=== PATIENT | female | born 1960 | race Caucasian/White ===

== ENCOUNTER 2016-08-26 11:48 | Inpatient (IN) | payer MEDICARE, OTHER ==
[~2016-08-26] VITALS: Ht 160 cm; Wt 68.0 kg
[2016-08-26 12:24] LABS: BASO % 1 % (0-3); EOS # 0.1 x10^3/uL (0.0-0.7); EOS % 2 % (0-3); HEMATOCRIT 40.6 % (36.0-47.0); HEMOGLOBIN 13.4 g/dL (12.0-15.5); LYMPH # 1.3 x10^3/uL (1.0-4.8); LYMPH % 26 % (24-48); MEAN CORPUSCULAR HEMOGLOBIN 28 pg (25-35); MEAN CORPUSCULAR HGB CONC 33 g/dL (31-37); MEAN CORPUSCULAR VOLUME 86 fL (79-100); MONO # 0.6 x10^3/uL (0.0-1.1); MONO % 11 % (0-9); NEUT % 60 % (31-73); PLATELET COUNT 204 x10^3/uL (140-400); RED BLOOD COUNT 4.73 x10^6/uL (3.50-5.40); RED CELL DISTRIBUTION WIDTH 13.1 % (11.5-14.5)
[2016-08-26 12:44] LABS: ALBUMIN 3.4 g/dL (3.4-5.0); ALBUMIN/GLOBULIN RATIO 0.8 (1.0-1.7); CALCIUM 8.7 mg/dL (8.5-10.1); CREATININE 0.9 mg/dL (0.6-1.0); GFR 64.5; POTASSIUM 3.8 mmol/L (3.5-5.1); TOTAL BILIRUBIN 0.4 mg/dL (0.2-1.0); TOTAL PROTEIN 7.7 g/dL (6.4-8.2)
--- NOTE | 2016-08-26 12:44 | PHYS DOC ---
Past History Past Medical History: Dementia Past Surgical History: No Surgical History, Alcohol Use: None Drug Use: None Adult General Chief Complaint Chief Complaint: PSYCH EVALUATION [facility] Patient is a 56 year old F who presents with increasing agitation with dementia. She has been taking all her medications. Her only recent medical history is that she had a tooth pulled 08/17/16. She has been rinsing her mouth but feels that she has had increasing pain where the tooth was pulled No other concerns at this time. History is limited due to cognitive function as well as difficulty with word finding. Both her mother and her daughter were present and contributed to her history Review of Systems Review of Systems Constitutional: Denies fever or chills [] Eyes: Denies change in visual acuity, redness, or eye pain [] HENT: Denies nasal congestion or sore throat [] Respiratory: Denies cough or shortness of breath [] Cardiovascular: No additional information not addressed in HPI [] GI: Denies abdominal pain, nausea, vomiting, bloody stools or diarrhea [] : Denies dysuria or hematuria [] Musculoskeletal: Denies back pain or joint pain [] Integument: Denies rash or skin lesions [] Neurologic: Denies headache, focal weakness or sensory changes [] Endocrine: Denies polyuria or polydipsia [] Family History Family History Reviewed Current Medications Current Medications reviewed Allergies Allergies Coded Allergies Type Severity Reaction Last Updated Verified No Known Drug Allergies 08/26/16 No Physical Exam Physical Exam Constitutional: Well developed, well nourished, no acute distress, non-toxic appearance. [] HENT: Normocephalic, atraumatic, oropharynx moist, no oral exudates, R lower posterior tooth socket mild erythema with TTP appearing to have mild infection Eyes: PERRLA, EOMI, conjunctiva normal, no discharge. [] Neck: Normal range of motion, no tenderness, supple, no stridor. [] Cardiovascular:Heart rate regular rhythm, no murmur [] Lungs & Thorax: Bilateral breath sounds clear to auscultation [] Abdomen: Bowel sounds normal, soft, no tenderness, no masses, no pulsatile masses. [] Skin: Warm, dry, no erythema, no rash. [] Back: No tenderness, no CVA tenderness. [] Extremities: No tenderness, no cyanosis, no clubbing, ROM intact, no edema. [] Neurologic: Alert and oriented X 3, normal motor function, normal sensory function, no focal deficits noted. However she occasionally has trouble with word finding. She seems to pronounce well but occasionally has nonsensical words Psychologic: Affect normal, judgement normal, mood normal. [] Current Patient Data Vital Signs Vital Signs Date Time Temp Pulse Resp B/P (MAP) Pulse Ox O2 Delivery O2 Flow Rate FiO2 08/26/16 11:48 98.2 76 18 98 Room Air Lab Results Laboratory Tests Test 08/26/16 12:12 White Blood Count 5.0 x10^3/uL (4.0-11.0) Red Blood Count 4.73 x10^6/uL (3.50-5.40) Hemoglobin 13.4 g/dL (12.0-15.5) Hematocrit 40.6 % (36.0-47.0) Mean Corpuscular Volume 86 fL (79-100) Mean Corpuscular Hemoglobin 28 pg (25-35) Mean Corpuscular Hemoglobin Concent 33 g/dL (31-37) Red Cell Distribution Width 13.1 % (11.5-14.5) Platelet Count 204 x10^3/uL (140-400) Neutrophils (%) (Auto) 60 % (31-73) Lymphocytes (%) (Auto) 26 % (24-48) Monocytes (%) (Auto) 11 % (0-9) H Eosinophils (%) (Auto) 2 % (0-3) Basophils (%) (Auto) 1 % (0-3) Neutrophils # (Auto) 3.0 x10^3uL (1.8-7.7) Lymphocytes # (Auto) 1.3 x10^3/uL (1.0-4.8) Monocytes # (Auto) 0.6 x10^3/uL (0.0-1.1) Eosinophils # (Auto) 0.1 x10^3/uL (0.0-0.7) Basophils # (Auto) 0.0 x10^3/uL (0.0-0.2) EKG EKG Interpreted by emergency department physician Rhythm: NSR Rate: 76 Ectopy: none Clinical Impression: NSR Course & Med Decision Making Course & Med Decision Making Pertinent Labs and Imaging studies reviewed. (See chart for details) [] Dragon Disclaimer Dragon Disclaimer This chart was dictated in whole or in part using Voice Recognition software in a busy, high-work load, and often noisy Emergency Department environment. It may contain unintended and wholly unrecognized errors or omissions. Departure Departure: Impression: Primary Impression: Medical clearance for psychiatric admission Additional Impression: Dental infection Disposition: 65 XFER TO PSYCH HOSP/UNIT Condition: STABLE Referrals: JESU CASTELLANOS MD (PCP) Additional Instructions: She was treated with augmentin in the ED for a possible oral infection after having had a tooth pulled Problem Qualifiers CARIE KENNEDY MD Aug 26, 2016 12:44
[2016-08-26 13:27] LABS: BACTERIA,URINE 0 /HPF (0-FEW); BILIRUBIN,URINE NEG (NEG); CLARITY,URINE CLOUDY; COLOR,URINE YELLOW; GLUCOSE,URINE NEG (NEG); NITRITE,URINE NEG (NEG); RBC,URINE RARE /HPF (0-2); SQUAMOUS EPITHELIAL CELL,UR OCC /LPF; UROBILINOGEN,URINE 1 mg/dL (0.2 mg/dL); WBC,URINE OCC /HPF (0-4)
[2016-08-26] MEDS ORDERED: AMOXICILLIN/K CLAV 875/125MG TABLET. PO ONE (14:10)
[2016-08-26] MEDS ORDERED: CYAN500L4 PO (14:11)
[2016-08-26] MEDS ORDERED: ESCITALOPRAM OX20 MG PO (14:11)
[2016-08-26] MEDS ORDERED: QUET50TA5 PO ×2 (14:11)
[2016-08-26] MEDS ORDERED: MAGNESIUM HYDROXIDE 2,400 MG/30 ML ORAL.SUSP. PO PRN (15:00)
[2016-08-26] MEDS ORDERED: ACETAMINOPHEN 325 MG TABLET PO PRN (15:00)
[2016-08-26] MEDS ORDERED: METHYL SALICYLATE/MENTHOL TOPICAL OINTMENT 29GM TUBE. TP PRN (15:00)
[2016-08-26] MEDS ORDERED: MAG HYDROX/AL HYDROX/SIMETH 30 ML ORAL.SUSP PO PRN (15:00)
[2016-08-26 15:13] VITALS: BP 133/71
--- NOTE | 2016-08-26 15:16 | EKG ---
[address] [address] Test Date: 2016-08-26 Test Time: 12:22:45 Pat Name: PACO DONNELLY Department: Room: Gender: F Agile Business Analyst: SARAH : 1960 Requested By: CARIE KENNEDY Order Number: [id number] Reading MD: Measurements Intervals [place] Rate: 76 P: 1 [place]: 122 QRS: 66 QRSD: 84 T: 42 QT: 364 QTc: 409 Interpretive Statements SINUS RHYTHM QRS(T) CONTOUR ABNORMALITY CANNOT RULE OUT ANTEROSEPTAL MYOCARDIAL DAMAGE CONSISTENT WITH INFERIOR INFARCT PROBABLY OLD RI6.01 Unconfirmed report No previous ECG available for comparison
--- NOTE | 2016-08-26 16:06 | PDOC2 ---
CONSULT Date of Admission DATE: 08/26/16 TIME: 15:57 Reason for Consult: hallucinating , combative crying refusing medication , anxious and agitated Referring Physician: Dr Dolan Chief Complaint hallucinatinating, combative Source: Caregiver Problem List Problems Medical Problems: (1) Dental infection Status: Acute (2) Medical clearance for psychiatric admission Status: Acute History of Present Illness The patient was diagnosed with dementia about 6 years ago , living with her mother who stated that she is hallucinating , combative crying refusing medication more anxious and agitated Cardiovascular: No pertinent hx Pulmonary: No pertinent hx GI: No pertinent hx Heme/Onc: No pertinent hx Hepatobiliary: No pertinent hx Psych: No pertinent hx Musculoskeletal: No pertinent hx Rheumatologic: No pertinent hx Infectious disease: No pertinent hx ENT: No pertinent hx Renal/: No pertinent hx Endocrine: No pertinent hx Dermatology: No pertinent hx Past Surgical History: Hysterectomy, Other (back surgery) Smoke: No ALCOHOL: none Drugs: None Lives: with Family Current Medications Current Medications Amoxicillin/ Clavulanate Potassium (Augmentin 875/ 125mg) 1 tab 1X ONCE PO Last administered on 08/26/16t 13:53; Start 08/26/16 at 14:10; Stop 08/26/16 at 14:12; Status DC Acetaminophen (Tylenol) 650 mg PRN Q6HRS PRN PO PAIN / TEMP; Start 08/26/16 at 15:00 Multi-Ingredient Ointment (Analgesic [place]) 1 damion PRN QID PRN TP MUSCLE PAIN; Start 08/26/16 at 15:00 Al Hydroxide/Mg Hydroxide (Mylanta Plus Xs) 15 ml PRN AFTMEALHC PRN PO DYSPEPSIA; Start 08/26/16 at 15:00 Magnesium Hydroxide (Milk Of Magnesia) 2,400 mg PRN QHS PRN PO CONSTIPATION; Start 08/26/16 at 15:00 Quetiapine Fumarate (SEROquel) 50 mg NOON PO ; Start 08/27/16 at 12:00 Quetiapine Fumarate (SEROquel) 75 mg HS PO ; Start 08/26/16 at 21:00 Cyanocobalamin (Vitamin B-12) 250 mcg DAILY PO ; Start 08/27/16 at 09:00 Escitalopram Oxalate (Lexapro) 20 mg DAILY PO ; Start 08/27/16 at 09:00 Active Scripts Active Reported B-12 (Cyanocobalamin (Vitamin B-12)) 500 Mcg Tab.rapdis 250 Mcg SL DAILY Escitalopram Oxalate 20 Mg Tablet 20 Mg PO DAILY Seroquel (Quetiapine Fumarate) 50 Mg Tablet 50 Mg PO NOON Seroquel (Quetiapine Fumarate) 50 Mg Tablet 75 Mg PO HS PRN Allergies: Coded Allergies: No Known Drug Allergies (Unverified , 08/26/16) General: Alert, No acute distress HEENT: Atraumatic, PERRLA, EOMI Lungs: Clear to auscultation Heart: Regular rate, Normal S1, Normal S2, No murmurs, Gallops Abdomen: Normal bowel sounds, No tenderness Extremities: No clubbing, No cyanosis, No edema Skin: No rashes Neuro: Normal gait Psych/Mental Status: Other (demented and depressed) VITALS Vital Signs Date Time Temp Pulse Resp B/P (MAP) Pulse Ox O2 Delivery O2 Flow Rate FiO2 08/26/16 15:13 98.9 84 18 133/71 (91) 98 Room Air Labs Laboratory Tests Test 08/26/16 12:12 08/26/16 13:00 White Blood Count 5.0 x10^3/uL (4.0-11.0) Red Blood Count 4.73 x10^6/uL (3.50-5.40) Hemoglobin 13.4 g/dL (12.0-15.5) Hematocrit 40.6 % (36.0-47.0) Mean Corpuscular Volume 86 fL (79-100) Mean Corpuscular Hemoglobin 28 pg (25-35) Mean Corpuscular Hemoglobin Concent 33 g/dL (31-37) Red Cell Distribution Width 13.1 % (11.5-14.5) Platelet Count 204 x10^3/uL (140-400) Neutrophils (%) (Auto) 60 % (31-73) Lymphocytes (%) (Auto) 26 % (24-48) Monocytes (%) (Auto) 11 % (0-9) Eosinophils (%) (Auto) 2 % (0-3) Basophils (%) (Auto) 1 % (0-3) Neutrophils # (Auto) 3.0 x10^3uL (1.8-7.7) Lymphocytes # (Auto) 1.3 x10^3/uL (1.0-4.8) Monocytes # (Auto) 0.6 x10^3/uL (0.0-1.1) Eosinophils # (Auto) 0.1 x10^3/uL (0.0-0.7) Basophils # (Auto) 0.0 x10^3/uL (0.0-0.2) Sodium Level 144 mmol/L (136-145) Potassium Level 3.8 mmol/L (3.5-5.1) Chloride Level 108 mmol/L (98-107) Carbon Dioxide Level 28 mmol/L (21-32) Anion Gap 8 (6-14) Blood Urea Nitrogen 13 mg/dL (7-20) Creatinine 0.9 mg/dL (0.6-1.0) Estimated GFR (Cockcroft-Gault) 64.5 BUN/Creatinine Ratio 14 (6-20) Glucose Level 77 mg/dL (70-99) Calcium Level 8.7 mg/dL (8.5-10.1) Magnesium Level 2.0 mg/dL (1.8-2.4) Total Bilirubin 0.4 mg/dL (0.2-1.0) Aspartate Amino Transf (AST/SGOT) 56 U/L (15-37) Alanine Aminotransferase (ALT/SGPT) 79 U/L (14-59) Alkaline Phosphatase 56 U/L (46-116) Total Protein 7.7 g/dL (6.4-8.2) Albumin 3.4 g/dL (3.4-5.0) Albumin/Globulin Ratio 0.8 (1.0-1.7) Urine Collection Type Unknown Urine Color Yellow Urine Clarity Cloudy Urine pH 6.0 Urine Specific [place] >=1.030 Urine Protein Neg (NEG-TRACE) Urine Glucose (UA) Neg mg/dL (NEG) Urine Ketones (Stick) Neg mg/dL (NEG) Urine Blood Neg (NEG) Urine Nitrite Neg (NEG) Urine Bilirubin Neg (NEG) Urine Urobilinogen Dipstick 1 mg/dL (0.2 mg/dL) Urine Leukocyte Esterase Neg (NEG) Urine RBC Rare /HPF (0-2) Urine WBC Occ /HPF (0-4) Urine Squamous Epithelial Cells Occ /LPF Urine Bacteria 0 /HPF (0-FEW) Urine Mucus Marked /LPF Assessment/Plan A 56 years old CF with Alzheimer disease who lives with her mother who has noted that she is hallucinating, combative crying refusing medication increasingly anxious and agitated Medically she is stable . In fact she has no medical problems . Her vitals are stable and all her lab works that I have reviewed are so far within normal range Problems: DELPHINE GRAHAM MD Aug 26, 2016 16:06
[2016-08-26] MEDS: QUEtiapine 50 MG TABLET. PO SCH (20:25)
[2016-08-27 05:41] VITALS: BP 110/76
[2016-08-27] MEDS: CYANOCOBALAMIN (VITAMIN B-12) 250 MCG TABLET PO SCH (08:02)
[2016-08-27] MEDS ORDERED: ESCITALOPRAM 20 MG TABLET. PO SCH (09:00)
[2016-08-27 09:33] LABS: BASO % 1 % (0-3); EOS # 0.1 x10^3/uL (0.0-0.7); EOS % 1 % (0-3); HEMATOCRIT 38.8 % (36.0-47.0); HEMOGLOBIN 12.8 g/dL (12.0-15.5); LYMPH # 1.5 x10^3/uL (1.0-4.8); LYMPH % 25 % (24-48); MEAN CORPUSCULAR HEMOGLOBIN 28 pg (25-35); MEAN CORPUSCULAR HGB CONC 33 g/dL (31-37); MEAN CORPUSCULAR VOLUME 86 fL (79-100); MONO # 0.7 x10^3/uL (0.0-1.1); MONO % 12 % (0-9); NEUT # 3.5 x10^3uL (1.8-7.7); NEUT % 61 % (31-73); PLATELET COUNT 196 x10^3/uL (140-400); RED BLOOD COUNT 4.55 x10^6/uL (3.50-5.40); WHITE BLOOD COUNT 5.8 x10^3/uL (4.0-11.0)
[2016-08-27 09:42] LABS: CALCIUM 8.8 mg/dL (8.5-10.1); GFR 57.1; POTASSIUM 3.7 mmol/L (3.5-5.1)
[2016-08-27] MEDS: QUEtiapine 50 MG TABLET. PO SCH ×2 (12:54→19:51)
[2016-08-27 14:30] LABS: THYROID STIM HORMONE (TSH) 0.43 uIU/mL (0.358-3.740)
[2016-08-27 16:06] VITALS: BP 105/73
[2016-08-27 18:09] LABS: T3 TOTAL 88 ng/dL (71-180); THYROXINE 6.1 ug/dL (4.5-12.0)
--- NOTE | 2016-08-27 20:11 | PDOC ---
Exam Mario Alberto Demential Exam: Mario Alberto Note: Please also refer to the separate dictated note~for this date of service dictated separately.~Patient seen individually. Discussed the patient with Nursing staff reviewed the chart.~Reviewed interim history and current functioning. Reviewed vital signs,~Labs/ Radiology~and current medications noted below. Continue current treatment with the changes noted in the dictated addendum note Assessment: Vital Signs: Vital Signs Date Time Temp Pulse Resp B/P (MAP) Pulse Ox O2 Delivery O2 Flow Rate FiO2 08/27/16 16:06 97.2 106 18 105/73 (84) 95 08/26/16 15:13 Room Air I&O Intake and Output 08/27/16 07:00 Intake Total 240 ml Balance 240 ml Intake Oral 240 ml Labs: Laboratory Tests Test 08/27/16 09:27 White Blood Count 5.8 x10^3/uL (4.0-11.0) Red Blood Count 4.55 x10^6/uL (3.50-5.40) Hemoglobin 12.8 g/dL (12.0-15.5) Hematocrit 38.8 % (36.0-47.0) Mean Corpuscular Volume 86 fL (79-100) Mean Corpuscular Hemoglobin 28 pg (25-35) Mean Corpuscular Hemoglobin Concent 33 g/dL (31-37) Red Cell Distribution Width 13.0 % (11.5-14.5) Platelet Count 196 x10^3/uL (140-400) Neutrophils (%) (Auto) 61 % (31-73) Lymphocytes (%) (Auto) 25 % (24-48) Monocytes (%) (Auto) 12 % (0-9) H Eosinophils (%) (Auto) 1 % (0-3) Basophils (%) (Auto) 1 % (0-3) Neutrophils # (Auto) 3.5 x10^3uL (1.8-7.7) Lymphocytes # (Auto) 1.5 x10^3/uL (1.0-4.8) Monocytes # (Auto) 0.7 x10^3/uL (0.0-1.1) Eosinophils # (Auto) 0.1 x10^3/uL (0.0-0.7) Basophils # (Auto) 0.0 x10^3/uL (0.0-0.2) Sodium Level 142 mmol/L (136-145) Potassium Level 3.7 mmol/L (3.5-5.1) Chloride Level 106 mmol/L (98-107) Carbon Dioxide Level 26 mmol/L (21-32) Anion Gap 10 (6-14) Blood Urea Nitrogen 13 mg/dL (7-20) Creatinine 1.0 mg/dL (0.6-1.0) Estimated GFR (Cockcroft-Gault) 57.1 Glucose Level 111 mg/dL (70-99) H Calcium Level 8.8 mg/dL (8.5-10.1) Current Medications: Meds: Current Medications Amoxicillin/ Clavulanate Potassium (Augmentin 875/ 125mg) 1 tab 1X ONCE PO Last administered on 08/26/16 13:53; Start 08/26/16 at 14:10; Stop 08/26/16 at 14:12; Status DC Acetaminophen (Tylenol) 650 mg PRN Q6HRS PRN PO PAIN / TEMP Last administered on 08/27/16 08:27; Start 08/26/16 at 15:00 Multi-Ingredient Ointment (Analgesic [place]) 1 damion PRN QID PRN TP MUSCLE PAIN; Start 08/26/16 at 15:00 Al Hydroxide/Mg Hydroxide (Mylanta Plus Xs) 15 ml PRN AFTMEALHC PRN PO DYSPEPSIA; Start 08/26/16 at 15:00 Magnesium Hydroxide (Milk Of Magnesia) 2,400 mg PRN QHS PRN PO CONSTIPATION Last administered on 08/26/16 20:32; Start 08/26/16 at 15:00 Quetiapine Fumarate (SEROquel) 50 mg NOON PO Last administered on 08/27/16 12: 54; Start 08/27/16 at 12:00 Quetiapine Fumarate (SEROquel) 75 mg HS PO Last administered on 08/27/16 19:51 ; Start 08/26/16 at 21:00 Cyanocobalamin (Vitamin B-12) 250 mcg DAILY PO Last administered on 08/27/16 08:02; Start 08/27/16 at 09:00 Escitalopram Oxalate (Lexapro) 20 mg DAILY PO Last administered on 08/27/16 08 :02; Start 7/20/17 at 09:00 Active Scripts Active Reported B-12 (Cyanocobalamin (Vitamin B-12)) 500 Mcg Tab.rapdis 250 Mcg SL DAILY Escitalopram Oxalate 20 Mg Tablet 20 Mg PO DAILY Seroquel (Quetiapine Fumarate) 50 Mg Tablet 50 Mg PO NOON Seroquel (Quetiapine Fumarate) 50 Mg Tablet 75 Mg PO HS Diagnosis: Problems: (1) Medical clearance for psychiatric admission ADELA RHODES MD Aug 27, 2016 20:11
--- NOTE | 2016-08-27 21:53 | HP ---
ADMIT DATE: 08/26/2016 This is a late entry for date of service 08/26/2016 IDENTIFYING DATA: The patient is a 56-year-old female referred to us from [facility] and admitted from her home where she lives with her mother, Ansley. The patient has been going to the [facility] for some time, but more recently has been hallucinating, combative, crying with increased aggression with cares, resistive to medications, increased anxiousness and agitation. Behaviors have failed outpatient psychiatric intervention at the [facility] and she is referred for inpatient psychiatric stabilization. CHIEF COMPLAINT: "No." The patient is not very verbal, seemed oblivious of her surroundings. HISTORY OF PRESENT ILLNESS: The patient has a history of dementia, Alzheimer's and possibly frontotemporal. There is no significant family history of Alzheimer disease, however. She has been living at home with her mother and outpatient treatment has been at the [facility] as noted above. As noted, she has had increased hallucinations, has been combative, crying, increased aggression with cares. Resistive with medications. She has had some sleep and appetite changes. No clear symptoms of bipolar disorder, suicidal or homicidal ideation. PAST PSYCHIATRIC HISTORY: As noted above. DRUG ALLERGIES: Negative CODE STATUS: Full. DIET: She is on a regular diet. CURRENT PSYCHOTROPICS: Lexapro 20 mg a day, Seroquel 75 mg at bedtime and 50 mg in the afternoon. MEDICAL HISTORY: UA has been negative. PET scan done at [facility] was reflective of the above diagnosis. SURGICAL HISTORY: Positive for back surgery. FAMILY HISTORY: Noncontributory other than her grandmother had memory problems, but not until her rather late age. History of depression in the family. SOCIAL HISTORY: The patient resides at home with her mother. No alcohol or drug abuse history is noted. REVIEW OF SYSTEMS: No CV, , eye, ENT, pulmonary, integumentary system symptoms on review. Reliability poor due to her dementia. MENTAL STATUS EXAMINATION: The patient was seen individually evening of 08/26/2016. She is oriented to herself. Insight, judgment, recent and remote memory, attention, concentration, fund of knowledge poor, consistent with her diagnosis. This note covers elements not covered in my initial note. IMPRESSION: Major neurocognitive disorder, probably Alzheimer's, frontotemporal with delusion, depression, behavioral disturbance; anxiety disorder, unspecified; impulse control disorder, unspecified. PLAN: Admit to the geropsychiatry unit at [facility]. I will see the patient daily individually from a psychiatric standpoint. Observe the patient's baseline and then adjust her psychotropics. Consideration will be given to Depakote as a mood stabilizer and perhaps changing the Lexapro to an SNRI agent, perhaps Cymbalta. Seroquel should be continued for now. We will consider BuSpar if anxiety symptoms are problematic despite the above. We will request medical followup with Dr. Jaime/Dr. Rosales. ADELA RHODES MD DR: ELIZABETH/nts JOB#: [id number] / [id number]
[2016-08-28 00:10] LABS: HEMOGLOBIN A1C 5.3 % (4.8-5.6)
--- NOTE | 2016-08-28 02:11 | ACF ---
Admit Criteria Forms Admit Criteria Forms Admit Criteria Forms PSYCHIATRIC DISORDERS Clinical Indications for Inpatient Care (Place 'X' for any and all applicable criteria): Ongoing inpatient care may be needed for 1 or more of the following(1)(2)(3)(4)( 6)(7)(8): [ ]I. Danger to self or others not manageable at lower level of care. [ ]II. Grave disability (eg, inability to perform self care necessary at lower level of care) [ ]III. Agitation or inappropriate behavior interfering with care for primary condition (eg, attempting to discontinue lines or drains prematurely, unable to cooperate with respiratory care) [X]IV. Severe disability or disorder indicated by ALL of the following: [X]a) Severe behavioral health disorder-related symptoms or condition indicated by 1 or more of the following: [X]i) Severe problem with cognition, memory, judgment, or impulse control [X]ii) Severe clinical manifestations (eg, hallucinations, delusions, other acute psychotic symptoms, ben, extreme agitation or anxiety) [X]b) Patient management at lower level of care is not feasible until acute intervention or modification is initiated. Extended stay beyond goal length of stay for the primary condition may be needed untilALLof the following are present(1)(2)(3)(4)(722)(23): [ ]a) Danger to self or others is absent or manageable at lower level of care [ ]b) Behavior crisis management, including physical or chemical restraints, is required and is not available at a lower level of care. [ ]c) Behavioral symptoms (e.g., agitation, somnolence, inappropriate behavior) are present, and are not manageable at a lower level of care. [ ]d) Patient cannot understand follow-up treatment and crisis plan. [ ]e) Provider and supports are sufficiently available at lower level of care. [ ]f) Patient can participate (e.g., verify absence of plan for harm) and is in needed of monitoring. The original [facility] [employer] content created by [employer] [facility] [employer] Fourth [employer] has been revised. The portions of the content which have been revised are identified through the use of italic text, and [facility] [employer] Fourth Act has neither reviewed nor approved the modified material. All other unmodified content is copyright [facility] [employer]. Please see references footnoted in the original [facility] edition 2014 BEL HOLLEY Aug 28, 2016 02:11
[2016-08-28 06:32] VITALS: BP 113/69
[2016-08-28] MEDS: CYANOCOBALAMIN (VITAMIN B-12) 250 MCG TABLET PO SCH (08:35)
[2016-08-28] MEDS ORDERED: ESCITALOPRAM 10 MG TABLET. PO SCH (09:00)
[2016-08-28] MEDS: QUEtiapine 50 MG TABLET. PO SCH ×2 (12:00→19:49)
[2016-08-28 15:55] VITALS: BP 110/73
--- NOTE | 2016-08-28 22:02 | PDOC ---
Exam Mario Alberto Demential Exam: Mario Alberto Note: Please also refer to the separate dictated note~for this date of service dictated separately.~Patient seen individually. Discussed the patient with Nursing staff reviewed the chart.~Reviewed interim history and current functioning. Reviewed vital signs,~Labs/ Radiology~and current medications noted below. Continue current treatment with the changes noted in the dictated addendum note Assessment: Vital Signs: Vital Signs Date Time Temp Pulse Resp B/P (MAP) Pulse Ox O2 Delivery O2 Flow Rate FiO2 08/28/16 15:55 98.6 81 19 110/73 (85) 96 08/26/16 15:13 Room Air I&O Intake and Output 08/28/16 07:00 Intake Total 960 ml Balance 960 ml Intake Oral 960 ml # Bowel Movements 1 Current Medications: Meds: Current Medications Amoxicillin/ Clavulanate Potassium (Augmentin 875/ 125mg) 1 tab 1X ONCE PO Last administered on 08/26/16 13:53; Start 08/26/16 at 14:10; Stop 08/26/16 at 14:12; Status DC Acetaminophen (Tylenol) 650 mg PRN Q6HRS PRN PO PAIN / TEMP Last administered on 08/27/16 08:27; Start 08/26/16 at 15:00 Multi-Ingredient Ointment (Analgesic [place]) 1 damion PRN QID PRN TP MUSCLE PAIN; Start 08/26/16 at 15:00 Al Hydroxide/Mg Hydroxide (Mylanta Plus Xs) 15 ml PRN AFTMEALHC PRN PO DYSPEPSIA; Start 08/26/16 at 15:00 Magnesium Hydroxide (Milk Of Magnesia) 2,400 mg PRN QHS PRN PO CONSTIPATION Last administered on 08/26/16 20:32; Start 08/26/16 at 15:00 Quetiapine Fumarate (SEROquel) 50 mg NOON PO Last administered on 08/28/16 12: 00; Start 08/27/16 at 12:00 Quetiapine Fumarate (SEROquel) 75 mg HS PO Last administered on 08/28/16 19:49 ; Start 08/26/16 at 21:00 Cyanocobalamin (Vitamin B-12) 250 mcg DAILY PO Last administered on 08/28/16 08:35; Start 08/27/16 at 09:00 Escitalopram Oxalate (Lexapro) 20 mg DAILY PO Last administered on 08/27/16 08 :02; Start 08/27/16 at 09:00; Stop 08/27/16 at 22:31; Status DC Escitalopram Oxalate (Lexapro) 30 mg DAILY PO Last administered on 08/28/16 08 :36; Start 08/28/16 at 09:00; Stop 08/28/16 at 09:18; Status DC Escitalopram Oxalate (Lexapro) 60 mg DAILY PO ; Start 09/02/16 at 09:00; Status Cancel Duloxetine HCl (Cymbalta) 30 mg DAILY PO ; Start 08/29/16 at 09:00; Stop at 09:01 Duloxetine HCl (Cymbalta) 60 mg DAILY PO ; Start 09/03/16 at 09:00 Active Scripts Active Reported B-12 (Cyanocobalamin (Vitamin B-12)) 500 Mcg Tab.rapdis 250 Mcg SL DAILY Escitalopram Oxalate 20 Mg Tablet 20 Mg PO DAILY Seroquel (Quetiapine Fumarate) 50 Mg Tablet 50 Mg PO NOON Seroquel (Quetiapine Fumarate) 50 Mg Tablet 75 Mg PO HS Diagnosis: Problems: (1) Medical clearance for psychiatric admission ADELA RHODES MD Aug 28, 2016 22:02
--- NOTE | 2016-08-28 22:36 | PN ---
DATE: 08/27/2016 PSYCHIATRIC PROGRESS NOTE SUBJECTIVE: The patient was seen on rounds at length the evening of 08/27/2016 and staffed at a treatment team meeting with the entire team the morning of 08/27/2016 and the patient's mother, Ansley attended the conference. We reviewed the patient's history, diagnosis, current medications. Sleeping about 3-1/2 to 4 hours. Appetite about 75%. Compliant with medication, running the hallways, likes to dance per activity therapy report. Reviewed records from [facility]. Reviewed the patient's history with her mother. She remains somewhat labile in her mood, but redirectable. REVIEW OF SYSTEMS: No CV, , eye, ENT or pulmonary system symptoms on review. Reliability poor. MENTAL STATUS EXAM: Oriented to herself. Insight, judgment, recent and remote memory, attention, concentration, fund of knowledge poor, consistent with her diagnosis mentioned in my initial note. PLAN: Continue Lexapro 20 mg a day, Seroquel 75 mg at bedtime and 50 mg in the afternoon. Consider Depakote as a mood stabilizer. Consider changing Lexapro to Cymbalta and in fact, we will go ahead and do this 30 mg a day for 5 days and then 60 mg a day thereafter. Again consider Depakote as a mood stabilizer. MAN Marquita RHODES MD DR: ELIZABETH/wellington JOB#: [id number] / [id number]
[2016-08-29 05:58] VITALS: BP 126/65
[2016-08-29] MEDS: CYANOCOBALAMIN (VITAMIN B-12) 250 MCG TABLET PO SCH (08:09)
[2016-08-29] MEDS: DULoxetine HCL 30 MG CAPSULE.DR PO SCH (08:10)
--- NOTE | 2016-08-29 09:54 | PN ---
DATE: 08/28/2016 PSYCHIATRIC PROGRESS NOTE This late entry of 08/28/2016 covers elements not covered in my initial note. SUBJECTIVE: The patient was seen individually by myself, evening of 08/28/2016. The patient remains confused, wandering the hallways, not running as she was the day before. Speech is word salad per nursing report. I received a call from the pharmacist to clarify her psychotropics and the change from Lexapro to Cymbalta 30 mg a day, increasing to 60 mg a day. REVIEW OF SYSTEMS: No CV, , pulmonary, eye, ENT system symptoms on review. Reliability poor. MENTAL STATUS EXAM: Oriented to herself. Insight, judgment, recent and remote memory, attention, concentration, fund of knowledge poor, consistent with her diagnosis mentioned in my initial note. IMPRESSION: Major neurocognitive disorder, Alzheimer, vascular with depression, delusion and behavioral disturbance; anxiety disorder, unspecified; impulse control disorder, unspecified. PLAN: Continue current psychotropics, Seroquel and Cymbalta. Consider Depakote as a mood stabilizer. Adjust further as clinically indicated. MAN Marquita RHODES MD DR: ELIZABETH/wellington JOB#: [id number] / [id number]
--- NOTE | 2016-08-29 11:51 | PDOC ---
Exam Mario Alberto Demential Exam: Mario Alberto Note: Please also refer to the separate dictated note~for this date of service dictated separately.~Patient seen individually. Discussed the patient with Nursing staff reviewed the chart.~Reviewed interim history and current functioning. Reviewed vital signs,~Labs/ Radiology~and current medications noted below. Continue current treatment with the changes noted in the dictated addendum note Assessment: Vital Signs: Vital Signs Date Time Temp Pulse Resp B/P (MAP) Pulse Ox O2 Delivery O2 Flow Rate FiO2 08/29/16 05:58 98.2 59 18 126/65 (85) 94 08/26/16 15:13 Room Air I&O Intake and Output 08/29/16 07:00 Intake Total 360 ml Balance 360 ml Intake Oral 360 ml Current Medications: Meds: Current Medications Amoxicillin/ Clavulanate Potassium (Augmentin 875/ 125mg) 1 tab 1X ONCE PO Last administered on 08/26/16 13:53; Start 08/26/16 at 14:10; Stop 08/26/16 at 14:12; Status DC Acetaminophen (Tylenol) 650 mg PRN Q6HRS PRN PO PAIN / TEMP Last administered on 08/27/16 08:27; Start 08/26/16 at 15:00 Multi-Ingredient Ointment (Analgesic [place]) 1 damion PRN QID PRN TP MUSCLE PAIN; Start 08/26/16 at 15:00 Al Hydroxide/Mg Hydroxide (Mylanta Plus Xs) 15 ml PRN AFTMEALHC PRN PO DYSPEPSIA; Start 08/26/16 at 15:00 Magnesium Hydroxide (Milk Of Magnesia) 2,400 mg PRN QHS PRN PO CONSTIPATION Last administered on 08/26/16 20:32; Start 08/26/16 at 15:00 Quetiapine Fumarate (SEROquel) 50 mg NOON PO Last administered on 08/28/16 12: 00; Start 08/27/16 at 12:00 Quetiapine Fumarate (SEROquel) 75 mg HS PO Last administered on 08/28/16 19:49 ; Start 08/26/16 at 21:00 Cyanocobalamin (Vitamin B-12) 250 mcg DAILY PO Last administered on 08/29/16 08:09; Start 08/27/16 at 09:00 Escitalopram Oxalate (Lexapro) 20 mg DAILY PO Last administered on 08/27/16 08 :02; Start 08/27/16 at 09:00; Stop 08/27/16 at 22:31; Status DC Escitalopram Oxalate (Lexapro) 30 mg DAILY PO Last administered on 08/28/16 08 :36; Start 08/28/16 at 09:00; Stop 08/28/16 at 09:18; Status DC Escitalopram Oxalate (Lexapro) 60 mg DAILY PO ; Start 09/02/16 at 09:00; Status Cancel Duloxetine HCl (Cymbalta) 30 mg DAILY PO Last administered on 08/29/16 08:10; Start 08/29/16 at 09:00; Stop 09/02/16 at 09:01 Duloxetine HCl (Cymbalta) 60 mg DAILY PO ; Start 09/03/16 at 09:00 Active Scripts Active Reported B-12 (Cyanocobalamin (Vitamin B-12)) 500 Mcg Tab.rapdis 250 Mcg SL DAILY Escitalopram Oxalate 20 Mg Tablet 20 Mg PO DAILY Seroquel (Quetiapine Fumarate) 50 Mg Tablet 50 Mg PO NOON Seroquel (Quetiapine Fumarate) 50 Mg Tablet 75 Mg PO HS Diagnosis: Problems: (1) Medical clearance for psychiatric admission ADELA RHODES MD Aug 29, 2016 11:51
[2016-08-29] MEDS: QUEtiapine 50 MG TABLET. PO SCH ×2 (13:42→19:59)
[2016-08-29 15:35] VITALS: BP 114/75
[2016-08-29] MEDS ORDERED: PENICILLIN V K PO SCH (18:00)
[2016-08-29] MEDS ORDERED: HYDROcodone/APAP 5/325MG 1 TAB TABLET PO PRN (18:00)
[2016-08-29] MEDS: HYDROcodone/APAP 5/325MG 1 TAB TABLET PO SCH (20:01)
[2016-08-30 06:05] VITALS: BP 108/61
[2016-08-30] MEDS: DULoxetine HCL 30 MG CAPSULE.DR PO SCH ×2 (09:00→09:48)
[2016-08-30] MEDS: PENICILLIN V K 250 MG TABLET. PO SCH ×6 (09:00→20:49)
[2016-08-30] MEDS: HYDROcodone/APAP 5/325MG 1 TAB TABLET PO SCH ×3 (09:00→20:50)
[2016-08-30] MEDS: CYANOCOBALAMIN (VITAMIN B-12) 250 MCG TABLET PO SCH ×2 (09:00→09:48)
[2016-08-30] MEDS: QUEtiapine 50 MG TABLET. PO SCH ×2 (12:17→20:50)
[2016-08-30 16:19] VITALS: BP 140/84
--- NOTE | 2016-08-30 19:59 | PDOC ---
Exam Mario Alberto Demential Exam: Mario Alberto Note: Please also refer to the separate dictated note~for this date of service dictated separately.~Patient seen individually. Discussed the patient with Nursing staff reviewed the chart.~Reviewed interim history and current functioning. Reviewed vital signs,~Labs/ Radiology~and current medications noted below. Continue current treatment with the changes noted in the dictated addendum note Assessment: Vital Signs: Vital Signs Date Time Temp Pulse Resp B/P (MAP) Pulse Ox O2 Delivery O2 Flow Rate FiO2 08/30/16 16:19 98.4 101 20 140/84 (102) 98 Room Air I&O Intake and Output 08/30/16 07:00 Intake Total 600 ml Balance 600 ml Intake Oral 600 ml Current Medications: Meds: Current Medications Amoxicillin/ Clavulanate Potassium (Augmentin 875/ 125mg) 1 tab 1X ONCE PO Last administered on 08/26/16 13:53; Start 08/26/16 at 14:10; Stop 08/26/16 at 14:12; Status DC Acetaminophen (Tylenol) 650 mg PRN Q6HRS PRN PO PAIN / TEMP Last administered on 08/27/16 08:27; Start 08/26/16 at 15:00 Multi-Ingredient Ointment (Analgesic [place]) 1 damion PRN QID PRN TP MUSCLE PAIN; Start 08/26/16 at 15:00 Al Hydroxide/Mg Hydroxide (Mylanta Plus Xs) 15 ml PRN AFTMEALHC PRN PO DYSPEPSIA; Start 08/26/16 at 15:00 Magnesium Hydroxide (Milk Of Magnesia) 2,400 mg PRN QHS PRN PO CONSTIPATION Last administered on 08/26/16 20:32; Start 08/26/16 at 15:00 Quetiapine Fumarate (SEROquel) 50 mg NOON PO Last administered on 08/30/16 12: 17; Start 08/27/16 at 12:00 Quetiapine Fumarate (SEROquel) 75 mg HS PO Last administered on 08/29/16 19:59 ; Start 08/26/16 at 21:00 Cyanocobalamin (Vitamin B-12) 250 mcg DAILY PO Last administered on 08/29/16 08:09; Start 08/27/16 at 09:00 Escitalopram Oxalate (Lexapro) 20 mg DAILY PO Last administered on 08/27/16 08 :02; Start 08/27/16 at 09:00; Stop 08/27/16 at 22:31; Status DC Escitalopram Oxalate (Lexapro) 30 mg DAILY PO Last administered on 08/28/16 08 :36; Start 08/28/16 at 09:00; Stop 08/28/16 at 09:18; Status DC Escitalopram Oxalate (Lexapro) 60 mg DAILY PO ; Start 09/02/16 at 09:00; Status Cancel Duloxetine HCl (Cymbalta) 30 mg DAILY PO Last administered on 08/29/16 08:10; Start 08/29/16 at 09:00; Stop 09/02/16 at 09:01 Duloxetine HCl (Cymbalta) 60 mg DAILY PO ; Start 09/03/16 at 09:00 Penicillin V Potassium (Veetid) 500 mg Q6HRS PO ; Start 08/29/16 at 18:00; Stop 08/29/16 at 23:16; Status DC Acetaminophen/ Hydrocodone Bitart (Lortab 5/325) 1 tab PRN Q6HRS PRN PO PAIN; Start 08/29/16 at 18:00; Stop 08/29/16 at 21:00; Status DC Acetaminophen/ Hydrocodone Bitart (Lortab 5/325) 1 tab BID PO Last administered on 08/29/16 20:01; Start 08/29/16 at 21:00 Penicillin V Potassium (Veetid) 500 mg [id number] PO Last administered on 18:04; Start 08/30/16 at 09:00 Olanzapine (ZyPREXA ZYDIS) 2.5 mg PRN Q2HR PRN PO PSYCHOSIS Last administered on 08/30/16 15:44; Start 08/30/16 at 15:45 Active Scripts Active Reported B-12 (Cyanocobalamin (Vitamin B-12)) 500 Mcg Tab.rapdis 250 Mcg SL DAILY Escitalopram Oxalate 20 Mg Tablet 20 Mg PO DAILY Seroquel (Quetiapine Fumarate) 50 Mg Tablet 50 Mg PO NOON Seroquel (Quetiapine Fumarate) 50 Mg Tablet 75 Mg PO HS Diagnosis: Problems: (1) Medical clearance for psychiatric admission ADELA RHODES MD Aug 30, 2016 19:59
--- NOTE | 2016-08-30 22:55 | PN ---
DATE: 08/29/2016 This is a late entry for 08/29/2016, covers elements not covered in my initial note. SUBJECTIVE: The patient slept 5-1/4 hours previous night. Met with her the evening of 08/29/2016. She takes her medications, tearful at times. Mother and sister visited, and when they were leaving, she was tearful. REVIEW OF SYSTEMS: Positive for tooth ache. She is on antibiotics per Dr. Rosales for this. No CV, , pulmonary, eye system symptoms on review. Reliability poor. MENTAL STATUS EXAM: Oriented to herself. Insight, judgment, recent and remote memory, attention, concentration, fund of knowledge poor, consistent with her diagnosis mentioned in my initial note. PLAN: Continue Cymbalta and increasing to 60 mg a day, Seroquel 50 mg at noon, 75 at bedtime. Adjust further as clinically indicated. MAN Marquita RHODES MD DR: ELIZABETH/wellington JOB#: [id number] / [id number]
[2016-08-31 06:36] VITALS: BP 116/74
[2016-08-31] MEDS: PENICILLIN V K 250 MG TABLET. PO SCH ×4 (08:59→20:02)
[2016-08-31] MEDS: DULoxetine HCL 30 MG CAPSULE.DR PO SCH (08:59)
[2016-08-31] MEDS: CYANOCOBALAMIN (VITAMIN B-12) 250 MCG TABLET PO SCH (08:59)
[2016-08-31] MEDS: HYDROcodone/APAP 5/325MG 1 TAB TABLET PO SCH ×2 (09:00→20:01)
[2016-08-31] MEDS: QUEtiapine 50 MG TABLET. PO SCH ×2 (12:14→20:01)
[2016-08-31 16:37] VITALS: BP 135/76
[2016-08-31] MEDS ORDERED: traZODone 50 MG TABLET. PO PRN (18:45)
--- NOTE | 2016-08-31 19:52 | PDOC ---
Exam Mario Alberto Demential Exam: Mario Alberto Note: Please also refer to the separate dictated note~for this date of service dictated separately.~Patient seen individually. Discussed the patient with Nursing staff reviewed the chart.~Reviewed interim history and current functioning. Reviewed vital signs,~Labs/ Radiology~and current medications noted below. Continue current treatment with the changes noted in the dictated addendum note Assessment: Vital Signs: Vital Signs Date Time Temp Pulse Resp B/P (MAP) Pulse Ox O2 Delivery O2 Flow Rate FiO2 08/31/16 16:37 97.7 92 20 135/76 (95) 99 Room Air I&O Intake and Output 08/31/16 07:00 Intake Total 140 ml Balance 140 ml Intake Oral 140 ml Current Medications: Meds: Current Medications Amoxicillin/ Clavulanate Potassium (Augmentin 875/ 125mg) 1 tab 1X ONCE PO Last administered on 08/26/16 13:53; Start 08/26/16 at 14:10; Stop 08/26/16 at 14:12; Status DC Acetaminophen (Tylenol) 650 mg PRN Q6HRS PRN PO PAIN / TEMP Last administered on 08/27/16 08:27; Start 08/26/16 at 15:00 Multi-Ingredient Ointment (Analgesic [place]) 1 damion PRN QID PRN TP MUSCLE PAIN; Start 08/26/16 at 15:00 Al Hydroxide/Mg Hydroxide (Mylanta Plus Xs) 15 ml PRN AFTMEALHC PRN PO DYSPEPSIA; Start 08/26/16 at 15:00 Magnesium Hydroxide (Milk Of Magnesia) 2,400 mg PRN QHS PRN PO CONSTIPATION Last administered on 08/26/16 20:32; Start 08/26/16 at 15:00 Quetiapine Fumarate (SEROquel) 50 mg NOON PO Last administered on 08/31/16 12: 14; Start 08/27/16 at 12:00 Quetiapine Fumarate (SEROquel) 75 mg HS PO Last administered on 08/30/16 20:50 ; Start 08/26/16 at 21:00 Cyanocobalamin (Vitamin B-12) 250 mcg DAILY PO Last administered on 08/31/16 08:59; Start 08/27/16 at 09:00 Escitalopram Oxalate (Lexapro) 20 mg DAILY PO Last administered on 08/27/16 08 :02; Start 08/27/16 at 09:00; Stop 08/27/16 at 22:31; Status DC Escitalopram Oxalate (Lexapro) 30 mg DAILY PO Last administered on 08/28/16 08 :36; Start 08/28/16 at 09:00; Stop 08/28/16 at 09:18; Status DC Escitalopram Oxalate (Lexapro) 60 mg DAILY PO ; Start 09/02/16 at 09:00; Status Cancel Duloxetine HCl (Cymbalta) 30 mg DAILY PO Last administered on 08/31/16 08:59; Start 08/29/16 at 09:00; Stop 09/02/16 at 09:01 Duloxetine HCl (Cymbalta) 60 mg DAILY PO ; Start 09/03/16 at 09:00 Penicillin V Potassium (Veetid) 500 mg Q6HRS PO ; Start 08/29/16 at 18:00; Stop 08/29/16 at 23:16; Status DC Acetaminophen/ Hydrocodone Bitart (Lortab 5/325) 1 tab PRN Q6HRS PRN PO PAIN; Start 08/29/16 at 18:00; Stop 08/29/16 at 21:00; Status DC Acetaminophen/ Hydrocodone Bitart (Lortab 5/325) 1 tab BID PO Last administered on 08/31/16 09:00; Start 08/29/16 at 21:00 Penicillin V Potassium (Veetid) 500 mg [id number] PO Last administered on 17:22; Start 08/30/16 at 09:00 Olanzapine (ZyPREXA ZYDIS) 2.5 mg PRN Q2HR PRN PO PSYCHOSIS Last administered on 08/30/16 15:44; Start 08/30/16 at 15:45 Trazodone HCl (Desyrel) 50 mg QHS PO ; Start 08/31/16 at 21:00 Trazodone HCl (Desyrel) 50 mg PRN QHS PRN PO INSOMNIA; Start 08/31/16 at 18:45 Active Scripts Active Reported B-12 (Cyanocobalamin (Vitamin B-12)) 500 Mcg Tab.rapdis 250 Mcg SL DAILY Escitalopram Oxalate 20 Mg Tablet 20 Mg PO DAILY Seroquel (Quetiapine Fumarate) 50 Mg Tablet 50 Mg PO NOON Seroquel (Quetiapine Fumarate) 50 Mg Tablet 75 Mg PO HS Diagnosis: Problems: (1) Medical clearance for psychiatric admission ADELA RHODES MD Aug 31, 2016 19:51
[2016-08-31] MEDS ORDERED: traZODone 50 MG TABLET. PO SCH (21:00)
--- NOTE | 2016-09-01 05:19 | PN ---
DATE: 08/30/2016 This late entry 08/30/2016 covers elements not covered in my initial note. The patient has had a difficult day. Staff had paged me as an emergency earlier in the day, the patient was agitated, wandering resistive, received Zyprexa p.r.n. I met with her in her room the evening of 08/30/2016. REVIEW OF SYSTEMS: No CV, , pulmonary, eye, ENT system symptoms on review. Reliability poor. MENTAL STATUS EXAM: Oriented to herself. Insight, judgment, recent and remote memory, attention, concentration, fund of knowledge poor, consistent with her diagnosis mentioned in my initial note. IMPRESSION: Major neurocognitive disorder, frontotemporal Alzheimer's with delusion, depression, behavioral disturbance. Rest unchanged. PLAN: Continue gradually increasing Cymbalta to 60 mg a day, Seroquel 75 mg at bedtime, 50 mg at noon, Zyprexa p.r.n. Adjust further as clinically indicated. ADELA RHODES MD DR: ELIZABETH/wellington JOB#: [id number] / [id number]
--- NOTE | 2016-09-01 05:52 | ED.ADGEN ---
Past History Past Medical History: Dementia Past Surgical History: No Surgical History, Alcohol Use: None Drug Use: None Adult General HPI HPI Patient is a [age] year old [sex] who presents with [] Current Medications Current Medications Current Medications Medications (Trade) Dose Ordered Sig/Frankie Start Time Stop Time Status Last Admin Dose Admin Amoxicillin/ Clavulanate Potassium (Augmentin 875/ 125mg) 1 tab 1X ONCE 08/26/16 14:10 08/26/16 14:12 DC 08/26/16 13:53 1 TAB Allergies Allergies Allergies Coded Allergies Type Severity Reaction Last Updated Verified No Known Drug Allergies 08/26/16 No Current Patient Data Vital Signs Vital Signs Date Time Temp Pulse Resp B/P (MAP) Pulse Ox O2 Delivery O2 Flow Rate FiO2 08/26/16 13:37 68 18 116/61 (79) 98 Room Air 08/26/16 11:48 98.2 Lab Results Laboratory Tests Test 08/26/16 12:12 08/26/16 13:00 White Blood Count 5.0 x10^3/uL (4.0-11.0) Red Blood Count 4.73 x10^6/uL (3.50-5.40) Hemoglobin 13.4 g/dL (12.0-15.5) Hematocrit 40.6 % (36.0-47.0) Mean Corpuscular Volume 86 fL (79-100) Mean Corpuscular Hemoglobin 28 pg (25-35) Mean Corpuscular Hemoglobin Concent 33 g/dL (31-37) Red Cell Distribution Width 13.1 % (11.5-14.5) Platelet Count 204 x10^3/uL (140-400) Neutrophils (%) (Auto) 60 % (31-73) Lymphocytes (%) (Auto) 26 % (24-48) Monocytes (%) (Auto) 11 % (0-9) H Eosinophils (%) (Auto) 2 % (0-3) Basophils (%) (Auto) 1 % (0-3) Neutrophils # (Auto) 3.0 x10^3uL (1.8-7.7) Lymphocytes # (Auto) 1.3 x10^3/uL (1.0-4.8) Monocytes # (Auto) 0.6 x10^3/uL (0.0-1.1) Eosinophils # (Auto) 0.1 x10^3/uL (0.0-0.7) Basophils # (Auto) 0.0 x10^3/uL (0.0-0.2) Sodium Level 144 mmol/L (136-145) Potassium Level 3.8 mmol/L (3.5-5.1) Chloride Level 108 mmol/L (98-107) H Carbon Dioxide Level 28 mmol/L (21-32) Anion Gap 8 (6-14) Blood Urea Nitrogen 13 mg/dL (7-20) Creatinine 0.9 mg/dL (0.6-1.0) Estimated GFR (Cockcroft-Gault) 64.5 BUN/Creatinine Ratio 14 (6-20) Glucose Level 77 mg/dL (70-99) Hemoglobin A1c 5.3 % (4.8-5.6) Calcium Level 8.7 mg/dL (8.5-10.1) Magnesium Level 2.0 mg/dL (1.8-2.4) Iron Level 89 ug/dL (50-170) Total Iron Binding Capacity 248 ug/dL (250-450) L Iron Saturation 36 % (15-34) H Total Bilirubin 0.4 mg/dL (0.2-1.0) Aspartate Amino Transferase (AST) 56 U/L (15-37) H Alanine Aminotransferase (ALT) 79 U/L (14-59) H Alkaline Phosphatase 56 U/L (46-116) Total Protein 7.7 g/dL (6.4-8.2) Albumin 3.4 g/dL (3.4-5.0) Albumin/Globulin Ratio 0.8 (1.0-1.7) L Triglycerides Level 93 mg/dL (0-150) Cholesterol Level 167 mg/dL (0-200) LDL Cholesterol, Calculated 91 mg/dL (0-100) VLDL Cholesterol, Calculated 18 mg/dL (0-40) Non-HDL Cholesterol Calculated 109 mg/dL (0-129) HDL Cholesterol 58 mg/dL (40-60) Cholesterol/HDL Ratio 2.0 Vitamin B12 Level 779 pg/mL (247-911) 25-Hydroxy Vitamin D Total 33.7 ng/mL (30.0-100.0) Thyroid Stimulating Hormone (TSH) 0.430 uIU/mL (0.358-3.740) Thyroxine (T4) 6.1 ug/dL (4.5-12.0) Total Triiodothyronine (TT3) 88 ng/dL (71-180) RPR Titer Additional Testing Non reactive (Non Reactive) Urine Collection Type Unknown Urine Color Yellow Urine Clarity Cloudy Urine pH 6.0 Urine Specific [place] >=1.030 Urine Protein Neg (NEG-TRACE) Urine Glucose (UA) Neg mg/dL (NEG) Urine Ketones (Stick) Neg mg/dL (NEG) Urine Blood Neg (NEG) Urine Nitrite Neg (NEG) Urine Bilirubin Neg (NEG) Urine Urobilinogen Dipstick 1 mg/dL (0.2 mg/dL) Urine Leukocyte Esterase Neg (NEG) Urine RBC Rare /HPF (0-2) Urine WBC Occ /HPF (0-4) Urine Squamous Epithelial Cells Occ /LPF Urine Bacteria 0 /HPF (0-FEW) Urine Mucus Marked /LPF EKG EKG [] Radiology/Procedures Radiology/Procedures [] Course & Med Decision Making Course & Med Decision Making Pertinent Labs and Imaging studies reviewed. (See chart for details) [] 56-year-old female with a history of early onset dementia reportedly who had a seizure activity at approximately 4:30 AM on September 01, 2016. I was called to the rapid response to provide medical care. Upon arrival, the patient's vital signs were within normal limits. She was saturating well on 2 L nasal cannula. She was mildly postictal. Nursing reports no history of seizure activity. I ordered for an IV to be established, blood work to be drawn, and CT of the head to be obtained. I also ordered 1 g of IV Keppra to be administered at this time. The patient's mental status improved to baseline. The patient appears to be in stable condition at this time and I will allow the primary physician to continue the patient's workup. CHERRIE RODRIGUEZ MD Final Impression Final Impression [] Problems: Dragon Disclaimer Dragon Disclaimer This electronic medical record was generated, in whole or in part, using a voice recognition dictation system. CHERRIE RODRIGUEZ MD Sep 01, 2016 05:52
[2016-09-01] MEDS ORDERED: OLAN5TAB5 PO (06:01)
[2016-09-01] MEDS ORDERED: DULO30CA2 PO (06:05)
[2016-09-01] MEDS ORDERED: HYDR-2758 PO (06:05)
[2016-09-01] MEDS ORDERED: PENI500T PO (06:05)
[2016-09-01] MEDS ORDERED: QUET50TA5 PO (06:05)
[2016-09-01] MEDS ORDERED: MAGN400O7 PO (06:08)
[2016-09-01] MEDS ORDERED: ACET325T9 PO (06:09)
[2016-09-01] MEDS ORDERED: TRAZ50TA15 PO ×2 (06:20)
--- NOTE | 2016-09-01 21:43 | PDOC ---
Exam Mario Alberto Demential Exam: Mario Alberto Note: Please also refer to the separate dictated note for discharge summary~for this date of service dictated separately.~Patient seen individually. Discussed the patient with Nursing staff reviewed the chart.~Reviewed interim history and current functioning. Reviewed vital signs,~Labs/ Radiology~and current medications noted below. Continue current treatment with the changes noted in the dictated addendum note Assessment: Vital Signs: Vital Signs Date Time Temp Pulse Resp B/P (MAP) Pulse Ox O2 Delivery O2 Flow Rate FiO2 08/31/16 21:05 18 99 Room Air 08/31/16 16:37 97.7 92 135/76 (95) I&O Intake and Output 09/01/16 07:00 Intake Total 800 ml Balance 800 ml Intake Oral 800 ml Current Medications: Meds: Current Medications Amoxicillin/ Clavulanate Potassium (Augmentin 875/ 125mg) 1 tab 1X ONCE PO Last administered on 08/26/16 13:53; Start 08/26/16 at 14:10; Stop 08/26/16 at 14:12; Status DC Acetaminophen (Tylenol) 650 mg PRN Q6HRS PRN PO PAIN / TEMP Last administered on 08/27/16 08:27; Start 08/26/16 at 15:00; Stop 09/01/16 at 05:21; Status DC Multi-Ingredient Ointment (Analgesic [place]) 1 damion PRN QID PRN TP MUSCLE PAIN; Start 08/26/16 at 15:00; Stop 09/01/16 at 05:21; Status DC Al Hydroxide/Mg Hydroxide (Mylanta Plus Xs) 15 ml PRN AFTMEALHC PRN PO DYSPEPSIA; Start 08/26/16 at 15:00; Stop 09/01/16 at 05:21; Status DC Magnesium Hydroxide (Milk Of Magnesia) 2,400 mg PRN QHS PRN PO CONSTIPATION Last administered on 08/26/16 20:32; Start 08/26/16 at 15:00; Stop 09/01/16 at 05:21; Status DC Quetiapine Fumarate (SEROquel) 50 mg NOON PO Last administered on 08/31/16 12: 14; Start 08/27/16 at 12:00; Stop 09/01/16 at 05:21; Status DC Quetiapine Fumarate (SEROquel) 75 mg HS PO Last administered on 08/31/16 20:01 ; Start 08/26/16 at 21:00; Stop 09/01/16 at 05:21; Status DC Cyanocobalamin (Vitamin B-12) 250 mcg DAILY PO Last administered on 08/31/16 08:59; Start 08/27/16 at 09:00; Stop 09/01/16 at 05:21; Status DC Escitalopram Oxalate (Lexapro) 20 mg DAILY PO Last administered on 08/27/16 08 :02; Start 08/27/16 at 09:00; Stop 08/27/16 at 22:31; Status DC Escitalopram Oxalate (Lexapro) 30 mg DAILY PO Last administered on 08/28/16 08 :36; Start 08/28/16 at 09:00; Stop 08/28/16 at 09:18; Status DC Escitalopram Oxalate (Lexapro) 60 mg DAILY PO ; Start 09/02/16 at 09:00; Status Cancel Duloxetine HCl (Cymbalta) 30 mg DAILY PO Last administered on 08/31/16 08:59; Start 08/29/16 at 09:00; Stop 09/01/16 at 05:21; Status DC Duloxetine HCl (Cymbalta) 60 mg DAILY PO ; Start 09/03/16 at 09:00; Stop at 09:00; Status DC Penicillin V Potassium (Veetid) 500 mg Q6HRS PO ; Start 08/29/16 at 18:00; Stop 08/29/16 at 23:16; Status DC Acetaminophen/ Hydrocodone Bitart (Lortab 5/325) 1 tab PRN Q6HRS PRN PO PAIN; Start 08/29/16 at 18:00; Stop 08/29/16 at 21:00; Status DC Acetaminophen/ Hydrocodone Bitart (Lortab 5/325) 1 tab BID PO Last administered on 08/31/16 20:01; Start 08/29/16 at 21:00; Stop 09/01/16 at 05:21 ; Status DC Penicillin V Potassium (Veetid) 500 mg [id number] PO Last administered on 20:02; Start 08/30/16 at 09:00; Stop 7/25/17 at 05:21; Status DC Olanzapine (ZyPREXA ZYDIS) 2.5 mg PRN Q2HR PRN PO PSYCHOSIS Last administered on 08/30/16 15:44; Start 08/30/16 at 15:45; Stop 09/01/16 at 05:21; Status DC Trazodone HCl (Desyrel) 50 mg QHS PO Last administered on 08/31/16 20:01; Start 08/31/16 at 21:00; Stop 09/01/16 at 05:21; Status DC Trazodone HCl (Desyrel) 50 mg PRN QHS PRN PO INSOMNIA; Start 08/31/16 at 18:45 ; Stop 09/01/16 at 05:22; Status DC Levetiracetam 1000 mg/Sodium Chloride 100 ml @ 400 mls/hr 1X ONCE IV ; Start 09/01/16 at 06:00; Stop 09/01/16 at 06:14; Status DC Active Scripts Active Reported Trazodone Hcl 50 Mg Tablet 50 Mg PO PRN QHS PRN Trazodone Hcl 50 Mg Tablet 50 Mg PO HS Tylenol (Acetaminophen) 325 Mg Tablet 650 Mg PO PRN Q6HRS PRN Milk Of Magnesia (Magnesium Hydroxide) 400 Mg/5 Ml Oral.susp 2,400 Mg PO PRN QHS PRN Cymbalta (Duloxetine Hcl) 30 Mg Capsule.dr 30 Mg PO DAILY 5 Days pt has received 3 of 5 scheduled doses Hydrocodone-Apap 5-325 (Hydrocodone Bit/Acetaminophen) 1 Each Tablet 1 Tab PO BID Penicillin V Potassium 500 Mg Tablet 500 Mg PO [id number] Zyprexa Zydis (Olanzapine) 5 Mg Tab.rapdis 2.5 Mg PO PRN Q2HR PRN B-12 (Cyanocobalamin (Vitamin B-12)) 500 Mcg Tab.rapdis 250 Mcg PO DAILY Escitalopram Oxalate 20 Mg Tablet 20 Mg PO DAILY Seroquel (Quetiapine Fumarate) 50 Mg Tablet 50 Mg PO NOON Seroquel (Quetiapine Fumarate) 50 Mg Tablet 75 Mg PO HS Diagnosis: Problems: (1) Frontotemporal dementia with behavioral disturbance (2) Anxiety disorder (3) Impulse control disorder (4) Dementia, vascular, with delusions (5) Dementia, vascular, with depression (6) Dementia in Alzheimer's disease with delusions (7) Dementia in Alzheimer's disease with depression ADELA RHODES MD Sep 01, 2016 21:43
--- NOTE | 2016-09-02 06:44 | PN ---
DATE: 08/31/2016 SUBJECTIVE: This is a late entry 08/31/2016, covers elements not covered in my initial note. I met with the patient evening of 08/31/2016. She slept just 4 hours previous night. She was up and down all night per nursing report perching herself on the bedrails at one point standing in the middle of the room in the middle of the night. Intermittently resistive with her medications, but this was better on 08/31/2016. Appetite is fair. Previous day it was poor. REVIEW OF SYSTEMS: No CV, , pulmonary, eye, or ENT system symptoms on review. Reliability poor. Meet with her in her room. MENTAL STATUS EXAM: Oriented to herself. Insight, judgment, recent and remote memory, attention, concentration, and fund of knowledge poor consistent with her diagnosis mentioned in my initial note. PLAN: Continue current psychotropics. Start trazodone 50 mg at bedtime, may repeat x 1 for insomnia. Maintain Cymbalta increasing to 60 mg a day, Seroquel 50 mg at noon and 75 at bedtime, and Zyprexa p.r.n. Adjust further as clinically indicated. ADELA RHODES MD DR: ELIZABETH/wellington JOB#: [id number] / [id number]
[2016-09-02] MEDS ORDERED: ESCITALOPRAM 20 MG TABLET. PO SCH (09:00)
[2016-09-02] MEDS ORDERED: LEVE500T56 PO (12:03)
--- NOTE | 2016-09-02 19:49 | DS ---
DATE OF DISCHARGE: 08/26/2016 DISCHARGE SUMMARY/PSYCHIATRIC PROGRESS NOTE REASON FOR ADMISSION: Please refer to the admission history for details. Briefly, the patient is a 56-year-old female referred from the [facility] by her neurologist on account of increasing hallucinations, being combative, crying spells, increased aggression with cares, resistive to medications, worsening anxiety and agitation within the context of her dementia, and Alzheimer/frontotemporal diagnosed on PET scan. The patient lives at home with her mother and has been difficult and more dangerous for the mother caring for the patient in the home due to the above behaviors. She has failed outpatient interventions. SIGNIFICANT FINDINGS AND CLINICAL COURSE: Following admission, the patient was seen daily individually from a psychiatric standpoint by myself followed medically per Dr. Jaime/Dr. Rosales. I reviewed extensive records from [facility]. Adjustments were made in her psychotropics and from a psychiatric standpoint, she seemed to be doing slightly better on a combination of trazodone 50 mg at bedtime, may repeat x 1 for insomnia, Cymbalta increasing to 60 mg a day, Seroquel 50 mg at noon and 75 bedtime, and Zyprexa p.r.n. At this stage, she had a seizure-like episode on the morning of 09/01/2016 and was transferred to the ICU per Dr. Jaime. I will see the patient in consultation in the ICU if requested and we can see how she does once she is medically stable whether she needs to be back on our unit. FINAL DIAGNOSES: Major neurocognitive disorder, multifactorial, Alzheimer's, frontotemporal with delusion, depression, behavioral disturbance; anxiety disorder, unspecified; impulse control disorder, unspecified, and seizure episode. Rest diagnosis unchanged from admission. DISCHARGE MEDICATIONS: Please refer to MRAD. DISCHARGE INSTRUCTIONS: Further followup decision will be made once she is medically stable. ADELA RHODES MD DR: ELIZABETH/wellington JOB#: [id number] / [id number]
[2016-09-03] MEDS ORDERED: DULoxetine HCL 60 MG CAPSULE.DR PO SCH (09:00)
== END 2016-09-01 05:21 | disposition short-term general hospital (02) | DRG 884 ==
LOC: ER 11:48 → GEROPSY 14:22
PROVIDERS: ADMIT Psychiatry & Neurology Psychiatry; ATTEND Psychiatry & Neurology Psychiatry
DX: F01.51 Vascular dementia, unspecified severity, with behavioral disturbance (principal); F02.81 Dementia in other diseases classified elsewhere, unspecified severity, with behavioral disturbance; G30.9 Alzheimer's disease, unspecified; F32.9 Major depressive disorder, single episode, unspecified; F63.9 Impulse disorder, unspecified; F41.9 Anxiety disorder, unspecified; F22 Delusional disorders; G31.09 Other frontotemporal neurocognitive disorder; K04.7 Periapical abscess without sinus; Z79.899 Other long term (current) drug therapy; Z81.8 Family history of other mental and behavioral disorders; Z90.710 Acquired absence of both cervix and uterus
CPT/HCPCS: 36415; 80048; 80053; 80061; 81001; 82306; 82607; 83036; 83540; 83550; 83735; 84436; 84443; 84480; 85027; 86592; 86593; 93005; 99285-25

== ENCOUNTER 2016-09-01 05:00 | Inpatient (IN) | payer MEDICARE ==
[~2016-09-01] VITALS: Ht 160 cm; Wt 72.1 kg
[2016-09-01] VITALS (14 sets, daily range): BP systolic 101–156; BP diastolic 58–86
[~2016-09-01 05:00] MED LIST: CYAN500L4 PO; ESCITALOPRAM OX20 MG PO; QUET50TA5 PO
[2016-09-01] MEDS ORDERED: OLAN5TAB5 PO (06:01)
[2016-09-01] MEDS ORDERED: QUET50TA5 PO (06:05)
[2016-09-01] MEDS ORDERED: PENI500T PO (06:05)
[2016-09-01] MEDS ORDERED: HYDR-2758 PO (06:05)
[2016-09-01] MEDS ORDERED: DULO30CA2 PO (06:05)
[2016-09-01] MEDS ORDERED: MAGN400O7 PO (06:08)
[2016-09-01] MEDS ORDERED: ACET325T9 PO (06:09)
--- NOTE | 2016-09-01 06:19 | EKG ---
[address] [address] Test Date: 2016-09-01 Test Time: 05:02:15 Pat Name: PACO DONNELLY Department: Room: [facility] 1 Gender: F [employer] Professor: RAJAN : 1960 Requested By: DARSHAN MAYNARD Order Number: [id number] Reading MD: Garry Miller Measurements Intervals [place] Rate: 80 P: 70 [place]: 134 QRS: 71 QRSD: 86 T: 56 QT: 386 QTc: 449 Interpretive Statements SINUS RHYTHM Electronically Signed On 09-03-2016 8:46:31 CDT by Garry Miller
[2016-09-01] MEDS ORDERED: TRAZ50TA15 PO ×2 (06:20)
[2016-09-01 06:28] LABS: BASO % 1 % (0-3); EOS # 0.2 x10^3/uL (0.0-0.7); EOS % 3 % (0-3); HEMATOCRIT 44.2 % (36.0-47.0); HEMOGLOBIN 14.3 g/dL (12.0-15.5); LYMPH # 3.2 x10^3/uL (1.0-4.8); LYMPH % 55 % (24-48); MEAN CORPUSCULAR HEMOGLOBIN 29 pg (25-35); MEAN CORPUSCULAR HGB CONC 32 g/dL (31-37); MEAN CORPUSCULAR VOLUME 88 fL (79-100); MONO # 0.8 x10^3/uL (0.0-1.1); MONO % 14 % (0-9); NEUT # 1.6 x10^3uL (1.8-7.7); NEUT % 27 % (31-73); PLATELET COUNT 210 x10^3/uL (140-400); RED BLOOD COUNT 5.01 x10^6/uL (3.50-5.40); RED CELL DISTRIBUTION WIDTH 13.4 % (11.5-14.5); WHITE BLOOD COUNT 5.8 x10^3/uL (4.0-11.0)
[2016-09-01] MEDS ORDERED: IV NORMAL SALINE 100ML 100 ML ONE (06:31)
[2016-09-01] MEDS ORDERED: levETIRAcetam 500 MG/5 ML VIAL IV ONE (06:31)
[2016-09-01 06:44] LABS: ALBUMIN 3.4 g/dL (3.4-5.0); CALCIUM 8.6 mg/dL (8.5-10.1); CREATININE 1.1 mg/dL (0.6-1.0); DIRECT BILIRUBIN 0.1 mg/dL (0.0-0.2); GFR 51.2; POTASSIUM 3.6 mmol/L (3.5-5.1); TOTAL BILIRUBIN 0.2 mg/dL (0.2-1.0); TOTAL PROTEIN 7.8 g/dL (6.4-8.2)
[2016-09-01 07:22] LABS: % BANDS 1 % (0-9); % BASOS 1 % (0-3); % EOS 6 % (0-5); % LYMPHS 46 % (24-48); % METAS 1 % (0-0); % MONOS 14 % (0-10); % SEGS 31 % (35-66); PLT ESTIMATE ADEQUATE (ADEQUATE)
[2016-09-01] MEDS ORDERED: LORazepam 2 MG/ML VIAL IV PRN (09:15)
[2016-09-01] MEDS ORDERED: MAGNESIUM HYDROXIDE 2,400 MG/30 ML ORAL.SUSP. PO PRN (09:30)
[2016-09-01] MEDS ORDERED: ACETAMINOPHEN 325 MG TABLET PO PRN (12:30)
[2016-09-01] MEDS: LIDOCAINE (700MG/PATCH) PATCH. TD SCH (12:44)
[2016-09-01] MEDS ORDERED: KETOROLAC 15 MG/ML VIAL. IV ONE (12:45)
[2016-09-01] MEDS: LORazepam 2 MG/ML VIAL IV PRN ×2 (14:15→21:01)
--- NOTE | 2016-09-01 16:15 | RAD ---
CT HEAD WITHOUT CONTRAST History: new onset seizure, loss of consciousness . Comparison: None. Technique: Axial images are obtained of the head from the skull base through the vertex without IV contrast. Findings: Patient motion. Arellano-white matter differentiation is preserved, although evaluation in the inferior aspects of the frontal lobes is limited due to motion. No mass-effect, midline shift, hemorrhage or obvious acute infarction is identified. Basilar cisterns are patent. The ventricles and sulci are prominent, consistent with age-related cerebral atrophy. There is mild scattered periventricular white matter hypoattenuation. This is a nonspecific finding but is commonly due to chronic small vessel ischemic disease in a patient of this age. Bone windows demonstrate no acute calvarial abnormality. The visualized paranasal sinuses appear clear. Mastoid air cells are well aerated. IMPRESSION: 1. No acute intracranial abnormality. 2. Age-related cerebral atrophy and mild periventricular white matter changes of chronic small vessel ischemic disease. PQRS Compliance Statement: One or more of the following individualized dose reduction techniques were utilized for this examination: 1. Automated exposure control 2. Adjustment of the mA and/or kV according to patient size 3. Use of iterative reconstruction technique
--- NOTE | 2016-09-01 16:55 | PDOC1 ---
HISTORY & PHYSICAL DATE OF ADMISSION: 09/01/16 HPI: HPI: 56 year old female who was [facility] early this am for apparent seizure. Below is record of what happened. 0450: Patient up with standby assist to toilet and AM vitals obtains, stable. Pt sitting on stool when she suddenly yelled out and began shaking, then went stiff. Witnessed by staff. Pt assist x2 to lay on left side on the bathroom floor. Pt non-responsive, having snoring respirations. O2 placed via NC at 2L. Pt bleeding from mouth, appears to have bitten tongue. Incontinent of urine at this time. O2 sats remain >95%. 0453: Rapid response called. Assisted x4 from floor to bed and transferred to ICU-2. See complete rapid response documentation in paper chart. Dr. Layton called and orders received. Dr. Dolan also notified of transfer. Pt. had started on Trazadone last night and had received 50 mg. She had been switched from Lexapro to Cymbalta last week and received a Zyprexa Zydis on the . Initial admit to [facility] for hallucinations, combativeness, anxiety and agitation PAST MEDICAL HISTORY: PMH: 1.Severe neurocognitive impairment-abnormal CT in 2012 pointing towards Frontotemporal Dementia #2 anxiety and agitation PSH: #1 section 2 #2 hysterectomy #3 back surgery SH: She has a Bachelor's degree. 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 She lives with her mother who is her relief pharmacist. She has 2 adult children. Her father recently no reported alcohol or tobacco use. PFMH: Visit history of dementia in her maternal grandmother and paternal great grandmother who experienced cognitive decline in their 80s. There is no reported family history of early onset dementia or psychiatric problems ALLERGIES: Allergies Coded Allergies Type Severity Reaction Last Updated Verified No Known Drug Allergies 08/26/16 No MEDS: MEDICATIONS: Current Medications Medications (Trade) Dose Ordered Sig/Frankie Start Time Stop Time Status Last Admin Dose Admin Acetaminophen (Tylenol) 650 mg PRN Q6HRS PRN 09/01/16 12:30 Ketorolac Tromethamine (Toradol) 15 mg 1X ONCE 09/01/16 12:45 09/01/16 12:46 DC 09/01/16 12:44 15 MG Levetiracetam (Keppra) 500 mg STK-MED ONCE 09/01/16 06:31 09/01/16 06:32 DC Levetiracetam 1000 mg/Sodium Chloride 100 ml @ 400 mls/hr 1X ONCE 09/01/16 06:30 09/01/16 06:44 DC 09/01/16 06:52 400 MLS/HR Levetiracetam 500 mg/Sodium Chloride 105 ml @ 400 mls/hr Q12HR 09/01/16 21:00 Lidocaine (Lidoderm) 1 patch DAILY 09/01/16 12:45 09/01/16 12:44 1 PATCH Lorazepam (Ativan) 2 mg PRN Q2HR PRN 09/01/16 09:15 Magnesium Hydroxide (Milk Of Magnesia) 2,400 mg PRN DAILY PRN 09/01/16 09:30 09/01/16 12:17 2,400 MG Sodium Chloride 100 ml @ As Directed STK-MED ONCE 09/01/16 06:31 09/01/16 06:32 DC VITALS: Vital Signs Date Time Temp Pulse Resp B/P (MAP) Pulse Ox O2 Delivery O2 Flow Rate FiO2 09/01/16 15:58 98.0 89 20 124/74 (91) 96 Room Air 09/01/16 06:35 2.0 LABS: Laboratory Tests Test 09/01/16 05:00 White Blood Count 5.8 x10^3/uL (4.0-11.0) Red Blood Count 5.01 x10^6/uL (3.50-5.40) Hemoglobin 14.3 g/dL (12.0-15.5) Hematocrit 44.2 % (36.0-47.0) Mean Corpuscular Volume 88 fL (79-100) Mean Corpuscular Hemoglobin 29 pg (25-35) Mean Corpuscular Hemoglobin Concent 32 g/dL (31-37) Red Cell Distribution Width 13.4 % (11.5-14.5) Platelet Count 210 x10^3/uL (140-400) Neutrophils (%) (Auto) 27 % (31-73) Lymphocytes (%) (Auto) 55 % (24-48) Monocytes (%) (Auto) 14 % (0-9) Eosinophils (%) (Auto) 3 % (0-3) Basophils (%) (Auto) 1 % (0-3) Neutrophils # (Auto) 1.6 x10^3uL (1.8-7.7) Lymphocytes # (Auto) 3.2 x10^3/uL (1.0-4.8) Monocytes # (Auto) 0.8 x10^3/uL (0.0-1.1) Eosinophils # (Auto) 0.2 x10^3/uL (0.0-0.7) Basophils # (Auto) 0.0 x10^3/uL (0.0-0.2) Segmented Neutrophils % 31 % (35-66) Band Neutrophils % 1 % (0-9) Lymphocytes % 46 % (24-48) Monocytes % 14 % (0-10) Eosinophils % 6 % (0-5) Basophils % 1 % (0-3) Metamyelocytes % 1 % (0-0) Platelet Estimate Adequate (ADEQUATE) Sodium Level 142 mmol/L (136-145) Potassium Level 3.6 mmol/L (3.5-5.1) Chloride Level 104 mmol/L (98-107) Carbon Dioxide Level 21 mmol/L (21-32) Anion Gap 17 (6-14) Blood Urea Nitrogen 12 mg/dL (7-20) Creatinine 1.1 mg/dL (0.6-1.0) Estimated GFR (Cockcroft-Gault) 51.2 Glucose Level 125 mg/dL (70-99) Calcium Level 8.6 mg/dL (8.5-10.1) Total Bilirubin 0.2 mg/dL (0.2-1.0) Direct Bilirubin 0.1 mg/dL (0.0-0.2) Aspartate Amino Transf (AST/SGOT) 78 U/L (15-37) Alanine Aminotransferase (ALT/SGPT) 111 U/L (14-59) Alkaline Phosphatase 61 U/L (46-116) Creatine Kinase 613 U/L (26-192) Creatine Kinase MB (Mass) 7.3 ng/mL (0.0-3.6) Creatine Kinase MB Relative Index 1.2 % (0-4) Troponin I Quantitative < 0.017 ng/mL (0-0.055) Total Protein 7.8 g/dL (6.4-8.2) Albumin 3.4 g/dL (3.4-5.0) IMAGES: IMAGES: CT of the head and EEG are pending ROS: back pain but unable to answer any other questions PHYSICAL EXAM: Due to the patient's agitation was unable to do a complete physical exam. Basically on observation she is alert, and in some distress because of her back pain. She has what appears to be a little bit of a cut on her tongue possibly from seizure activity. He is able to stand up without difficulty. Speaks in single words. Remainder of exam will be attempted again tomorrow. VTE PROPHYLAXIS: VTE Pharmacological Prophylaxi: No ASSESSMENT/PLAN ASSESSMENT: 1. Seizure activity this morning questionable etiology may be combination of SSRIs, Zyprexa, and trazodone together. Discussed this with the pharmacist. We will check a serotonin level. #2 anxiety and agitation #3 severe neurocognitive impairment may be frontal temporal dementia PLAN: Plan wait for EEG and CT of the head results. Dr. Lea, neurologist is assisting, Dr. lubinwill continue to see patient. We'll attempt to obtain a better PE tomorrow. Have ordered a lidocaine patch and a heating pad for her back and this seemed to relieve her pain along with Toradol. VÍCTOR CAMARILLO DO Sep 01, 2016 16:55
--- NOTE | 2016-09-01 18:12 | PDOC ---
Exam Mario Alberto Demential Exam: Mario Alberto Note: Please also refer to the separate dictated note~for this date of service dictated separately.~Patient seen individually. Discussed the patient with Nursing staff reviewed the chart.~Reviewed interim history and current functioning. Reviewed vital signs,~Labs/ Radiology~and current medications noted below. Continue current treatment with the changes noted in the dictated addendum note Assessment: Vital Signs: Vital Signs Date Time Temp Pulse Resp B/P (MAP) Pulse Ox O2 Delivery O2 Flow Rate FiO2 09/01/16 17:43 81 19 114/70 (85) 97 Room Air 09/01/16 15:58 98.0 09/01/16 06:35 2.0 Labs: Laboratory Tests Test 09/01/16 05:00 White Blood Count 5.8 x10^3/uL (4.0-11.0) Red Blood Count 5.01 x10^6/uL (3.50-5.40) Hemoglobin 14.3 g/dL (12.0-15.5) Hematocrit 44.2 % (36.0-47.0) Mean Corpuscular Volume 88 fL (79-100) Mean Corpuscular Hemoglobin 29 pg (25-35) Mean Corpuscular Hemoglobin Concent 32 g/dL (31-37) Red Cell Distribution Width 13.4 % (11.5-14.5) Platelet Count 210 x10^3/uL (140-400) Neutrophils (%) (Auto) 27 % (31-73) L Lymphocytes (%) (Auto) 55 % (24-48) H Monocytes (%) (Auto) 14 % (0-9) H Eosinophils (%) (Auto) 3 % (0-3) Basophils (%) (Auto) 1 % (0-3) Neutrophils # (Auto) 1.6 x10^3uL (1.8-7.7) L Lymphocytes # (Auto) 3.2 x10^3/uL (1.0-4.8) Monocytes # (Auto) 0.8 x10^3/uL (0.0-1.1) Eosinophils # (Auto) 0.2 x10^3/uL (0.0-0.7) Basophils # (Auto) 0.0 x10^3/uL (0.0-0.2) Segmented Neutrophils % 31 % (35-66) L Band Neutrophils % 1 % (0-9) Lymphocytes % 46 % (24-48) Monocytes % 14 % (0-10) H Eosinophils % 6 % (0-5) H Basophils % 1 % (0-3) Metamyelocytes % 1 % (0-0) H Platelet Estimate Adequate (ADEQUATE) Sodium Level 142 mmol/L (136-145) Potassium Level 3.6 mmol/L (3.5-5.1) Chloride Level 104 mmol/L (98-107) Carbon Dioxide Level 21 mmol/L (21-32) Anion Gap 17 (6-14) H Blood Urea Nitrogen 12 mg/dL (7-20) Creatinine 1.1 mg/dL (0.6-1.0) H Estimated GFR (Cockcroft-Gault) 51.2 Glucose Level 125 mg/dL (70-99) H Calcium Level 8.6 mg/dL (8.5-10.1) Total Bilirubin 0.2 mg/dL (0.2-1.0) Direct Bilirubin 0.1 mg/dL (0.0-0.2) Aspartate Amino Transferase (AST) 78 U/L (15-37) H Alanine Aminotransferase (ALT) 111 U/L (14-59) H Alkaline Phosphatase 61 U/L (46-116) Creatine Kinase 613 U/L (26-192) H Creatine Kinase MB (Mass) 7.3 ng/mL (0.0-3.6) H Creatine Kinase MB Relative Index 1.2 % (0-4) Troponin I Quantitative < 0.017 ng/mL (0-0.055) Total Protein 7.8 g/dL (6.4-8.2) Albumin 3.4 g/dL (3.4-5.0) Current Medications: Meds: Current Medications Levetiracetam 1000 mg/Sodium Chloride 100 ml @ 400 mls/hr 1X ONCE IV Last administered on 09/01/16t 06:52; Start 09/01/16 at 06:30; Stop 09/01/16 at 06:44 ; Status DC Levetiracetam (Keppra) 500 mg STK-MED ONCE IV ; Start 09/01/16 at 06:31; Stop at 06:32; Status DC Sodium Chloride 100 ml @ As Directed STK-MED ONCE .ROUTE ; Start 09/01/16 at 06 :31; Stop 09/01/16 at 06:32; Status DC Levetiracetam 500 mg/Sodium Chloride 100 ml @ 400 mls/hr Q12HR IV ; Start 09/01 at 21:00; Stop 09/01/16 at 21:00; Status DC Lorazepam (Ativan) 1 mg PRN Q2HR PRN IV ANXIETY / AGITATION Last administered on 09/01/16 14:15; Start 09/01/16 at 09:00 Lorazepam (Ativan) 2 mg PRN Q2HR PRN IV ANXIETY / AGITATION; Start 09/01/16 at 09:15 Magnesium Hydroxide (Milk Of Magnesia) 2,400 mg PRN DAILY PRN PO CONSTIPATION Last administered on 09/01/16 12:17; Start 09/01/16 at 09:30 Acetaminophen (Tylenol) 650 mg PRN Q6HRS PRN PO pain; Start 09/01/16 at 12:30 Lidocaine (Lidoderm) 1 patch DAILY TD Last administered on 09/01/16 12:44; Start 09/01/16 at 12:45 Ketorolac Tromethamine (Toradol) 15 mg 1X ONCE IV Last administered on 12:44; Start 09/01/16 at 12:45; Stop 09/01/16 at 12:46; Status DC Levetiracetam 500 mg/Sodium Chloride 105 ml @ 400 mls/hr Q12HR IV ; Start 09/01 at 21:00 Active Scripts Active Reported Trazodone Hcl 50 Mg Tablet 50 Mg PO PRN QHS PRN Trazodone Hcl 50 Mg Tablet 50 Mg PO HS Tylenol (Acetaminophen) 325 Mg Tablet 650 Mg PO PRN Q6HRS PRN Milk Of Magnesia (Magnesium Hydroxide) 400 Mg/5 Ml Oral.susp 2,400 Mg PO PRN QHS PRN Cymbalta (Duloxetine Hcl) 30 Mg Capsule.dr 30 Mg PO DAILY 5 Days pt has received 3 of 5 scheduled doses Hydrocodone-Apap 5-325 (Hydrocodone Bit/Acetaminophen) 1 Each Tablet 1 Tab PO BID Penicillin V Potassium 500 Mg Tablet 500 Mg PO [id number] Zyprexa Zydis (Olanzapine) 5 Mg Tab.rapdis 2.5 Mg PO PRN Q2HR PRN B-12 (Cyanocobalamin (Vitamin B-12)) 500 Mcg Tab.rapdis 250 Mcg PO DAILY Escitalopram Oxalate 20 Mg Tablet 20 Mg PO DAILY Seroquel (Quetiapine Fumarate) 50 Mg Tablet 50 Mg PO NOON Seroquel (Quetiapine Fumarate) 50 Mg Tablet 75 Mg PO HS Diagnosis: Problems: (1) Frontotemporal dementia with behavioral disturbance (2) Dementia in Alzheimer's disease with depression (3) Dementia in Alzheimer's disease with delusions (4) Dementia, vascular, with delusions (5) Dementia, vascular, with depression (6) Anxiety disorder (7) Impulse control disorder ADELA RHODES MD Sep 01, 2016 18:12
[2016-09-02 01:33] VITALS: BP 133/82
[2016-09-02 04:28] VITALS: BP 134/88
[2016-09-02 05:59] VITALS: BP 131/93
--- NOTE | 2016-09-02 06:44 | PN ---
DATE: 09/01/2016 PSYCHIATRIC PROGRESS NOTE This note covers elements not covered in my initial note of 09/01/2016. SUBJECTIVE: The patient is a 56-year-old female seen in ICU bed 2, [facility] for followup consult requested by Dr. Jaime after the patient was transferred from [facility] to the ICU after she had a seizure on our unit earlier this morning. Discussed with Dr. Jaime. I met with the patient's mother and cousin sister, who were with her in the ICU room. Dr. Jaime just held her current psychotropics and she is having a Neurology workup with Dr. Lea. EEG was completed. CT head shows no acute changes, age-related cerebral atrophy, chronic small vessel ischemic disease. Behaviorally, she is doing reasonably well and mother states she recognizes family members. MENTAL STATUS EXAM: The patient is oriented to herself, not very verbal. Insight, judgment, recent and remote memory, attention, concentration, fund of knowledge poor, consistent with her diagnosis. IMPRESSION: Major neurocognitive disorder, multifactorial, frontotemporal Alzheimer's with depression, delusions and behavioral disturbance; anxiety disorder, unspecified. Rest diagnoses unchanged including seizure episode. PLAN: I have reviewed records from Neurology including PET scan reflective of Alzheimer's versus frontotemporal dementia. We will continue to hold her psychotropics. When she is medically stable, we will have her back on the [facility]. MAN Marquita RHODES MD DR: ELIZABETH/wellington JOB#: [id number] / [id number]
--- NOTE | 2016-09-02 06:44 | CONS ---
DATE OF CONSULTATION: 09/01/2016 NEURO CONSULT REFERRING PHYSICIAN: Dr. Jaime. REASON FOR CONSULTATION: New onset of seizures. HISTORY OF PRESENT ILLNESS: This is a 56-year-old right-handed white female who was initially admitted to [facility] because of on account of increasing behavior disturbances with agitation, combativeness, and had hallucinations. The patient stated that she why was sitting on the toilet stool all of a sudden she yield out and began having seizure-like activities, described as jerking generalized jerking stiffness followed by loss of consciousness. She became unresponsive was bleeding coming off the mouth assuming that she had tongue biting and at that time, she had urinary incontinence. The patient was unresponsive and she was transferred to ICU bed #[address] Layton was called and she was given 1 gram of Keppra intravenously. Since that time, the patient has not had any recurrent seizure-like activities. Initial admission to the [facility] was behavior disturbances. She carried a diagnosis of she has had a frontotemporal dementia diagnosed in 2008 and had recent extensive workup for dementia including a PET/CAT scan which confirmed the diagnosis. The patient has not had any history of seizure, now has recent head injuries or falls. The current medication changes including trazodone was given at 50 mg last night and Lexapro was changed to Cymbalta. She has been receiving Zyprexa Zydis p.r.n. for agitation. Because of dementia, the patient is unable to provide any information. Even she is not able to complaints of any concrete symptoms. PAST MEDICAL HISTORY: Significant for frontotemporal dementia as described above. She had extensive workup in [place] and recent she has had extensive workup at [facility], history of behavior disturbances, and anxiety. PAST SURGICAL HISTORY: Positive for x 2, low back surgery, and hysterectomy. SOCIAL HISTORY: The patient is . She has 2 children. 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 Currently she lives with her mother who is the caregiver. He has no history of smoking, alcohol, or illicit drug use. REVIEW OF SYSTEMS: As mentioned above in the history of present illness. FAMILY HISTORY: Positive for dementia in maternal grandmother and paternal great grandmother. Family history of early dementia was reported as well. ALLERGIES: No known drug allergies. CURRENT MEDICATIONS: Includes Keppra 500 mg IV q.12 hours IV, Lidoderm 1 patch daily, Tylenol, magnesium, MOM, lorazepam 2 mg IV for anxiety agitation every 2 hours p.r.n. PHYSICAL EXAMINATION: GENERAL: Well-developed, well-nourished white female, not in acute distress. VITAL SIGNS: Blood pressure 135/86, respiratory rate 18, pulse is 81 and regular, temperature 97.8, oxygen saturation 100% on room air. HEENT: Normocephalic, atraumatic, otherwise unremarkable. NECK: Supple. Negative for carotid bruit, lymphadenopathy, or thyromegaly. LUNGS: Clear to A and P. CARDIOVASCULAR: Regular rate and rhythm, normal S1, S2. There is no S3, S4 or murmur. ABDOMEN: Soft. Bowel sounds positive. EXTREMITIES: Negative for cyanosis, clubbing, or pitting edema. NEUROLOGIC: 1. Mental Status: The patient is awake, but very restless. She does not follow any commands. Speech is slow and soft. Further evaluation of her mental status is very limited at this time because of the underlying advanced dementia. 2. Cranial Nerves: The pupils are reactive to light and accommodation. Extraocular movements are intact. There is no nystagmus. There is no facial motor or sensory deficit. Hearing appears to be intact. The palate is elevated symmetrically. The palate is elevated. Sternocleidomastoid muscles are powerful bilaterally. The patient shrugs. The patient does not follow any commands. 3. Motor: No focal muscle bulk was seen. The tone appeared to be normal. The patient moves upper and lower extremities equally. 4. Sensory Examination: The patient moves all her upper and lower extremities to noxious stimuli. 5. Deep tendon reflexes are symmetric and hypoactive with absent Achilles responses. 6. Gait not tested. LABORATORY DATA: CBC revealed white blood cells of 5.8 thousand, hemoglobin 14.3, hematocrit 44.2, platelet count 210,000. Chemistry revealed sodium of 142, potassium 3.6, chloride 104, CO2 21, BUN 12, creatinine 1.1, glucose 125, calcium 8.6, AST and ALT are elevated. Creatinine kinase is elevated at 613 with a CK-MB is high at 7.3. Troponin level less than 0.017. ELECTROENCEPHALOGRAM: This is an 18-channel EEG was performed using the standard international 10-20 electrode placement system. Photic stimulation was used as an activation procedure and hyperventilation was not performed because of underlying dementia. The patient was not sleep deprived and the patient was sedated. The EEG obtained with the patient in the awake state characterized by slowing of the posterior dominant rhythm at 5-6 cycles per second with amplitude of 25-35 microvolts. The background shows diffuse slowing of the background activities throughout the recording. Photic stimulation produced no driving response. Hyperventilation was not performed. The patient achieved stage 2 and an early stage 3 sleep characterized by posterior dominant rhythm and attenuation of the amplitudes vertex sharp waves, ____ frequency of 13-15 seconds the frequency also seen throughout the recording. IMPRESSION: 1. Possible new onset of generalized tonic-clonic seizure of unknown etiology with longstanding history of left frontotemporal dementia. 2. Behavior disturbances with anxiety. 3. Chronic lower back pain. 4. Depression. 5. Abnormal EEG consistent with diffuse cerebral dysfunction and consistent with dementia. No epileptiform activities were seen. The lack of epileptiform discharges does not always rule out seizure. RECOMMENDATIONS: 1. Continue with current medical and psychiatric care. 2. Continue with anticonvulsant - Keppra 500 mg twice daily and intravenously. M Dagoberto JUAREZ MD DR: CHRISTOPH/wellington JOB#: [id number] / [id number]
[2016-09-02 06:47] LABS: BASO % 1 % (0-3); EOS # 0.1 x10^3/uL (0.0-0.7); EOS % 1 % (0-3); HEMATOCRIT 41.9 % (36.0-47.0); HEMOGLOBIN 13.8 g/dL (12.0-15.5); LYMPH # 1.4 x10^3/uL (1.0-4.8); LYMPH % 24 % (24-48); MEAN CORPUSCULAR HEMOGLOBIN 28 pg (25-35); MEAN CORPUSCULAR HGB CONC 33 g/dL (31-37); MEAN CORPUSCULAR VOLUME 86 fL (79-100); MONO # 0.6 x10^3/uL (0.0-1.1); MONO % 10 % (0-9); NEUT # 3.6 x10^3uL (1.8-7.7); NEUT % 64 % (31-73); PLATELET COUNT 212 x10^3/uL (140-400); RED BLOOD COUNT 4.87 x10^6/uL (3.50-5.40); RED CELL DISTRIBUTION WIDTH 13.2 % (11.5-14.5); WHITE BLOOD COUNT 5.6 x10^3/uL (4.0-11.0)
[2016-09-02 07:19] LABS: ALBUMIN 3.3 g/dL (3.4-5.0); ALBUMIN/GLOBULIN RATIO 0.8 (1.0-1.7); CALCIUM 8.3 mg/dL (8.5-10.1); CREATININE 0.8 mg/dL (0.6-1.0); GFR 73.9; MAGNESIUM 2.5 mg/dL (1.8-2.4); TOTAL BILIRUBIN 0.4 mg/dL (0.2-1.0); TOTAL PROTEIN 7.6 g/dL (6.4-8.2)
[2016-09-02 07:25] LABS: POTASSIUM 4.5 mmol/L (3.5-5.1)
[2016-09-02] MEDS ORDERED: KETOROLAC 30 MG/ML VIAL. IV PRN (07:30)
[2016-09-02 07:36] VITALS: BP 148/84
[2016-09-02] MEDS: LIDOCAINE (700MG/PATCH) PATCH. TD SCH (08:30)
[2016-09-02] MEDS ORDERED: diphenhydrAMINE 50 MG/ML VIAL IM ONE (08:45)
[2016-09-02] MEDS ORDERED: diphenhydrAMINE 50 MG/ML VIAL IVP ONE (09:00)
--- NOTE | 2016-09-02 11:35 | PN ---
DATE: 09/01/2016 SUBJECTIVE: The patient has been restless this morning, she was given one tablet of Benadryl. She has not had any seizure activities since yesterday. No other new medical or neurological changes. OBJECTIVE: GENERAL: Well-developed, well-nourished white female, not in acute distress. VITAL SIGNS: Blood pressure 148/84, respiratory rate 24, pulse is 110, temperature 98.6. NECK: Supple, negative for carotid bruits, lymphadenopathy or thyromegaly. LUNGS: Clear to A and P. CARDIOVASCULAR: Regular rate and rhythm, normal S1, S2. ABDOMEN: Soft. Bowel sounds positive. EXTREMITIES: Negative for cyanosis, clubbing or pitting edema. NEUROLOGIC: The patient is restless and ____ commands. There is no facial motor or sensory deficit. The pupils are reactive to light and accommodation. Extraocular movements are intact. There is no nystagmus. Further evaluation is limited. MOTOR EXAMINATION: The patient moves her upper and lower extremities equally. The tone is normal. The strength is 4/5 throughout. SENSORY EXAMINATION: The patient was ____ upper and lower extremities to noxious stimuli. Deep tendon reflexes were symmetric and ____. Gait not tested. LABORATORY DATA: CBC revealed white blood cells of 5600, hemoglobin 13.8, hematocrit 41.9, platelet count 212,000. Chemistry revealed sodium of 140, potassium 4.5, chloride 105, CO2 of 30, BUN 8, creatinine 0.8, glucose is 95 and calcium 8.3. Liver enzymes are elevated. IMPRESSION: 1. Possible new onset of seizure -- stable on Keppra. 2. Multiple psychiatric problems including frontotemporal dementia, anxiety, depressions, chronic lower back pain. RECOMMENDATIONS: Continue with current medical and psychiatric care and continue with Keppra if the patient is going to be discharged back to the [facility] she should continue with Keppra 500 mg p.o. twice daily. M Dagoberto JUAREZ MD DR: CHRISTOPH/wellington JOB#: [id number] / [id number]
[2016-09-02] MEDS ORDERED: LEVE500T56 PO (12:03)
[2016-09-02 12:11] VITALS: BP 155/99
--- NOTE | 2016-09-02 19:31 | DS ---
DATE OF DISCHARGE: 09/02/2016 DISCHARGE DIAGNOSES: 1. Seizure-like activity, cannot completely rule out seizure - EEG negative for epileptiform activity. 2. Back pain. 3. Major neurocognitive disorder, consistent with Alzheimer's and frontotemporal dementia. 4. Anxiety. 5. Insomnia. 6. Diffuse cerebral dysfunction, on EEG. 7. Elevated CPK secondary to seizure-like activity and acute kidney injury. HOSPITAL COURSE: This is a 56-year-old female who was transferred down to the Intensive Care Unit on 09/01/2016, because of apparent seizure-like activity while she was on the toilet, she became stiff and lost control of her bowels and bladder. She had had some medication changes and it is possible that the combination of those could have precipitated this seizure-like activity. While in the ICU, she did have quite a bit of back pain consistent with muscle strain. She did not fall. She had a slightly elevated CPK. She was treated with a heating pad, lidocaine patch, and Tylenol. She did have some severe insomnia while in the ICU and was not treated with medication, but was attended to during her periods of insomnia. As her issues with anxiety, agitation, combativeness, crying, and hallucinations have not been addressed adequately. She will be transferred back up to the [facility]. PHYSICAL EXAMINATION: VITAL SIGNS: Discharge blood pressure was 148/84, pulse 110, respirations 24, 98% on room air. Her pulse was 81 and a couple of hours later. GENERAL: She is very tired, but calm and cooperative. HEENT: Her eyes were clear. LUNGS: Clear. CARDIOVASCULAR: Regular rhythm and rate. EXTREMITIES: Moving all extremities. NEURO: No seizure-like activity. LABORATORY WORKUP: CBC is normal today, CK is coming down from 613 to 596, it is most likely from the seizure-like activity, magnesium was 2.5, and her creatinine has come down from 1.1 to 0.8. PLAN: To transfer back up to the [facility] and for medication, see MRAD. VÍCTOR CAMARILLO DO DR: AMILCAR/wellington JOB#: [id number] / [id number]
[2016-09-02] MEDS ORDERED: levETIRAcetam 500 MG TABLET PO SCH (21:00)
--- NOTE | 2016-09-02 23:54 | ACF ---
Admission Criteria Forms SEIZURE Clinical Indications for Admission to Inpatient Care (Place 'X' for any and all applicable criteria): Admission is indicated for seizure and ANY ONE of the following(1)(2)(3)(4)(5): [X]I. Inpatient admission required rather than observation care (Also use Seizure: Observation Care Criteria as appropriate) because of ANY ONE of the following: [ ]a) Altered mental status that is severe or persistent [ ]b) New focal neurologic deficit that is severe or persistent [ ]c) Metabolic disorder (eg, hypoglycemia, hyponatremia) that is severe or persistent [ ]d) Recurrent seizure [ ]e) Outpatient antiseizure regimen cannot be established (eg , patient cannot tolerate medication, initiation requires inpatient care) [ ]f) Need for ongoing intravenous infusion of antiseizure medication [ ]g) Cardiac arrhythmias of immediate concern [ ]h) Cerebral bleeding, hydrocephalus, or vasospasm monitoring (14) [ ]i) Increased intracranial pressure or cerebral edema monitoring (15) [X]j) Other treatment or monitoring requiring inpatient admission [ ]II. Status epilepticus [A] or repetitive seizures not controlled with emergent treatment (6)(8) [ ]III. Brain disorder (eg, tumor, edema, and hydrocephalus) that requiring monitoring or intervention available only at inpatient level of care. [ ]IV. Brain insult (eg, severe trauma, stroke, drug toxicity, or withdrawal) that requires monitoring or intervention available only at inpatient level of care (10)(11) Extended stay beyond goal length of stay may be needed for (22) [ ]a) Complications of status epilepticus [ ]b) Refractory status epilepticus [ ]c) Etiology-specific therapy for conditions such as TAPEMAN infection, head injury,eclampsia, severe metabolic abnormalities, and brain tumor [ ]d) Residual neurologic damage, [ ]e) Initiation of significant change to anticonvulsant treatment [ ]f) Older patients (65 years or older) [ ]g) Patient requiring intubation (eg, to protect airway) The original [employer] content created by [employer] has been revised. The portions of the content which have been revised are identified through the use of italic text or in bold, and [facility] [employer] has neither reviewed nor approved the modified material. All other unmodified content is copyright [facility] [employer]. Please see references footnoted in the original [facility] edition 2016 Admission Criteria Met?: Yes FILI PARKER Sep 02, 2016 23:54
== END 2016-09-02 12:35 | DRG 100 ==
LOC: ICU 05:00
PROVIDERS: ADMIT Family Medicine; ATTEND Family Medicine
DX: R56.9 Unspecified convulsions (principal); N17.0 Acute kidney failure with tubular necrosis; F02.81 Dementia in other diseases classified elsewhere, unspecified severity, with behavioral disturbance; F01.51 Vascular dementia, unspecified severity, with behavioral disturbance; R32 Unspecified urinary incontinence; M54.5 Low back pain; F32.9 Major depressive disorder, single episode, unspecified; G30.9 Alzheimer's disease, unspecified; G31.09 Other frontotemporal neurocognitive disorder; G47.00 Insomnia, unspecified; F41.9 Anxiety disorder, unspecified; F63.9 Impulse disorder, unspecified; G89.29 Other chronic pain; Z79.899 Other long term (current) drug therapy; Z79.1 Long term (current) use of non-steroidal anti-inflammatories (NSAID); Z79.2 Long term (current) use of antibiotics; Z90.710 Acquired absence of both cervix and uterus
CPT/HCPCS: 36415; 70450; 80048; 80053; 80076; 82553; 83735; 84260; 84484; 85007; 85027; 87641; 93005; 95816; J1200; J1885; J1953; J2060

== ENCOUNTER 2016-09-02 12:32 | Inpatient (IN) | payer MEDICARE ==
[~2016-09-02] VITALS: Ht 167.6 cm; Wt 67.8 kg
[~2016-09-02 12:32] MED LIST changes: +ACET325T9 PO; +DULO30CA2 PO; +HYDR-2758 PO; +LEVE500T56 PO; +MAGN400O7 PO; +OLAN5TAB5 PO; +PENI500T PO; +TRAZ50TA15 PO
[2016-09-02] MEDS ORDERED: MAGNESIUM HYDROXIDE 2,400 MG/30 ML ORAL.SUSP. PO PRN ×2 (13:30→14:15)
[2016-09-02] MEDS ORDERED: ACETAMINOPHEN 325 MG TABLET PO PRN ×2 (13:30→14:15)
[2016-09-02 13:47] VITALS: BP 138/76
[2016-09-02] MEDS ORDERED: MAG HYDROX/AL HYDROX/SIMETH 30 ML ORAL.SUSP PO PRN (14:15)
[2016-09-02] MEDS ORDERED: METHYL SALICYLATE/MENTHOL TOPICAL OINTMENT 29GM TUBE. TP PRN (14:15)
[2016-09-02 16:03] VITALS: BP 145/86
[2016-09-02] MEDS: PENICILLIN V K 250 MG TABLET. PO SCH ×2 (17:04→20:59)
--- NOTE | 2016-09-02 20:00 | PDOC ---
Exam Mario Alberto Demential Exam: Mario Alberto Note: Please also refer to the separate dictated note~for this date of service dictated separately.~Patient seen individually. Discussed the patient with Nursing staff reviewed the chart.~Reviewed interim history and current functioning. Reviewed vital signs,~Labs/ Radiology~and current medications noted below. Continue current treatment with the changes noted in the dictated addendum note Assessment: Vital Signs: Vital Signs Date Time Temp Pulse Resp B/P (MAP) Pulse Ox O2 Delivery O2 Flow Rate FiO2 09/02/16 16:03 98.0 90 20 145/86 (105) 96 Room Air Current Medications: Meds: Current Medications Acetaminophen (Tylenol) 650 mg PRN Q6HRS PRN PO PAIN / TEMP; Start 09/02/16 at 13:30 Duloxetine HCl (Cymbalta) 30 mg DAILY PO ; Start 09/03/16 at 09:00 Acetaminophen/ Hydrocodone Bitart (Lortab 5/325) 1 tab BID PO ; Start 09/02/16 at 21:00 Magnesium Hydroxide (Milk Of Magnesia) 2,400 mg PRN QHS PRN PO CONSTIPATION; Start 09/02/16 at 13:30 Quetiapine Fumarate (SEROquel) 50 mg NOON PO ; Start 09/03/16 at 12:00 Quetiapine Fumarate (SEROquel) 75 mg HS PO ; Start 09/02/16 at 21:00 Cyanocobalamin (Vitamin B-12) 250 mcg DAILY PO ; Start 09/03/16 at 09:00 Penicillin V Potassium (Veetid) 500 mg [id number] PO Last administered on t 17:04; Start 09/02/16 at 17:00 Levetiracetam (Keppra) 500 mg BID PO ; Start 09/02/16 at 21:00 Acetaminophen (Tylenol) 650 mg PRN Q6HRS PRN PO PAIN / TEMP; Start 09/02/16 at 14:15; Status Cancel Multi-Ingredient Ointment (Analgesic [place]) 1 damion PRN QID PRN TP MUSCLE PAIN; Start 09/02/16 at 14:15 Al Hydroxide/Mg Hydroxide (Mylanta Plus Xs) 15 ml PRN AFTMEALHC PRN PO DYSPEPSIA; Start 09/02/16 at 14:15 Magnesium Hydroxide (Milk Of Magnesia) 2,400 mg PRN QHS PRN PO CONSTIPATION; Start 09/02/16 at 14:15; Status Cancel Melatonin 3 mg QHS PO ; Start 09/02/16 at 21:00 Active Scripts Active Reported Keppra (Levetiracetam) 500 Mg Tablet 500 Mg PO BID Tylenol (Acetaminophen) 325 Mg Tablet 650 Mg PO PRN Q6HRS PRN Milk Of Magnesia (Magnesium Hydroxide) 400 Mg/5 Ml Oral.susp 2,400 Mg PO PRN QHS PRN Cymbalta (Duloxetine Hcl) 30 Mg Capsule.dr 30 Mg PO DAILY 5 Days pt has received 3 of 5 scheduled doses Hydrocodone-Apap 5-325 (Hydrocodone Bit/Acetaminophen) 1 Each Tablet 1 Tab PO BID Penicillin V Potassium 500 Mg Tablet 500 Mg PO [id number] B-12 (Cyanocobalamin (Vitamin B-12)) 500 Mcg Tab.rapdis 250 Mcg PO DAILY Seroquel (Quetiapine Fumarate) 50 Mg Tablet 50 Mg PO NOON Seroquel (Quetiapine Fumarate) 50 Mg Tablet 75 Mg PO HS Diagnosis: Problems: (1) Anxiety disorder (2) Impulse control disorder (3) Dementia, vascular, with depression (4) Dementia, vascular, with delusions (5) Dementia in Alzheimer's disease with delusions (6) Dementia in Alzheimer's disease with depression ADELA RHODES MD Sep 02, 2016 20:00
[2016-09-02] MEDS: levETIRAcetam 500 MG TABLET PO SCH (20:58)
[2016-09-02] MEDS: HYDROcodone/APAP 5/325MG 1 TAB TABLET PO SCH (20:58)
[2016-09-02] MEDS: MELATONIN 3 MG TABLET PO SCH (20:59)
[2016-09-02] MEDS: QUEtiapine 50 MG TABLET. PO SCH (21:00)
--- NOTE | 2016-09-02 23:18 | HP ---
ADMIT DATE: 09/02/2016 IDENTIFYING DATA: The patient is a 56-year-old female who returns back to us after she was medically stabilized in the ICU for her seizure disorder for her seizures she suffered while on our unit yesterday morning, i.e., on 09/01/2016. The patient was initially admitted from her home, referred from the [facility] Neurology Department where she had been followed for her dementia, Alzheimer's, frontotemporal with delusion, depression, behavioral disturbance, unmanageable behaviors at home where she lives with her mother. She was being stabilized on our unit, developed a seizure, transferred to the ICU and now back with us because she remains agitated with mood lability, unmanageable behaviors even in the ICU. CHIEF COMPLAINT: "No." The patient is oblivious of her surroundings as on the unit, she was walking down the hallway naked above her waist, oblivious of what she was, nursing staff intervened immediately to dress her up. HISTORY OF PRESENT ILLNESS: The patient has a history of dementia, Alzheimer's vascular frontotemporal diagnosed on PET scan, at the [facility]. She had been treated outpatient there, became extremely noncompliant, agitated, aggressive, unmanageable at home with her mother, referred to us. She is having some sleep and appetite changes. No clear history of bipolar disorder, suicidal or homicidal ideation. PAST PSYCHIATRIC HISTORY: As above. MEDICAL HISTORY: History of recurrent UTIs, history of seizure episode. PAST SURGICAL HISTORY: Hysterectomy, back surgery. CODE STATUS: Full. CURRENT PSYCHOTROPICS: Cymbalta 30 mg a day, Seroquel 50 mg at noon, 75 at bedtime. FAMILY HISTORY: Noncontributory. SOCIAL HISTORY: Lives at home with her mother who cares for her. Prior to that, she was living with her family in [place], was a teacher getting progressively more confused. On one day, she was unable to recognize where she was in the school and decided to quit. Mother went down brought her back here and mother states that her family in [place] have had no contact with her since then. No alcohol or drug abuse history is noted. No physical, sexual or elder abuse history is noted. REVIEW OF SYSTEMS: The patient unable to specify history due to her dementia. MENTAL STATUS EXAMINATION: Oriented to herself. Insight, judgment, recent and remote memory, attention, concentration, fund of knowledge poor, consistent with her diagnoses. IMPRESSION: Major neurocognitive disorder, Alzheimer, possibly a frontotemporal with depression, delusion, behavioral disturbance; anxiety disorder, unspecified; impulse control disorder, unspecified. The rest of the diagnoses as above. The patient slept just half hour last night. TREATMENT PLAN: Admit to the Geropsychiatry unit at [facility]. I will see the patient daily individually. From a psychiatric standpoint follow medically per Dr. Jaime/Dr. Rosales. Neurologically with Dr. Lea and she has been started on Keppra for seizures. We will add melatonin 3 mg at bedtime, try to avoid trazodone given her seizure. Continue Cymbalta, Seroquel for now. Adjust further as clinically indicated. MAN Marquita RHODES MD DR: ELIZABETH/wellington JOB#: [id number] / [id number]
--- NOTE | 2016-09-03 00:37 | ACF ---
Admission Criteria Forms PSYCHIATRIC DISORDERS Clinical Indications for Inpatient Care (Place 'X' for any and all applicable criteria): Ongoing inpatient care may be needed for 1 or more of the following(1)(2)(3)(4)( 6)(7)(8): [ ]I. Danger to self or others not manageable at lower level of care. [ ]II. Grave disability (eg, inability to perform self care necessary at lower level of care) [ ]III. Agitation or inappropriate behavior interfering with care for primary condition (eg, attempting to discontinue lines or drains prematurely, unable to cooperate with respiratory care) [X]IV. Severe disability or disorder indicated by ALL of the following: [X]a) Severe behavioral health disorder-related symptoms or condition indicated by 1 or more of the following: [ ]i) Severe problem with cognition, memory, judgment, or impulse control [X]ii) Severe clinical manifestations (eg, hallucinations, delusions, other acute psychotic symptoms, ben, extreme agitation or anxiety) [X]b) Patient management at lower level of care is not feasible until acute intervention or modification is initiated. Extended stay beyond goal length of stay for the primary condition may be needed untilALLof the following are present(1)(2)(3)(4)(722)(23): [ ]a) Danger to self or others is absent or manageable at lower level of care [ ]b) Behavior crisis management, including physical or chemical restraints, is required and is not available at a lower level of care. [ ]c) Behavioral symptoms (e.g., agitation, somnolence, inappropriate behavior) are present, and are not manageable at a lower level of care. [ ]d) Patient cannot understand follow-up treatment and crisis plan. [ ]e) Provider and supports are sufficiently available at lower level of care. [ ]f) Patient can participate (e.g., verify absence of plan for harm) and is in needed of monitoring. The original [facility] content created by [facility] has been revised. The portions of the content which have been revised are identified through the use of italic text, and [facility] has neither reviewed nor approved the modified material. All other unmodified content is copyright [facility] [employer]. Please see references footnoted in the original [facility] edition 2015 Admission Criteria Met?: Yes FILI PARKER Sep 03, 2016 00:37
[2016-09-03 05:49] VITALS: BP 117/76
[2016-09-03] MEDS: DULoxetine HCL 30 MG CAPSULE.DR PO SCH (08:19)
[2016-09-03] MEDS: PENICILLIN V K 250 MG TABLET. PO SCH ×4 (08:19→19:46)
[2016-09-03] MEDS: HYDROcodone/APAP 5/325MG 1 TAB TABLET PO SCH ×2 (08:19→19:47)
[2016-09-03] MEDS: levETIRAcetam 500 MG TABLET PO SCH ×2 (08:19→19:45)
[2016-09-03] MEDS: CYANOCOBALAMIN (VITAMIN B-12) 250 MCG TABLET PO SCH (08:20)
[2016-09-03] MEDS: QUEtiapine 50 MG TABLET. PO SCH ×2 (12:28→19:45)
[2016-09-03 16:10] VITALS: BP 148/88
[2016-09-03] MEDS: MELATONIN 3 MG TABLET PO SCH (19:44)
--- NOTE | 2016-09-03 19:56 | PDOC ---
Exam Mario Alberto Demential Exam: Mario Alberto Note: Please also refer to the separate dictated note~for this date of service dictated separately.~Patient seen individually. Discussed the patient with Nursing staff reviewed the chart.~Reviewed interim history and current functioning. Reviewed vital signs,~Labs/ Radiology~and current medications noted below. Continue current treatment with the changes noted in the dictated addendum note Assessment: Vital Signs: Vital Signs Date Time Temp Pulse Resp B/P (MAP) Pulse Ox O2 Delivery O2 Flow Rate FiO2 09/03/16 19:47 18 93 09/03/16 16:10 97.8 75 148/88 (108) Room Air I&O Intake and Output 09/03/16 07:00 Intake Total 600 ml Balance 600 ml Intake Oral 600 ml Current Medications: Meds: Current Medications Acetaminophen (Tylenol) 650 mg PRN Q6HRS PRN PO PAIN / TEMP; Start 09/02/16 at 13:30 Duloxetine HCl (Cymbalta) 30 mg DAILY PO Last administered on 09/03/16 08:19; Start 09/03/16 at 09:00 Acetaminophen/ Hydrocodone Bitart (Lortab 5/325) 1 tab BID PO Last administered on 09/03/16 19:47; Start 09/02/16 at 21:00 Magnesium Hydroxide (Milk Of Magnesia) 2,400 mg PRN QHS PRN PO CONSTIPATION; Start 09/02/16 at 13:30 Quetiapine Fumarate (SEROquel) 50 mg NOON PO Last administered on 09/03/16 12: 28; Start 09/03/16 at 12:00 Quetiapine Fumarate (SEROquel) 75 mg HS PO Last administered on 09/03/16 19:45 ; Start 09/02/16 at 21:00 Cyanocobalamin (Vitamin B-12) 250 mcg DAILY PO Last administered on 09/03/16 08:20; Start 09/03/16 at 09:00 Penicillin V Potassium (Veetid) 500 mg [id number] PO Last administered on 19:46; Start 09/02/16 at 17:00; Stop 09/06/16 at 09:00 Levetiracetam (Keppra) 500 mg BID PO Last administered on 09/03/16 19:45; Start 09/02/16 at 21:00 Acetaminophen (Tylenol) 650 mg PRN Q6HRS PRN PO PAIN / TEMP; Start 09/02/16 at 14:15; Status Cancel Multi-Ingredient Ointment (Analgesic [place]) 1 damion PRN QID PRN TP MUSCLE PAIN; Start 09/02/16 at 14:15 Al Hydroxide/Mg Hydroxide (Mylanta Plus Xs) 15 ml PRN AFTMEALHC PRN PO DYSPEPSIA; Start 09/02/16 at 14:15 Magnesium Hydroxide (Milk Of Magnesia) 2,400 mg PRN QHS PRN PO CONSTIPATION; Start 09/02/16 at 14:15; Status Cancel Melatonin 3 mg QHS PO Last administered on 09/03/16t 19:44; Start 09/02/16 at 21:00 Active Scripts Active Reported Keppra (Levetiracetam) 500 Mg Tablet 500 Mg PO BID Tylenol (Acetaminophen) 325 Mg Tablet 650 Mg PO PRN Q6HRS PRN Milk Of Magnesia (Magnesium Hydroxide) 400 Mg/5 Ml Oral.susp 2,400 Mg PO PRN QHS PRN Cymbalta (Duloxetine Hcl) 30 Mg Capsule.dr 30 Mg PO DAILY 5 Days pt has received 3 of 5 scheduled doses Hydrocodone-Apap 5-325 (Hydrocodone Bit/Acetaminophen) 1 Each Tablet 1 Tab PO BID Penicillin V Potassium 500 Mg Tablet 500 Mg PO [id number] B-12 (Cyanocobalamin (Vitamin B-12)) 500 Mcg Tab.rapdis 250 Mcg PO DAILY Seroquel (Quetiapine Fumarate) 50 Mg Tablet 50 Mg PO NOON Seroquel (Quetiapine Fumarate) 50 Mg Tablet 75 Mg PO HS Diagnosis: Problems: (1) Anxiety disorder (2) Impulse control disorder (3) Dementia, vascular, with depression (4) Dementia, vascular, with delusions (5) Dementia in Alzheimer's disease with delusions (6) Dementia in Alzheimer's disease with depression ADELA RHODES MD Sep 03, 2016 19:56
[2016-09-04 06:16] VITALS: BP 108/71
[2016-09-04] MEDS: PENICILLIN V K 250 MG TABLET. PO SCH ×4 (08:59→20:05)
[2016-09-04] MEDS: DULoxetine HCL 30 MG CAPSULE.DR PO SCH (09:00)
[2016-09-04] MEDS: levETIRAcetam 500 MG TABLET PO SCH ×2 (09:00→20:01)
[2016-09-04] MEDS: CYANOCOBALAMIN (VITAMIN B-12) 250 MCG TABLET PO SCH (09:00)
[2016-09-04] MEDS: HYDROcodone/APAP 5/325MG 1 TAB TABLET PO SCH ×2 (09:02→20:04)
[2016-09-04] MEDS: QUEtiapine 50 MG TABLET. PO SCH ×2 (12:06→20:01)
[2016-09-04] MEDS: MELATONIN 3 MG TABLET PO SCH (20:01)
--- NOTE | 2016-09-04 21:34 | PDOC ---
Exam Mario Alberto Demential Exam: Mario Alberto Note: Please also refer to the separate dictated note~for this date of service dictated separately.~Patient seen individually. Discussed the patient with Nursing staff reviewed the chart.~Reviewed interim history and current functioning. Reviewed vital signs,~Labs/ Radiology~and current medications noted below. Continue current treatment with the changes noted in the dictated addendum note Assessment: Vital Signs: Vital Signs Date Time Temp Pulse Resp B/P (MAP) Pulse Ox O2 Delivery O2 Flow Rate FiO2 09/04/16 20:04 18 Room Air 09/04/16 10:14 96 09/04/16 06:16 97.0 69 108/71 (83) I&O Intake and Output 09/04/16 07:00 Intake Total 960 ml Balance 960 ml Intake Oral 960 ml Current Medications: Meds: Current Medications Acetaminophen (Tylenol) 650 mg PRN Q6HRS PRN PO PAIN / TEMP; Start 09/02/16 at 13:30 Duloxetine HCl (Cymbalta) 30 mg DAILY PO Last administered on 09/04/16 09:00; Start 09/03/16 at 09:00 Acetaminophen/ Hydrocodone Bitart (Lortab 5/325) 1 tab BID PO Last administered on 09/04/16 20:04; Start 09/02/16 at 21:00 Magnesium Hydroxide (Milk Of Magnesia) 2,400 mg PRN QHS PRN PO CONSTIPATION; Start 09/02/16 at 13:30 Quetiapine Fumarate (SEROquel) 50 mg NOON PO Last administered on 09/04/16 12: 06; Start 09/03/16 at 12:00 Quetiapine Fumarate (SEROquel) 75 mg HS PO Last administered on 09/04/16 20:01 ; Start 09/02/16 at 21:00 Cyanocobalamin (Vitamin B-12) 250 mcg DAILY PO Last administered on 09/04/16 09:00; Start 09/03/16 at 09:00 Penicillin V Potassium (Veetid) 500 mg [id number] PO Last administered on 20:05; Start 09/02/16 at 17:00; Stop 09/06/16 at 09:00 Levetiracetam (Keppra) 500 mg BID PO Last administered on 09/04/16 20:01; Start 09/02/16 at 21:00 Acetaminophen (Tylenol) 650 mg PRN Q6HRS PRN PO PAIN / TEMP; Start 09/02/16 at 14:15; Status Cancel Multi-Ingredient Ointment (Analgesic [place]) 1 damion PRN QID PRN TP MUSCLE PAIN; Start 09/02/16 at 14:15 Al Hydroxide/Mg Hydroxide (Mylanta Plus Xs) 15 ml PRN AFTMEALHC PRN PO DYSPEPSIA; Start 09/02/16 at 14:15 Magnesium Hydroxide (Milk Of Magnesia) 2,400 mg PRN QHS PRN PO CONSTIPATION; Start 09/02/16 at 14:15; Status Cancel Melatonin 3 mg QHS PO Last administered on 09/04/16 20:01; Start 09/02/16 at 21:00 Active Scripts Active Reported Keppra (Levetiracetam) 500 Mg Tablet 500 Mg PO BID Tylenol (Acetaminophen) 325 Mg Tablet 650 Mg PO PRN Q6HRS PRN Milk Of Magnesia (Magnesium Hydroxide) 400 Mg/5 Ml Oral.susp 2,400 Mg PO PRN QHS PRN Cymbalta (Duloxetine Hcl) 30 Mg Capsule.dr 30 Mg PO DAILY 5 Days pt has received 3 of 5 scheduled doses Hydrocodone-Apap 5-325 (Hydrocodone Bit/Acetaminophen) 1 Each Tablet 1 Tab PO BID Penicillin V Potassium 500 Mg Tablet 500 Mg PO [id number] B-12 (Cyanocobalamin (Vitamin B-12)) 500 Mcg Tab.rapdis 250 Mcg PO DAILY Seroquel (Quetiapine Fumarate) 50 Mg Tablet 50 Mg PO NOON Seroquel (Quetiapine Fumarate) 50 Mg Tablet 75 Mg PO HS Diagnosis: Problems: (1) Anxiety disorder (2) Impulse control disorder (3) Dementia, vascular, with depression (4) Dementia, vascular, with delusions (5) Dementia in Alzheimer's disease with delusions (6) Dementia in Alzheimer's disease with depression ADELA RHODES MD Sep 04, 2016 21:34
--- NOTE | 2016-09-05 00:51 | PN ---
DATE: 09/03/2016 PSYCHIATRIC PROGRESS NOTE This is a late entry of 09/03/2016 covers elements not covered in my initial note. SUBJECTIVE: The patient was staffed with treatment team meeting with the entire team morning of 09/03/2016 seen individually evening of 09/03/2016. Reviewed diagnosis history progress, discharge aftercare plans. Sleeping about 7 hours compliant with medications was undressed in the hallway previous evening. No CV, , pulmonary, eye, ENT system symptoms on review. Reliability poor. MENTAL STATUS EXAM: Oriented to herself. Insight, judgment, recent and remote memory, attention, concentration, fund of knowledge poor, consistent with her diagnosis mentioned in my initial note. PLAN: Continue Cymbalta 30 mg a day, Seroquel 50 mg noon 75 at bedtime, melatonin 3 mg at bedtime. Adjust further as clinically indicated. MAN Marquita RHODES MD DR: ELIZABETH/wellington JOB#: [id number] / [id number]
[2016-09-05 06:03] VITALS: BP 117/78
[2016-09-05] MEDS: PENICILLIN V K 250 MG TABLET. PO SCH ×4 (08:58→19:31)
[2016-09-05] MEDS: CYANOCOBALAMIN (VITAMIN B-12) 250 MCG TABLET PO SCH (08:58)
[2016-09-05] MEDS: DULoxetine HCL 30 MG CAPSULE.DR PO SCH (08:58)
[2016-09-05] MEDS: levETIRAcetam 500 MG TABLET PO SCH ×2 (08:58→19:31)
[2016-09-05] MEDS: HYDROcodone/APAP 5/325MG 1 TAB TABLET PO SCH ×2 (08:59→19:31)
[2016-09-05] MEDS: QUEtiapine 50 MG TABLET. PO SCH ×2 (12:33→19:29)
[2016-09-05 15:52] VITALS: BP 123/84
--- NOTE | 2016-09-05 18:21 | PN ---
DATE: 09/04/2016 SUBJECTIVE: This is a late entry 09/04/2016, covers elements not covered in my initial note. The patient was seen individually evening of 09/04/2016. The patient remains confused, wanders the hallways, and redirectable. REVIEW OF SYSTEMS: No CV, , pulmonary, eye, or ENT system symptoms on review. Reliability poor. MENTAL STATUS EXAM: Oriented to herself. Insight, judgment, recent and remote memory, attention, concentration, and fund of knowledge poor consistent with her diagnosis mentioned in my initial note. PLAN: Continue current psychotropics. Adjust further as clinically indicated. May need to restart Depakote with mood lability resurfaces. ADELA RHODES MD DR: ELIZABETH/wellington JOB#: [id number] / [id number]
[2016-09-05] MEDS: MELATONIN 3 MG TABLET PO SCH (19:30)
--- NOTE | 2016-09-05 21:42 | PDOC ---
Exam Mario Alberto Demential Exam: Mario Alberto Note: Please also refer to the separate dictated note~for this date of service dictated separately.~Patient seen individually. Discussed the patient with Nursing staff reviewed the chart.~Reviewed interim history and current functioning. Reviewed vital signs,~Labs/ Radiology~and current medications noted below. Continue current treatment with the changes noted in the dictated addendum note Assessment: Vital Signs: Vital Signs Date Time Temp Pulse Resp B/P (MAP) Pulse Ox O2 Delivery O2 Flow Rate FiO2 09/05/16 20:31 99 09/05/16 15:52 97.6 103 22 123/84 (97) 09/05/16 10:40 Room Air I&O Intake and Output 09/05/16 07:00 Intake Total 1500 ml Balance 1500 ml Intake Oral 1500 ml Current Medications: Meds: Current Medications Acetaminophen (Tylenol) 650 mg PRN Q6HRS PRN PO PAIN / TEMP; Start 09/02/16 at 13:30 Duloxetine HCl (Cymbalta) 30 mg DAILY PO Last administered on 09/05/16 08:58; Start 09/03/16 at 09:00 Acetaminophen/ Hydrocodone Bitart (Lortab 5/325) 1 tab BID PO Last administered on 09/05/16 19:31; Start 09/02/16 at 21:00 Magnesium Hydroxide (Milk Of Magnesia) 2,400 mg PRN QHS PRN PO CONSTIPATION; Start 09/02/16 at 13:30 Quetiapine Fumarate (SEROquel) 50 mg NOON PO Last administered on 09/05/16 12: 33; Start 09/03/16 at 12:00 Quetiapine Fumarate (SEROquel) 75 mg HS PO Last administered on 09/05/16 19:29 ; Start 09/02/16 at 21:00 Cyanocobalamin (Vitamin B-12) 250 mcg DAILY PO Last administered on 09/05/16 08:58; Start 09/03/16 at 09:00 Penicillin V Potassium (Veetid) 500 mg [id number] PO Last administered on 19:31; Start 09/02/16 at 17:00; Stop 09/06/16 at 09:00 Levetiracetam (Keppra) 500 mg BID PO Last administered on 09/05/16 19:31; Start 09/02/16 at 21:00 Acetaminophen (Tylenol) 650 mg PRN Q6HRS PRN PO PAIN / TEMP; Start 09/02/16 at 14:15; Status Cancel Multi-Ingredient Ointment (Analgesic [place]) 1 damion PRN QID PRN TP MUSCLE PAIN; Start 09/02/16 at 14:15 Al Hydroxide/Mg Hydroxide (Mylanta Plus Xs) 15 ml PRN AFTMEALHC PRN PO DYSPEPSIA; Start 09/02/16 at 14:15 Magnesium Hydroxide (Milk Of Magnesia) 2,400 mg PRN QHS PRN PO CONSTIPATION; Start 09/02/16 at 14:15; Status Cancel Melatonin 3 mg QHS PO Last administered on 09/05/16 19:30; Start 09/02/16 at 21:00 Active Scripts Active Reported Keppra (Levetiracetam) 500 Mg Tablet 500 Mg PO BID Tylenol (Acetaminophen) 325 Mg Tablet 650 Mg PO PRN Q6HRS PRN Milk Of Magnesia (Magnesium Hydroxide) 400 Mg/5 Ml Oral.susp 2,400 Mg PO PRN QHS PRN Cymbalta (Duloxetine Hcl) 30 Mg Capsule.dr 30 Mg PO DAILY 5 Days pt has received 3 of 5 scheduled doses Hydrocodone-Apap 5-325 (Hydrocodone Bit/Acetaminophen) 1 Each Tablet 1 Tab PO BID Penicillin V Potassium 500 Mg Tablet 500 Mg PO [id number] B-12 (Cyanocobalamin (Vitamin B-12)) 500 Mcg Tab.rapdis 250 Mcg PO DAILY Seroquel (Quetiapine Fumarate) 50 Mg Tablet 50 Mg PO NOON Seroquel (Quetiapine Fumarate) 50 Mg Tablet 75 Mg PO HS Diagnosis: Problems: (1) Anxiety disorder (2) Impulse control disorder (3) Dementia, vascular, with depression (4) Dementia, vascular, with delusions (5) Dementia in Alzheimer's disease with delusions (6) Dementia in Alzheimer's disease with depression ADELA RHODES MD Sep 05, 2016 21:42
[2016-09-06 05:57] VITALS: BP 103/68
[2016-09-06] MEDS: levETIRAcetam 500 MG TABLET PO SCH ×2 (09:20→20:39)
[2016-09-06] MEDS: CYANOCOBALAMIN (VITAMIN B-12) 250 MCG TABLET PO SCH (09:20)
[2016-09-06] MEDS: DULoxetine HCL 30 MG CAPSULE.DR PO SCH (09:20)
[2016-09-06] MEDS: PENICILLIN V K 250 MG TABLET. PO SCH (09:21)
[2016-09-06] MEDS: HYDROcodone/APAP 5/325MG 1 TAB TABLET PO SCH ×2 (09:22→20:42)
[2016-09-06] MEDS: QUEtiapine 50 MG TABLET. PO SCH ×2 (11:55→20:39)
--- NOTE | 2016-09-06 12:46 | PN ---
DATE: 09/05/2016 PSYCHIATRIC PROGRESS NOTE This late entry of 09/05/2016 covers elements not covered in my initial note. SUBJECTIVE: The patient slept 6 hours previous evening. I met with the patient evening of 09/05/2016. She has been social, confused, not aggressive, not stripping herself. Serotonin level is 10 unremarkable. REVIEW OF SYSTEMS: No CV, , pulmonary, eye, ENT system symptoms on review. Reliability poor. MENTAL STATUS EXAM: Oriented to herself. Insight, judgment, recent and remote memory, attention, concentration, fund of knowledge poor, consistent with her diagnosis mentioned in my initial note. PLAN: Continue current psychotropics. Adjust further as clinically indicated. MAN Marquita RHODES MD DR: ELIZABETH/wellington JOB#: [id number] / [id number]
[2016-09-06 16:27] VITALS: BP 108/74
--- NOTE | 2016-09-06 19:48 | PDOC ---
Exam Mario Alberto Demential Exam: Mari Oalberto Note: Please also refer to the separate dictated note~for this date of service dictated separately.~Patient seen individually. Discussed the patient with Nursing staff reviewed the chart.~Reviewed interim history and current functioning. Reviewed vital signs,~Labs/ Radiology~and current medications noted below. Continue current treatment with the changes noted in the dictated addendum note Assessment: Vital Signs: Vital Signs Date Time Temp Pulse Resp B/P (MAP) Pulse Ox O2 Delivery O2 Flow Rate FiO2 09/06/16 16:27 97.2 97 20 108/74 (85) 99 09/06/16 10:44 Room Air I&O Intake and Output 09/06/16 07:00 Intake Total 840 ml Balance 840 ml Intake Oral 840 ml Current Medications: Meds: Current Medications Acetaminophen (Tylenol) 650 mg PRN Q6HRS PRN PO PAIN / TEMP Last administered on 09/06/16 01:31; Start 09/02/16 at 13:30 Duloxetine HCl (Cymbalta) 30 mg DAILY PO Last administered on 09/06/16 09:20; Start 09/03/16 at 09:00 Acetaminophen/ Hydrocodone Bitart (Lortab 5/325) 1 tab BID PO Last administered on 09/06/16 09:22; Start 09/02/16 at 21:00 Magnesium Hydroxide (Milk Of Magnesia) 2,400 mg PRN QHS PRN PO CONSTIPATION; Start 09/02/16 at 13:30 Quetiapine Fumarate (SEROquel) 50 mg NOON PO Last administered on 09/06/16 11: 55; Start 09/03/16 at 12:00 Quetiapine Fumarate (SEROquel) 75 mg HS PO Last administered on 09/05/16 19:29 ; Start 09/02/16 at 21:00 Cyanocobalamin (Vitamin B-12) 250 mcg DAILY PO Last administered on 09/06/16 09:20; Start 09/03/16 at 09:00 Penicillin V Potassium (Veetid) 500 mg [id number] PO Last administered on 09:21; Start 09/02/16 at 17:00; Stop 09/06/16 at 09:00; Status DC Levetiracetam (Keppra) 500 mg BID PO Last administered on 09/06/16 09:20; Start 09/02/16 at 21:00 Acetaminophen (Tylenol) 650 mg PRN Q6HRS PRN PO PAIN / TEMP; Start 09/02/16 at 14:15; Status Cancel Multi-Ingredient Ointment (Analgesic [place]) 1 damion PRN QID PRN TP MUSCLE PAIN; Start 09/02/16 at 14:15 Al Hydroxide/Mg Hydroxide (Mylanta Plus Xs) 15 ml PRN AFTMEALHC PRN PO DYSPEPSIA; Start 09/02/16 at 14:15 Magnesium Hydroxide (Milk Of Magnesia) 2,400 mg PRN QHS PRN PO CONSTIPATION; Start 09/02/16 at 14:15; Status Cancel Melatonin 3 mg QHS PO Last administered on 09/05/16 19:30; Start 09/02/16 at 21:00 Active Scripts Active Reported Keppra (Levetiracetam) 500 Mg Tablet 500 Mg PO BID Tylenol (Acetaminophen) 325 Mg Tablet 650 Mg PO PRN Q6HRS PRN Milk Of Magnesia (Magnesium Hydroxide) 400 Mg/5 Ml Oral.susp 2,400 Mg PO PRN QHS PRN Cymbalta (Duloxetine Hcl) 30 Mg Capsule.dr 30 Mg PO DAILY 5 Days pt has received 3 of 5 scheduled doses Hydrocodone-Apap 5-325 (Hydrocodone Bit/Acetaminophen) 1 Each Tablet 1 Tab PO BID Penicillin V Potassium 500 Mg Tablet 500 Mg PO [id number] B-12 (Cyanocobalamin (Vitamin B-12)) 500 Mcg Tab.rapdis 250 Mcg PO DAILY Seroquel (Quetiapine Fumarate) 50 Mg Tablet 50 Mg PO NOON Seroquel (Quetiapine Fumarate) 50 Mg Tablet 75 Mg PO HS Diagnosis: Problems: (1) Anxiety disorder (2) Impulse control disorder (3) Dementia, vascular, with depression (4) Dementia, vascular, with delusions (5) Dementia in Alzheimer's disease with delusions (6) Dementia in Alzheimer's disease with depression ADELA RHODES MD Sep 06, 2016 19:48
[2016-09-06] MEDS: MELATONIN 3 MG TABLET PO SCH (20:39)
[2016-09-07 06:12] VITALS: BP 126/83
[2016-09-07] MEDS: levETIRAcetam 500 MG TABLET PO SCH ×2 (08:59→19:31)
[2016-09-07] MEDS: CYANOCOBALAMIN (VITAMIN B-12) 250 MCG TABLET PO SCH (08:59)
[2016-09-07] MEDS: HYDROcodone/APAP 5/325MG 1 TAB TABLET PO SCH ×2 (09:01→19:33)
[2016-09-07] MEDS: DULoxetine HCL 30 MG CAPSULE.DR PO SCH (09:01)
[2016-09-07] MEDS: QUEtiapine 50 MG TABLET. PO SCH ×2 (12:31→19:31)
[2016-09-07 16:03] VITALS: BP 117/81
[2016-09-07] MEDS: MELATONIN 3 MG TABLET PO SCH (19:31)
[2016-09-07] MEDS: MIRTAZAPINE 7.5 MG TABLET. PO SCH (19:33)
--- NOTE | 2016-09-07 19:54 | PDOC ---
Exam Mario Alberto Demential Exam: Mario Alberto Note: Please also refer to the separate dictated note~for this date of service dictated separately.~Patient seen individually. Discussed the patient with Nursing staff reviewed the chart.~Reviewed interim history and current functioning. Reviewed vital signs,~Labs/ Radiology~and current medications noted below. Continue current treatment with the changes noted in the dictated addendum note Assessment: Vital Signs: Vital Signs Date Time Temp Pulse Resp B/P (MAP) Pulse Ox O2 Delivery O2 Flow Rate FiO2 09/07/16 19:33 18 Room Air 09/07/16 16:03 98.2 89 117/81 (93) 96 I&O Intake and Output 09/07/16 07:00 Intake Total 720 ml Balance 720 ml Intake Oral 720 ml Current Medications: Meds: Current Medications Acetaminophen (Tylenol) 650 mg PRN Q6HRS PRN PO PAIN / TEMP Last administered on 09/06/16 01:31; Start 09/02/16 at 13:30 Duloxetine HCl (Cymbalta) 30 mg DAILY PO Last administered on 09/07/16 09:01; Start 09/03/16 at 09:00 Acetaminophen/ Hydrocodone Bitart (Lortab 5/325) 1 tab BID PO Last administered on 09/07/16 19:33; Start 09/02/16 at 21:00 Magnesium Hydroxide (Milk Of Magnesia) 2,400 mg PRN QHS PRN PO CONSTIPATION; Start 09/02/16 at 13:30 Quetiapine Fumarate (SEROquel) 50 mg NOON PO Last administered on 09/07/16 12: 31; Start 09/03/16 at 12:00 Quetiapine Fumarate (SEROquel) 75 mg HS PO Last administered on 09/07/16 19:31 ; Start 09/02/16 at 21:00 Cyanocobalamin (Vitamin B-12) 250 mcg DAILY PO Last administered on 09/07/16 08:59; Start 09/03/16 at 09:00 Penicillin V Potassium (Veetid) 500 mg [id number] PO Last administered on 09:21; Start 09/02/16 at 17:00; Stop 09/06/16 at 09:00; Status DC Levetiracetam (Keppra) 500 mg BID PO Last administered on 09/07/16 19:31; Start 09/02/16 at 21:00 Acetaminophen (Tylenol) 650 mg PRN Q6HRS PRN PO PAIN / TEMP; Start 09/02/16 at 14:15; Status Cancel Multi-Ingredient Ointment (Analgesic [place]) 1 damion PRN QID PRN TP MUSCLE PAIN; Start 09/02/16 at 14:15 Al Hydroxide/Mg Hydroxide (Mylanta Plus Xs) 15 ml PRN AFTMEALHC PRN PO DYSPEPSIA; Start 09/02/16 at 14:15 Magnesium Hydroxide (Milk Of Magnesia) 2,400 mg PRN QHS PRN PO CONSTIPATION; Start 09/02/16 at 14:15; Status Cancel Melatonin 3 mg QHS PO Last administered on 09/07/16 19:31; Start 09/02/16 at 21:00 Mirtazapine (Remeron) 7.5 mg QHS PO Last administered on 09/07/16 19:33; Start 09/07/16 at 21:00 Active Scripts Active Reported Keppra (Levetiracetam) 500 Mg Tablet 500 Mg PO BID Tylenol (Acetaminophen) 325 Mg Tablet 650 Mg PO PRN Q6HRS PRN Milk Of Magnesia (Magnesium Hydroxide) 400 Mg/5 Ml Oral.susp 2,400 Mg PO PRN QHS PRN Cymbalta (Duloxetine Hcl) 30 Mg Capsule.dr 30 Mg PO DAILY 5 Days pt has received 3 of 5 scheduled doses Hydrocodone-Apap 5-325 (Hydrocodone Bit/Acetaminophen) 1 Each Tablet 1 Tab PO BID Penicillin V Potassium 500 Mg Tablet 500 Mg PO [id number] B-12 (Cyanocobalamin (Vitamin B-12)) 500 Mcg Tab.rapdis 250 Mcg PO DAILY Seroquel (Quetiapine Fumarate) 50 Mg Tablet 50 Mg PO NOON Seroquel (Quetiapine Fumarate) 50 Mg Tablet 75 Mg PO HS Diagnosis: Problems: (1) Anxiety disorder (2) Impulse control disorder (3) Dementia, vascular, with depression (4) Dementia, vascular, with delusions (5) Dementia in Alzheimer's disease with delusions (6) Dementia in Alzheimer's disease with depression ADELA RHODES MD Sep 07, 2016 19:54
--- NOTE | 2016-09-08 01:01 | PN ---
DATE: 09/06/2016 This late entry 09/06/2016 covers elements not covered in my initial note. SUBJECTIVE: The patient was seen individually evening of 09/06/2016. Per nursing report, the patient is compliant with her medications, wandering, calm, cooperative with cares, which is an improvement. REVIEW OF SYSTEMS: No CV, , eye, ENT or pulmonary system symptoms on review. She slept 3-3/4 hours previous night. MENTAL STATUS EXAM: Oriented to herself. Insight, judgment, recent and remote memory, attention, concentration, fund of knowledge poor, consistent with her diagnosis mentioned in my initial note. LABORATORY DATA: Reviewed. PLAN: Continue current psychotropics. Cymbalta 30 mg a day; Seroquel 50 mg at noon, 75 mg at bedtime; melatonin 3 mg at bedtime. We may start Remeron 7.5 mg at bedtime on 09/07/2016 depending on how she sleeps the night of 09/06-09/07, adjust further as clinically indicated. MAN Marquita RHODES MD DR: ELIZABETH/wellington JOB#: [id number] / [id number]
[2016-09-08 06:40] VITALS: BP 119/81
[2016-09-08] MEDS: DULoxetine HCL 30 MG CAPSULE.DR PO SCH (08:49)
[2016-09-08] MEDS: CYANOCOBALAMIN (VITAMIN B-12) 250 MCG TABLET PO SCH (08:50)
[2016-09-08] MEDS: levETIRAcetam 500 MG TABLET PO SCH ×2 (08:50→20:03)
[2016-09-08] MEDS: HYDROcodone/APAP 5/325MG 1 TAB TABLET PO SCH ×2 (08:51→20:05)
[2016-09-08 09:56] LABS: BASO % 1 % (0-3); EOS # 0.1 x10^3/uL (0.0-0.7); EOS % 2 % (0-3); HEMATOCRIT 39.3 % (36.0-47.0); HEMOGLOBIN 12.9 g/dL (12.0-15.5); LYMPH # 1.4 x10^3/uL (1.0-4.8); LYMPH % 28 % (24-48); MEAN CORPUSCULAR HEMOGLOBIN 28 pg (25-35); MEAN CORPUSCULAR HGB CONC 33 g/dL (31-37); MEAN CORPUSCULAR VOLUME 87 fL (79-100); MONO # 0.6 x10^3/uL (0.0-1.1); MONO % 11 % (0-9); NEUT # 2.9 x10^3uL (1.8-7.7); NEUT % 59 % (31-73); PLATELET COUNT 221 x10^3/uL (140-400); RED BLOOD COUNT 4.53 x10^6/uL (3.50-5.40); RED CELL DISTRIBUTION WIDTH 13.2 % (11.5-14.5)
[2016-09-08 10:14] LABS: ALBUMIN 3.5 g/dL (3.4-5.0); ALBUMIN/GLOBULIN RATIO 0.9 (1.0-1.7); CALCIUM 8.4 mg/dL (8.5-10.1); GFR 57.1; MAGNESIUM 2.3 mg/dL (1.8-2.4); POTASSIUM 3.9 mmol/L (3.5-5.1); TOTAL BILIRUBIN 0.3 mg/dL (0.2-1.0); TOTAL PROTEIN 7.3 g/dL (6.4-8.2)
[2016-09-08] MEDS: QUEtiapine 50 MG TABLET. PO SCH ×2 (12:05→20:03)
[2016-09-08 16:25] VITALS: BP 114/76
--- NOTE | 2016-09-08 19:59 | PDOC ---
Exam Mario Alberto Demential Exam: Mario Alberto Note: Please also refer to the separate dictated note~for this date of service dictated separately.~Patient seen individually. Discussed the patient with Nursing staff reviewed the chart.~Reviewed interim history and current functioning. Reviewed vital signs,~Labs/ Radiology~and current medications noted below. Continue current treatment with the changes noted in the dictated addendum note Assessment: Vital Signs: Vital Signs Date Time Temp Pulse Resp B/P (MAP) Pulse Ox O2 Delivery O2 Flow Rate FiO2 09/08/16 16:25 97.1 97 16 114/76 (89) 98 09/07/16 20:33 Room Air I&O Intake and Output 09/08/16 07:00 Intake Total 1160 ml Balance 1160 ml Intake Oral 1160 ml Labs: Laboratory Tests Test 09/08/16 09:40 White Blood Count 5.0 x10^3/uL (4.0-11.0) Red Blood Count 4.53 x10^6/uL (3.50-5.40) Hemoglobin 12.9 g/dL (12.0-15.5) Hematocrit 39.3 % (36.0-47.0) Mean Corpuscular Volume 87 fL (79-100) Mean Corpuscular Hemoglobin 28 pg (25-35) Mean Corpuscular Hemoglobin Concent 33 g/dL (31-37) Red Cell Distribution Width 13.2 % (11.5-14.5) Platelet Count 221 x10^3/uL (140-400) Neutrophils (%) (Auto) 59 % (31-73) Lymphocytes (%) (Auto) 28 % (24-48) Monocytes (%) (Auto) 11 % (0-9) H Eosinophils (%) (Auto) 2 % (0-3) Basophils (%) (Auto) 1 % (0-3) Neutrophils # (Auto) 2.9 x10^3uL (1.8-7.7) Lymphocytes # (Auto) 1.4 x10^3/uL (1.0-4.8) Monocytes # (Auto) 0.6 x10^3/uL (0.0-1.1) Eosinophils # (Auto) 0.1 x10^3/uL (0.0-0.7) Basophils # (Auto) 0.0 x10^3/uL (0.0-0.2) Sodium Level 142 mmol/L (136-145) Potassium Level 3.9 mmol/L (3.5-5.1) Chloride Level 107 mmol/L (98-107) Carbon Dioxide Level 26 mmol/L (21-32) Anion Gap 9 (6-14) Blood Urea Nitrogen 12 mg/dL (7-20) Creatinine 1.0 mg/dL (0.6-1.0) Estimated GFR (Cockcroft-Gault) 57.1 BUN/Creatinine Ratio 12 (6-20) Glucose Level 100 mg/dL (70-99) H Calcium Level 8.4 mg/dL (8.5-10.1) L Magnesium Level 2.3 mg/dL (1.8-2.4) Total Bilirubin 0.3 mg/dL (0.2-1.0) Aspartate Amino Transferase (AST) 58 U/L (15-37) H Alanine Aminotransferase (ALT) 111 U/L (14-59) H Alkaline Phosphatase 67 U/L (46-116) Total Protein 7.3 g/dL (6.4-8.2) Albumin 3.5 g/dL (3.4-5.0) Albumin/Globulin Ratio 0.9 (1.0-1.7) L Current Medications: Meds: Current Medications Acetaminophen (Tylenol) 650 mg PRN Q6HRS PRN PO PAIN / TEMP Last administered on 09/06/16 01:31; Start 09/02/16 at 13:30 Duloxetine HCl (Cymbalta) 30 mg DAILY PO Last administered on 09/08/16 08:49; Start 09/03/16 at 09:00 Acetaminophen/ Hydrocodone Bitart (Lortab 5/325) 1 tab BID PO Last administered on 09/08/16 08:51; Start 09/02/16 at 21:00 Magnesium Hydroxide (Milk Of Magnesia) 2,400 mg PRN QHS PRN PO CONSTIPATION; Start 09/02/16 at 13:30 Quetiapine Fumarate (SEROquel) 50 mg NOON PO Last administered on 09/08/16 12: 05; Start 09/03/16 at 12:00 Quetiapine Fumarate (SEROquel) 75 mg HS PO Last administered on 09/07/16 19:31 ; Start 09/02/16 at 21:00 Cyanocobalamin (Vitamin B-12) 250 mcg DAILY PO Last administered on 09/08/16 08 :50; Start 09/03/16 at 09:00 Penicillin V Potassium (Veetid) 500 mg [id number] PO Last administered on 09:21; Start 09/02/16 at 17:00; Stop 09/06/16 at 09:00; Status DC Levetiracetam (Keppra) 500 mg BID PO Last administered on 09/08/16 08:50; Start 09/02/16 at 21:00 Acetaminophen (Tylenol) 650 mg PRN Q6HRS PRN PO PAIN / TEMP; Start 09/02/16 at 14:15; Status Cancel Multi-Ingredient Ointment (Analgesic [place]) 1 damion PRN QID PRN TP MUSCLE PAIN; Start 09/02/16 at 14:15 Al Hydroxide/Mg Hydroxide (Mylanta Plus Xs) 15 ml PRN AFTMEALHC PRN PO DYSPEPSIA; Start 09/02/16 at 14:15 Magnesium Hydroxide (Milk Of Magnesia) 2,400 mg PRN QHS PRN PO CONSTIPATION; Start 09/02/16 at 14:15; Status Cancel Melatonin 3 mg QHS PO Last administered on 09/07/16 19:31; Start 09/02/16 at 21:00 Mirtazapine (Remeron) 7.5 mg QHS PO Last administered on 09/07/16 19:33; Start 09/07/16 at 21:00 Buspirone HCl (Buspar) 5 mg [id number] PO ; Start 09/09/16 at 09:00 Active Scripts Active Reported Keppra (Levetiracetam) 500 Mg Tablet 500 Mg PO BID Tylenol (Acetaminophen) 325 Mg Tablet 650 Mg PO PRN Q6HRS PRN Milk Of Magnesia (Magnesium Hydroxide) 400 Mg/5 Ml Oral.susp 2,400 Mg PO PRN QHS PRN Cymbalta (Duloxetine Hcl) 30 Mg Capsule.dr 30 Mg PO DAILY 5 Days pt has received 3 of 5 scheduled doses Hydrocodone-Apap 5-325 (Hydrocodone Bit/Acetaminophen) 1 Each Tablet 1 Tab PO BID Penicillin V Potassium 500 Mg Tablet 500 Mg PO [id number] B-12 (Cyanocobalamin (Vitamin B-12)) 500 Mcg Tab.rapdis 250 Mcg PO DAILY Seroquel (Quetiapine Fumarate) 50 Mg Tablet 50 Mg PO NOON Seroquel (Quetiapine Fumarate) 50 Mg Tablet 75 Mg PO HS Diagnosis: Problems: (1) Anxiety disorder (2) Impulse control disorder (3) Dementia, vascular, with depression (4) Dementia, vascular, with delusions (5) Dementia in Alzheimer's disease with delusions (6) Dementia in Alzheimer's disease with depression ADELA RHODES MD Sep 08, 2016 19:59
[2016-09-08] MEDS: MELATONIN 3 MG TABLET PO SCH (20:02)
[2016-09-08] MEDS: MIRTAZAPINE 7.5 MG TABLET. PO SCH (20:03)
--- NOTE | 2016-09-08 23:42 | PN ---
DATE: 09/07/2016 PSYCHIATRIC PROGRESS NOTE This is a late entry of 09/07/2016 covers elements not covered in my initial note. SUBJECTIVE: I met with the patient in the evening of 09/07/2016. Per nursing report, the patient was singing and dancing in group earlier in the day on 09/07/2016 quite appropriate. At 3:00 p.m. in the afternoon she was pacing exit seeking, trying to take the walker of another demented patient, oblivious of what she was doing, slept 6-1/2 hours previous evening. REVIEW OF SYSTEMS: No CV, , pulmonary, eye, ENT system symptoms on review. MENTAL STATUS EXAM: Oriented to herself. Insight, judgment, recent and remote memory, attention, concentration, fund of knowledge poor, consistent with her diagnosis mentioned in my initial note. IMPRESSION: Major neurocognitive disorder probably Alzheimer's with delusion, depression, behavioral disturbance; anxiety disorder, unspecified; impulse control disorder, unspecified. PLAN: Remeron was started at 7.5 mg p.o. at bedtime. Continue Seroquel 75 mg at bedtime, melatonin 3 mg at bedtime, Cymbalta 30 mg a day, Keppra [address] Lea since she had a recent seizure. Adjust as clinically indicated. ADELA RHODES MD DR: ELIZABETH/wellington JOB#: [id number] / [id number]
[2016-09-09] MEDS ORDERED: MAG30ORA2 PO (00:06)
[2016-09-09] MEDS ORDERED: MELA3TAB2 PO (00:07)
[2016-09-09] MEDS ORDERED: METH29OI TP (00:09)
[2016-09-09] MEDS ORDERED: MIRT15TA3 PO (00:10)
[2016-09-09 05:59] VITALS: BP 119/71
[2016-09-09] MEDS: DULoxetine HCL 30 MG CAPSULE.DR PO SCH (08:20)
[2016-09-09] MEDS: CYANOCOBALAMIN (VITAMIN B-12) 250 MCG TABLET PO SCH (08:20)
[2016-09-09] MEDS: HYDROcodone/APAP 5/325MG 1 TAB TABLET PO SCH (08:21)
[2016-09-09] MEDS: levETIRAcetam 500 MG TABLET PO SCH (08:21)
[2016-09-09] MEDS ORDERED: busPIRone 5 MG TABLET. PO SCH (09:00)
[2016-09-09] MEDS ORDERED: OLAN5TAB5 PO (10:30)
[2016-09-09] MEDS ORDERED: BUSP5TAB PO (11:08)
[2016-09-09] MEDS: QUEtiapine 50 MG TABLET. PO SCH (12:00)
--- NOTE | 2016-09-09 18:03 | PDOC ---
Exam Mario Alberto Demential Exam: Mario Alberto Note: Please also refer to the separate dictated note~for this date of service dictated separately.~Patient seen individually. Discussed the patient with Nursing staff reviewed the chart.~Reviewed interim history and current functioning. Reviewed vital signs,~Labs/ Radiology~and current medications noted below. Continue current treatment with the changes noted in the dictated addendum note Assessment: Vital Signs: Vital Signs Date Time Temp Pulse Resp B/P (MAP) Pulse Ox O2 Delivery O2 Flow Rate FiO2 09/09/16 10:17 16 98 Room Air 09/09/16 05:59 97.8 57 119/71 (87) I&O Intake and Output 09/09/16 07:00 Intake Total 1190 ml Balance 1190 ml Intake Oral 1190 ml # Voids 1 Current Medications: Meds: Current Medications Acetaminophen (Tylenol) 650 mg PRN Q6HRS PRN PO PAIN / TEMP Last administered on 09/06/16 01:31; Start 09/02/16 at 13:30; Stop 09/09/16 at 13:52; Status DC Duloxetine HCl (Cymbalta) 30 mg DAILY PO Last administered on 09/09/16 08:20; Start 09/03/16 at 09:00; Stop 09/09/16 at 13:52; Status DC Acetaminophen/ Hydrocodone Bitart (Lortab 5/325) 1 tab BID PO Last administered on 09/09/16 08:21; Start 09/02/16 at 21:00; Stop 09/09/16 at 13:52; Status DC Magnesium Hydroxide (Milk Of Magnesia) 2,400 mg PRN QHS PRN PO CONSTIPATION; Start 09/02/16 at 13:30; Stop 09/09/16 at 13:52; Status DC Quetiapine Fumarate (SEROquel) 50 mg NOON PO Last administered on 09/09/16 12: 00; Start 09/03/16 at 12:00; Stop 09/09/16 at 13:52; Status DC Quetiapine Fumarate (SEROquel) 75 mg HS PO Last administered on 09/08/16 20:03 ; Start 09/02/16 at 21:00; Stop 09/09/16 at 13:52; Status DC Cyanocobalamin (Vitamin B-12) 250 mcg DAILY PO Last administered on 09/09/16 08 :20; Start 09/03/16 at 09:00; Stop 09/09/16 at 13:52; Status DC Penicillin V Potassium (Veetid) 500 mg [id number] PO Last administered on 09:21; Start 09/02/16 at 17:00; Stop 09/06/16 at 09:00; Status DC Levetiracetam (Keppra) 500 mg BID PO Last administered on 09/09/16 08:21; Start 09/02/16 at 21:00; Stop 09/09/16 at 13:52; Status DC Acetaminophen (Tylenol) 650 mg PRN Q6HRS PRN PO PAIN / TEMP; Start 09/02/16 at 14:15; Status Cancel Multi-Ingredient Ointment (Analgesic [place]) 1 randee PRN QID PRN TP MUSCLE PAIN; Start 09/02/16 at 14:15; Stop 09/09/16 at 13:52; Status DC Al Hydroxide/Mg Hydroxide (Mylanta Plus Xs) 15 ml PRN AFTMEALHC PRN PO DYSPEPSIA; Start 09/02/16 at 14:15; Stop 09/09/16 at 13:52; Status DC Magnesium Hydroxide (Milk Of Magnesia) 2,400 mg PRN QHS PRN PO CONSTIPATION; Start 09/02/16 at 14:15; Status Cancel Melatonin 3 mg QHS PO Last administered on 09/08/16 20:02; Start 09/02/16 at 21 :00; Stop 09/09/16 at 13:52; Status DC Mirtazapine (Remeron) 7.5 mg QHS PO Last administered on 09/08/16 20:03; Start 09/07/16 at 21:00; Stop 09/09/16 at 13:52; Status DC Buspirone HCl (Buspar) 5 mg BID92 PO Last administered on 09/09/16 08:20; Start 09/09/16 at 09:00; Stop 09/09/16 at 13:52; Status DC Olanzapine (ZyPREXA ZYDIS) 2.5 mg PRN Q2HR PRN PO PSYCHOSIS Last administered on 09/09/16 08:20; Start 09/09/16 at 07:45; Stop 09/09/16 at 13:52; Status DC Active Scripts Active Reported Buspirone Hcl 5 Mg Tablet 1 Tab PO BID92 Zyprexa Zydis (Olanzapine) 5 Mg Tab.rapdis 2.5 Mg PO Q2HR PRN Mirtazapine 15 Mg Tablet 7.5 Mg PO QHS Analgesic [place] (Methyl Salicylate/Menthol) 28 Gm Oint...g. 1 Randee TP PRN QID PRN Melatonin 3 Mg Tablet 3 Mg PO QHS Mag-Al Plus Xs Suspension (Mag Hydrox/Al Hydrox/Simeth) 30 Ml Oral.susp 15 Ml PO PRN AFTMEALHC PRN Keppra (Levetiracetam) 500 Mg Tablet 500 Mg PO BID Tylenol (Acetaminophen) 325 Mg Tablet 650 Mg PO PRN Q6HRS PRN Milk Of Magnesia (Magnesium Hydroxide) 400 Mg/5 Ml Oral.susp 2,400 Mg PO PRN QHS PRN Cymbalta (Duloxetine Hcl) 30 Mg Capsule.dr 30 Mg PO DAILY pt has received 3 of 5 scheduled doses Hydrocodone-Apap 5-325 (Hydrocodone Bit/Acetaminophen) 1 Each Tablet 1 Tab PO BID B-12 (Cyanocobalamin (Vitamin B-12)) 500 Mcg Tab.rapdis 250 Mcg PO DAILY Seroquel (Quetiapine Fumarate) 50 Mg Tablet 50 Mg PO NOON Seroquel (Quetiapine Fumarate) 50 Mg Tablet 75 Mg PO HS Diagnosis: Problems: (1) Dementia in Alzheimer's disease with depression (2) Dementia in Alzheimer's disease with delusions (3) Dementia, vascular, with delusions (4) Dementia, vascular, with depression (5) Impulse control disorder (6) Anxiety disorder (7) Frontotemporal dementia with behavioral disturbance ADELA RHODES MD Sep 09, 2016 18:03
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
--- NOTE | 2016-09-10 18:43 | DS ---
DATE OF DISCHARGE: 09/09/2016 DISCHARGE SUMMARY/ PSYCHIATRIC PROGRESS NOTE This is a late entry for 09/09/2016 and covers the elements not covered in my initial note of 09/09/2016. REASON FOR ADMISSION: Briefly, the patient is a 56-year-old female referred to us back from the ICU at [facility], where she was transferred due to a seizure episode while on our unit being stabilized for her major neurocognitive disorder, Alzheimer's with behavioral disturbance. The patient remained quite disruptive in the ICU, irritable, labile, anxious and was referred back to us. SIGNIFICANT FINDINGS AND CLINICAL COURSE: Following admission, the patient was seen daily individually by myself, followed medically per Dr. Jaime/Dr. Rosales. She is confused, wandering up and down the hallway, restless, anxious. Adjustments were made in her psychotropics and she seemed to respond to a combination of BuSpar 5 mg twice a day, Cymbalta 30 mg a day, Seroquel 50 mg at noon and 75 at bedtime, melatonin 3 mg at bedtime, Keppra 500 b.i.d., Remeron 7.5 at bedtime. No suicidal or homicidal ideation prior to discharge. CONDITION ON DISCHARGE: Improved. FINAL DIAGNOSES: Major neurocognitive disorder, Alzheimer's with delusion, behavioral disturbance; anxiety disorder, unspecified; impulse control disorder, unspecified. Rest diagnoses unchanged from admission. DISCHARGE MEDICATIONS: Please refer to the MRAD. DISCHARGE INSTRUCTIONS: Outpatient psychiatric and medical followup as arranged prior to discharge. ADELA RHODES MD DR: ELIZABETH/wellington JOB#: [id number] / [id number]
== END 2016-09-09 12:00 | disposition home or self-care (01) | DRG 884 ==
LOC: GEROPSY 12:40
PROVIDERS: ADMIT Psychiatry & Neurology Psychiatry; ATTEND Psychiatry & Neurology Psychiatry
DX: F01.51 Vascular dementia, unspecified severity, with behavioral disturbance (principal); F02.81 Dementia in other diseases classified elsewhere, unspecified severity, with behavioral disturbance; G30.9 Alzheimer's disease, unspecified; F22 Delusional disorders; F32.9 Major depressive disorder, single episode, unspecified; F41.9 Anxiety disorder, unspecified; F63.9 Impulse disorder, unspecified; G31.09 Other frontotemporal neurocognitive disorder; M54.9 Dorsalgia, unspecified; G47.00 Insomnia, unspecified; G40.909 Epilepsy, unspecified, not intractable, without status epilepticus; Z79.899 Other long term (current) drug therapy; Z87.440 Personal history of urinary (tract) infections; Z91.19 Patient's noncompliance with other medical treatment and regimen; Z90.710 Acquired absence of both cervix and uterus
CPT/HCPCS: 36415; 80053; 83735; 85027

== ENCOUNTER 2016-09-12 16:49 | Inpatient (IN) | payer MEDICARE ==
[~2016-09-12] VITALS: Ht 167.6 cm; Wt 68.7 kg
[~2016-09-12 16:49] MED LIST changes: +BUSP5TAB PO; +MAG30ORA2 PO; +MELA3TAB2 PO; +METH29OI TP; +MIRT15TA3 PO
[2016-09-12 18:33] VITALS: BP 125/82
[2016-09-12] MEDS ORDERED: MAG HYDROX/AL HYDROX/SIMETH 30 ML ORAL.SUSP PO PRN ×2 (20:00→20:15)
[2016-09-12] MEDS ORDERED: ACETAMINOPHEN 325 MG TABLET PO PRN ×2 (20:00→20:15)
[2016-09-12] MEDS ORDERED: METHYL SALICYLATE/MENTHOL TOPICAL OINTMENT 29GM TUBE. TP PRN ×2 (20:00→20:15)
[2016-09-12] MEDS ORDERED: MAGNESIUM HYDROXIDE 2,400 MG/30 ML ORAL.SUSP. PO PRN ×2 (20:00→20:15)
[2016-09-12] MEDS: MELATONIN 3 MG TABLET PO SCH (20:18)
[2016-09-12] MEDS: MIRTAZAPINE 7.5 MG TABLET. PO SCH (20:18)
[2016-09-12] MEDS: QUEtiapine 50 MG TABLET. PO SCH (20:18)
[2016-09-12] MEDS: HYDROcodone/APAP 5/325MG 1 TAB TABLET PO SCH (20:18)
[2016-09-12] MEDS: levETIRAcetam 500 MG TABLET PO SCH (20:19)
--- NOTE | 2016-09-12 22:24 | PDOC ---
Exam Mario Alberto Demential Exam: Mario Alberto Note: Please also refer to the separate dictated note~for this date of service dictated separately.~Patient seen individually. Discussed the patient with Nursing staff reviewed the chart.~Reviewed interim history and current functioning. Reviewed vital signs,~Labs/ Radiology~and current medications noted below. Continue current treatment with the changes noted in the dictated addendum note Assessment: Vital Signs: Vital Signs Date Time Temp Pulse Resp B/P (MAP) Pulse Ox O2 Delivery O2 Flow Rate FiO2 09/12/16 20:18 97 Room Air 09/12/16 18:33 97.8 86 18 125/82 (96) Current Medications: Meds: Current Medications Acetaminophen (Tylenol) 650 mg PRN Q6HRS PRN PO PAIN / TEMP; Start 09/12/16 at 20:00; Status UNV Multi-Ingredient Ointment (Analgesic [place]) 1 randee PRN QID PRN TP MUSCLE PAIN; Start 09/12/16 at 20:00; Status UNV Al Hydroxide/Mg Hydroxide (Mylanta Plus Xs) 15 ml PRN AFTMEALHC PRN PO DYSPEPSIA; Start 09/12/16 at 20:00; Status UNV Magnesium Hydroxide (Milk Of Magnesia) 2,400 mg PRN QHS PRN PO CONSTIPATION; Start 09/12/16 at 20:00; Status UNV Duloxetine HCl (Cymbalta) 30 mg DAILY PO ; Start 09/13/16 at 09:00 Mirtazapine (Remeron) 7.5 mg QHS PO Last administered on 09/12/16 20:18; Start 09/12/16 at 21:00 Olanzapine (ZyPREXA ZYDIS) 2.5 mg PRN Q2HR PRN PO PSYCHOSIS Last administered on 09/12/16 20:19; Start 09/12/16 at 20:15 Quetiapine Fumarate (SEROquel) 50 mg NOON PO ; Start 09/13/16 at 12:00 Quetiapine Fumarate (SEROquel) 75 mg HS PO Last administered on 09/12/16 20:18 ; Start 09/12/16 at 21:00 Melatonin 3 mg QHS PO Last administered on 09/12/16 20:18; Start 09/12/16 at 21: 00 Acetaminophen (Tylenol) 650 mg PRN Q6HRS PRN PO PAIN / TEMP; Start 09/12/16 at 20:15 Acetaminophen/ Hydrocodone Bitart (Lortab 5/325) 1 tab BID PO Last administered on 09/12/16 20:18; Start 09/12/16 at 21:00 Levetiracetam (Keppra) 500 mg BID PO Last administered on 09/12/16 20:19; Start 09/12/16 at 21:00 Al Hydroxide/Mg Hydroxide (Mylanta Plus Xs) 15 ml PRN AFTMEALHC PRN PO DYSPEPSIA; Start 09/12/16 at 20:15 Magnesium Hydroxide (Milk Of Magnesia) 2,400 mg PRN QHS PRN PO CONSTIPATION; Start 09/12/16 at 20:15 Multi-Ingredient Ointment (Analgesic [place]) 1 randee PRN QID PRN TP MUSCLE PAIN; Start 09/12/16 at 20:15 Cyanocobalamin (Vitamin B-12) 250 mcg DAILY PO ; Start 09/13/16 at 09:00 Buspirone HCl (Buspar) 5 mg BID92 PO ; Start 09/13/16 at 09:00 Active Scripts Active Reported Buspirone Hcl 5 Mg Tablet 1 Tab PO BID92 Zyprexa Zydis (Olanzapine) 5 Mg Tab.rapdis 2.5 Mg PO Q2HR PRN Mirtazapine 15 Mg Tablet 7.5 Mg PO QHS Analgesic [place] (Methyl Salicylate/Menthol) 28 Gm Oint...g. 1 Randee TP PRN QID PRN Melatonin 3 Mg Tablet 3 Mg PO QHS Mag-Al Plus Xs Suspension (Mag Hydrox/Al Hydrox/Simeth) 30 Ml Oral.susp 15 Ml PO PRN AFTMEALHC PRN Keppra (Levetiracetam) 500 Mg Tablet 500 Mg PO BID Tylenol (Acetaminophen) 325 Mg Tablet 650 Mg PO PRN Q6HRS PRN Milk Of Magnesia (Magnesium Hydroxide) 400 Mg/5 Ml Oral.susp 2,400 Mg PO PRN QHS PRN Cymbalta (Duloxetine Hcl) 30 Mg Capsule.dr 30 Mg PO DAILY pt has received 3 of 5 scheduled doses Hydrocodone-Apap 5-325 (Hydrocodone Bit/Acetaminophen) 1 Each Tablet 1 Tab PO BID B-12 (Cyanocobalamin (Vitamin B-12)) 500 Mcg Tab.rapdis 250 Mcg PO DAILY Seroquel (Quetiapine Fumarate) 50 Mg Tablet 50 Mg PO NOON Seroquel (Quetiapine Fumarate) 50 Mg Tablet 75 Mg PO HS Diagnosis: Problems: (1) Anxiety disorder (2) Impulse control disorder (3) Dementia, vascular, with depression (4) Dementia, vascular, with delusions (5) Dementia in Alzheimer's disease with delusions (6) Dementia in Alzheimer's disease with depression (7) Frontotemporal dementia with behavioral disturbance ADELA RHODES MD Sep 12, 2016 22:23
[2016-09-13 06:26] VITALS: BP 116/84
[2016-09-13 08:29] LABS: BASO % 1 % (0-3); EOS # 0.1 x10^3/uL (0.0-0.7); EOS % 2 % (0-3); HEMOGLOBIN 13.7 g/dL (12.0-15.5); LYMPH # 1.5 x10^3/uL (1.0-4.8); LYMPH % 24 % (24-48); MEAN CORPUSCULAR HEMOGLOBIN 29 pg (25-35); MEAN CORPUSCULAR HGB CONC 33 g/dL (31-37); MEAN CORPUSCULAR VOLUME 86 fL (79-100); MONO # 0.7 x10^3/uL (0.0-1.1); MONO % 12 % (0-9); NEUT # 3.8 x10^3uL (1.8-7.7); NEUT % 61 % (31-73); PLATELET COUNT 244 x10^3/uL (140-400); RED BLOOD COUNT 4.78 x10^6/uL (3.50-5.40); WHITE BLOOD COUNT 6.2 x10^3/uL (4.0-11.0)
[2016-09-13] MEDS: HYDROcodone/APAP 5/325MG 1 TAB TABLET PO SCH ×3 (09:00→19:49)
[2016-09-13] MEDS: busPIRone 5 MG TABLET. PO SCH ×3 (09:00→14:04)
[2016-09-13] MEDS: CYANOCOBALAMIN (VITAMIN B-12) 250 MCG TABLET PO SCH (09:00)
[2016-09-13 09:03] LABS: ALBUMIN 3.9 g/dL (3.4-5.0); ALBUMIN/GLOBULIN RATIO 0.8 (1.0-1.7); CALCIUM 8.9 mg/dL (8.5-10.1); CREATININE 0.9 mg/dL (0.6-1.0); GFR 64.5; MAGNESIUM 2.2 mg/dL (1.8-2.4); POTASSIUM 3.7 mmol/L (3.5-5.1); TOTAL BILIRUBIN 0.5 mg/dL (0.2-1.0); TOTAL PROTEIN 8.9 g/dL (6.4-8.2)
[2016-09-13] MEDS: levETIRAcetam 500 MG TABLET PO SCH ×2 (09:32→19:48)
[2016-09-13] MEDS: DULoxetine HCL 30 MG CAPSULE.DR PO SCH (09:33)
[2016-09-13 10:20] LABS: THYROID STIM HORMONE (TSH) 1.551 uIU/mL (0.358-3.740)
[2016-09-13 12:11] LABS: T3 TOTAL 108 ng/dL (71-180); THYROXINE 7.5 ug/dL (4.5-12.0)
[2016-09-13] MEDS: QUEtiapine 50 MG TABLET. PO SCH ×2 (14:03→19:48)
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
[2016-09-13] MEDS: MIRTAZAPINE 7.5 MG TABLET. PO SCH (19:48)
[2016-09-13] MEDS: MELATONIN 3 MG TABLET PO SCH (19:49)
--- NOTE | 2016-09-13 19:56 | PDOC ---
Exam Mario Alberto Demential Exam: Mario Alberto Note: Please also refer to the separate dictated note~for this date of service dictated separately.~Patient seen individually. Discussed the patient with Nursing staff reviewed the chart.~Reviewed interim history and current functioning. Reviewed vital signs,~Labs/ Radiology~and current medications noted below. Continue current treatment with the changes noted in the dictated addendum note Assessment: Vital Signs: Vital Signs Date Time Temp Pulse Resp B/P (MAP) Pulse Ox O2 Delivery O2 Flow Rate FiO2 09/13/16 19:49 20 09/13/16 06:26 97.6 105 116/84 (95) 97 09/12/16 21:18 Room Air I&O Intake and Output 09/13/16 07:00 Intake Total 240 ml Balance 240 ml Intake Oral 240 ml # Voids 1 Labs: Laboratory Tests Test 09/13/16 07:57 White Blood Count 6.2 x10^3/uL (4.0-11.0) Red Blood Count 4.78 x10^6/uL (3.50-5.40) Hemoglobin 13.7 g/dL (12.0-15.5) Hematocrit 41.0 % (36.0-47.0) Mean Corpuscular Volume 86 fL (79-100) Mean Corpuscular Hemoglobin 29 pg (25-35) Mean Corpuscular Hemoglobin Concent 33 g/dL (31-37) Red Cell Distribution Width 13.0 % (11.5-14.5) Platelet Count 244 x10^3/uL (140-400) Neutrophils (%) (Auto) 61 % (31-73) Lymphocytes (%) (Auto) 24 % (24-48) Monocytes (%) (Auto) 12 % (0-9) H Eosinophils (%) (Auto) 2 % (0-3) Basophils (%) (Auto) 1 % (0-3) Neutrophils # (Auto) 3.8 x10^3uL (1.8-7.7) Lymphocytes # (Auto) 1.5 x10^3/uL (1.0-4.8) Monocytes # (Auto) 0.7 x10^3/uL (0.0-1.1) Eosinophils # (Auto) 0.1 x10^3/uL (0.0-0.7) Basophils # (Auto) 0.0 x10^3/uL (0.0-0.2) Sodium Level 142 mmol/L (136-145) Potassium Level 3.7 mmol/L (3.5-5.1) Chloride Level 106 mmol/L (98-107) Carbon Dioxide Level 29 mmol/L (21-32) Anion Gap 7 (6-14) Blood Urea Nitrogen 10 mg/dL (7-20) Creatinine 0.9 mg/dL (0.6-1.0) Estimated GFR (Cockcroft-Gault) 64.5 BUN/Creatinine Ratio 11 (6-20) Glucose Level 97 mg/dL (70-99) Calcium Level 8.9 mg/dL (8.5-10.1) Magnesium Level 2.2 mg/dL (1.8-2.4) Iron Level 47 ug/dL (50-170) L Total Iron Binding Capacity 242 ug/dL (250-450) L Iron Saturation 19 % (15-34) Total Bilirubin 0.5 mg/dL (0.2-1.0) Aspartate Amino Transferase (AST) 46 U/L (15-37) H Alanine Aminotransferase (ALT) 71 U/L (14-59) H Alkaline Phosphatase 108 U/L (46-116) Total Protein 8.9 g/dL (6.4-8.2) H Albumin 3.9 g/dL (3.4-5.0) Albumin/Globulin Ratio 0.8 (1.0-1.7) L Triglycerides Level 69 mg/dL (0-150) Cholesterol Level 199 mg/dL (0-200) LDL Cholesterol, Calculated 118 mg/dL (0-100) H VLDL Cholesterol, Calculated 13 mg/dL (0-40) Non-HDL Cholesterol Calculated 131 mg/dL (0-129) H HDL Cholesterol 68 mg/dL (40-60) H Cholesterol/HDL Ratio 2.0 25-Hydroxy Vitamin D Total Pending Thyroid Stimulating Hormone (TSH) 1.551 uIU/mL (0.358-3.740) Thyroxine (T4) 7.5 ug/dL (4.5-12.0) Total Triiodothyronine (TT3) 108 ng/dL (71-180) RPR Titer Additional Testing Pending Current Medications: Meds: Current Medications Acetaminophen (Tylenol) 650 mg PRN Q6HRS PRN PO PAIN / TEMP; Start 8/5/17 at 20:00; Status UNV Multi-Ingredient Ointment (Analgesic [place]) 1 randee PRN QID PRN TP MUSCLE PAIN; Start 09/12/16 at 20:00; Status UNV Al Hydroxide/Mg Hydroxide (Mylanta Plus Xs) 15 ml PRN AFTMEALHC PRN PO DYSPEPSIA; Start 09/12/16 at 20:00; Status UNV Magnesium Hydroxide (Milk Of Magnesia) 2,400 mg PRN QHS PRN PO CONSTIPATION; Start 09/12/16 at 20:00; Status UNV Duloxetine HCl (Cymbalta) 30 mg DAILY PO Last administered on 09/13/16 09:33; Start 09/13/16 at 09:00 Mirtazapine (Remeron) 7.5 mg QHS PO Last administered on 09/13/16 19:48; Start 09/12/16 at 21:00 Olanzapine (ZyPREXA ZYDIS) 2.5 mg PRN Q2HR PRN PO PSYCHOSIS Last administered on 09/12/16 20:19; Start 09/12/16 at 20:15 Quetiapine Fumarate (SEROquel) 50 mg NOON PO Last administered on 09/13/16 14: 03; Start 09/13/16 at 12:00 Quetiapine Fumarate (SEROquel) 75 mg HS PO Last administered on 09/13/16 19:48 ; Start 09/12/16 at 21:00 Melatonin 3 mg QHS PO Last administered on 09/13/16 19:49; Start 09/12/16 at 21: 00 Acetaminophen (Tylenol) 650 mg PRN Q6HRS PRN PO PAIN / TEMP; Start 09/12/16 at 20:15 Acetaminophen/ Hydrocodone Bitart (Lortab 5/325) 1 tab BID PO Last administered on 09/13/16 19:49; Start 09/12/16 at 21:00 Levetiracetam (Keppra) 500 mg BID PO Last administered on 09/13/16 19:48; Start 09/12/16 at 21:00 Al Hydroxide/Mg Hydroxide (Mylanta Plus Xs) 15 ml PRN AFTMEALHC PRN PO DYSPEPSIA; Start 09/12/16 at 20:15 Magnesium Hydroxide (Milk Of Magnesia) 2,400 mg PRN QHS PRN PO CONSTIPATION; Start 09/12/16 at 20:15 Multi-Ingredient Ointment (Analgesic [place]) 1 randee PRN QID PRN TP MUSCLE PAIN; Start 09/12/16 at 20:15 Cyanocobalamin (Vitamin B-12) 250 mcg DAILY PO Last administered on 09/13/16 09 :00; Start 09/13/16 at 09:00 Buspirone HCl (Buspar) 5 mg BID92 PO Last administered on 09/13/16t 14:04; Start 09/13/16 at 09:00 Divalproex Sodium (Depakote Sprinkles) 250 mg DAILY PO ; Start 09/14/16 at 09:00 Lorazepam (Ativan) 0.25 mg PRN Q2HR PRN TP ANXIETY / AGITATION; Start 09/13/16 at 19:15 Active Scripts Active Reported Buspirone Hcl 5 Mg Tablet 1 Tab PO BID92 Zyprexa Zydis (Olanzapine) 5 Mg Tab.rapdis 2.5 Mg PO Q2HR PRN Mirtazapine 15 Mg Tablet 7.5 Mg PO QHS Analgesic [place] (Methyl Salicylate/Menthol) 28 Gm Oint...g. 1 Randee TP PRN QID PRN Melatonin 3 Mg Tablet 3 Mg PO QHS Mag-Al Plus Xs Suspension (Mag Hydrox/Al Hydrox/Simeth) 30 Ml Oral.susp 15 Ml PO PRN AFTMEALHC PRN Keppra (Levetiracetam) 500 Mg Tablet 500 Mg PO BID Tylenol (Acetaminophen) 325 Mg Tablet 650 Mg PO PRN Q6HRS PRN Milk Of Magnesia (Magnesium Hydroxide) 400 Mg/5 Ml Oral.susp 2,400 Mg PO PRN QHS PRN Cymbalta (Duloxetine Hcl) 30 Mg Capsule.dr 30 Mg PO DAILY pt has received 3 of 5 scheduled doses Hydrocodone-Apap 5-325 (Hydrocodone Bit/Acetaminophen) 1 Each Tablet 1 Tab PO BID B-12 (Cyanocobalamin (Vitamin B-12)) 500 Mcg Tab.rapdis 250 Mcg PO DAILY Seroquel (Quetiapine Fumarate) 50 Mg Tablet 50 Mg PO NOON Seroquel (Quetiapine Fumarate) 50 Mg Tablet 75 Mg PO HS Diagnosis: Problems: (1) Anxiety disorder (2) Impulse control disorder (3) Dementia, vascular, with depression (4) Dementia, vascular, with delusions (5) Dementia in Alzheimer's disease with delusions (6) Dementia in Alzheimer's disease with depression (7) Frontotemporal dementia with behavioral disturbance ADELA RHODES MD Sep 13, 2016 19:56
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
--- NOTE | 2016-09-14 02:38 | ACF ---
Admission Criteria Forms PSYCHIATRIC DISORDERS Clinical Indications for Inpatient Care (Place 'X' for any and all applicable criteria): Ongoing inpatient care may be needed for 1 or more of the following(1)(2)(3)(4)( 6)(7)(8): [ ]I. Danger to self or others not manageable at lower level of care. [ ]II. Grave disability (eg, inability to perform self care necessary at lower level of care) [ ]III. Agitation or inappropriate behavior interfering with care for primary condition (eg, attempting to discontinue lines or drains prematurely, unable to cooperate with respiratory care) [X]IV. Severe disability or disorder indicated by ALL of the following: [X]a) Severe behavioral health disorder-related symptoms or condition indicated by 1 or more of the following: [ ]i) Severe problem with cognition, memory, judgment, or impulse control [X]ii) Severe clinical manifestations (eg, hallucinations, delusions, other acute psychotic symptoms, ben, extreme agitation or anxiety) [X]b) Patient management at lower level of care is not feasible until acute intervention or modification is initiated. Extended stay beyond goal length of stay for the primary condition may be needed untilALLof the following are present(1)(2)(3)(4)(722)(23): [ ]a) Danger to self or others is absent or manageable at lower level of care [ ]b) Behavior crisis management, including physical or chemical restraints, is required and is not available at a lower level of care. [ ]c) Behavioral symptoms (e.g., agitation, somnolence, inappropriate behavior) are present, and are not manageable at a lower level of care. [ ]d) Patient cannot understand follow-up treatment and crisis plan. [ ]e) Provider and supports are sufficiently available at lower level of care. [ ]f) Patient can participate (e.g., verify absence of plan for harm) and is in needed of monitoring. The original [facility] content created by [facility] [employer] has been revised. The portions of the content which have been revised are identified through the use of italic text, and Andrew [employer] has neither reviewed nor approved the modified material. All other unmodified content is copyright [facility]. Please see references footnoted in the original [facility] edition 2015 Admission Criteria Met?: Yes ROBERT ROJAS Sep 14, 2016 02:38
[2016-09-14 06:07] VITALS: BP 134/95
[2016-09-14] MEDS: CYANOCOBALAMIN (VITAMIN B-12) 250 MCG TABLET PO SCH ×2 (08:28→09:00)
[2016-09-14] MEDS: levETIRAcetam 500 MG TABLET PO SCH ×3 (08:28→20:17)
[2016-09-14] MEDS: busPIRone 5 MG TABLET. PO SCH ×3 (08:28→16:21)
[2016-09-14] MEDS: DULoxetine HCL 30 MG CAPSULE.DR PO SCH ×2 (08:28→09:00)
[2016-09-14] MEDS: HYDROcodone/APAP 5/325MG 1 TAB TABLET PO SCH ×3 (08:28→20:26)
[2016-09-14] MEDS: DIVALPROEX 125 MG CAP.SPRINK PO SCH ×2 (08:29→09:00)
[2016-09-14] MEDS ORDERED: hydrOXYzine HCL 25 MG TABLET PO PRN (14:45)
[2016-09-14] MEDS: QUEtiapine 50 MG TABLET. PO SCH ×2 (16:21→20:16)
--- NOTE | 2016-09-14 20:07 | PDOC ---
Exam Mario Alberto Demential Exam: Mario Alberto Note: Please also refer to the separate dictated note~for this date of service dictated separately.~Patient seen individually. Discussed the patient with Nursing staff reviewed the chart.~Reviewed interim history and current functioning. Reviewed vital signs,~Labs/ Radiology~and current medications noted below. Continue current treatment with the changes noted in the dictated addendum note Assessment: Vital Signs: Vital Signs Date Time Temp Pulse Resp B/P (MAP) Pulse Ox O2 Delivery O2 Flow Rate FiO2 09/14/16 09:00 98 09/14/16 06:07 97.3 78 18 134/95 (108) 09/13/16 20:49 Room Air I&O Intake and Output 09/14/16 07:00 Intake Total 340 ml Balance 340 ml Intake Oral 340 ml Current Medications: Meds: Current Medications Acetaminophen (Tylenol) 650 mg PRN Q6HRS PRN PO PAIN / TEMP; Start 09/12/16 at 20:00; Status UNV Multi-Ingredient Ointment (Analgesic [place]) 1 randee PRN QID PRN TP MUSCLE PAIN; Start 09/12/16 at 20:00; Status UNV Al Hydroxide/Mg Hydroxide (Mylanta Plus Xs) 15 ml PRN AFTMEALHC PRN PO DYSPEPSIA; Start 09/12/16 at 20:00; Status UNV Magnesium Hydroxide (Milk Of Magnesia) 2,400 mg PRN QHS PRN PO CONSTIPATION; Start 09/12/16 at 20:00; Status UNV Duloxetine HCl (Cymbalta) 30 mg DAILY PO Last administered on 09/13/16 09:33; Start 09/13/16 at 09:00 Mirtazapine (Remeron) 7.5 mg QHS PO Last administered on 09/13/16 19:48; Start 09/12/16 at 21:00 Olanzapine (ZyPREXA ZYDIS) 2.5 mg PRN Q2HR PRN PO PSYCHOSIS Last administered on 09/14/16 09:48; Start 09/12/16 at 20:15 Quetiapine Fumarate (SEROquel) 50 mg NOON PO Last administered on 09/14/16 16: 21; Start 09/13/16 at 12:00 Quetiapine Fumarate (SEROquel) 75 mg HS PO Last administered on 09/13/16 19:48 ; Start 09/12/16 at 21:00 Melatonin 3 mg QHS PO Last administered on 09/13/16 19:49; Start 09/12/16 at 21: 00 Acetaminophen (Tylenol) 650 mg PRN Q6HRS PRN PO PAIN / TEMP; Start 09/12/16 at 20:15 Acetaminophen/ Hydrocodone Bitart (Lortab 5/325) 1 tab BID PO Last administered on 09/14/16 09:00; Start 09/12/16 at 21:00 Levetiracetam (Keppra) 500 mg BID PO Last administered on 09/13/16 19:48; Start 09/12/16 at 21:00 Al Hydroxide/Mg Hydroxide (Mylanta Plus Xs) 15 ml PRN AFTMEALHC PRN PO DYSPEPSIA; Start 09/12/16 at 20:15 Magnesium Hydroxide (Milk Of Magnesia) 2,400 mg PRN QHS PRN PO CONSTIPATION; Start 09/12/16 at 20:15 Multi-Ingredient Ointment (Analgesic [place]) 1 randee PRN QID PRN TP MUSCLE PAIN; Start 09/12/16 at 20:15 Cyanocobalamin (Vitamin B-12) 250 mcg DAILY PO Last administered on 09/14/16 09 :00; Start 09/13/16 at 09:00 Buspirone HCl (Buspar) 5 mg BID92 PO Last administered on 09/14/16 16:21; Start 09/13/16 at 09:00 Divalproex Sodium (Depakote Sprinkles) 250 mg DAILY PO Last administered on 09/14 09:00; Start 09/14/16 at 09:00 Lorazepam (Ativan) 0.25 mg PRN Q2HR PRN TP ANXIETY / AGITATION; Start 09/13/16 at 19:15 Hydroxyzine HCl (Atarax) 25 mg PRN Q6HRS PRN PO ANXIETY / AGITATION; Start 09/14 at 14:45; Stop 09/14/16 at 14:45; Status DC Hydroxyzine HCl (Atarax) 25 mg PRN Q6HRS PRN PO ANXIETY/AGITATION; Start at 15:00 Active Scripts Active Reported Buspirone Hcl 5 Mg Tablet 1 Tab PO BID92 Zyprexa Zydis (Olanzapine) 5 Mg Tab.rapdis 2.5 Mg PO Q2HR PRN Mirtazapine 15 Mg Tablet 7.5 Mg PO QHS Analgesic [place] (Methyl Salicylate/Menthol) 28 Gm Oint...g. 1 Randee TP PRN QID PRN Melatonin 3 Mg Tablet 3 Mg PO QHS Mag-Al Plus Xs Suspension (Mag Hydrox/Al Hydrox/Simeth) 30 Ml Oral.susp 15 Ml PO PRN AFTMEALHC PRN Keppra (Levetiracetam) 500 Mg Tablet 500 Mg PO BID Tylenol (Acetaminophen) 325 Mg Tablet 650 Mg PO PRN Q6HRS PRN Milk Of Magnesia (Magnesium Hydroxide) 400 Mg/5 Ml Oral.susp 2,400 Mg PO PRN QHS PRN Cymbalta (Duloxetine Hcl) 30 Mg Capsule.dr 30 Mg PO DAILY pt has received 3 of 5 scheduled doses Hydrocodone-Apap 5-325 (Hydrocodone Bit/Acetaminophen) 1 Each Tablet 1 Tab PO BID B-12 (Cyanocobalamin (Vitamin B-12)) 500 Mcg Tab.rapdis 250 Mcg PO DAILY Seroquel (Quetiapine Fumarate) 50 Mg Tablet 50 Mg PO NOON Seroquel (Quetiapine Fumarate) 50 Mg Tablet 75 Mg PO HS Diagnosis: Problems: (1) Anxiety disorder (2) Impulse control disorder (3) Dementia, vascular, with depression (4) Dementia, vascular, with delusions (5) Dementia in Alzheimer's disease with delusions (6) Dementia in Alzheimer's disease with depression (7) Frontotemporal dementia with behavioral disturbance ADELA RHODES MD Sep 14, 2016 20:07
[2016-09-14] MEDS: MIRTAZAPINE 7.5 MG TABLET. PO SCH (20:17)
[2016-09-14] MEDS: MELATONIN 3 MG TABLET PO SCH (20:17)
[2016-09-15 03:07] LABS: HEMOGLOBIN A1C 5.4 % (4.8-5.6)
[2016-09-15 05:51] VITALS: BP 113/63
[2016-09-15] MEDS: CYANOCOBALAMIN (VITAMIN B-12) 250 MCG TABLET PO SCH (08:07)
[2016-09-15] MEDS: busPIRone 5 MG TABLET. PO SCH ×2 (08:08→13:34)
[2016-09-15] MEDS: levETIRAcetam 500 MG TABLET PO SCH ×2 (08:08→19:53)
[2016-09-15] MEDS: DULoxetine HCL 30 MG CAPSULE.DR PO SCH (08:08)
[2016-09-15] MEDS: DIVALPROEX 125 MG CAP.SPRINK PO SCH (08:08)
[2016-09-15] MEDS: HYDROcodone/APAP 5/325MG 1 TAB TABLET PO SCH ×2 (08:09→19:55)
[2016-09-15] MEDS: hydrOXYzine HCL 10 MG/5 ML SYRUP PO PRN ×2 (08:11→14:14)
[2016-09-15] MEDS: PRENATAL MULTIVITAMIN TABLET. PO SCH (13:34)
[2016-09-15] MEDS: QUEtiapine 50 MG TABLET. PO SCH ×2 (13:34→19:52)
[2016-09-15] MEDS: MIRTAZAPINE 7.5 MG TABLET. PO SCH (19:53)
[2016-09-15] MEDS: MELATONIN 3 MG TABLET PO SCH (19:53)
--- NOTE | 2016-09-15 19:55 | PDOC ---
Exam Mario Alberto Demential Exam: Mario Alberto Note: Please also refer to the separate dictated note~for this date of service dictated separately.~Patient seen individually. Discussed the patient with Nursing staff reviewed the chart.~Reviewed interim history and current functioning. Reviewed vital signs,~Labs/ Radiology~and current medications noted below. Continue current treatment with the changes noted in the dictated addendum note Assessment: Vital Signs: Vital Signs Date Time Temp Pulse Resp B/P (MAP) Pulse Ox O2 Delivery O2 Flow Rate FiO2 09/15/16 08:09 100 09/15/16 05:51 96.9 71 18 113/63 (80) 09/13/16 20:49 Room Air I&O Intake and Output 09/15/16 07:00 Intake Total 840 ml Balance 840 ml Intake Oral 840 ml Current Medications: Meds: Current Medications Acetaminophen (Tylenol) 650 mg PRN Q6HRS PRN PO PAIN / TEMP; Start 09/12/16 at 20:00; Status UNV Multi-Ingredient Ointment (Analgesic [place]) 1 randee PRN QID PRN TP MUSCLE PAIN; Start 09/12/16 at 20:00; Status UNV Al Hydroxide/Mg Hydroxide (Mylanta Plus Xs) 15 ml PRN AFTMEALHC PRN PO DYSPEPSIA; Start 09/12/16 at 20:00; Status UNV Magnesium Hydroxide (Milk Of Magnesia) 2,400 mg PRN QHS PRN PO CONSTIPATION; Start 09/12/16 at 20:00; Status UNV Duloxetine HCl (Cymbalta) 30 mg DAILY PO Last administered on 09/15/16 08:08; Start 09/13/16 at 09:00 Mirtazapine (Remeron) 7.5 mg QHS PO Last administered on 09/14/16 20:17; Start 09/12/16 at 21:00 Olanzapine (ZyPREXA ZYDIS) 2.5 mg PRN Q2HR PRN PO PSYCHOSIS Last administered on 09/15/16 08:10; Start 09/12/16 at 20:15 Quetiapine Fumarate (SEROquel) 50 mg NOON PO Last administered on 09/15/16 13: 34; Start 09/13/16 at 12:00 Quetiapine Fumarate (SEROquel) 75 mg HS PO Last administered on 09/14/16 20:16 ; Start 09/12/16 at 21:00 Melatonin 3 mg QHS PO Last administered on 09/14/16 20:17; Start 09/12/16 at 21: 00 Acetaminophen (Tylenol) 650 mg PRN Q6HRS PRN PO PAIN / TEMP; Start 09/12/16 at 20:15 Acetaminophen/ Hydrocodone Bitart (Lortab 5/325) 1 tab BID PO Last administered on 09/15/16 08:09; Start 09/12/16 at 21:00 Levetiracetam (Keppra) 500 mg BID PO Last administered on 09/15/16 08:08; Start 09/12/16 at 21:00 Al Hydroxide/Mg Hydroxide (Mylanta Plus Xs) 15 ml PRN AFTMEALHC PRN PO DYSPEPSIA; Start 09/12/16 at 20:15 Magnesium Hydroxide (Milk Of Magnesia) 2,400 mg PRN QHS PRN PO CONSTIPATION; Start 09/12/16 at 20:15 Multi-Ingredient Ointment (Analgesic [place]) 1 randee PRN QID PRN TP MUSCLE PAIN; Start 09/12/16 at 20:15 Cyanocobalamin (Vitamin B-12) 250 mcg DAILY PO Last administered on 09/15/16 08 :07; Start 09/13/16 at 09:00 Buspirone HCl (Buspar) 5 mg BID92 PO Last administered on 09/15/16 13:34; Start 09/13/16 at 09:00; Stop 09/15/16 at 18:27; Status DC Divalproex Sodium (Depakote Sprinkles) 250 mg DAILY PO Last administered on 09/15 08:08; Start 09/14/16 at 09:00 Lorazepam (Ativan) 0.25 mg PRN Q2HR PRN TP ANXIETY / AGITATION; Start 09/13/16 at 19:15 Hydroxyzine HCl (Atarax) 25 mg PRN Q6HRS PRN PO ANXIETY / AGITATION; Start 09/14 at 14:45; Stop 09/14/16 at 14:45; Status DC Hydroxyzine HCl (Atarax) 25 mg PRN Q6HRS PRN PO ANXIETY/AGITATION Last administered on 09/15/16 14:14; Start 09/14/16 at 15:00 Prenat Multivit/ Looping Machine Operator/Iron/Folic Ac (Multivitamin ) 1 tab DAILY PO Last administered on 09/15/16 13:34; Start 09/15/16 at 10:15 Buspirone HCl (Buspar) 10 mg BID92 PO ; Start 09/16/16 at 09:00 Active Scripts Active Reported Buspirone Hcl 5 Mg Tablet 1 Tab PO BID92 Zyprexa Zydis (Olanzapine) 5 Mg Tab.rapdis 2.5 Mg PO Q2HR PRN Mirtazapine 15 Mg Tablet 7.5 Mg PO QHS Analgesic [place] (Methyl Salicylate/Menthol) 28 Gm Oint...g. 1 [place] TP PRN QID PRN Melatonin 3 Mg Tablet 3 Mg PO QHS Mag-Al Plus Xs Suspension (Mag Hydrox/Al Hydrox/Simeth) 30 Ml Oral.susp 15 Ml PO PRN AFTMEALHC PRN Keppra (Levetiracetam) 500 Mg Tablet 500 Mg PO BID Tylenol (Acetaminophen) 325 Mg Tablet 650 Mg PO PRN Q6HRS PRN Milk Of Magnesia (Magnesium Hydroxide) 400 Mg/5 Ml Oral.susp 2,400 Mg PO PRN QHS PRN Cymbalta (Duloxetine Hcl) 30 Mg Capsule.dr 30 Mg PO DAILY pt has received 3 of 5 scheduled doses Hydrocodone-Apap 5-325 (Hydrocodone Bit/Acetaminophen) 1 Each Tablet 1 Tab PO BID B-12 (Cyanocobalamin (Vitamin B-12)) 500 Mcg Tab.rapdis 250 Mcg PO DAILY Seroquel (Quetiapine Fumarate) 50 Mg Tablet 50 Mg PO NOON Seroquel (Quetiapine Fumarate) 50 Mg Tablet 75 Mg PO HS Diagnosis: Problems: (1) Anxiety disorder (2) Impulse control disorder (3) Dementia, vascular, with depression (4) Dementia, vascular, with delusions (5) Dementia in Alzheimer's disease with delusions (6) Dementia in Alzheimer's disease with depression (7) Frontotemporal dementia with behavioral disturbance ADELA RHODES MD Sep 15, 2016 19:55
--- NOTE | 2016-09-16 | PN ---
DATE: 09/14/2016 This is a late entry for 09/14/2016 and covers elements not covered in my initial note. I met with the patient in the evening of 09/14/2016 and I had been called by the nursing staff a couple of times between my last visit with the patient and my visit with her on 09/14/2016 due to increasing agitation, mood lability, aggression. Morning meds were held and given at lunchtime. She was walking, hitting the eddy, pacing, quite labile. Has refused to provide a urine sample, has thrown the collect a urine sample on to the wall. I have also discussed the patient with Dr. Lea evening 09/14/2016 about adjusting the Depakote as a mood stabilizer, anti-seizure medication, at which time she might come off the Keppra. REVIEW OF SYSTEMS: No eye, ENT, CV, , pulmonary system symptoms on review. Reliability poor. She has had to be placed in a separate hallway to reduce stimulation which worsens her agitation. MENTAL STATUS EXAM: Oriented to herself. Insight, judgment, recent and remote memory, attention, concentration, fund of knowledge poor, consistent with her diagnosis as mentioned in my initial note. LABORATORY DATA: Reviewed. PLAN: Depakote is 250 mg at bedtime. We will check a CBC, CMP, valproic acid level and adjust to reach a therapeutic level and then taper the Keppra. Maintain Seroquel 50 mg at noon, 75 at bedtime, Remeron 7.5 at bedtime, Zyprexa p.r.n., melatonin 3 mg at bedtime, Ativan gel p.r.n., BuSpar 5 mg twice a day. We will increase it to 10 mg twice a day. Adjust further as clinically indicated. The increase of BuSpar will be done on 09/15/2016. ADELA RHODES MD DR: ELIZABETH/wellington JOB#: [id number] / [id number]
[2016-09-16 06:07] VITALS: BP 109/71
[2016-09-16] MEDS: HYDROcodone/APAP 5/325MG 1 TAB TABLET PO SCH ×2 (07:55→19:24)
[2016-09-16] MEDS: levETIRAcetam 500 MG TABLET PO SCH ×2 (07:55→19:22)
[2016-09-16] MEDS: DIVALPROEX 125 MG CAP.SPRINK PO SCH (07:56)
[2016-09-16] MEDS: CYANOCOBALAMIN (VITAMIN B-12) 250 MCG TABLET PO SCH (07:56)
[2016-09-16] MEDS: PRENATAL MULTIVITAMIN TABLET. PO SCH (07:56)
[2016-09-16] MEDS: DULoxetine HCL 30 MG CAPSULE.DR PO SCH ×2 (07:56→16:59)
[2016-09-16] MEDS: busPIRone 10 MG TABLET. PO SCH ×2 (07:57→14:20)
[2016-09-16] MEDS ORDERED: LORazepam 1 MG TABLET PO ONE (08:15)
[2016-09-16 10:40] LABS: BACTERIA,URINE FEW /HPF (0-FEW); BILIRUBIN,URINE NEG (NEG); CLARITY,URINE CLEAR; COLOR,URINE YELLOW; GLUCOSE,URINE NEG (NEG); NITRITE,URINE NEG (NEG); RBC,URINE RARE /HPF (0-2); SQUAMOUS EPITHELIAL CELL,UR OCC /LPF; UROBILINOGEN,URINE 0.2 mg/dL (0.2 mg/dL)
[2016-09-16] MEDS: QUEtiapine 50 MG TABLET. PO SCH ×2 (11:52→19:22)
[2016-09-16] MEDS ORDERED: LORazepam INTENSOL 2 MG/ML BOTTLE SL PRN (13:30)
[2016-09-16 16:17] VITALS: BP 99/61
[2016-09-16] MEDS: MELATONIN 3 MG TABLET PO SCH (19:22)
[2016-09-16] MEDS: MIRTAZAPINE 7.5 MG TABLET. PO SCH (19:24)
--- NOTE | 2016-09-16 19:51 | PDOC ---
Exam Mario Alberto Demential Exam: Mario Alberto Note: Please also refer to the separate dictated note~for this date of service dictated separately.~Patient seen individually. Discussed the patient with Nursing staff reviewed the chart.~Reviewed interim history and current functioning. Reviewed vital signs,~Labs/ Radiology~and current medications noted below. Continue current treatment with the changes noted in the dictated addendum note Assessment: Vital Signs: Vital Signs Date Time Temp Pulse Resp B/P (MAP) Pulse Ox O2 Delivery O2 Flow Rate FiO2 09/16/16 19:24 97 Room Air 09/16/16 16:17 97.1 91 16 99/61 (74) I&O Intake and Output 09/16/16 07:00 Intake Total 840 ml Balance 840 ml Intake Oral 840 ml Labs: Laboratory Tests Test 09/16/16 10:00 Urine Collection Type U cath Urine Color Yellow Urine Clarity Clear Urine pH 6.0 Urine Specific [place] 1.015 Urine Protein Neg (NEG-TRACE) Urine Glucose (UA) Neg mg/dL (NEG) Urine Ketones (Stick) Neg mg/dL (NEG) Urine Blood Neg (NEG) Urine Nitrite Neg (NEG) Urine Bilirubin Neg (NEG) Urine Urobilinogen Dipstick 0.2 mg/dL (0.2 mg/dL) Urine Leukocyte Esterase Trace (NEG) Urine RBC Rare /HPF (0-2) Urine WBC 1-4 /HPF (0-4) Urine Squamous Epithelial Cells Occ /LPF Urine Transitional Epithelial Cells Occ /LPF Urine Bacteria Few /HPF (0-FEW) Urine Mucus Slight /LPF Current Medications: Meds: Current Medications Acetaminophen (Tylenol) 650 mg PRN Q6HRS PRN PO PAIN / TEMP; Start 09/12/16 at 20:00; Status UNV Multi-Ingredient Ointment (Analgesic [place]) 1 randee PRN QID PRN TP MUSCLE PAIN; Start 09/12/16 at 20:00; Status UNV Al Hydroxide/Mg Hydroxide (Mylanta Plus Xs) 15 ml PRN AFTMEALHC PRN PO DYSPEPSIA; Start 09/12/16 at 20:00; Status UNV Magnesium Hydroxide (Milk Of Magnesia) 2,400 mg PRN QHS PRN PO CONSTIPATION; Start 09/12/16 at 20:00; Status UNV Duloxetine HCl (Cymbalta) 30 mg DAILY PO Last administered on 09/16/16 07:56; Start 09/13/16 at 09:00 Mirtazapine (Remeron) 7.5 mg QHS PO Last administered on 09/16/16 19:24; Start 09/12/16 at 21:00 Olanzapine (ZyPREXA ZYDIS) 2.5 mg PRN Q2HR PRN PO PSYCHOSIS Last administered on 09/15/16 08:10; Start 09/12/16 at 20:15 Quetiapine Fumarate (SEROquel) 50 mg NOON PO Last administered on 09/16/16 11: 52; Start 09/13/16 at 12:00 Quetiapine Fumarate (SEROquel) 75 mg HS PO Last administered on 09/16/16 19:22 ; Start 09/12/16 at 21:00 Melatonin 3 mg QHS PO Last administered on 09/16/16 19:22; Start 09/12/16 at 21: 00 Acetaminophen (Tylenol) 650 mg PRN Q6HRS PRN PO PAIN / TEMP; Start 09/12/16 at 20:15 Acetaminophen/ Hydrocodone Bitart (Lortab 5/325) 1 tab BID PO Last administered on 09/16/16 19:24; Start 09/12/16 at 21:00 Levetiracetam (Keppra) 500 mg BID PO Last administered on 09/16/16 19:22; Start 09/12/16 at 21:00 Al Hydroxide/Mg Hydroxide (Mylanta Plus Xs) 15 ml PRN AFTMEALHC PRN PO DYSPEPSIA; Start 09/12/16 at 20:15 Magnesium Hydroxide (Milk Of Magnesia) 2,400 mg PRN QHS PRN PO CONSTIPATION; Start 09/12/16 at 20:15 Multi-Ingredient Ointment (Analgesic [place]) 1 randee PRN QID PRN TP MUSCLE PAIN; Start 09/12/16 at 20:15 Cyanocobalamin (Vitamin B-12) 250 mcg DAILY PO Last administered on 09/16/16 07 :56; Start 09/13/16 at 09:00 Buspirone HCl (Buspar) 5 mg BID92 PO Last administered on 09/15/16 13:34; Start 09/13/16 at 09:00; Stop 09/15/16 at 18:27; Status DC Divalproex Sodium (Depakote Sprinkles) 250 mg DAILY PO Last administered on 09/16 07:56; Start 09/14/16 at 09:00 Lorazepam (Ativan) 0.25 mg PRN Q2HR PRN TP ANXIETY / AGITATION; Start 09/13/16 at 19:15 Hydroxyzine HCl (Atarax) 25 mg PRN Q6HRS PRN PO ANXIETY / AGITATION; Start 09/14 at 14:45; Stop 09/14/16 at 14:45; Status DC Hydroxyzine HCl (Atarax) 25 mg PRN Q6HRS PRN PO ANXIETY/AGITATION Last administered on 09/15/16 14:14; Start 09/14/16 at 15:00 Prenat Multivit/ Electrotherapist/Iron/Folic Ac (Multivitamin ) 1 tab DAILY PO Last administered on 09/16/16 07:56; Start 09/15/16 at 10:15 Buspirone HCl (Buspar) 10 mg BID92 PO Last administered on 09/16/16 14:20; Start 09/16/16 at 09:00 Lorazepam (Ativan) 1 mg 1X ONCE PO Last administered on 09/16/16 08:07; Start 09/16/16 at 08:15; Stop 09/16/16 at 08:16; Status DC Lorazepam (Ativan Intensol) 1 mg PRN Q4HRS PRN SL ANXIETY / AGITATION Last administered on 09/16/16 13:35; Start 09/16/16 at 13:30 Lorazepam (Ativan Intensol) 0.25 mg TID@0900,1300,1700 SL ; Start 09/17/16 at 09 :00 Active Scripts Active Reported Buspirone Hcl 5 Mg Tablet 1 Tab PO BID92 Zyprexa Zydis (Olanzapine) 5 Mg Tab.rapdis 2.5 Mg PO Q2HR PRN Mirtazapine 15 Mg Tablet 7.5 Mg PO QHS Analgesic [place] (Methyl Salicylate/Menthol) 28 Gm Oint...g. 1 Rand[place] TP PRN QID PRN Melatonin 3 Mg Tablet 3 Mg PO QHS Mag-Al Plus Xs Suspension (Mag Hydrox/Al Hydrox/Simeth) 30 Ml Oral.susp 15 Ml PO PRN AFTMEALHC PRN Keppra (Levetiracetam) 500 Mg Tablet 500 Mg PO BID Tylenol (Acetaminophen) 325 Mg Tablet 650 Mg PO PRN Q6HRS PRN Milk Of Magnesia (Magnesium Hydroxide) 400 Mg/5 Ml Oral.susp 2,400 Mg PO PRN QHS PRN Cymbalta (Duloxetine Hcl) 30 Mg Capsule.dr 30 Mg PO DAILY pt has received 3 of 5 scheduled doses Hydrocodone-Apap 5-325 (Hydrocodone Bit/Acetaminophen) 1 Each Tablet 1 Tab PO BID B-12 (Cyanocobalamin (Vitamin B-12)) 500 Mcg Tab.rapdis 250 Mcg PO DAILY Seroquel (Quetiapine Fumarate) 50 Mg Tablet 50 Mg PO NOON Seroquel (Quetiapine Fumarate) 50 Mg Tablet 75 Mg PO HS Diagnosis: Problems: (1) Anxiety disorder (2) Impulse control disorder (3) Dementia, vascular, with depression (4) Dementia, vascular, with delusions (5) Dementia in Alzheimer's disease with delusions (6) Dementia in Alzheimer's disease with depression (7) Frontotemporal dementia with behavioral disturbance ADELA RHODES MD Sep 16, 2016 19:51
--- NOTE | 2016-09-17 00:45 | PN ---
DATE: 09/15/2016 PSYCHIATRIC PROGRESS NOTE This is a late entry of 09/15/2016 covers elements not covered in my initial of 09/15/2016. SUBJECTIVE: I met with the patient the evening of 09/15/2016. I had telephone calls as an emergency from the nursing staff several times since I last met with the patient's previous evening. She slept 6-3/4 hours previous night, extremely labile, anxious, disruptive, angry all day pacing, carrying the wet floor sign on her shoulders, kicking the eddy. Meds have to be given hidden. She is refused to cooperate with a UA. We might have to do a straight catheterization. REVIEW OF SYSTEMS: No CV, , pulmonary, eye, ENT system symptoms on review. Reliability poor. MENTAL STATUS EXAM: Oriented to herself. Insight, judgment, recent and remote memory, attention, concentration, fund of knowledge poor, consistent with her diagnosis mentioned in my initial plan. PLAN: I met with the patient evening of 09/15/2016 she was sitting in the hallway refusing to go to the dining room with nursing staff, but she walked to the dining room with me and I pulled her chair and had to sit down on the table nursing staff brought her ____ to her, which was all a slight improvement. IMPRESSION: Unchanged from initial note. PLAN: Increase BuSpar from 5 mg b.i.d. to 10 mg b.i.d., maintain Cymbalta 30 b.i.d., Seroquel, Remeron at current dosage, melatonin and Depakote was initiated. She is still on Keppra along with Ativan gel. Adjust further as clinically indicated. ADELA RHODES MD DR: ELIZABETH/wellington JOB#: [id number] / [id number]
[2016-09-17 07:39] LABS: BASO # 0.1 x10^3/uL (0.0-0.2); BASO % 1 % (0-3); EOS # 0.2 x10^3/uL (0.0-0.7); EOS % 4 % (0-3); HEMATOCRIT 40.3 % (36.0-47.0); HEMOGLOBIN 13.6 g/dL (12.0-15.5); LYMPH # 1.9 x10^3/uL (1.0-4.8); LYMPH % 38 % (24-48); MEAN CORPUSCULAR HEMOGLOBIN 29 pg (25-35); MEAN CORPUSCULAR HGB CONC 34 g/dL (31-37); MEAN CORPUSCULAR VOLUME 85 fL (79-100); MONO # 0.7 x10^3/uL (0.0-1.1); MONO % 13 % (0-9); NEUT # 2.3 x10^3uL (1.8-7.7); NEUT % 45 % (31-73); PLATELET COUNT 228 x10^3/uL (140-400); RED BLOOD COUNT 4.73 x10^6/uL (3.50-5.40); RED CELL DISTRIBUTION WIDTH 12.8 % (11.5-14.5); WHITE BLOOD COUNT 5.1 x10^3/uL (4.0-11.0)
[2016-09-17 07:54] LABS: ALBUMIN 3.7 g/dL (3.4-5.0); ALBUMIN/GLOBULIN RATIO 0.8 (1.0-1.7); ALK PHOS 102 U/L (46-116); ALT (SGPT) 44 U/L (14-59); ANION GAP 9 (6-14); AST (SGOT) 30 U/L (15-37); BLOOD UREA NITROGEN 15 mg/dL (7-20); BUN/CREATININE RATIO 17 (6-20); CALCIUM 8.9 mg/dL (8.5-10.1); CARBON DIOXIDE 26 mmol/L (21-32); CHLORIDE 107 mmol/L (98-107); CREATININE 0.9 mg/dL (0.6-1.0); GFR 64.5; GLUCOSE 98 mg/dL (70-99); POTASSIUM 3.8 mmol/L (3.5-5.1); SODIUM 142 mmol/L (136-145); TOTAL BILIRUBIN 0.3 mg/dL (0.2-1.0); TOTAL PROTEIN 8.3 g/dL (6.4-8.2); VAL ACID 18 mcg/mL (50-100)
[2016-09-17] MEDS: CYANOCOBALAMIN (VITAMIN B-12) 250 MCG TABLET PO SCH (10:01)
[2016-09-17] MEDS: DIVALPROEX 125 MG CAP.SPRINK PO SCH ×2 (10:01→19:19)
[2016-09-17] MEDS: DULoxetine HCL 30 MG CAPSULE.DR PO SCH (10:01)
[2016-09-17] MEDS: levETIRAcetam 500 MG TABLET PO SCH ×2 (10:01→19:14)
[2016-09-17] MEDS: PRENATAL MULTIVITAMIN TABLET. PO SCH (10:01)
[2016-09-17] MEDS: busPIRone 10 MG TABLET. PO SCH ×2 (10:02→14:12)
[2016-09-17] MEDS: HYDROcodone/APAP 5/325MG 1 TAB TABLET PO SCH ×2 (10:03→19:19)
[2016-09-17] MEDS: LORazepam INTENSOL 2 MG/ML BOTTLE SL SCH ×3 (10:06→17:13)
[2016-09-17] MEDS: QUEtiapine 50 MG TABLET. PO SCH ×2 (14:12→19:16)
[2016-09-17 16:31] VITALS: BP 104/67
[2016-09-17] MEDS: MIRTAZAPINE 7.5 MG TABLET. PO SCH (19:14)
[2016-09-17] MEDS: MELATONIN 3 MG TABLET PO SCH (19:15)
--- NOTE | 2016-09-17 19:52 | PDOC ---
Exam Mario Alberto Demential Exam: Mario Alberto Note: Please also refer to the separate dictated note~for this date of service dictated separately.~Patient seen individually. Discussed the patient with Nursing staff reviewed the chart.~Reviewed interim history and current functioning. Reviewed vital signs,~Labs/ Radiology~and current medications noted below. Continue current treatment with the changes noted in the dictated addendum note Assessment: Vital Signs: Vital Signs Date Time Temp Pulse Resp B/P (MAP) Pulse Ox O2 Delivery O2 Flow Rate FiO2 09/17/16 16:31 97.5 87 20 104/67 (79) 97 Room Air I&O Intake and Output 09/17/16 07:00 Intake Total 1440 ml Balance 1440 ml Intake Oral 1440 ml Labs: Laboratory Tests Test 09/17/16 07:19 White Blood Count 5.1 x10^3/uL (4.0-11.0) Red Blood Count 4.73 x10^6/uL (3.50-5.40) Hemoglobin 13.6 g/dL (12.0-15.5) Hematocrit 40.3 % (36.0-47.0) Mean Corpuscular Volume 85 fL (79-100) Mean Corpuscular Hemoglobin 29 pg (25-35) Mean Corpuscular Hemoglobin Concent 34 g/dL (31-37) Red Cell Distribution Width 12.8 % (11.5-14.5) Platelet Count 228 x10^3/uL (140-400) Neutrophils (%) (Auto) 45 % (31-73) Lymphocytes (%) (Auto) 38 % (24-48) Monocytes (%) (Auto) 13 % (0-9) H Eosinophils (%) (Auto) 4 % (0-3) H Basophils (%) (Auto) 1 % (0-3) Neutrophils # (Auto) 2.3 x10^3uL (1.8-7.7) Lymphocytes # (Auto) 1.9 x10^3/uL (1.0-4.8) Monocytes # (Auto) 0.7 x10^3/uL (0.0-1.1) Eosinophils # (Auto) 0.2 x10^3/uL (0.0-0.7) Basophils # (Auto) 0.1 x10^3/uL (0.0-0.2) Sodium Level 142 mmol/L (136-145) Potassium Level 3.8 mmol/L (3.5-5.1) Chloride Level 107 mmol/L (98-107) Carbon Dioxide Level 26 mmol/L (21-32) Anion Gap 9 (6-14) Blood Urea Nitrogen 15 mg/dL (7-20) Creatinine 0.9 mg/dL (0.6-1.0) Estimated GFR (Cockcroft-Gault) 64.5 BUN/Creatinine Ratio 17 (6-20) Glucose Level 98 mg/dL (70-99) Calcium Level 8.9 mg/dL (8.5-10.1) Total Bilirubin 0.3 mg/dL (0.2-1.0) Aspartate Amino Transferase (AST) 30 U/L (15-37) Alanine Aminotransferase (ALT) 44 U/L (14-59) Alkaline Phosphatase 102 U/L (46-116) Total Protein 8.3 g/dL (6.4-8.2) H Albumin 3.7 g/dL (3.4-5.0) Albumin/Globulin Ratio 0.8 (1.0-1.7) L Valproic Acid Level 18 mcg/mL (50-100) L Valproic Acid Last Dose Date 09/16/16 Valproic Acid Last Dose Time 0900 Current Medications: Meds: Current Medications Acetaminophen (Tylenol) 650 mg PRN Q6HRS PRN PO PAIN / TEMP; Start 09/12/16 at 20:00; Status UNV Multi-Ingredient Ointment (Analgesic [place]) 1 randee PRN QID PRN TP MUSCLE PAIN; Start 09/12/16 at 20:00; Status UNV Al Hydroxide/Mg Hydroxide (Mylanta Plus Xs) 15 ml PRN AFTMEALHC PRN PO DYSPEPSIA; Start 09/12/16 at 20:00; Status UNV Magnesium Hydroxide (Milk Of Magnesia) 2,400 mg PRN QHS PRN PO CONSTIPATION; Start 09/12/16 at 20:00; Status UNV Duloxetine HCl (Cymbalta) 30 mg DAILY PO Last administered on 09/17/16 10:01; Start 09/13/16 at 09:00 Mirtazapine (Remeron) 7.5 mg QHS PO Last administered on 09/17/16 19:14; Start 09/12/16 at 21:00 Olanzapine (ZyPREXA ZYDIS) 2.5 mg PRN Q2HR PRN PO PSYCHOSIS Last administered on 09/15/16 08:10; Start 09/12/16 at 20:15 Quetiapine Fumarate (SEROquel) 50 mg NOON PO Last administered on 09/17/16 14: 12; Start 09/13/16 at 12:00 Quetiapine Fumarate (SEROquel) 75 mg HS PO Last administered on 09/17/16 19:16 ; Start 09/12/16 at 21:00 Melatonin 3 mg QHS PO Last administered on 09/17/16 19:15; Start 09/12/16 at 21 :00 Acetaminophen (Tylenol) 650 mg PRN Q6HRS PRN PO PAIN / TEMP; Start 09/12/16 at 20:15 Acetaminophen/ Hydrocodone Bitart (Lortab 5/325) 1 tab BID PO Last administered on 09/17/16 19:19; Start 09/12/16 at 21:00 Levetiracetam (Keppra) 500 mg BID PO Last administered on 09/17/16 19:14; Start 09/12/16 at 21:00 Al Hydroxide/Mg Hydroxide (Mylanta Plus Xs) 15 ml PRN AFTMEALHC PRN PO DYSPEPSIA; Start 09/12/16 at 20:15 Magnesium Hydroxide (Milk Of Magnesia) 2,400 mg PRN QHS PRN PO CONSTIPATION; Start 09/12/16 at 20:15 Multi-Ingredient Ointment (Analgesic [place]) 1 randee PRN QID PRN TP MUSCLE PAIN; Start 09/12/16 at 20:15 Cyanocobalamin (Vitamin B-12) 250 mcg DAILY PO Last administered on 09/17/16 10:01; Start 09/13/16 at 09:00 Buspirone HCl (Buspar) 5 mg BID92 PO Last administered on 09/15/16 13:34; Start 09/13/16 at 09:00; Stop 09/15/16 at 18:27; Status DC Divalproex Sodium (Depakote Sprinkles) 250 mg DAILY PO Last administered on 10:01; Start 09/14/16 at 09:00; Stop 09/17/16 at 10:08; Status DC Lorazepam (Ativan) 0.25 mg PRN Q2HR PRN TP ANXIETY / AGITATION; Start 09/13/16 at 19:15 Hydroxyzine HCl (Atarax) 25 mg PRN Q6HRS PRN PO ANXIETY / AGITATION; Start 09/14 at 14:45; Stop 09/14/16 at 14:45; Status DC Hydroxyzine HCl (Atarax) 25 mg PRN Q6HRS PRN PO ANXIETY/AGITATION Last administered on 09/15/16 14:14; Start 09/14/16 at 15:00 Prenat Multivit/ Sunburst/Iron/Folic Ac (Multivitamin ) 1 tab DAILY PO Last administered on 09/17/16 10:01; Start 09/15/16 at 10:15 Buspirone HCl (Buspar) 10 mg BID92 PO Last administered on 09/17/16 14:12; Start 09/16/16 at 09:00 Lorazepam (Ativan) 1 mg 1X ONCE PO Last administered on 09/16/16 08:07; Start 09/16/16 at 08:15; Stop 09/16/16 at 08:16; Status DC Lorazepam (Ativan Intensol) 1 mg PRN Q4HRS PRN SL ANXIETY / AGITATION Last administered on 09/16/16 13:35; Start 09/16/16 at 13:30 Lorazepam (Ativan Intensol) 0.25 mg TID@0900,1300,1700 SL Last administered on 09/17/16 17:13; Start 09/17/16 at 09:00 Divalproex Sodium (Depakote Sprinkles) 250 mg BID PO Last administered on 19:19; Start 09/17/16 at 21:00 Active Scripts Active Reported Buspirone Hcl 5 Mg Tablet 1 Tab PO BID92 Zyprexa Zydis (Olanzapine) 5 Mg Tab.rapdis 2.5 Mg PO Q2HR PRN Mirtazapine 15 Mg Tablet 7.5 Mg PO QHS Analgesic [place] (Methyl Salicylate/Menthol) 28 Gm Oint...g. 1 [place] TP PRN QID PRN Melatonin 3 Mg Tablet 3 Mg PO QHS Mag-Al Plus Xs Suspension (Mag Hydrox/Al Hydrox/Simeth) 30 Ml Oral.susp 15 Ml PO PRN AFTMEALHC PRN Keppra (Levetiracetam) 500 Mg Tablet 500 Mg PO BID Tylenol (Acetaminophen) 325 Mg Tablet 650 Mg PO PRN Q6HRS PRN Milk Of Magnesia (Magnesium Hydroxide) 400 Mg/5 Ml Oral.susp 2,400 Mg PO PRN QHS PRN Cymbalta (Duloxetine Hcl) 30 Mg Capsule.dr 30 Mg PO DAILY pt has received 3 of 5 scheduled doses Hydrocodone-Apap 5-325 (Hydrocodone Bit/Acetaminophen) 1 Each Tablet 1 Tab PO BID B-12 (Cyanocobalamin (Vitamin B-12)) 500 Mcg Tab.rapdis 250 Mcg PO DAILY Seroquel (Quetiapine Fumarate) 50 Mg Tablet 50 Mg PO NOON Seroquel (Quetiapine Fumarate) 50 Mg Tablet 75 Mg PO HS Diagnosis: Problems: (1) Anxiety disorder (2) Impulse control disorder (3) Dementia, vascular, with depression (4) Dementia, vascular, with delusions (5) Dementia in Alzheimer's disease with delusions (6) Dementia in Alzheimer's disease with depression (7) Frontotemporal dementia with behavioral disturbance ADELA RHODES MD Sep 17, 2016 19:52
--- NOTE | 2016-09-17 22:53 | PN ---
DATE: 09/16/2016 This is a late entry for 09/16/2016 and covers elements not covered in my initial note of 09/16/2016. The patient's urine reflexed to culture. She slept 5-1/4 hours the previous evening. I have been called by the nursing staff several times since I last visit with the patient. She has been quite labile, agitated, disruptive, aggressive and does better on Ativan. REVIEW OF SYSTEMS: No eye, ENT, CV, , pulmonary system symptoms on review. Reliability poor. MENTAL STATUS EXAM: Oriented to herself. Insight, judgment, recent and remote memory, attention, concentration, fund of knowledge poor, consistent with her diagnosis. She is sitting in the hallway, refusing to go for her meal and I walked with her and she did go in and sit down her meal, which is an improvement. LABORATORY DATA: Reviewed. IMPRESSION: Unchanged from initial note. PLAN: Start Ativan 0.25 mg 3 times a day, continue, rest of psychotropics unchanged. MAN Marquita RHODES MD DR: ELIZABETH/wellington JOB#: [id number] / [id number]
[2016-09-18 05:51] VITALS: BP 155/85
[2016-09-18] MEDS: CYANOCOBALAMIN (VITAMIN B-12) 250 MCG TABLET PO SCH (07:29)
[2016-09-18] MEDS: PRENATAL MULTIVITAMIN TABLET. PO SCH (07:29)
[2016-09-18] MEDS: DIVALPROEX 125 MG CAP.SPRINK PO SCH ×2 (07:29→19:22)
[2016-09-18] MEDS: busPIRone 10 MG TABLET. PO SCH ×2 (07:29→12:23)
[2016-09-18] MEDS: levETIRAcetam 500 MG TABLET PO SCH ×2 (07:29→19:23)
[2016-09-18] MEDS ORDERED: DULoxetine HCL 30 MG CAPSULE.DR PO ONE (08:00)
[2016-09-18] MEDS: HYDROcodone/APAP 5/325MG 1 TAB TABLET PO SCH ×2 (08:33→19:22)
[2016-09-18] MEDS: LORazepam INTENSOL 2 MG/ML BOTTLE SL SCH ×3 (08:37→17:03)
[2016-09-18] MEDS: QUEtiapine 50 MG TABLET. PO SCH ×2 (12:24→19:21)
[2016-09-18 16:11] VITALS: BP 137/82
[2016-09-18] MEDS: MIRTAZAPINE 7.5 MG TABLET. PO SCH (19:22)
[2016-09-18] MEDS: MELATONIN 3 MG TABLET PO SCH (19:23)
--- NOTE | 2016-09-18 20:00 | PDOC ---
Exam Mario Alberto Demential Exam: Mario Alberto Note: Please also refer to the separate dictated note~for this date of service dictated separately.~Patient seen individually. Discussed the patient with Nursing staff reviewed the chart.~Reviewed interim history and current functioning. Reviewed vital signs,~Labs/ Radiology~and current medications noted below. Continue current treatment with the changes noted in the dictated addendum note Assessment: Vital Signs: Vital Signs Date Time Temp Pulse Resp B/P (MAP) Pulse Ox O2 Delivery O2 Flow Rate FiO2 09/18/16 19:22 96 09/18/16 16:11 97.6 72 16 137/82 (100) 09/18/16 05:51 Room Air I&O Intake and Output 09/18/16 07:00 Intake Total 900 ml Balance 900 ml Intake Oral 900 ml Current Medications: Meds: Current Medications Acetaminophen (Tylenol) 650 mg PRN Q6HRS PRN PO PAIN / TEMP; Start 09/12/16 at 20:00; Status UNV Multi-Ingredient Ointment (Analgesic [place]) 1 randee PRN QID PRN TP MUSCLE PAIN; Start 09/12/16 at 20:00; Status UNV Al Hydroxide/Mg Hydroxide (Mylanta Plus Xs) 15 ml PRN AFTMEALHC PRN PO DYSPEPSIA; Start 09/12/16 at 20:00; Status UNV Magnesium Hydroxide (Milk Of Magnesia) 2,400 mg PRN QHS PRN PO CONSTIPATION; Start 09/12/16 at 20:00; Status UNV Duloxetine HCl (Cymbalta) 30 mg DAILY PO Last administered on 09/17/16 10:01; Start 09/13/16 at 09:00 Mirtazapine (Remeron) 7.5 mg QHS PO Last administered on 09/18/16 19:22; Start 09/12/16 at 21:00 Olanzapine (ZyPREXA ZYDIS) 2.5 mg PRN Q2HR PRN PO PSYCHOSIS Last administered on 09/15/16 08:10; Start 09/12/16 at 20:15 Quetiapine Fumarate (SEROquel) 50 mg NOON PO Last administered on 09/18/16 12: 24; Start 09/13/16 at 12:00 Quetiapine Fumarate (SEROquel) 75 mg HS PO Last administered on 09/18/16 19:21 ; Start 09/12/16 at 21:00 Melatonin 3 mg QHS PO Last administered on 09/18/16 19:23; Start 09/12/16 at 21 :00 Acetaminophen (Tylenol) 650 mg PRN Q6HRS PRN PO PAIN / TEMP; Start 09/12/16 at 20:15 Acetaminophen/ Hydrocodone Bitart (Lortab 5/325) 1 tab BID PO Last administered on 09/18/16 19:22; Start 09/12/16 at 21:00 Levetiracetam (Keppra) 500 mg BID PO Last administered on 09/18/16 19:23; Start 09/12/16 at 21:00 Al Hydroxide/Mg Hydroxide (Mylanta Plus Xs) 15 ml PRN AFTMEALHC PRN PO DYSPEPSIA; Start 09/12/16 at 20:15 Magnesium Hydroxide (Milk Of Magnesia) 2,400 mg PRN QHS PRN PO CONSTIPATION; Start 09/12/16 at 20:15 Multi-Ingredient Ointment (Analgesic [place]) 1 randee PRN QID PRN TP MUSCLE PAIN; Start 09/12/16 at 20:15 Cyanocobalamin (Vitamin B-12) 250 mcg DAILY PO Last administered on 09/18/16 07:29; Start 09/13/16 at 09:00 Buspirone HCl (Buspar) 5 mg BID92 PO Last administered on 09/15/16 13:34; Start 09/13/16 at 09:00; Stop 09/15/16 at 18:27; Status DC Divalproex Sodium (Depakote Sprinkles) 250 mg DAILY PO Last administered on 10:01; Start 09/14/16 at 09:00; Stop 09/17/16 at 10:08; Status DC Lorazepam (Ativan) 0.25 mg PRN Q2HR PRN TP ANXIETY / AGITATION; Start 09/13/16 at 19:15 Hydroxyzine HCl (Atarax) 25 mg PRN Q6HRS PRN PO ANXIETY / AGITATION; Start 09/14 at 14:45; Stop 09/14/16 at 14:45; Status DC Hydroxyzine HCl (Atarax) 25 mg PRN Q6HRS PRN PO ANXIETY/AGITATION Last administered on 09/15/16 14:14; Start 09/14/16 at 15:00 Prenat Multivit/ Access Services Assistant/Iron/Folic Ac (Multivitamin ) 1 tab DAILY PO Last administered on 09/18/16 07:29; Start 09/15/16 at 10:15 Buspirone HCl (Buspar) 10 mg BID92 PO Last administered on 09/18/16 12:23; Start 09/16/16 at 09:00 Lorazepam (Ativan) 1 mg 1X ONCE PO Last administered on 09/16/16 08:07; Start 09/16/16 at 08:15; Stop 09/16/16 at 08:16; Status DC Lorazepam (Ativan Intensol) 1 mg PRN Q4HRS PRN SL ANXIETY / AGITATION Last administered on 09/16/16 13:35; Start 09/16/16 at 13:30 Lorazepam (Ativan Intensol) 0.25 mg TID@0900,1300,1700 SL Last administered on 09/18/16 17:03; Start 09/17/16 at 09:00 Divalproex Sodium (Depakote Sprinkles) 250 mg BID PO Last administered on 19:22; Start 09/17/16 at 21:00 Duloxetine HCl (Cymbalta) 30 mg 1X ONCE PO Last administered on 09/18/16 08: 31; Start 09/18/16 at 08:00; Stop 09/18/16 at 08:01; Status DC Active Scripts Active Reported Buspirone Hcl 5 Mg Tablet 1 Tab PO BID92 Zyprexa Zydis (Olanzapine) 5 Mg Tab.rapdis 2.5 Mg PO Q2HR PRN Mirtazapine 15 Mg Tablet 7.5 Mg PO QHS Analgesic [place] (Methyl Salicylate/Menthol) 28 Gm Oint...g. 1 [place] TP PRN QID PRN Melatonin 3 Mg Tablet 3 Mg PO QHS Mag-Al Plus Xs Suspension (Mag Hydrox/Al Hydrox/Simeth) 30 Ml Oral.susp 15 Ml PO PRN AFTMEALHC PRN Keppra (Levetiracetam) 500 Mg Tablet 500 Mg PO BID Tylenol (Acetaminophen) 325 Mg Tablet 650 Mg PO PRN Q6HRS PRN Milk Of Magnesia (Magnesium Hydroxide) 400 Mg/5 Ml Oral.susp 2,400 Mg PO PRN QHS PRN Cymbalta (Duloxetine Hcl) 30 Mg Capsule.dr 30 Mg PO DAILY pt has received 3 of 5 scheduled doses Hydrocodone-Apap 5-325 (Hydrocodone Bit/Acetaminophen) 1 Each Tablet 1 Tab PO BID B-12 (Cyanocobalamin (Vitamin B-12)) 500 Mcg Tab.rapdis 250 Mcg PO DAILY Seroquel (Quetiapine Fumarate) 50 Mg Tablet 50 Mg PO NOON Seroquel (Quetiapine Fumarate) 50 Mg Tablet 75 Mg PO HS Diagnosis: Problems: (1) Anxiety disorder (2) Impulse control disorder (3) Dementia, vascular, with depression (4) Dementia, vascular, with delusions (5) Dementia in Alzheimer's disease with delusions (6) Dementia in Alzheimer's disease with depression (7) Frontotemporal dementia with behavioral disturbance ADELA RHODES MD Sep 18, 2016 20:00
--- NOTE | 2016-09-18 22:16 | PN ---
DATE: 09/17/2016 SUBJECTIVE: This is a late entry 09/17/2016 cover elements not covered in my initial note of 09/17/2016. The patient staffed at treatment team meeting at length with entire treatment team morning of 09/17/2016. The patient's mother and sister Rekha attended the conference. Reviewed the patient's history, diagnosis, and current medications the fact we are tapering the Keppra and increasing Depakote as a mood stabilizer. Appetite 70%. Sleeping about 6 hours; just two hours the previous evening. Valproic acid level 18. REVIEW OF SYSTEMS: No CV, , pulmonary, eye, or ENT system symptoms on review. Reliability poor. Very pleasant as I met with her, smiling, but speech garbled and difficult to understand. Receptive skills a little better than expressive. MENTAL STATUS EXAM: Oriented to herself. Insight, judgment, recent and remote memory, attention, concentration, fund of knowledge poor consistent with her diagnosis mentioned in my initial note. PLAN: Increase Depakote from 250 mg daily to 250 mg twice a day. Check labs and a valproic acid level in 3 days. Maintain the rest psychotropics unchanged. ADELA RHODES MD DR: ELIZABETH/wellington JOB#: [id number] / [id number]
[2016-09-19] MEDS: LORazepam INTENSOL 2 MG/ML BOTTLE SL SCH ×3 (07:59→16:12)
[2016-09-19] MEDS: HYDROcodone/APAP 5/325MG 1 TAB TABLET PO SCH ×2 (08:02→19:27)
[2016-09-19] MEDS: CYANOCOBALAMIN (VITAMIN B-12) 250 MCG TABLET PO SCH (08:03)
[2016-09-19] MEDS: PRENATAL MULTIVITAMIN TABLET. PO SCH (08:03)
[2016-09-19] MEDS: busPIRone 10 MG TABLET. PO SCH ×2 (08:03→12:39)
[2016-09-19] MEDS: levETIRAcetam 500 MG TABLET PO SCH ×2 (08:03→19:26)
[2016-09-19] MEDS: DIVALPROEX 125 MG CAP.SPRINK PO SCH ×2 (08:03→19:25)
[2016-09-19] MEDS: DULoxetine HCL 30 MG CAPSULE.DR PO SCH (08:03)
[2016-09-19] MEDS: QUEtiapine 50 MG TABLET. PO SCH ×2 (12:39→19:26)
[2016-09-19 16:31] VITALS: BP 117/74
[2016-09-19] MEDS: MIRTAZAPINE 7.5 MG TABLET. PO SCH (19:25)
[2016-09-19] MEDS: MELATONIN 3 MG TABLET PO SCH (19:26)
--- NOTE | 2016-09-19 20:23 | PN ---
DATE: 09/18/2016 PSYCHIATRIC PROGRESS NOTE This is a late entry for 09/18/2016, covers elements not covered in my initial note of 09/18/2016. SUBJECTIVE: The patient was seen individually the evening of 09/18/2016. Per nursing report, previous evening, the patient was combative, has done better during the day on 09/18/2016, wandering, able to sit at the dining table for longer periods of time, calmer. REVIEW OF SYSTEMS: No CV, , eye, ENT or pulmonary system symptoms on review. Reliability poor. MENTAL STATUS EXAM: Oriented to herself. Insight, judgment, recent and remote memory, attention, concentration, fund of knowledge poor, consistent with her diagnosis. LABORATORY DATA: Reviewed. IMPRESSION: Unchanged from initial note. PLAN: Continue current psychotropics. Depakote was increased. Repeat level on 09/20/2016. We will plan to get the valproic acid level therapeutic before tapering off the Keppra per Dr. Lea. Maintain the rest of her psychotropics as before. Review of drug interaction, risk/benefit ratio favors no further change at this time. MAN Marquita RHODES MD DR: ELIZABETH/wellington JOB#: [id number] / [id number]
--- NOTE | 2016-09-19 23:18 | PDOC ---
Exam Mario Alberto Demential Exam: Mario Alberto Note: Please also refer to the separate dictated note~for this date of service dictated separately.~Patient seen individually. Discussed the patient with Nursing staff reviewed the chart.~Reviewed interim history and current functioning. Reviewed vital signs,~Labs/ Radiology~and current medications noted below. Continue current treatment with the changes noted in the dictated addendum note Assessment: Vital Signs: Vital Signs Date Time Temp Pulse Resp B/P (MAP) Pulse Ox O2 Delivery O2 Flow Rate FiO2 09/19/16 16:31 98.0 91 16 117/74 (88) 100 09/18/16 05:51 Room Air I&O Intake and Output 09/19/16 07:00 Intake Total 1080 ml Balance 1080 ml Intake Oral 1080 ml Current Medications: Meds: Current Medications Acetaminophen (Tylenol) 650 mg PRN Q6HRS PRN PO PAIN / TEMP; Start 09/12/16 at 20:00; Status UNV Multi-Ingredient Ointment (Analgesic [place]) 1 randee PRN QID PRN TP MUSCLE PAIN; Start 09/12/16 at 20:00; Status UNV Al Hydroxide/Mg Hydroxide (Mylanta Plus Xs) 15 ml PRN AFTMEALHC PRN PO DYSPEPSIA; Start 09/12/16 at 20:00; Status UNV Magnesium Hydroxide (Milk Of Magnesia) 2,400 mg PRN QHS PRN PO CONSTIPATION; Start 09/12/16 at 20:00; Status UNV Duloxetine HCl (Cymbalta) 30 mg DAILY PO Last administered on 09/19/16 08:03; Start 09/13/16 at 09:00 Mirtazapine (Remeron) 7.5 mg QHS PO Last administered on 09/19/16 19:25; Start 09/12/16 at 21:00 Olanzapine (ZyPREXA ZYDIS) 2.5 mg PRN Q2HR PRN PO PSYCHOSIS Last administered on 09/15/16 08:10; Start 09/12/16 at 20:15 Quetiapine Fumarate (SEROquel) 50 mg NOON PO Last administered on 09/19/16 12: 39; Start 09/13/16 at 12:00 Quetiapine Fumarate (SEROquel) 75 mg HS PO Last administered on 09/19/16 19:26 ; Start 09/12/16 at 21:00 Melatonin 3 mg QHS PO Last administered on 09/19/16 19:26; Start 09/12/16 at 21 :00 Acetaminophen (Tylenol) 650 mg PRN Q6HRS PRN PO PAIN / TEMP; Start 09/12/16 at 20:15 Acetaminophen/ Hydrocodone Bitart (Lortab 5/325) 1 tab BID PO Last administered on 09/19/16 19:27; Start 09/12/16 at 21:00 Levetiracetam (Keppra) 500 mg BID PO Last administered on 09/19/16 19:26; Start 09/12/16 at 21:00 Al Hydroxide/Mg Hydroxide (Mylanta Plus Xs) 15 ml PRN AFTMEALHC PRN PO DYSPEPSIA; Start 09/12/16 at 20:15 Magnesium Hydroxide (Milk Of Magnesia) 2,400 mg PRN QHS PRN PO CONSTIPATION; Start 09/12/16 at 20:15 Multi-Ingredient Ointment (Analgesic [place]) 1 randee PRN QID PRN TP MUSCLE PAIN; Start 09/12/16 at 20:15 Cyanocobalamin (Vitamin B-12) 250 mcg DAILY PO Last administered on 09/19/16 08:03; Start 09/13/16 at 09:00 Buspirone HCl (Buspar) 5 mg BID92 PO Last administered on 09/15/16 13:34; Start 09/13/16 at 09:00; Stop 09/15/16 at 18:27; Status DC Divalproex Sodium (Depakote Sprinkles) 250 mg DAILY PO Last administered on 10:01; Start 09/14/16 at 09:00; Stop 09/17/16 at 10:08; Status DC Lorazepam (Ativan) 0.25 mg PRN Q2HR PRN TP ANXIETY / AGITATION; Start 09/13/16 at 19:15 Hydroxyzine HCl (Atarax) 25 mg PRN Q6HRS PRN PO ANXIETY / AGITATION; Start 09/14 at 14:45; Stop 09/14/16 at 14:45; Status DC Hydroxyzine HCl (Atarax) 25 mg PRN Q6HRS PRN PO ANXIETY/AGITATION Last administered on 09/15/16 14:14; Start 09/14/16 at 15:00 Prenat Multivit/ [place]/Iron/Folic Ac (Multivitamin ) 1 tab DAILY PO Last administered on 09/19/16 08:03; Start 09/15/16 at 10:15 Buspirone HCl (Buspar) 10 mg BID92 PO Last administered on 09/19/16 12:39; Start 09/16/16 at 09:00 Lorazepam (Ativan) 1 mg 1X ONCE PO Last administered on 09/16/16 08:07; Start 09/16/16 at 08:15; Stop 09/16/16 at 08:16; Status DC Lorazepam (Ativan Intensol) 1 mg PRN Q4HRS PRN SL ANXIETY / AGITATION Last administered on 09/16/16 13:35; Start 09/16/16 at 13:30 Lorazepam (Ativan Intensol) 0.25 mg TID@0900,1300,1700 SL Last administered on 09/19/16 16:12; Start 09/17/16 at 09:00 Divalproex Sodium (Depakote Sprinkles) 250 mg BID PO Last administered on 19:25; Start 09/17/16 at 21:00 Duloxetine HCl (Cymbalta) 30 mg 1X ONCE PO Last administered on 09/18/16 08: 31; Start 09/18/16 at 08:00; Stop 09/18/16 at 08:01; Status DC Active Scripts Active Reported Buspirone Hcl 5 Mg Tablet 1 Tab PO BID92 Zyprexa Zydis (Olanzapine) 5 Mg Tab.rapdis 2.5 Mg PO Q2HR PRN Mirtazapine 15 Mg Tablet 7.5 Mg PO QHS Analgesic [place] (Methyl Salicylate/Menthol) 28 Gm Oint...g. 1 Randee TP PRN QID PRN Melatonin 3 Mg Tablet 3 Mg PO QHS Mag-Al Plus Xs Suspension (Mag Hydrox/Al Hydrox/Simeth) 30 Ml Oral.susp 15 Ml PO PRN AFTMEALHC PRN Keppra (Levetiracetam) 500 Mg Tablet 500 Mg PO BID Tylenol (Acetaminophen) 325 Mg Tablet 650 Mg PO PRN Q6HRS PRN Milk Of Magnesia (Magnesium Hydroxide) 400 Mg/5 Ml Oral.susp 2,400 Mg PO PRN QHS PRN Cymbalta (Duloxetine Hcl) 30 Mg Capsule.dr 30 Mg PO DAILY pt has received 3 of 5 scheduled doses Hydrocodone-Apap 5-325 (Hydrocodone Bit/Acetaminophen) 1 Each Tablet 1 Tab PO BID B-12 (Cyanocobalamin (Vitamin B-12)) 500 Mcg Tab.rapdis 250 Mcg PO DAILY Seroquel (Quetiapine Fumarate) 50 Mg Tablet 50 Mg PO NOON Seroquel (Quetiapine Fumarate) 50 Mg Tablet 75 Mg PO HS Diagnosis: Problems: (1) Anxiety disorder (2) Impulse control disorder (3) Dementia, vascular, with depression (4) Dementia, vascular, with delusions (5) Dementia in Alzheimer's disease with delusions (6) Dementia in Alzheimer's disease with depression (7) Frontotemporal dementia with behavioral disturbance ADELA RHODES MD Sep 19, 2016 23:18
[2016-09-20 06:20] VITALS: BP 133/80
[2016-09-20] MEDS: DULoxetine HCL 30 MG CAPSULE.DR PO SCH (07:46)
[2016-09-20] MEDS: DIVALPROEX 125 MG CAP.SPRINK PO SCH ×2 (07:46→19:17)
[2016-09-20] MEDS: busPIRone 10 MG TABLET. PO SCH ×2 (07:46→12:49)
[2016-09-20] MEDS: levETIRAcetam 500 MG TABLET PO SCH ×2 (07:47→19:18)
[2016-09-20] MEDS: HYDROcodone/APAP 5/325MG 1 TAB TABLET PO SCH ×2 (07:47→19:18)
[2016-09-20] MEDS: PRENATAL MULTIVITAMIN TABLET. PO SCH (07:47)
[2016-09-20] MEDS: LORazepam INTENSOL 2 MG/ML BOTTLE SL SCH ×3 (07:48→17:04)
[2016-09-20] MEDS: CYANOCOBALAMIN (VITAMIN B-12) 250 MCG TABLET PO SCH (07:48)
[2016-09-20 07:53] LABS: BASO % 1 % (0-3); EOS # 0.2 x10^3/uL (0.0-0.7); EOS % 4 % (0-3); HEMATOCRIT 39.9 % (36.0-47.0); HEMOGLOBIN 13.3 g/dL (12.0-15.5); LYMPH # 1.7 x10^3/uL (1.0-4.8); LYMPH % 42 % (24-48); MEAN CORPUSCULAR HEMOGLOBIN 28 pg (25-35); MEAN CORPUSCULAR HGB CONC 33 g/dL (31-37); MEAN CORPUSCULAR VOLUME 85 fL (79-100); MONO # 0.5 x10^3/uL (0.0-1.1); MONO % 13 % (0-9); NEUT # 1.6 x10^3uL (1.8-7.7); NEUT % 41 % (31-73); PLATELET COUNT 202 x10^3/uL (140-400); RED BLOOD COUNT 4.69 x10^6/uL (3.50-5.40)
[2016-09-20 08:13] LABS: ALBUMIN 3.1 g/dL (3.4-5.0); ALBUMIN/GLOBULIN RATIO 0.8 (1.0-1.7); ALK PHOS 85 U/L (46-116); ALT (SGPT) 44 U/L (14-59); ANION GAP 6 (6-14); AST (SGOT) 30 U/L (15-37); BLOOD UREA NITROGEN 13 mg/dL (7-20); BUN/CREATININE RATIO 16 (6-20); CALCIUM 8.3 mg/dL (8.5-10.1); CARBON DIOXIDE 29 mmol/L (21-32); CHLORIDE 108 mmol/L (98-107); CREATININE 0.8 mg/dL (0.6-1.0); GFR 73.9; GLUCOSE 82 mg/dL (70-99); SODIUM 143 mmol/L (136-145); TOTAL BILIRUBIN 0.3 mg/dL (0.2-1.0); TOTAL PROTEIN 6.9 g/dL (6.4-8.2)
[2016-09-20 08:15] LABS: VAL ACID 36 mcg/mL (50-100)
[2016-09-20] MEDS: LORazepam TOPICAL 0.5 MG/ML GEL TP PRN (11:40)
[2016-09-20] MEDS: QUEtiapine 50 MG TABLET. PO SCH ×2 (12:49→19:18)
[2016-09-20 17:32] VITALS: BP 125/77
[2016-09-20] MEDS: MELATONIN 3 MG TABLET PO SCH (19:16)
[2016-09-20] MEDS: MIRTAZAPINE 7.5 MG TABLET. PO SCH (19:18)
--- NOTE | 2016-09-20 20:25 | PDOC ---
Exam Mario Alberto Demential Exam: Mario Alberto Note: Please also refer to the separate dictated note~for this date of service dictated separately.~Patient seen individually. Discussed the patient with Nursing staff reviewed the chart.~Reviewed interim history and current functioning. Reviewed vital signs,~Labs/ Radiology~and current medications noted below. Continue current treatment with the changes noted in the dictated addendum note Assessment: Vital Signs: Vital Signs Date Time Temp Pulse Resp B/P (MAP) Pulse Ox O2 Delivery O2 Flow Rate FiO2 09/20/16 17:32 98.2 107 20 125/77 (93) 98 09/18/16 05:51 Room Air I&O Intake and Output 09/20/16 07:00 Intake Total 1260 ml Balance 1260 ml Intake Oral 1260 ml Labs: Laboratory Tests Test 09/20/16 07:35 White Blood Count 4.0 x10^3/uL (4.0-11.0) Red Blood Count 4.69 x10^6/uL (3.50-5.40) Hemoglobin 13.3 g/dL (12.0-15.5) Hematocrit 39.9 % (36.0-47.0) Mean Corpuscular Volume 85 fL (79-100) Mean Corpuscular Hemoglobin 28 pg (25-35) Mean Corpuscular Hemoglobin Concent 33 g/dL (31-37) Red Cell Distribution Width 13.0 % (11.5-14.5) Platelet Count 202 x10^3/uL (140-400) Neutrophils (%) (Auto) 41 % (31-73) Lymphocytes (%) (Auto) 42 % (24-48) Monocytes (%) (Auto) 13 % (0-9) H Eosinophils (%) (Auto) 4 % (0-3) H Basophils (%) (Auto) 1 % (0-3) Neutrophils # (Auto) 1.6 x10^3uL (1.8-7.7) L Lymphocytes # (Auto) 1.7 x10^3/uL (1.0-4.8) Monocytes # (Auto) 0.5 x10^3/uL (0.0-1.1) Eosinophils # (Auto) 0.2 x10^3/uL (0.0-0.7) Basophils # (Auto) 0.0 x10^3/uL (0.0-0.2) Sodium Level 143 mmol/L (136-145) Potassium Level 4.0 mmol/L (3.5-5.1) Chloride Level 108 mmol/L (98-107) H Carbon Dioxide Level 29 mmol/L (21-32) Anion Gap 6 (6-14) Blood Urea Nitrogen 13 mg/dL (7-20) Creatinine 0.8 mg/dL (0.6-1.0) Estimated GFR (Cockcroft-Gault) 73.9 BUN/Creatinine Ratio 16 (6-20) Glucose Level 82 mg/dL (70-99) Calcium Level 8.3 mg/dL (8.5-10.1) L Total Bilirubin 0.3 mg/dL (0.2-1.0) Aspartate Amino Transferase (AST) 30 U/L (15-37) Alanine Aminotransferase (ALT) 44 U/L (14-59) Alkaline Phosphatase 85 U/L (46-116) Total Protein 6.9 g/dL (6.4-8.2) Albumin 3.1 g/dL (3.4-5.0) L Albumin/Globulin Ratio 0.8 (1.0-1.7) L Valproic Acid Level 36 mcg/mL (50-100) L Valproic Acid Last Dose Date 09/19/16 Valproic Acid Last Dose Time 2100 Current Medications: Meds: Current Medications Acetaminophen (Tylenol) 650 mg PRN Q6HRS PRN PO PAIN / TEMP; Start 09/12/16 at 20:00; Status UNV Multi-Ingredient Ointment (Analgesic [place]) 1 randee PRN QID PRN TP MUSCLE PAIN; Start 09/12/16 at 20:00; Status UNV Al Hydroxide/Mg Hydroxide (Mylanta Plus Xs) 15 ml PRN AFTMEALHC PRN PO DYSPEPSIA; Start 09/12/16 at 20:00; Status UNV Magnesium Hydroxide (Milk Of Magnesia) 2,400 mg PRN QHS PRN PO CONSTIPATION; Start 09/12/16 at 20:00; Status UNV Duloxetine HCl (Cymbalta) 30 mg DAILY PO Last administered on 09/20/16 07:46; Start 09/13/16 at 09:00 Mirtazapine (Remeron) 7.5 mg QHS PO Last administered on 09/20/16 19:18; Start 09/12/16 at 21:00 Olanzapine (ZyPREXA ZYDIS) 2.5 mg PRN Q2HR PRN PO PSYCHOSIS Last administered on 09/15/16 08:10; Start 09/12/16 at 20:15 Quetiapine Fumarate (SEROquel) 50 mg NOON PO Last administered on 09/20/16 12: 49; Start 09/13/16 at 12:00 Quetiapine Fumarate (SEROquel) 75 mg HS PO Last administered on 09/20/16 19:18 ; Start 09/12/16 at 21:00 Melatonin 3 mg QHS PO Last administered on 09/20/16 19:16; Start 09/12/16 at 21 :00 Acetaminophen (Tylenol) 650 mg PRN Q6HRS PRN PO PAIN / TEMP; Start 09/12/16 at 20:15 Acetaminophen/ Hydrocodone Bitart (Lortab 5/325) 1 tab BID PO Last administered on 09/20/16 19:18; Start 09/12/16 at 21:00 Levetiracetam (Keppra) 500 mg BID PO Last administered on 09/20/16 19:18; Start 09/12/16 at 21:00 Al Hydroxide/Mg Hydroxide (Mylanta Plus Xs) 15 ml PRN AFTMEALHC PRN PO DYSPEPSIA; Start 09/12/16 at 20:15 Magnesium Hydroxide (Milk Of Magnesia) 2,400 mg PRN QHS PRN PO CONSTIPATION; Start 09/12/16 at 20:15 Multi-Ingredient Ointment (Analgesic [place]) 1 randee PRN QID PRN TP MUSCLE PAIN; Start 09/12/16 at 20:15 Cyanocobalamin (Vitamin B-12) 250 mcg DAILY PO Last administered on 09/20/16 07:48; Start 09/13/16 at 09:00 Buspirone HCl (Buspar) 5 mg BID92 PO Last administered on 09/15/16 13:34; Start 09/13/16 at 09:00; Stop 09/15/16 at 18:27; Status DC Divalproex Sodium (Depakote Sprinkles) 250 mg DAILY PO Last administered on 10:01; Start 09/14/16 at 09:00; Stop 09/17/16 at 10:08; Status DC Lorazepam (Ativan) 0.25 mg PRN Q2HR PRN TP ANXIETY / AGITATION Last administered on 09/20/16 11:40; Start 09/13/16 at 19:15 Hydroxyzine HCl (Atarax) 25 mg PRN Q6HRS PRN PO ANXIETY / AGITATION; Start 09/14 at 14:45; Stop 09/14/16 at 14:45; Status DC Hydroxyzine HCl (Atarax) 25 mg PRN Q6HRS PRN PO ANXIETY/AGITATION Last administered on 09/15/16 14:14; Start 09/14/16 at 15:00 Prenat Multivit/ Wire Saw [employer]/Iron/Folic Ac (Multivitamin ) 1 tab DAILY PO Last administered on 09/20/16 07:47; Start 09/15/16 at 10:15 Buspirone HCl (Buspar) 10 mg BID92 PO Last administered on 09/20/16 12:49; Start 09/16/16 at 09:00 Lorazepam (Ativan) 1 mg 1X ONCE PO Last administered on 09/16/16 08:07; Start 09/16/16 at 08:15; Stop 09/16/16 at 08:16; Status DC Lorazepam (Ativan Intensol) 1 mg PRN Q4HRS PRN SL ANXIETY / AGITATION Last administered on 09/16/16 13:35; Start 09/16/16 at 13:30 Lorazepam (Ativan Intensol) 0.25 mg TID@0900,1300,1700 SL Last administered on 09/20/16 17:04; Start 09/17/16 at 09:00 Divalproex Sodium (Depakote Sprinkles) 250 mg BID PO Last administered on 07:46; Start 09/17/16 at 21:00; Stop 09/20/16 at 14:56; Status DC Duloxetine HCl (Cymbalta) 30 mg 1X ONCE PO Last administered on 09/18/16 08: 31; Start 09/18/16 at 08:00; Stop 09/18/16 at 08:01; Status DC Divalproex Sodium (Depakote Sprinkles) 250 mg DAILY PO ; Start 09/21/16 at 09:00 Divalproex Sodium (Depakote Sprinkles) 500 mg HS PO Last administered on t 19:17; Start 09/20/16 at 21:00 Active Scripts Active Reported Buspirone Hcl 5 Mg Tablet 1 Tab PO BID92 Zyprexa Zydis (Olanzapine) 5 Mg Tab.rapdis 2.5 Mg PO Q2HR PRN Mirtazapine 15 Mg Tablet 7.5 Mg PO QHS Analgesic [place] (Methyl Salicylate/Menthol) 28 Gm Oint...g. 1 [place] TP PRN QID PRN Melatonin 3 Mg Tablet 3 Mg PO QHS Mag-Al Plus Xs Suspension (Mag Hydrox/Al Hydrox/Simeth) 30 Ml Oral.susp 15 Ml PO PRN AFTMEALHC PRN Keppra (Levetiracetam) 500 Mg Tablet 500 Mg PO BID Tylenol (Acetaminophen) 325 Mg Tablet 650 Mg PO PRN Q6HRS PRN Milk Of Magnesia (Magnesium Hydroxide) 400 Mg/5 Ml Oral.susp 2,400 Mg PO PRN QHS PRN Cymbalta (Duloxetine Hcl) 30 Mg Capsule.dr 30 Mg PO DAILY pt has received 3 of 5 scheduled doses Hydrocodone-Apap 5-325 (Hydrocodone Bit/Acetaminophen) 1 Each Tablet 1 Tab PO BID B-12 (Cyanocobalamin (Vitamin B-12)) 500 Mcg Tab.rapdis 250 Mcg PO DAILY Seroquel (Quetiapine Fumarate) 50 Mg Tablet 50 Mg PO NOON Seroquel (Quetiapine Fumarate) 50 Mg Tablet 75 Mg PO HS Diagnosis: Problems: (1) Anxiety disorder (2) Impulse control disorder (3) Dementia, vascular, with depression (4) Dementia, vascular, with delusions (5) Dementia in Alzheimer's disease with delusions (6) Dementia in Alzheimer's disease with depression (7) Frontotemporal dementia with behavioral disturbance ADELA RHODES MD Sep 20, 2016 20:25
--- NOTE | 2016-09-20 22:13 | PN ---
DATE: 09/19/2016 PSYCHIATRIC PROGRESS NOTE This late entry 09/19/2016 covers the elements not covered in my initial note of 09/19/2016. SUBJECTIVE: I met with the patient evening of 09/19/2016. She remains confused, but has been happy, wandering, social compliant, less aggressive. REVIEW OF SYSTEMS: No CV, , eye, ENT or pulmonary system symptoms on review. Reliability poor. MENTAL STATUS EXAM: Oriented to herself. Insight, judgment, recent and remote memory, attention, concentration, fund of knowledge poor, consistent with her diagnosis mentioned in my initial note. PLAN: Continue current psychotropics including Depakote 250 mg b.i.d. Check labs level on the Depakote and then adjust to reach a therapeutic level. At that time we will taper the Keppra. MAN Marquita RHODES MD DR: ELIZABETH/wellington JOB#: [id number] / [id number]
--- NOTE | 2016-09-20 23:30 | PN ---
DATE: 09/15/2016 SUBJECTIVE: The patient has not had any recurrent seizure or any new neurological or medical complaints. She walks, eats, and drinks well. OBJECTIVE: GENERAL: A well-developed, well-nourished white female, not in acute distress. VITAL SIGNS: Blood pressure 113/63, respiratory rate 18, pulse 71, temperature 96.9, oxygen saturation 100% on room air. HEENT: Normocephalic, atraumatic, otherwise unremarkable. NECK: Supple. Negative for carotid bruit, lymphadenopathy, or thyromegaly. LUNGS: Clear to A and P. CARDIOVASCULAR: Regular rate and rhythm, normal S1, S2. ABDOMEN: Soft. Bowel sounds positive. EXTREMITIES: Negative for cyanosis, clubbing, or pitting edema. NEUROLOGICAL: Mental Status: The patient is alert, oriented, and awake. She does not follow commands. Further evaluation is limited at this time. Cranial nerves are grossly intact. MOTOR: No focal muscle bulk was seen. The tone is normal. The strength is 5/5 throughout. SENSORY: Normal pinprick, light touch, vibratory, and position senses. DEEP TENDON REFLEXES: Symmetric and active without pathology responses. Gait and coordination are normal. IMPRESSION: 1. Seizure disorder, etiology uncertain. The patient has been on Keppra and Depakote, but Depakote is not therapeutic at this time. 2. Frontotemporal dementia, probably Alzheimer's type. 3. Depression, anxiety, and insomnia. RECOMMENDATIONS: 1. Continue with current medical and psychiatric care. 2. Await for Depakote level. M Dagoberto JUAREZ MD DR: CHRISTOPH/wellington JOB#: [id number] / [id number]
--- NOTE | 2016-09-21 00:21 | CONS ---
DATE OF CONSULTATION: 09/14/2016 REFERRING PHYSICIAN: Dr. Dolan. REASON FOR CONSULTATION: History of seizure disorder. HISTORY OF PRESENT ILLNESS: This is a 56-year-old right-handed female, who was recently discharged from the behavioral psychiatric unit with a diagnosis of Alzheimer's, bilateral frontotemporal dementia, anxiety and depression, who has had a history of seizure disorder of unknown etiology. She was referred back to the unit after she was evaluated at [facility] because of increased aggressive behavior, yelling at her mom and trying to run away from the home. The police was called and sent the patient to the ER. A neuro consult was requested because of the patient's history of seizure disorder and possible recurrent seizure. Initially, the patient was seen at [facility] as a new consult and an EEG was performed to rule out active seizure. The EEG did not show any active seizure activities. However, the patient was placed on Keppra and she has not had any recurrent seizures since. Because of the underlying dementia, the patient is not able to provide any information. PAST MEDICAL HISTORY: Significant for frontotemporal dementia, possible underlying Alzheimer's type dementia, depression, anxiety, and seizure disorder of unknown etiology. SOCIAL HISTORY: The patient lives with her mom. There is no history of smoking, alcohol drinking, or illicit drug use. CURRENT HOME MEDICATIONS: Depakote 250 mg daily, Depakote 500 mg at bedtime, lorazepam 0.25 mg t.i.d., lorazepam 1 mg q.4 hours p.r.n. for anxiety, agitation, buspirone 10 mg twice daily, multivitamins, Atarax 25 mg q.6 hours p.r.n. for anxiety, lorazepam 0.25 mg IV q.2 hours p.r.n. for agitation, Seroquel 50 mg, vitamin B12 is 250 mg daily, Cymbalta 30 mg daily, Keppra 500 mg b.i.d., Tylenol ____ mg at bedtime for insomnia, Seroquel 75 mg at bedtime, mirtazapine 7.5 mg at bedtime, and olanzapine 2.5 mg q. 2 hours p.r.n. for psychosis. ALLERGIES: No known drug allergies. PHYSICAL EXAMINATION: GENERAL: A well-developed and well-nourished white female, not in acute distress. She weighs 145.2 pounds. VITAL SIGNS: Blood pressure 134/95, respiratory rate 18, pulse 78 and regular, temperature 97.3, oxygen saturation 98% on room air. HEENT: Normocephalic, atraumatic, otherwise unremarkable. NECK: Supple. Negative for carotid bruits, lymphadenopathy, or thyromegaly. LUNGS: Clear to A and P. CARDIOVASCULAR: Regular rate and rhythm, normal S1, S2. There is no S3, S4, or murmur. ABDOMEN: Soft. Bowel sounds positive. EXTREMITIES: Negative for cyanosis, clubbing, or pitting edema. NEUROLOGIC: Mental status: The patient is awake, but she is demented and does not follow any commands. She does not communicate with a direct response. Further evaluation of her mental status is very limited because of the underlying advanced dementia. CRANIAL NERVES: Pupils are reactive to light and accommodation. The extraocular movements are intact. There is no nystagmus. There is no facial motor or sensory deficit. Hearing appears to be intact. The palate is elevated symmetrically. Sternocleidomastoid muscles are powerful bilaterally. The patient shrugs her shoulders symmetrically. She does not follow commands to protrude her tongue. Motor examination reveals no focal muscle bulk was seen. Tone is normal. The strength is 5/5 throughout. Sensory examination revealed normal pinprick and light touch senses throughout. Deep tendon reflexes were symmetric and active without pathologic responses. Gait and coordination were normal. LABORATORY DATA: CBC revealed white blood cells of 6200, hemoglobin 13.7, hematocrit 41, platelet count 244,000. Chemistry revealed hemoglobin A1c is 5.4, calcium 8.3. Iron is low at 47. Liver enzymes are normal. Creatinine kinase is high at 596. CK-MB is 4.4. Troponin level is normal. Lipid profile revealed a moderately elevated LDL at 118. Vitamin B12 is normal at 1223 and vitamin D is 37. Thyroid profile is normal. Urinalysis is negative. IMPRESSION: 1. Seizure disorder of unknown etiology. 2. Frontotemporal dementia. 3. Anemia of iron deficiency. 4. Hyperlipidemia with [id number] elevated LDL. 5. Depression and anxiety. RECOMMENDATIONS: 1. Continue with current management with Keppra 500 mg twice daily. 2. Continue with Depakote. When the Depakote level is therapeutic, then we will start to taper the Keppra gradually. 3. Continue with current medical and psychiatric care. M Dagoberto JUAREZ MD DR: CHRISTOPH/wellington JOB#: [id number] / [id number]
--- NOTE | 2016-09-21 01:25 | PN ---
DATE: 09/20/2016 SUBJECTIVE: The patient has not had any recurrent seizures since the readmission. She is on Keppra and Depakote, but Depakote level is still pending to become therapeutic. The patient continued to be confused, disoriented and pacing most of the time. OBJECTIVE: GENERAL: Well-developed, well-nourished white female, not in acute distress. VITAL SIGNS: Blood pressure 104/67, respiratory rate 20, pulse is 87, oxygen saturation is 97% and temperature is 97.5. HEENT: Normocephalic, atraumatic, otherwise, unremarkable. NECK: Supple. Negative for carotid bruit, lymphadenopathy or thyromegaly. LUNGS: Clear to A and P. CARDIOVASCULAR: Regular rate and rhythm, normal S1, S2. ABDOMEN: Soft. Bowel sounds positive. EXTREMITIES: Negative for cyanosis, clubbing or pitting edema. NEUROLOGIC: The patient is awake, but disoriented and confused. She does not follow commands. She does not communicate and answer questions. Further evaluation of her mental status is limited at this time. Cranial nerves are grossly intact. Motor Examination: No focal muscle bulk was seen. The tone is normal. The strength is 5/5 throughout. Sensory examination revealed normal pinprick and light touch senses. Deep tendon reflexes are symmetric and active without pathologic responses. Gait: The patient's gait is normal. LABORATORY DATA: CBC revealed white blood cells of 5.1 thousand, hemoglobin 13.6, hematocrit 40.3, platelet count 228,000. Chemistry revealed sodium 142, potassium 3.8, chloride 107, CO2 of 26, BUN 15, creatinine 0.9. Glucose is 98. Calcium 8.9. Liver enzymes are normal. IMPRESSION: 1. Seizure disorder of unknown etiology. No recurrence. 2. Frontotemporal dementia, probably Alzheimer type. 3. Depression and anxiety. RECOMMENDATIONS: 1. Continue with Keppra as it is 500 mg twice a day. 2. Continue with a Depakote level and check the Depakote level in a few days. If it is therapeutic, we will start tapering dose on Keppra. 3. Continue with current medical and psychiatric care. M Dagoberto JUAREZ MD DR: CHRISTOPH/wellington JOB#: [id number] / [id number]
[2016-09-21 06:27] VITALS: BP 122/78
[2016-09-21] MEDS: DULoxetine HCL 30 MG CAPSULE.DR PO SCH (07:58)
[2016-09-21] MEDS: busPIRone 10 MG TABLET. PO SCH ×2 (07:58→12:18)
[2016-09-21] MEDS: DIVALPROEX 125 MG CAP.SPRINK PO SCH ×2 (07:58→19:36)
[2016-09-21] MEDS: levETIRAcetam 500 MG TABLET PO SCH ×2 (07:58→19:36)
[2016-09-21] MEDS: HYDROcodone/APAP 5/325MG 1 TAB TABLET PO SCH ×2 (07:59→19:41)
[2016-09-21] MEDS: LORazepam INTENSOL 2 MG/ML BOTTLE SL SCH ×3 (08:00→17:03)
[2016-09-21] MEDS: CYANOCOBALAMIN (VITAMIN B-12) 250 MCG TABLET PO SCH (09:00)
[2016-09-21] MEDS: PRENATAL MULTIVITAMIN TABLET. PO SCH (09:00)
[2016-09-21] MEDS: QUEtiapine 50 MG TABLET. PO SCH ×2 (12:17→19:36)
[2016-09-21 16:57] VITALS: BP 135/86
[2016-09-21] MEDS: MELATONIN 3 MG TABLET PO SCH (19:36)
[2016-09-21] MEDS: MIRTAZAPINE 7.5 MG TABLET. PO SCH (19:36)
--- NOTE | 2016-09-21 20:24 | PDOC ---
Exam Mario Alberto Demential Exam: Mario Alberto Note: Please also refer to the separate dictated note~for this date of service dictated separately.~Patient seen individually. Discussed the patient with Nursing staff reviewed the chart.~Reviewed interim history and current functioning. Reviewed vital signs,~Labs/ Radiology~and current medications noted below. Continue current treatment with the changes noted in the dictated addendum note Assessment: Vital Signs: Vital Signs Date Time Temp Pulse Resp B/P (MAP) Pulse Ox O2 Delivery O2 Flow Rate FiO2 09/21/16 16:57 97.8 74 18 135/86 (102) 99 09/18/16 05:51 Room Air I&O Intake and Output 09/21/16 07:00 Intake Total 780 ml Balance 780 ml Intake Oral 780 ml # Voids 2 Current Medications: Meds: Current Medications Acetaminophen (Tylenol) 650 mg PRN Q6HRS PRN PO PAIN / TEMP; Start 09/12/16 at 20:00; Status UNV Multi-Ingredient Ointment (Analgesic [place]) 1 radnee PRN QID PRN TP MUSCLE PAIN; Start 09/12/16 at 20:00; Status UNV Al Hydroxide/Mg Hydroxide (Mylanta Plus Xs) 15 ml PRN AFTMEALHC PRN PO DYSPEPSIA; Start 09/12/16 at 20:00; Status UNV Magnesium Hydroxide (Milk Of Magnesia) 2,400 mg PRN QHS PRN PO CONSTIPATION; Start 09/12/16 at 20:00; Status UNV Duloxetine HCl (Cymbalta) 30 mg DAILY PO Last administered on 09/21/16 07:58; Start 09/13/16 at 09:00 Mirtazapine (Remeron) 7.5 mg QHS PO Last administered on 09/21/16 19:36; Start 09/12/16 at 21:00 Olanzapine (ZyPREXA ZYDIS) 2.5 mg PRN Q2HR PRN PO PSYCHOSIS Last administered on 09/15/16 08:10; Start 09/12/16 at 20:15 Quetiapine Fumarate (SEROquel) 50 mg NOON PO Last administered on 09/21/16 12: 17; Start 09/13/16 at 12:00 Quetiapine Fumarate (SEROquel) 75 mg HS PO Last administered on 09/21/16 19:36 ; Start 09/12/16 at 21:00 Melatonin 3 mg QHS PO Last administered on 09/21/16 19:36; Start 09/12/16 at 21 :00 Acetaminophen (Tylenol) 650 mg PRN Q6HRS PRN PO PAIN / TEMP; Start 09/12/16 at 20:15 Acetaminophen/ Hydrocodone Bitart (Lortab 5/325) 1 tab BID PO Last administered on 09/21/16 19:41; Start 09/12/16 at 21:00 Levetiracetam (Keppra) 500 mg BID PO Last administered on 09/21/16 19:36; Start 09/12/16 at 21:00 Al Hydroxide/Mg Hydroxide (Mylanta Plus Xs) 15 ml PRN AFTMEALHC PRN PO DYSPEPSIA; Start 09/12/16 at 20:15 Magnesium Hydroxide (Milk Of Magnesia) 2,400 mg PRN QHS PRN PO CONSTIPATION; Start 09/12/16 at 20:15 Multi-Ingredient Ointment (Analgesic [place]) 1 randee PRN QID PRN TP MUSCLE PAIN; Start 09/12/16 at 20:15 Cyanocobalamin (Vitamin B-12) 250 mcg DAILY PO Last administered on 09/20/16 07:48; Start 09/13/16 at 09:00 Buspirone HCl (Buspar) 5 mg BID92 PO Last administered on 09/15/16 13:34; Start 09/13/16 at 09:00; Stop 09/15/16 at 18:27; Status DC Divalproex Sodium (Depakote Sprinkles) 250 mg DAILY PO Last administered on 10:01; Start 09/14/16 at 09:00; Stop 09/17/16 at 10:08; Status DC Lorazepam (Ativan) 0.25 mg PRN Q2HR PRN TP ANXIETY / AGITATION Last administered on 09/20/16 11:40; Start 09/13/16 at 19:15 Hydroxyzine HCl (Atarax) 25 mg PRN Q6HRS PRN PO ANXIETY / AGITATION; Start 09/14 at 14:45; Stop 09/14/16 at 14:45; Status DC Hydroxyzine HCl (Atarax) 25 mg PRN Q6HRS PRN PO ANXIETY/AGITATION Last administered on 09/15/16 14:14; Start 09/14/16 at 15:00 Prenat Multivit/ [place]/Iron/Folic Ac (Multivitamin ) 1 tab DAILY PO Last administered on 09/20/16 07:47; Start 09/15/16 at 10:15 Buspirone HCl (Buspar) 10 mg BID92 PO Last administered on 09/21/16 12:18; Start 09/16/16 at 09:00 Lorazepam (Ativan) 1 mg 1X ONCE PO Last administered on 09/16/16 08:07; Start 09/16/16 at 08:15; Stop 09/16/16 at 08:16; Status DC Lorazepam (Ativan Intensol) 1 mg PRN Q4HRS PRN SL ANXIETY / AGITATION Last administered on 09/16/16 13:35; Start 09/16/16 at 13:30 Lorazepam (Ativan Intensol) 0.25 mg TID@0900,1300,1700 SL Last administered on 09/21/16 17:03; Start 09/17/16 at 09:00 Divalproex Sodium (Depakote Sprinkles) 250 mg BID PO Last administered on 07:46; Start 09/17/16 at 21:00; Stop 09/20/16 at 14:56; Status DC Duloxetine HCl (Cymbalta) 30 mg 1X ONCE PO Last administered on 09/18/16 08: 31; Start 09/18/16 at 08:00; Stop 09/18/16 at 08:01; Status DC Divalproex Sodium (Depakote Sprinkles) 250 mg DAILY PO Last administered on 07:58; Start 09/21/16 at 09:00 Divalproex Sodium (Depakote Sprinkles) 500 mg HS PO Last administered on 19:36; Start 09/20/16 at 21:00 Active Scripts Active Reported Buspirone Hcl 5 Mg Tablet 1 Tab PO BID92 Zyprexa Zydis (Olanzapine) 5 Mg Tab.rapdis 2.5 Mg PO Q2HR PRN Mirtazapine 15 Mg Tablet 7.5 Mg PO QHS Analgesic [place] (Methyl Salicylate/Menthol) 28 Gm Oint...g. 1 [place] TP PRN QID PRN Melatonin 3 Mg Tablet 3 Mg PO QHS Mag-Al Plus Xs Suspension (Mag Hydrox/Al Hydrox/Simeth) 30 Ml Oral.susp 15 Ml PO PRN AFTMEALHC PRN Keppra (Levetiracetam) 500 Mg Tablet 500 Mg PO BID Tylenol (Acetaminophen) 325 Mg Tablet 650 Mg PO PRN Q6HRS PRN Milk Of Magnesia (Magnesium Hydroxide) 400 Mg/5 Ml Oral.susp 2,400 Mg PO PRN QHS PRN Cymbalta (Duloxetine Hcl) 30 Mg Capsule.dr 30 Mg PO DAILY pt has received 3 of 5 scheduled doses Hydrocodone-Apap 5-325 (Hydrocodone Bit/Acetaminophen) 1 Each Tablet 1 Tab PO BID B-12 (Cyanocobalamin (Vitamin B-12)) 500 Mcg Tab.rapdis 250 Mcg PO DAILY Seroquel (Quetiapine Fumarate) 50 Mg Tablet 50 Mg PO NOON Seroquel (Quetiapine Fumarate) 50 Mg Tablet 75 Mg PO HS Diagnosis: Problems: (1) Anxiety disorder (2) Impulse control disorder (3) Dementia, vascular, with depression (4) Dementia, vascular, with delusions (5) Dementia in Alzheimer's disease with delusions (6) Dementia in Alzheimer's disease with depression (7) Frontotemporal dementia with behavioral disturbance ADELA RHODES MD Sep 21, 2016 20:24
[2016-09-22 05:36] VITALS: BP 118/80
[2016-09-22] MEDS: levETIRAcetam 500 MG TABLET PO SCH ×2 (08:04→19:21)
[2016-09-22] MEDS: CYANOCOBALAMIN (VITAMIN B-12) 250 MCG TABLET PO SCH (08:04)
[2016-09-22] MEDS: PRENATAL MULTIVITAMIN TABLET. PO SCH (08:04)
[2016-09-22] MEDS: busPIRone 10 MG TABLET. PO SCH ×2 (08:04→13:01)
[2016-09-22] MEDS: DULoxetine HCL 30 MG CAPSULE.DR PO SCH (08:04)
[2016-09-22] MEDS: DIVALPROEX 125 MG CAP.SPRINK PO SCH ×2 (08:05→19:23)
[2016-09-22] MEDS: HYDROcodone/APAP 5/325MG 1 TAB TABLET PO SCH ×2 (08:06→19:38)
[2016-09-22] MEDS: LORazepam INTENSOL 2 MG/ML BOTTLE SL SCH ×3 (08:08→17:23)
--- NOTE | 2016-09-22 10:16 | PN ---
DATE: 09/20/2016 PSYCHIATRIC PROGRESS NOTE This is a late entry 09/20/2016, covers elements not covered in my initial note. SUBJECTIVE: I met with the patient evening of 09/20/2016. The patient did well previous evening and during the morning she did well until about 1140 and then she was having visual hallucinations, was yelling, "get him out I am taking my mom." Atarax and Ativan were given with some relief. Her cousin sister visited and she was much calmer during the visit. REVIEW OF SYSTEMS: No CV, , pulmonary, eye, ENT system symptoms on review. Reliability poor. MENTAL STATUS EXAM: Oriented to herself. Insight, judgment, recent and remote memory, attention, concentration, fund of knowledge poor, consistent with her diagnoses mentioned in my initial note. PLAN: Continue current psychotropics. Depakote was adjusted. Repeat labs level to reach a therapeutic level and then stop the Keppra. In the interim reviewed drug interactions as well as psychotropics. Risk/benefit ratio favors no further change at this time. MAN Marquita RHODES MD DR: ELIZABETH/wellington JOB#: [id number] / [id number]
[2016-09-22] MEDS: QUEtiapine 50 MG TABLET. PO SCH ×2 (13:01→19:23)
[2016-09-22 16:33] VITALS: BP 91/62
[2016-09-22] MEDS: MIRTAZAPINE 7.5 MG TABLET. PO SCH (19:21)
[2016-09-22] MEDS: MELATONIN 3 MG TABLET PO SCH (19:21)
--- NOTE | 2016-09-22 19:58 | PDOC ---
Exam Mario Alberto Demential Exam: Mario Alberto Note: Please also refer to the separate dictated note~for this date of service dictated separately.~Patient seen individually. Discussed the patient with Nursing staff reviewed the chart.~Reviewed interim history and current functioning. Reviewed vital signs,~Labs/ Radiology~and current medications noted below. Continue current treatment with the changes noted in the dictated addendum note Assessment: Vital Signs: Vital Signs Date Time Temp Pulse Resp B/P (MAP) Pulse Ox O2 Delivery O2 Flow Rate FiO2 09/22/16 19:38 18 Room Air 09/22/16 16:33 98.0 81 91/62 (72) 99 I&O Intake and Output 09/22/16 07:00 Intake Total 840 ml Balance 840 ml Intake Oral 840 ml Current Medications: Meds: Current Medications Acetaminophen (Tylenol) 650 mg PRN Q6HRS PRN PO PAIN / TEMP; Start 09/12/16 at 20:00; Status UNV Multi-Ingredient Ointment (Analgesic [place]) 1 randee PRN QID PRN TP MUSCLE PAIN; Start 09/12/16 at 20:00; Status UNV Al Hydroxide/Mg Hydroxide (Mylanta Plus Xs) 15 ml PRN AFTMEALHC PRN PO DYSPEPSIA; Start 09/12/16 at 20:00; Status UNV Magnesium Hydroxide (Milk Of Magnesia) 2,400 mg PRN QHS PRN PO CONSTIPATION; Start 09/12/16 at 20:00; Status UNV Duloxetine HCl (Cymbalta) 30 mg DAILY PO Last administered on 09/22/16 08:04; Start 09/13/16 at 09:00 Mirtazapine (Remeron) 7.5 mg QHS PO Last administered on 09/22/16 19:21; Start 09/12/16 at 21:00 Olanzapine (ZyPREXA ZYDIS) 2.5 mg PRN Q2HR PRN PO PSYCHOSIS Last administered on 09/15/16 08:10; Start 09/12/16 at 20:15 Quetiapine Fumarate (SEROquel) 50 mg NOON PO Last administered on 09/22/16 13: 01; Start 09/13/16 at 12:00 Quetiapine Fumarate (SEROquel) 75 mg HS PO Last administered on 09/22/16 19:23 ; Start 09/12/16 at 21:00 Melatonin 3 mg QHS PO Last administered on 09/22/16 19:21; Start 09/12/16 at 21 :00 Acetaminophen (Tylenol) 650 mg PRN Q6HRS PRN PO PAIN / TEMP; Start 09/12/16 at 20:15 Acetaminophen/ Hydrocodone Bitart (Lortab 5/325) 1 tab BID PO Last administered on 09/22/16 19:38; Start 09/12/16 at 21:00 Levetiracetam (Keppra) 500 mg BID PO Last administered on 09/22/16 19:21; Start 09/12/16 at 21:00 Al Hydroxide/Mg Hydroxide (Mylanta Plus Xs) 15 ml PRN AFTMEALHC PRN PO DYSPEPSIA; Start 09/12/16 at 20:15 Magnesium Hydroxide (Milk Of Magnesia) 2,400 mg PRN QHS PRN PO CONSTIPATION; Start 09/12/16 at 20:15 Multi-Ingredient Ointment (Analgesic [place]) 1 randee PRN QID PRN TP MUSCLE PAIN; Start 09/12/16 at 20:15 Cyanocobalamin (Vitamin B-12) 250 mcg DAILY PO Last administered on 09/22/16 08:04; Start 09/13/16 at 09:00 Buspirone HCl (Buspar) 5 mg BID92 PO Last administered on 09/15/16 13:34; Start 09/13/16 at 09:00; Stop 09/15/16 at 18:27; Status DC Divalproex Sodium (Depakote Sprinkles) 250 mg DAILY PO Last administered on 10:01; Start 09/14/16 at 09:00; Stop 09/17/16 at 10:08; Status DC Lorazepam (Ativan) 0.25 mg PRN Q2HR PRN TP ANXIETY / AGITATION Last administered on 09/20/16 11:40; Start 09/13/16 at 19:15 Hydroxyzine HCl (Atarax) 25 mg PRN Q6HRS PRN PO ANXIETY / AGITATION; Start 09/14 at 14:45; Stop 09/14/16 at 14:45; Status DC Hydroxyzine HCl (Atarax) 25 mg PRN Q6HRS PRN PO ANXIETY/AGITATION Last administered on 09/15/16 14:14; Start 09/14/16 at 15:00 Prenat Multivit/ [employer]/Iron/Folic Ac (Multivitamin ) 1 tab DAILY PO Last administered on 09/22/16 08:04; Start 09/15/16 at 10:15 Buspirone HCl (Buspar) 10 mg BID92 PO Last administered on 09/22/16 13:01; Start 09/16/16 at 09:00 Lorazepam (Ativan) 1 mg 1X ONCE PO Last administered on 09/16/16 08:07; Start 09/16/16 at 08:15; Stop 09/16/16 at 08:16; Status DC Lorazepam (Ativan Intensol) 1 mg PRN Q4HRS PRN SL ANXIETY / AGITATION Last administered on 09/16/16 13:35; Start 09/16/16 at 13:30 Lorazepam (Ativan Intensol) 0.25 mg TID@0900,1300,1700 SL Last administered on 09/22/16 17:23; Start 09/17/16 at 09:00 Divalproex Sodium (Depakote Sprinkles) 250 mg BID PO Last administered on 07:46; Start 09/17/16 at 21:00; Stop 09/20/16 at 14:56; Status DC Duloxetine HCl (Cymbalta) 30 mg 1X ONCE PO Last administered on 09/18/16 08: 31; Start 09/18/16 at 08:00; Stop 09/18/16 at 08:01; Status DC Divalproex Sodium (Depakote Sprinkles) 250 mg DAILY PO Last administered on 08:05; Start 09/21/16 at 09:00 Divalproex Sodium (Depakote Sprinkles) 500 mg HS PO Last administered on 19:23; Start 09/20/16 at 21:00 Active Scripts Active Reported Buspirone Hcl 5 Mg Tablet 1 Tab PO BID92 Zyprexa Zydis (Olanzapine) 5 Mg Tab.rapdis 2.5 Mg PO Q2HR PRN Mirtazapine 15 Mg Tablet 7.5 Mg PO QHS Analgesic [place] (Methyl Salicylate/Menthol) 28 Gm Oint...g. 1 [place] TP PRN QID PRN Melatonin 3 Mg Tablet 3 Mg PO QHS Mag-Al Plus Xs Suspension (Mag Hydrox/Al Hydrox/Simeth) 30 Ml Oral.susp 15 Ml PO PRN AFTMEALHC PRN Keppra (Levetiracetam) 500 Mg Tablet 500 Mg PO BID Tylenol (Acetaminophen) 325 Mg Tablet 650 Mg PO PRN Q6HRS PRN Milk Of Magnesia (Magnesium Hydroxide) 400 Mg/5 Ml Oral.susp 2,400 Mg PO PRN QHS PRN Cymbalta (Duloxetine Hcl) 30 Mg Capsule.dr 30 Mg PO DAILY pt has received 3 of 5 scheduled doses Hydrocodone-Apap 5-325 (Hydrocodone Bit/Acetaminophen) 1 Each Tablet 1 Tab PO BID B-12 (Cyanocobalamin (Vitamin B-12)) 500 Mcg Tab.rapdis 250 Mcg PO DAILY Seroquel (Quetiapine Fumarate) 50 Mg Tablet 50 Mg PO NOON Seroquel (Quetiapine Fumarate) 50 Mg Tablet 75 Mg PO HS Diagnosis: Problems: (1) Anxiety disorder (2) Impulse control disorder (3) Dementia, vascular, with depression (4) Dementia, vascular, with delusions (5) Dementia in Alzheimer's disease with delusions (6) Dementia in Alzheimer's disease with depression (7) Frontotemporal dementia with behavioral disturbance ADELA RHODES MD Sep 22, 2016 19:58
--- NOTE | 2016-09-23 04:13 | PN ---
DATE: 09/21/2016 This late entry 09/21/2016 covers elements not covered in my initial note of 09/21/2016. SUBJECTIVE: I met with the patient evening of 09/21/2016. She had a good night the previous evening. On the morning of 09/21/2016; she was resistive to medications, less agitated, overall wandering, oblivious to surroundings. REVIEW OF SYSTEMS: No CV, , pulmonary, eye, ENT system symptoms on review. Reliability poor. MENTAL STATUS EXAM: Oriented to herself. Insight, judgment, recent and remote memory, attention, concentration, fund of knowledge poor, consistent with her diagnosis mentioned in my initial note. LABORATORIES: Repeat valproic acid level due on 09/23/2016. IMPRESSION: Unchanged from initial note. PLAN: Continue psychotropics mentioned in my initial note, review drug interactions, risk/benefit ratio favors no further change as of 09/21/2016. ADELA RHODES MD DR: ELIZABETH/wellington JOB#: [id number] / [id number]
[2016-09-23 07:53] VITALS: BP 116/79
[2016-09-23 07:57] LABS: BASO % 1 % (0-3); EOS # 0.2 x10^3/uL (0.0-0.7); EOS % 4 % (0-3); HEMOGLOBIN 13.2 g/dL (12.0-15.5); LYMPH # 1.6 x10^3/uL (1.0-4.8); LYMPH % 39 % (24-48); MEAN CORPUSCULAR HEMOGLOBIN 28 pg (25-35); MEAN CORPUSCULAR HGB CONC 32 g/dL (31-37); MEAN CORPUSCULAR VOLUME 87 fL (79-100); MONO # 0.5 x10^3/uL (0.0-1.1); MONO % 12 % (0-9); NEUT # 1.9 x10^3uL (1.8-7.7); NEUT % 45 % (31-73); PLATELET COUNT 201 x10^3/uL (140-400); RED BLOOD COUNT 4.71 x10^6/uL (3.50-5.40); RED CELL DISTRIBUTION WIDTH 13.1 % (11.5-14.5); WHITE BLOOD COUNT 4.3 x10^3/uL (4.0-11.0)
[2016-09-23 08:13] LABS: ALBUMIN 3.3 g/dL (3.4-5.0); ALBUMIN/GLOBULIN RATIO 0.8 (1.0-1.7); ALK PHOS 86 U/L (46-116); ALT (SGPT) 139 U/L (14-59); ANION GAP 7 (6-14); AST (SGOT) 89 U/L (15-37); BLOOD UREA NITROGEN 14 mg/dL (7-20); BUN/CREATININE RATIO 16 (6-20); CALCIUM 8.5 mg/dL (8.5-10.1); CARBON DIOXIDE 28 mmol/L (21-32); CHLORIDE 108 mmol/L (98-107); CREATININE 0.9 mg/dL (0.6-1.0); GFR 64.5; GLUCOSE 82 mg/dL (70-99); POTASSIUM 4.1 mmol/L (3.5-5.1); SODIUM 143 mmol/L (136-145); TOTAL BILIRUBIN 0.3 mg/dL (0.2-1.0); TOTAL PROTEIN 7.4 g/dL (6.4-8.2); VAL ACID 51 mcg/mL (50-100)
[2016-09-23] MEDS: levETIRAcetam 500 MG TABLET PO SCH ×2 (08:15→20:35)
[2016-09-23] MEDS: PRENATAL MULTIVITAMIN TABLET. PO SCH (08:15)
[2016-09-23] MEDS: busPIRone 10 MG TABLET. PO SCH ×2 (08:15→13:38)
[2016-09-23] MEDS: DULoxetine HCL 30 MG CAPSULE.DR PO SCH (08:15)
[2016-09-23] MEDS: CYANOCOBALAMIN (VITAMIN B-12) 250 MCG TABLET PO SCH (08:15)
[2016-09-23] MEDS: DIVALPROEX 125 MG CAP.SPRINK PO SCH ×2 (08:15→20:35)
[2016-09-23] MEDS: LORazepam INTENSOL 2 MG/ML BOTTLE SL SCH ×3 (08:18→16:37)
[2016-09-23] MEDS: HYDROcodone/APAP 5/325MG 1 TAB TABLET PO SCH ×2 (08:18→20:34)
[2016-09-23] MEDS: QUEtiapine 50 MG TABLET. PO SCH ×2 (12:11→20:35)
[2016-09-23 16:34] VITALS: BP 117/84
--- NOTE | 2016-09-23 19:58 | PDOC ---
Exam Mario Alberto Demential Exam: Mario Alberto Note: Please also refer to the separate dictated note~for this date of service dictated separately.~Patient seen individually. Discussed the patient with Nursing staff reviewed the chart.~Reviewed interim history and current functioning. Reviewed vital signs,~Labs/ Radiology~and current medications noted below. Continue current treatment with the changes noted in the dictated addendum note Assessment: Vital Signs: Vital Signs Date Time Temp Pulse Resp B/P (MAP) Pulse Ox O2 Delivery O2 Flow Rate FiO2 09/23/16 16:34 97.4 54 20 117/84 (95) 98 09/23/16 11:25 Room Air I&O Intake and Output 09/23/16 07:00 Intake Total 1320 ml Balance 1320 ml Intake Oral 1320 ml Labs: Laboratory Tests Test 09/23/16 07:33 White Blood Count 4.3 x10^3/uL (4.0-11.0) Red Blood Count 4.71 x10^6/uL (3.50-5.40) Hemoglobin 13.2 g/dL (12.0-15.5) Hematocrit 41.0 % (36.0-47.0) Mean Corpuscular Volume 87 fL (79-100) Mean Corpuscular Hemoglobin 28 pg (25-35) Mean Corpuscular Hemoglobin Concent 32 g/dL (31-37) Red Cell Distribution Width 13.1 % (11.5-14.5) Platelet Count 201 x10^3/uL (140-400) Neutrophils (%) (Auto) 45 % (31-73) Lymphocytes (%) (Auto) 39 % (24-48) Monocytes (%) (Auto) 12 % (0-9) H Eosinophils (%) (Auto) 4 % (0-3) H Basophils (%) (Auto) 1 % (0-3) Neutrophils # (Auto) 1.9 x10^3uL (1.8-7.7) Lymphocytes # (Auto) 1.6 x10^3/uL (1.0-4.8) Monocytes # (Auto) 0.5 x10^3/uL (0.0-1.1) Eosinophils # (Auto) 0.2 x10^3/uL (0.0-0.7) Basophils # (Auto) 0.0 x10^3/uL (0.0-0.2) Sodium Level 143 mmol/L (136-145) Potassium Level 4.1 mmol/L (3.5-5.1) Chloride Level 108 mmol/L (98-107) H Carbon Dioxide Level 28 mmol/L (21-32) Anion Gap 7 (6-14) Blood Urea Nitrogen 14 mg/dL (7-20) Creatinine 0.9 mg/dL (0.6-1.0) Estimated GFR (Cockcroft-Gault) 64.5 BUN/Creatinine Ratio 16 (6-20) Glucose Level 82 mg/dL (70-99) Calcium Level 8.5 mg/dL (8.5-10.1) Total Bilirubin 0.3 mg/dL (0.2-1.0) Aspartate Amino Transferase (AST) 89 U/L (15-37) H Alanine Aminotransferase (ALT) 139 U/L (14-59) H Alkaline Phosphatase 86 U/L (46-116) Total Protein 7.4 g/dL (6.4-8.2) Albumin 3.3 g/dL (3.4-5.0) L Albumin/Globulin Ratio 0.8 (1.0-1.7) L Valproic Acid Level 51 mcg/mL (50-100) Valproic Acid Last Dose Date 09/22/16 Valproic Acid Last Dose Time 2100 Current Medications: Meds: Current Medications Acetaminophen (Tylenol) 650 mg PRN Q6HRS PRN PO PAIN / TEMP; Start 09/12/16 at 20:00; Status UNV Multi-Ingredient Ointment (Analgesic [place]) 1 randee PRN QID PRN TP MUSCLE PAIN; Start 09/12/16 at 20:00; Status UNV Al Hydroxide/Mg Hydroxide (Mylanta Plus Xs) 15 ml PRN AFTMEALHC PRN PO DYSPEPSIA; Start 09/12/16 at 20:00; Status UNV Magnesium Hydroxide (Milk Of Magnesia) 2,400 mg PRN QHS PRN PO CONSTIPATION; Start 09/12/16 at 20:00; Status UNV Duloxetine HCl (Cymbalta) 30 mg DAILY PO Last administered on 09/23/16 08:15; Start 09/13/16 at 09:00 Mirtazapine (Remeron) 7.5 mg QHS PO Last administered on 09/22/16 19:21; Start 09/12/16 at 21:00 Olanzapine (ZyPREXA ZYDIS) 2.5 mg PRN Q2HR PRN PO PSYCHOSIS Last administered on 09/15/16 08:10; Start 09/12/16 at 20:15 Quetiapine Fumarate (SEROquel) 50 mg NOON PO Last administered on 09/23/16 12: 11; Start 09/13/16 at 12:00 Quetiapine Fumarate (SEROquel) 75 mg HS PO Last administered on 09/22/16 19:23 ; Start 09/12/16 at 21:00 Melatonin 3 mg QHS PO Last administered on 09/22/16 19:21; Start 09/12/16 at 21 :00 Acetaminophen (Tylenol) 650 mg PRN Q6HRS PRN PO PAIN / TEMP; Start 09/12/16 at 20:15 Acetaminophen/ Hydrocodone Bitart (Lortab 5/325) 1 tab BID PO Last administered on 09/23/16 08:18; Start 09/12/16 at 21:00 Levetiracetam (Keppra) 500 mg BID PO Last administered on 09/23/16 08:15; Start 09/12/16 at 21:00 Al Hydroxide/Mg Hydroxide (Mylanta Plus Xs) 15 ml PRN AFTMEALHC PRN PO DYSPEPSIA; Start 09/12/16 at 20:15 Magnesium Hydroxide (Milk Of Magnesia) 2,400 mg PRN QHS PRN PO CONSTIPATION; Start 09/12/16 at 20:15 Multi-Ingredient Ointment (Analgesic [place]) 1 randee PRN QID PRN TP MUSCLE PAIN; Start 09/12/16 at 20:15 Cyanocobalamin (Vitamin B-12) 250 mcg DAILY PO Last administered on 09/23/16 08:15; Start 09/13/16 at 09:00 Buspirone HCl (Buspar) 5 mg BID92 PO Last administered on 09/15/16 13:34; Start 09/13/16 at 09:00; Stop 09/15/16 at 18:27; Status DC Divalproex Sodium (Depakote Sprinkles) 250 mg DAILY PO Last administered on 10:01; Start 09/14/16 at 09:00; Stop 09/17/16 at 10:08; Status DC Lorazepam (Ativan) 0.25 mg PRN Q2HR PRN TP ANXIETY / AGITATION Last administered on 09/20/16 11:40; Start 09/13/16 at 19:15 Hydroxyzine HCl (Atarax) 25 mg PRN Q6HRS PRN PO ANXIETY / AGITATION; Start 09/14 at 14:45; Stop 09/14/16 at 14:45; Status DC Hydroxyzine HCl (Atarax) 25 mg PRN Q6HRS PRN PO ANXIETY/AGITATION Last administered on 09/15/16 14:14; Start 09/14/16 at 15:00 Prenat Multivit/ [place]/Iron/Folic Ac (Multivitamin ) 1 tab DAILY PO Last administered on 09/23/16 08:15; Start 09/15/16 at 10:15 Buspirone HCl (Buspar) 10 mg BID92 PO Last administered on 09/23/16 13:38; Start 09/16/16 at 09:00 Lorazepam (Ativan) 1 mg 1X ONCE PO Last administered on 09/16/16 08:07; Start 09/16/16 at 08:15; Stop 09/16/16 at 08:16; Status DC Lorazepam (Ativan Intensol) 1 mg PRN Q4HRS PRN SL ANXIETY / AGITATION Last administered on 09/16/16 13:35; Start 09/16/16 at 13:30 Lorazepam (Ativan Intensol) 0.25 mg TID@0900,1300,1700 SL Last administered on 09/23/16 16:37; Start 09/17/16 at 09:00 Divalproex Sodium (Depakote Sprinkles) 250 mg BID PO Last administered on 07:46; Start 09/17/16 at 21:00; Stop 09/20/16 at 14:56; Status DC Duloxetine HCl (Cymbalta) 30 mg 1X ONCE PO Last administered on 09/18/16 08: 31; Start 09/18/16 at 08:00; Stop 09/18/16 at 08:01; Status DC Divalproex Sodium (Depakote Sprinkles) 250 mg DAILY PO Last administered on 08:15; Start 09/21/16 at 09:00; Stop 09/23/16 at 18:31; Status DC Divalproex Sodium (Depakote Sprinkles) 500 mg HS PO Last administered on 19:23; Start 09/20/16 at 21:00; Stop 09/23/16 at 18:31; Status DC Divalproex Sodium (Depakote Sprinkles) 500 mg BID PO ; Start 09/23/16 at 21:00 Active Scripts Active Reported Buspirone Hcl 5 Mg Tablet 1 Tab PO BID92 Zyprexa Zydis (Olanzapine) 5 Mg Tab.rapdis 2.5 Mg PO Q2HR PRN Mirtazapine 15 Mg Tablet 7.5 Mg PO QHS Analgesic [place] (Methyl Salicylate/Menthol) 28 Gm Oint...g. 1 [place] TP PRN QID PRN Melatonin 3 Mg Tablet 3 Mg PO QHS Mag-Al Plus Xs Suspension (Mag Hydrox/Al Hydrox/Simeth) 30 Ml Oral.susp 15 Ml PO PRN AFTMEALHC PRN Keppra (Levetiracetam) 500 Mg Tablet 500 Mg PO BID Tylenol (Acetaminophen) 325 Mg Tablet 650 Mg PO PRN Q6HRS PRN Milk Of Magnesia (Magnesium Hydroxide) 400 Mg/5 Ml Oral.susp 2,400 Mg PO PRN QHS PRN Cymbalta (Duloxetine Hcl) 30 Mg Capsule.dr 30 Mg PO DAILY pt has received 3 of 5 scheduled doses Hydrocodone-Apap 5-325 (Hydrocodone Bit/Acetaminophen) 1 Each Tablet 1 Tab PO BID B-12 (Cyanocobalamin (Vitamin B-12)) 500 Mcg Tab.rapdis 250 Mcg PO DAILY Seroquel (Quetiapine Fumarate) 50 Mg Tablet 50 Mg PO NOON Seroquel (Quetiapine Fumarate) 50 Mg Tablet 75 Mg PO HS Diagnosis: Problems: (1) Anxiety disorder (2) Impulse control disorder (3) Dementia, vascular, with depression (4) Dementia, vascular, with delusions (5) Dementia in Alzheimer's disease with delusions (6) Frontotemporal dementia with behavioral disturbance (7) Dementia in Alzheimer's disease with depression ADELA RHODES MD Sep 23, 2016 19:58
[2016-09-23] MEDS: MELATONIN 3 MG TABLET PO SCH (20:34)
[2016-09-23] MEDS: MIRTAZAPINE 7.5 MG TABLET. PO SCH (20:35)
[2016-09-24 05:57] VITALS: BP 160/96
--- NOTE | 2016-09-24 07:36 | PN ---
DATE: 09/22/2016 PSYCHIATRIC PROGRESS NOTE This is a late entry 09/22/2016, covers elements not covered in my initial note of 09/22/2016. SUBJECTIVE: I met with the patient the evening of 09/22/2016. Per nursing report, the patient had a much better day. She has been less agitated, certainly quite confused, clapping during the music therapy group. REVIEW OF SYSTEMS: No CV, , pulmonary, eye, ENT system symptoms on review. Reliability poor. MENTAL STATUS EXAM: Oriented to herself. Insight, judgment, recent and remote memory, attention, concentration, fund of knowledge poor, consistent with her diagnoses mentioned in my initial note. PLAN: Continue current psychotropics. Check valproic acid level on 09/23/2016. Adjust Depakote to reach a therapeutic level at that stage. MAN Marquita RHODES MD DR: ELIZABETH/wellington JOB#: [id number] / [id number]
[2016-09-24] MEDS: DULoxetine HCL 30 MG CAPSULE.DR PO SCH (08:38)
[2016-09-24] MEDS: DIVALPROEX 125 MG CAP.SPRINK PO SCH ×2 (08:39→19:27)
[2016-09-24] MEDS: levETIRAcetam 500 MG TABLET PO SCH ×2 (08:39→19:27)
[2016-09-24] MEDS: HYDROcodone/APAP 5/325MG 1 TAB TABLET PO SCH ×2 (08:39→19:27)
[2016-09-24] MEDS: busPIRone 10 MG TABLET. PO SCH ×2 (08:39→13:26)
[2016-09-24] MEDS: CYANOCOBALAMIN (VITAMIN B-12) 250 MCG TABLET PO SCH (08:39)
[2016-09-24] MEDS: PRENATAL MULTIVITAMIN TABLET. PO SCH (08:39)
[2016-09-24] MEDS: LORazepam INTENSOL 2 MG/ML BOTTLE SL SCH ×3 (08:47→17:15)
[2016-09-24] MEDS: QUEtiapine 50 MG TABLET. PO SCH ×2 (12:01→19:27)
[2016-09-24 16:18] VITALS: BP 107/75
[2016-09-24] MEDS: MIRTAZAPINE 7.5 MG TABLET. PO SCH (19:26)
[2016-09-24] MEDS: MELATONIN 3 MG TABLET PO SCH (19:27)
--- NOTE | 2016-09-24 19:57 | PDOC ---
Exam Mario Alberto Demential Exam: Mario Alberto Note: Please also refer to the separate dictated note~for this date of service dictated separately.~Patient seen individually. Discussed the patient with Nursing staff reviewed the chart.~Reviewed interim history and current functioning. Reviewed vital signs,~Labs/ Radiology~and current medications noted below. Continue current treatment with the changes noted in the dictated addendum note Assessment: Vital Signs: Vital Signs Date Time Temp Pulse Resp B/P (MAP) Pulse Ox O2 Delivery O2 Flow Rate FiO2 09/24/16 19:27 20 09/24/16 16:18 97.6 87 107/75 (86) 100 09/23/16 21:46 Room Air I&O Intake and Output 09/24/16 07:00 Intake Total 1020 ml Balance 1020 ml Intake Oral 1020 ml # Voids 1 Current Medications: Meds: Current Medications Acetaminophen (Tylenol) 650 mg PRN Q6HRS PRN PO PAIN / TEMP; Start 09/12/16 at 20:00; Status UNV Multi-Ingredient Ointment (Analgesic [place]) 1 randee PRN QID PRN TP MUSCLE PAIN; Start 09/12/16 at 20:00; Status UNV Al Hydroxide/Mg Hydroxide (Mylanta Plus Xs) 15 ml PRN AFTMEALHC PRN PO DYSPEPSIA; Start 09/12/16 at 20:00; Status UNV Magnesium Hydroxide (Milk Of Magnesia) 2,400 mg PRN QHS PRN PO CONSTIPATION; Start 09/12/16 at 20:00; Status UNV Duloxetine HCl (Cymbalta) 30 mg DAILY PO Last administered on 09/24/16 08:38; Start 09/13/16 at 09:00 Mirtazapine (Remeron) 7.5 mg QHS PO Last administered on 09/24/16 19:26; Start 09/12/16 at 21:00 Olanzapine (ZyPREXA ZYDIS) 2.5 mg PRN Q2HR PRN PO PSYCHOSIS Last administered on 09/15/16 08:10; Start 09/12/16 at 20:15 Quetiapine Fumarate (SEROquel) 50 mg NOON PO Last administered on 09/24/16 12: 01; Start 09/13/16 at 12:00 Quetiapine Fumarate (SEROquel) 75 mg HS PO Last administered on 09/24/16 19:27 ; Start 09/12/16 at 21:00 Melatonin 3 mg QHS PO Last administered on 09/24/16 19:27; Start 09/12/16 at 21 :00 Acetaminophen (Tylenol) 650 mg PRN Q6HRS PRN PO PAIN / TEMP; Start 09/12/16 at 20:15 Acetaminophen/ Hydrocodone Bitart (Lortab 5/325) 1 tab BID PO Last administered on 09/24/16 19:27; Start 09/12/16 at 21:00 Levetiracetam (Keppra) 500 mg BID PO Last administered on 09/24/16 19:27; Start 09/12/16 at 21:00 Al Hydroxide/Mg Hydroxide (Mylanta Plus Xs) 15 ml PRN AFTMEALHC PRN PO DYSPEPSIA; Start 09/12/16 at 20:15 Magnesium Hydroxide (Milk Of Magnesia) 2,400 mg PRN QHS PRN PO CONSTIPATION; Start 09/12/16 at 20:15 Multi-Ingredient Ointment (Analgesic [place]) 1 randee PRN QID PRN TP MUSCLE PAIN; Start 09/12/16 at 20:15 Cyanocobalamin (Vitamin B-12) 250 mcg DAILY PO Last administered on 09/24/16 08:39; Start 09/13/16 at 09:00 Buspirone HCl (Buspar) 5 mg BID92 PO Last administered on 09/15/16 13:34; Start 09/13/16 at 09:00; Stop 09/15/16 at 18:27; Status DC Divalproex Sodium (Depakote Sprinkles) 250 mg DAILY PO Last administered on 10:01; Start 09/14/16 at 09:00; Stop 09/17/16 at 10:08; Status DC Lorazepam (Ativan) 0.25 mg PRN Q2HR PRN TP ANXIETY / AGITATION Last administered on 09/20/16 11:40; Start 09/13/16 at 19:15 Hydroxyzine HCl (Atarax) 25 mg PRN Q6HRS PRN PO ANXIETY / AGITATION; Start 09/14 at 14:45; Stop 09/14/16 at 14:45; Status DC Hydroxyzine HCl (Atarax) 25 mg PRN Q6HRS PRN PO ANXIETY/AGITATION Last administered on 09/15/16 14:14; Start 09/14/16 at 15:00 Prenat Multivit/ Interactive [employer] Director/Iron/Folic Ac (Multivitamin ) 1 tab DAILY PO Last administered on 09/24/16 08:39; Start 09/15/16 at 10:15 Buspirone HCl (Buspar) 10 mg BID92 PO Last administered on 09/24/16 13:26; Start 09/16/16 at 09:00 Lorazepam (Ativan) 1 mg 1X ONCE PO Last administered on 09/16/16 08:07; Start 09/16/16 at 08:15; Stop 09/16/16 at 08:16; Status DC Lorazepam (Ativan Intensol) 1 mg PRN Q4HRS PRN SL ANXIETY / AGITATION Last administered on 09/16/16 13:35; Start 09/16/16 at 13:30 Lorazepam (Ativan Intensol) 0.25 mg TID@0900,1300,1700 SL Last administered on 09/24/16 17:15; Start 09/17/16 at 09:00 Divalproex Sodium (Depakote Sprinkles) 250 mg BID PO Last administered on 07:46; Start 09/17/16 at 21:00; Stop 09/20/16 at 14:56; Status DC Duloxetine HCl (Cymbalta) 30 mg 1X ONCE PO Last administered on 09/18/16 08: 31; Start 09/18/16 at 08:00; Stop 09/18/16 at 08:01; Status DC Divalproex Sodium (Depakote Sprinkles) 250 mg DAILY PO Last administered on 08:15; Start 09/21/16 at 09:00; Stop 09/23/16 at 18:31; Status DC Divalproex Sodium (Depakote Sprinkles) 500 mg HS PO Last administered on 19:23; Start 09/20/16 at 21:00; Stop 09/23/16 at 18:31; Status DC Divalproex Sodium (Depakote Sprinkles) 500 mg BID PO Last administered on 8/17/ 17at 19:27; Start 09/23/16 at 21:00 Active Scripts Active Reported Buspirone Hcl 5 Mg Tablet 1 Tab PO BID92 Zyprexa Zydis (Olanzapine) 5 Mg Tab.rapdis 2.5 Mg PO Q2HR PRN Mirtazapine 15 Mg Tablet 7.5 Mg PO QHS Analgesic [place] (Methyl Salicylate/Menthol) 28 Gm Oint...g. 1 Rand[place] TP PRN QID PRN Melatonin 3 Mg Tablet 3 Mg PO QHS Mag-Al Plus Xs Suspension (Mag Hydrox/Al Hydrox/Simeth) 30 Ml Oral.susp 15 Ml PO PRN AFTMEALHC PRN Keppra (Levetiracetam) 500 Mg Tablet 500 Mg PO BID Tylenol (Acetaminophen) 325 Mg Tablet 650 Mg PO PRN Q6HRS PRN Milk Of Magnesia (Magnesium Hydroxide) 400 Mg/5 Ml Oral.susp 2,400 Mg PO PRN QHS PRN Cymbalta (Duloxetine Hcl) 30 Mg Capsule.dr 30 Mg PO DAILY pt has received 3 of 5 scheduled doses Hydrocodone-Apap 5-325 (Hydrocodone Bit/Acetaminophen) 1 Each Tablet 1 Tab PO BID B-12 (Cyanocobalamin (Vitamin B-12)) 500 Mcg Tab.rapdis 250 Mcg PO DAILY Seroquel (Quetiapine Fumarate) 50 Mg Tablet 50 Mg PO NOON Seroquel (Quetiapine Fumarate) 50 Mg Tablet 75 Mg PO HS Diagnosis: Problems: (1) Anxiety disorder (2) Impulse control disorder (3) Dementia, vascular, with depression (4) Dementia, vascular, with delusions (5) Dementia in Alzheimer's disease with delusions (6) Dementia in Alzheimer's disease with depression (7) Frontotemporal dementia with behavioral disturbance ADELA RHODES MD Sep 24, 2016 19:57
--- NOTE | 2016-09-24 23:54 | PN ---
DATE: 09/23/2016 PSYCHIATRIC PROGRESS NOTE This is a late entry of 09/23/2016, covers elements not covered in my initial note of 09/23/2016. I met with the patient on the evening of 09/23/2016. The patient has been quite disorganized in the morning, was agitated the previous evening after the shower and had questionable hallucinations around breakfast time, did participate in music and bingo per nursing report. REVIEW OF SYSTEMS: No CV, , pulmonary, eye, ENT system symptoms on review. Reliability is poor. MENTAL STATUS EXAM: Oriented to herself. Insight, judgment, recent and remote memory, attention, concentration, fund of knowledge poor, consistent with her diagnosis mentioned in my initial note plan. Labs were to be drawn on 09/23/2016, but were not drawn. We will request them on morning of 09/24/2016. PLAN: Continue current psychotropics mentioned in my initial note including Depakote 500 mg twice a day with plans to check labs level once Depakote is therapeutic. We will taper and stop the Seroquel. Maintain BuSpar, Cymbalta, Seroquel, Remeron, and melatonin, along with Ativan and hydroxyzine p.r.n. Once the Depakote is therapeutic, we will be tapering the Keppra and I will defer this to Dr. Lea. MAN Marquita RHODES MD DR: ELIZABETH/wellington JOB#: [id number] / [id number]
[2016-09-25 06:15] VITALS: BP 150/92
[2016-09-25] MEDS: busPIRone 10 MG TABLET. PO SCH ×2 (09:23→14:02)
[2016-09-25] MEDS: CYANOCOBALAMIN (VITAMIN B-12) 250 MCG TABLET PO SCH (09:23)
[2016-09-25] MEDS: levETIRAcetam 500 MG TABLET PO SCH ×2 (09:23→19:37)
[2016-09-25] MEDS: DULoxetine HCL 30 MG CAPSULE.DR PO SCH (09:23)
[2016-09-25] MEDS: HYDROcodone/APAP 5/325MG 1 TAB TABLET PO SCH ×2 (09:23→19:37)
[2016-09-25] MEDS: PRENATAL MULTIVITAMIN TABLET. PO SCH (09:23)
[2016-09-25] MEDS: DIVALPROEX 125 MG CAP.SPRINK PO SCH ×2 (09:26→19:37)
[2016-09-25] MEDS: LORazepam INTENSOL 2 MG/ML BOTTLE SL SCH ×3 (09:27→17:28)
--- NOTE | 2016-09-25 09:56 | PN ---
DATE: 09/22/2016 SUBJECTIVE: The patient has not had any recurrence of seizure, no recent medical or neurological changes has been reported. The patient has been on Keppra 500 mg daily and Depakote 500 mg twice daily. OBJECTIVE: GENERAL: Well-developed, well-nourished white female, not in acute distress. VITAL SIGNS: Blood pressure 118/80, respiratory rate 18, pulse is 56, oxygen saturation 100% on room air, and temperature 97.8. HEENT: Normocephalic, atraumatic, otherwise unremarkable. NECK: Supple. Negative for carotid bruit, lymphadenopathy or thyromegaly. LUNGS: Clear to A and P. CARDIOVASCULAR: Regular rhythm, normal S1, S2. ABDOMEN: Soft. Bowel sounds positive. EXTREMITIES: Negative for cyanosis, clubbing or pitting edema. NEUROLOGICAL EXAM: Mental Status: The patient is alert, but disoriented and does not follow commands. Further evaluation of her mental status is limited at this time. CRANIAL NERVES: Cranial nerves are grossly intact. Motor Examination: No focal muscle bulk was seen. Tone was normal. The strength was 5/5 throughout. Sensory examination revealed normal pinprick, light touch, vibratory and position senses. The patient knew pinprick and light touch senses. Deep tendon reflexes were asymmetric and active without pathology responses. Gait and coordination were normal. IMPRESSION: 1. Frontotemporal dementia, probably of Alzheimer type. 2. Seizure disorder of unknown etiology. 3. Depression and anxiety. RECOMMENDATIONS: 1. Continue with Keppra at 500 mg twice daily. 2. Continue with Depakote and adjust the dose to keep the Depakote level therapeutic between 50 to 100 and the appropriate level for her close 75. 3. Continue with current care. M Dagoberto JUAREZ MD DR: CHRISTOPH/wellington JOB#: [id number] / [id number]
[2016-09-25] MEDS: QUEtiapine 50 MG TABLET. PO SCH ×2 (14:02→19:38)
[2016-09-25 16:45] VITALS: BP 123/79
[2016-09-25] MEDS: MIRTAZAPINE 7.5 MG TABLET. PO SCH (19:37)
[2016-09-25] MEDS: MELATONIN 3 MG TABLET PO SCH (19:37)
--- NOTE | 2016-09-25 20:02 | PDOC ---
Exam Mario Alberto Demential Exam: Mario Alberto Note: Please also refer to the separate dictated note~for this date of service dictated separately.~Patient seen individually. Discussed the patient with Nursing staff reviewed the chart.~Reviewed interim history and current functioning. Reviewed vital signs,~Labs/ Radiology~and current medications noted below. Continue current treatment with the changes noted in the dictated addendum note Assessment: Vital Signs: Vital Signs Date Time Temp Pulse Resp B/P (MAP) Pulse Ox O2 Delivery O2 Flow Rate FiO2 09/25/16 19:37 20 09/25/16 16:45 97.9 106 123/79 (94) 100 09/23/16 21:46 Room Air I&O Intake and Output 09/25/16 07:00 Intake Total 600 ml Balance 600 ml Intake Oral 600 ml # Voids 1 Current Medications: Meds: Current Medications Acetaminophen (Tylenol) 650 mg PRN Q6HRS PRN PO PAIN / TEMP; Start 09/12/16 at 20:00; Status UNV Multi-Ingredient Ointment (Analgesic [place]) 1 randee PRN QID PRN TP MUSCLE PAIN; Start 09/12/16 at 20:00; Status UNV Al Hydroxide/Mg Hydroxide (Mylanta Plus Xs) 15 ml PRN AFTMEALHC PRN PO DYSPEPSIA; Start 09/12/16 at 20:00; Status UNV Magnesium Hydroxide (Milk Of Magnesia) 2,400 mg PRN QHS PRN PO CONSTIPATION; Start 09/12/16 at 20:00; Status UNV Duloxetine HCl (Cymbalta) 30 mg DAILY PO Last administered on 09/25/16 09:23; Start 09/13/16 at 09:00 Mirtazapine (Remeron) 7.5 mg QHS PO Last administered on 09/25/16 19:37; Start 09/12/16 at 21:00 Olanzapine (ZyPREXA ZYDIS) 2.5 mg PRN Q2HR PRN PO PSYCHOSIS Last administered on 09/15/16 08:10; Start 09/12/16 at 20:15 Quetiapine Fumarate (SEROquel) 50 mg NOON PO Last administered on 09/25/16 14: 02; Start 09/13/16 at 12:00 Quetiapine Fumarate (SEROquel) 75 mg HS PO Last administered on 09/25/16 19:38 ; Start 09/12/16 at 21:00 Melatonin 3 mg QHS PO Last administered on 09/25/16 19:37; Start 09/12/16 at 21 :00 Acetaminophen (Tylenol) 650 mg PRN Q6HRS PRN PO PAIN / TEMP; Start 09/12/16 at 20:15 Acetaminophen/ Hydrocodone Bitart (Lortab 5/325) 1 tab BID PO Last administered on 09/25/16 19:37; Start 09/12/16 at 21:00 Levetiracetam (Keppra) 500 mg BID PO Last administered on 09/25/16 19:37; Start 09/12/16 at 21:00 Al Hydroxide/Mg Hydroxide (Mylanta Plus Xs) 15 ml PRN AFTMEALHC PRN PO DYSPEPSIA; Start 09/12/16 at 20:15 Magnesium Hydroxide (Milk Of Magnesia) 2,400 mg PRN QHS PRN PO CONSTIPATION; Start 09/12/16 at 20:15 Multi-Ingredient Ointment (Analgesic [place]) 1 randee PRN QID PRN TP MUSCLE PAIN; Start 09/12/16 at 20:15 Cyanocobalamin (Vitamin B-12) 250 mcg DAILY PO Last administered on 09/25/16 09:23; Start 09/13/16 at 09:00 Buspirone HCl (Buspar) 5 mg BID92 PO Last administered on 09/15/16 13:34; Start 09/13/16 at 09:00; Stop 09/15/16 at 18:27; Status DC Divalproex Sodium (Depakote Sprinkles) 250 mg DAILY PO Last administered on 10:01; Start 09/14/16 at 09:00; Stop 09/17/16 at 10:08; Status DC Lorazepam (Ativan) 0.25 mg PRN Q2HR PRN TP ANXIETY / AGITATION Last administered on 09/20/16 11:40; Start 09/13/16 at 19:15 Hydroxyzine HCl (Atarax) 25 mg PRN Q6HRS PRN PO ANXIETY / AGITATION; Start 09/14 at 14:45; Stop 09/14/16 at 14:45; Status DC Hydroxyzine HCl (Atarax) 25 mg PRN Q6HRS PRN PO ANXIETY/AGITATION Last administered on 09/15/16 14:14; Start 09/14/16 at 15:00 Prenat Multivit/ [place]/Iron/Folic Ac (Multivitamin ) 1 tab DAILY PO Last administered on 09/25/16 09:23; Start 09/15/16 at 10:15 Buspirone HCl (Buspar) 10 mg BID92 PO Last administered on 09/25/16 14:02; Start 09/16/16 at 09:00 Lorazepam (Ativan) 1 mg 1X ONCE PO Last administered on 09/16/16 08:07; Start 09/16/16 at 08:15; Stop 09/16/16 at 08:16; Status DC Lorazepam (Ativan Intensol) 1 mg PRN Q4HRS PRN SL ANXIETY / AGITATION Last administered on 09/16/16 13:35; Start 09/16/16 at 13:30 Lorazepam (Ativan Intensol) 0.25 mg TID@0900,1300,1700 SL Last administered on 09/25/16 17:28; Start 09/17/16 at 09:00 Divalproex Sodium (Depakote Sprinkles) 250 mg BID PO Last administered on 07:46; Start 09/17/16 at 21:00; Stop 09/20/16 at 14:56; Status DC Duloxetine HCl (Cymbalta) 30 mg 1X ONCE PO Last administered on 09/18/16 08: 31; Start 09/18/16 at 08:00; Stop 09/18/16 at 08:01; Status DC Divalproex Sodium (Depakote Sprinkles) 250 mg DAILY PO Last administered on 08:15; Start 09/21/16 at 09:00; Stop 09/23/16 at 18:31; Status DC Divalproex Sodium (Depakote Sprinkles) 500 mg HS PO Last administered on 19:23; Start 09/20/16 at 21:00; Stop 09/23/16 at 18:31; Status DC Divalproex Sodium (Depakote Sprinkles) 500 mg BID PO Last administered on 8/18/ 17at 19:37; Start 09/23/16 at 21:00 Active Scripts Active Reported Buspirone Hcl 5 Mg Tablet 1 Tab PO BID92 Zyprexa Zydis (Olanzapine) 5 Mg Tab.rapdis 2.5 Mg PO Q2HR PRN Mirtazapine 15 Mg Tablet 7.5 Mg PO QHS Analgesic [place] (Methyl Salicylate/Menthol) 28 Gm Oint...g. 1 [place] TP PRN QID PRN Melatonin 3 Mg Tablet 3 Mg PO QHS Mag-Al Plus Xs Suspension (Mag Hydrox/Al Hydrox/Simeth) 30 Ml Oral.susp 15 Ml PO PRN AFTMEALHC PRN Keppra (Levetiracetam) 500 Mg Tablet 500 Mg PO BID Tylenol (Acetaminophen) 325 Mg Tablet 650 Mg PO PRN Q6HRS PRN Milk Of Magnesia (Magnesium Hydroxide) 400 Mg/5 Ml Oral.susp 2,400 Mg PO PRN QHS PRN Cymbalta (Duloxetine Hcl) 30 Mg Capsule.dr 30 Mg PO DAILY pt has received 3 of 5 scheduled doses Hydrocodone-Apap 5-325 (Hydrocodone Bit/Acetaminophen) 1 Each Tablet 1 Tab PO BID B-12 (Cyanocobalamin (Vitamin B-12)) 500 Mcg Tab.rapdis 250 Mcg PO DAILY Seroquel (Quetiapine Fumarate) 50 Mg Tablet 50 Mg PO NOON Seroquel (Quetiapine Fumarate) 50 Mg Tablet 75 Mg PO HS Diagnosis: Problems: (1) Anxiety disorder (2) Impulse control disorder (3) Dementia, vascular, with depression (4) Dementia, vascular, with delusions (5) Dementia in Alzheimer's disease with delusions (6) Dementia in Alzheimer's disease with depression (7) Frontotemporal dementia with behavioral disturbance ADELA RHODES MD Sep 25, 2016 20:02
--- NOTE | 2016-09-25 23:20 | PN ---
DATE: 09/24/2016 SUBJECTIVE: The patient has no change in her mental status or neurological condition. No recurrence seizure has been reported since recent admission to the unit. The patient eats and drinks well. She walks independently. OBJECTIVE: GENERAL: Well-developed, well-nourished white female, not in acute distress. VITAL SIGNS: Blood pressure 107/75, respiratory rate 18, pulse is 87, temperature 97.6, oxygen saturation is 100% on room air. HEENT: Normocephalic, atraumatic; otherwise, unremarkable. NECK: Supple. Negative for carotid bruit, lymphadenopathy or thyromegaly. LUNGS: Clear to A and P. CARDIOVASCULAR: Regular rate and rhythm, normal S1, S2. There is no S3, S4 or murmur. ABDOMEN: Soft. Bowel sounds positive. EXTREMITIES: Negative for cyanosis, clubbing or pitting edema. NEUROLOGICAL: 1. Mental Status: The patient is alert, but disoriented to time and place. She does not communicate well. She tried to avoid any answers. She tried to stay away from conversation. She does not follow any commands at this time. Speech is fluent. Further evaluation of her mental status is limited as the patient is not cooperative. 2. Cranial nerves: The pupils are reactive to light and accommodation. The extraocular movements are intact. There is no nystagmus. There is no facial motor or sensory deficit. Hearing appears to be intact. The rest of the cranial nerves evaluation is limited. 3. Motor: No focal muscle bulk was seen. The tone is normal. The strength is 5/5 throughout. 4. Sensory: Revealed normal pinprick and light touch senses. 5. Deep tendon reflexes are symmetric and active without pathologic responses. 6. Gait: Normal. LABORATORY DATA: A Depakote level is low at normal therapeutic at 51. CBC revealed white blood cells of 4.3, hemoglobin 13.2, hematocrit 41, and platelet count 201,000. Chemistry revealed sodium of 143, potassium 4.1, chloride 108, CO2 28, BUN 14, creatinine 0.9, glucose 182. Liver enzymes; currently elevated, AST is 89 and ALT is 139. Depakote level is 51. IMPRESSION: 1. Frontotemporal dementia, probably Alzheimer type. 2. Multiple psychiatric problems include anxiety and depressions. 3. Seizure of unknown etiology, but no recurrence since admission to the unit. 4. Elevated liver enzymes. RECOMMENDATIONS: 1. Continue with current management with Keppra and Depakote. 2. Continue with current home medications. We will start tapering Keppra when Depakote level is between 60 and 75. 3. We will watch what liver enzymes. M Dagoberto JUAREZ MD DR: CHRISTOPH/wellington JOB#: [id number] / [id number]
--- NOTE | 2016-09-26 02:29 | PN ---
DATE: 09/24/2016 This late entry 09/24/2016 covers elements not covered in my initial note of 09/24/2016. The patient was staffed at a treatment team meeting with the entire team morning of 09/24/2016, seen individually evening of 09/24/2016. She has been intermittently agitated, removed her pants repeatedly, then placed in 1 piece suit, then did better after that. Valproic acid level is 51. REVIEW OF SYSTEMS: No CV, , pulmonary, eye, ENT system symptoms on review. Reliability poor. MENTAL STATUS EXAM: Oriented to herself. Insight, judgment, recent and remote memory, attention, concentration, fund of knowledge poor, consistent with her diagnosis mentioned in my initial note. LABORATORY DATA: Reviewed. IMPRESSION: Unchanged. PLAN: Continue current psychotropics, reviewed drug interactions, risk/benefit ratio favors no further change. Valproic acid level is therapeutic. Consider tapering the Keppra. I will defer to Dr. Lea. ADELA RHODES MD DR: ELIZABETH/wellington JOB#: [id number] / [id number]
[2016-09-26 06:15] VITALS: BP 145/86
[2016-09-26] MEDS: DULoxetine HCL 30 MG CAPSULE.DR PO SCH (09:14)
[2016-09-26] MEDS: busPIRone 10 MG TABLET. PO SCH ×2 (09:14→14:26)
[2016-09-26] MEDS: CYANOCOBALAMIN (VITAMIN B-12) 250 MCG TABLET PO SCH (09:14)
[2016-09-26] MEDS: HYDROcodone/APAP 5/325MG 1 TAB TABLET PO SCH ×2 (09:14→19:23)
[2016-09-26] MEDS: PRENATAL MULTIVITAMIN TABLET. PO SCH (09:14)
[2016-09-26] MEDS: levETIRAcetam 500 MG TABLET PO SCH ×2 (09:14→19:21)
[2016-09-26] MEDS: DIVALPROEX 125 MG CAP.SPRINK PO SCH ×2 (09:15→19:21)
[2016-09-26] MEDS: LORazepam INTENSOL 2 MG/ML BOTTLE SL SCH ×3 (09:17→17:43)
[2016-09-26] MEDS: QUEtiapine 50 MG TABLET. PO SCH ×2 (14:26→19:22)
[2016-09-26 15:53] VITALS: BP 114/80
[2016-09-26] MEDS: MIRTAZAPINE 7.5 MG TABLET. PO SCH (19:21)
[2016-09-26] MEDS: MELATONIN 3 MG TABLET PO SCH (19:21)
--- NOTE | 2016-09-26 21:58 | PN ---
DATE: 09/25/2016 This is a late entry for 09/25/2016 and covers elements not covered in my initial note of 09/25/2016. I met with the patient the evening of 09/25/2016 for this evaluation. She did well the previous evening. addictions counselor assistant of 09/25/2016, she was screaming, had to be placed in the west hallway to reduce environmental stimulation. She was trying to climb out of the window, later seemed to calm down. REVIEW OF SYSTEMS: No CV, , pulmonary, eye, ENT system symptoms on review. Reliability poor. MENTAL STATUS EXAM: Oriented to herself. Insight, judgment, recent and remote memory, attention, concentration, fund of knowledge poor, consistent with her diagnosis. She is not very verbal. Eye contact poor. Verbal responses often monosyllabic, disconnected to conversation as I met with her individually. LABORATORY DATA: Reviewed. IMPRESSION: Unchanged from initial note. PLAN: Continue current psychotropics as mentioned in my initial note. Valproic acid level is 51. Depakote was adjusted. Repeat labs are due for plan to get a little higher therapeutic level on the Depakote. Reviewed drug interactions, risk/benefit ratio favors no further change as of now. ADELA RHODES MD DR: ELIZABETH/wellington JOB#: [id number] / [id number]
--- NOTE | 2016-09-26 23:29 | PDOC ---
Exam Mario Alberto Demential Exam: Mario Alberto Note: Please also refer to the separate dictated note~for this date of service dictated separately.~Patient seen individually. Discussed the patient with Nursing staff reviewed the chart.~Reviewed interim history and current functioning. Reviewed vital signs,~Labs/ Radiology~and current medications noted below. Continue current treatment with the changes noted in the dictated addendum note Assessment: Vital Signs: Vital Signs Date Time Temp Pulse Resp B/P (MAP) Pulse Ox O2 Delivery O2 Flow Rate FiO2 09/26/16 20:23 20 09/26/16 15:53 98.7 89 114/80 (91) 100 09/23/16 21:46 Room Air I&O Intake and Output 09/26/16 07:00 Intake Total 720 ml Balance 720 ml Intake Oral 720 ml # Voids 1 Current Medications: Meds: Current Medications Acetaminophen (Tylenol) 650 mg PRN Q6HRS PRN PO PAIN / TEMP; Start 09/12/16 at 20:00; Status UNV Multi-Ingredient Ointment (Analgesic [place]) 1 randee PRN QID PRN TP MUSCLE PAIN; Start 09/12/16 at 20:00; Status UNV Al Hydroxide/Mg Hydroxide (Mylanta Plus Xs) 15 ml PRN AFTMEALHC PRN PO DYSPEPSIA; Start 09/12/16 at 20:00; Status UNV Magnesium Hydroxide (Milk Of Magnesia) 2,400 mg PRN QHS PRN PO CONSTIPATION; Start 09/12/16 at 20:00; Status UNV Duloxetine HCl (Cymbalta) 30 mg DAILY PO Last administered on 09/26/16 09:14; Start 09/13/16 at 09:00 Mirtazapine (Remeron) 7.5 mg QHS PO Last administered on 09/26/16 19:21; Start 09/12/16 at 21:00 Olanzapine (ZyPREXA ZYDIS) 2.5 mg PRN Q2HR PRN PO PSYCHOSIS Last administered on 09/15/16 08:10; Start 09/12/16 at 20:15 Quetiapine Fumarate (SEROquel) 50 mg NOON PO Last administered on 09/26/16 14: 26; Start 09/13/16 at 12:00 Quetiapine Fumarate (SEROquel) 75 mg HS PO Last administered on 09/26/16 19:22 ; Start 09/12/16 at 21:00 Melatonin 3 mg QHS PO Last administered on 09/26/16 19:21; Start 09/12/16 at 21 :00 Acetaminophen (Tylenol) 650 mg PRN Q6HRS PRN PO PAIN / TEMP; Start 09/12/16 at 20:15 Acetaminophen/ Hydrocodone Bitart (Lortab 5/325) 1 tab BID PO Last administered on 09/26/16 19:23; Start 09/12/16 at 21:00 Levetiracetam (Keppra) 500 mg BID PO Last administered on 09/26/16 19:21; Start 09/12/16 at 21:00 Al Hydroxide/Mg Hydroxide (Mylanta Plus Xs) 15 ml PRN AFTMEALHC PRN PO DYSPEPSIA; Start 09/12/16 at 20:15 Magnesium Hydroxide (Milk Of Magnesia) 2,400 mg PRN QHS PRN PO CONSTIPATION; Start 09/12/16 at 20:15 Multi-Ingredient Ointment (Analgesic [place]) 1 randee PRN QID PRN TP MUSCLE PAIN; Start 09/12/16 at 20:15 Cyanocobalamin (Vitamin B-12) 250 mcg DAILY PO Last administered on 09/26/16 09:14; Start 09/13/16 at 09:00 Buspirone HCl (Buspar) 5 mg BID92 PO Last administered on 09/15/16 13:34; Start 09/13/16 at 09:00; Stop 09/15/16 at 18:27; Status DC Divalproex Sodium (Depakote Sprinkles) 250 mg DAILY PO Last administered on 10:01; Start 09/14/16 at 09:00; Stop 09/17/16 at 10:08; Status DC Lorazepam (Ativan) 0.25 mg PRN Q2HR PRN TP ANXIETY / AGITATION Last administered on 09/20/16 11:40; Start 09/13/16 at 19:15 Hydroxyzine HCl (Atarax) 25 mg PRN Q6HRS PRN PO ANXIETY / AGITATION; Start 09/14 at 14:45; Stop 09/14/16 at 14:45; Status DC Hydroxyzine HCl (Atarax) 25 mg PRN Q6HRS PRN PO ANXIETY/AGITATION Last administered on 09/15/16 14:14; Start 09/14/16 at 15:00 Prenat Multivit/ Flooring Professional/Iron/Folic Ac (Multivitamin ) 1 tab DAILY PO Last administered on 09/26/16 09:14; Start 09/15/16 at 10:15 Buspirone HCl (Buspar) 10 mg BID92 PO Last administered on 09/26/16 14:26; Start 09/16/16 at 09:00 Lorazepam (Ativan) 1 mg 1X ONCE PO Last administered on 09/16/16 08:07; Start 09/16/16 at 08:15; Stop 09/16/16 at 08:16; Status DC Lorazepam (Ativan Intensol) 1 mg PRN Q4HRS PRN SL ANXIETY / AGITATION Last administered on 09/16/16 13:35; Start 09/16/16 at 13:30 Lorazepam (Ativan Intensol) 0.25 mg TID@0900,1300,1700 SL Last administered on 09/26/16 17:43; Start 09/17/16 at 09:00 Divalproex Sodium (Depakote Sprinkles) 250 mg BID PO Last administered on 07:46; Start 09/17/16 at 21:00; Stop 09/20/16 at 14:56; Status DC Duloxetine HCl (Cymbalta) 30 mg 1X ONCE PO Last administered on 09/18/16 08: 31; Start 09/18/16 at 08:00; Stop 09/18/16 at 08:01; Status DC Divalproex Sodium (Depakote Sprinkles) 250 mg DAILY PO Last administered on 08:15; Start 09/21/16 at 09:00; Stop 09/23/16 at 18:31; Status DC Divalproex Sodium (Depakote Sprinkles) 500 mg HS PO Last administered on 19:23; Start 09/20/16 at 21:00; Stop 09/23/16 at 18:31; Status DC Divalproex Sodium (Depakote Sprinkles) 500 mg BID PO Last administered on 8/19/ 17at 19:21; Start 09/23/16 at 21:00 Active Scripts Active Reported Buspirone Hcl 5 Mg Tablet 1 Tab PO BID92 Zyprexa Zydis (Olanzapine) 5 Mg Tab.rapdis 2.5 Mg PO Q2HR PRN Mirtazapine 15 Mg Tablet 7.5 Mg PO QHS Analgesic [place] (Methyl Salicylate/Menthol) 28 Gm Oint...g. 1 Rand[place] TP PRN QID PRN Melatonin 3 Mg Tablet 3 Mg PO QHS Mag-Al Plus Xs Suspension (Mag Hydrox/Al Hydrox/Simeth) 30 Ml Oral.susp 15 Ml PO PRN AFTMEALHC PRN Keppra (Levetiracetam) 500 Mg Tablet 500 Mg PO BID Tylenol (Acetaminophen) 325 Mg Tablet 650 Mg PO PRN Q6HRS PRN Milk Of Magnesia (Magnesium Hydroxide) 400 Mg/5 Ml Oral.susp 2,400 Mg PO PRN QHS PRN Cymbalta (Duloxetine Hcl) 30 Mg Capsule.dr 30 Mg PO DAILY pt has received 3 of 5 scheduled doses Hydrocodone-Apap 5-325 (Hydrocodone Bit/Acetaminophen) 1 Each Tablet 1 Tab PO BID B-12 (Cyanocobalamin (Vitamin B-12)) 500 Mcg Tab.rapdis 250 Mcg PO DAILY Seroquel (Quetiapine Fumarate) 50 Mg Tablet 50 Mg PO NOON Seroquel (Quetiapine Fumarate) 50 Mg Tablet 75 Mg PO HS Diagnosis: Problems: (1) Anxiety disorder (2) Impulse control disorder (3) Dementia, vascular, with depression (4) Dementia, vascular, with delusions (5) Dementia in Alzheimer's disease with delusions (6) Dementia in Alzheimer's disease with depression (7) Frontotemporal dementia with behavioral disturbance ADELA RHODES MD Sep 26, 2016 23:28
[2016-09-27 05:46] VITALS: BP 150/87
[2016-09-27 06:58] LABS: BASO % 1 % (0-3); EOS # 0.2 x10^3/uL (0.0-0.7); EOS % 3 % (0-3); HEMOGLOBIN 13.7 g/dL (12.0-15.5); LYMPH % 42 % (24-48); MEAN CORPUSCULAR HEMOGLOBIN 28 pg (25-35); MEAN CORPUSCULAR HGB CONC 33 g/dL (31-37); MEAN CORPUSCULAR VOLUME 86 fL (79-100); MONO # 0.7 x10^3/uL (0.0-1.1); MONO % 14 % (0-9); NEUT # 1.8 x10^3uL (1.8-7.7); NEUT % 39 % (31-73); PLATELET COUNT 216 x10^3/uL (140-400); RED BLOOD COUNT 4.87 x10^6/uL (3.50-5.40); RED CELL DISTRIBUTION WIDTH 13.3 % (11.5-14.5); WHITE BLOOD COUNT 4.7 x10^3/uL (4.0-11.0)
[2016-09-27 07:10] LABS: ALBUMIN 3.4 g/dL (3.4-5.0); ALBUMIN/GLOBULIN RATIO 0.8 (1.0-1.7); ALK PHOS 83 U/L (46-116); ALT (SGPT) 192 U/L (14-59); ANION GAP 6 (6-14); AST (SGOT) 80 U/L (15-37); BLOOD UREA NITROGEN 13 mg/dL (7-20); BUN/CREATININE RATIO 14 (6-20); CALCIUM 8.7 mg/dL (8.5-10.1); CARBON DIOXIDE 31 mmol/L (21-32); CHLORIDE 105 mmol/L (98-107); CREATININE 0.9 mg/dL (0.6-1.0); GFR 64.5; GLUCOSE 88 mg/dL (70-99); POTASSIUM 4.1 mmol/L (3.5-5.1); SODIUM 142 mmol/L (136-145); TOTAL BILIRUBIN 0.4 mg/dL (0.2-1.0); TOTAL PROTEIN 7.8 g/dL (6.4-8.2)
[2016-09-27 07:15] LABS: VAL ACID 72 mcg/mL (50-100)
[2016-09-27] MEDS: busPIRone 10 MG TABLET. PO SCH ×2 (08:11→12:52)
[2016-09-27] MEDS: PRENATAL MULTIVITAMIN TABLET. PO SCH (08:11)
[2016-09-27] MEDS: levETIRAcetam 500 MG TABLET PO SCH ×2 (08:11→19:29)
[2016-09-27] MEDS: HYDROcodone/APAP 5/325MG 1 TAB TABLET PO SCH ×2 (08:11→19:30)
[2016-09-27] MEDS: DULoxetine HCL 30 MG CAPSULE.DR PO SCH (08:11)
[2016-09-27] MEDS: DIVALPROEX 125 MG CAP.SPRINK PO SCH ×2 (08:11→19:29)
[2016-09-27] MEDS: CYANOCOBALAMIN (VITAMIN B-12) 250 MCG TABLET PO SCH (08:12)
[2016-09-27] MEDS: LORazepam INTENSOL 2 MG/ML BOTTLE SL SCH ×3 (08:16→16:50)
[2016-09-27] MEDS: QUEtiapine 50 MG TABLET. PO SCH ×2 (12:49→19:29)
[2016-09-27 16:24] VITALS: BP 89/63
[2016-09-27] MEDS: MIRTAZAPINE 7.5 MG TABLET. PO SCH (19:29)
[2016-09-27] MEDS: MELATONIN 3 MG TABLET PO SCH (19:30)
--- NOTE | 2016-09-27 19:56 | PDOC ---
Exam Mario Alberto Demential Exam: Mario Alberto Note: Please also refer to the separate dictated note~for this date of service dictated separately.~Patient seen individually. Discussed the patient with Nursing staff reviewed the chart.~Reviewed interim history and current functioning. Reviewed vital signs,~Labs/ Radiology~and current medications noted below. Continue current treatment with the changes noted in the dictated addendum note Assessment: Vital Signs: Vital Signs Date Time Temp Pulse Resp B/P (MAP) Pulse Ox O2 Delivery O2 Flow Rate FiO2 09/27/16 19:30 20 Room Air 09/27/16 16:24 97.0 83 89/63 (72) 100 I&O Intake and Output 09/27/16 07:00 Intake Total 365 ml Balance 365 ml Intake Oral 365 ml Labs: Laboratory Tests Test 09/27/16 06:34 White Blood Count 4.7 x10^3/uL (4.0-11.0) Red Blood Count 4.87 x10^6/uL (3.50-5.40) Hemoglobin 13.7 g/dL (12.0-15.5) Hematocrit 42.0 % (36.0-47.0) Mean Corpuscular Volume 86 fL (79-100) Mean Corpuscular Hemoglobin 28 pg (25-35) Mean Corpuscular Hemoglobin Concent 33 g/dL (31-37) Red Cell Distribution Width 13.3 % (11.5-14.5) Platelet Count 216 x10^3/uL (140-400) Neutrophils (%) (Auto) 39 % (31-73) Lymphocytes (%) (Auto) 42 % (24-48) Monocytes (%) (Auto) 14 % (0-9) H Eosinophils (%) (Auto) 3 % (0-3) Basophils (%) (Auto) 1 % (0-3) Neutrophils # (Auto) 1.8 x10^3uL (1.8-7.7) Lymphocytes # (Auto) 2.0 x10^3/uL (1.0-4.8) Monocytes # (Auto) 0.7 x10^3/uL (0.0-1.1) Eosinophils # (Auto) 0.2 x10^3/uL (0.0-0.7) Basophils # (Auto) 0.0 x10^3/uL (0.0-0.2) Sodium Level 142 mmol/L (136-145) Potassium Level 4.1 mmol/L (3.5-5.1) Chloride Level 105 mmol/L (98-107) Carbon Dioxide Level 31 mmol/L (21-32) Anion Gap 6 (6-14) Blood Urea Nitrogen 13 mg/dL (7-20) Creatinine 0.9 mg/dL (0.6-1.0) Estimated GFR (Cockcroft-Gault) 64.5 BUN/Creatinine Ratio 14 (6-20) Glucose Level 88 mg/dL (70-99) Calcium Level 8.7 mg/dL (8.5-10.1) Total Bilirubin 0.4 mg/dL (0.2-1.0) Aspartate Amino Transferase (AST) 80 U/L (15-37) H Alanine Aminotransferase (ALT) 192 U/L (14-59) H Alkaline Phosphatase 83 U/L (46-116) Total Protein 7.8 g/dL (6.4-8.2) Albumin 3.4 g/dL (3.4-5.0) Albumin/Globulin Ratio 0.8 (1.0-1.7) L Valproic Acid Level 72 mcg/mL (50-100) Valproic Acid Last Dose Date 09/26/16 Valproic Acid Last Dose Time 2100 Current Medications: Meds: Current Medications Acetaminophen (Tylenol) 650 mg PRN Q6HRS PRN PO PAIN / TEMP; Start 09/12/16 at 20:00; Status UNV Multi-Ingredient Ointment (Analgesic [place]) 1 randee PRN QID PRN TP MUSCLE PAIN; Start 09/12/16 at 20:00; Status UNV Al Hydroxide/Mg Hydroxide (Mylanta Plus Xs) 15 ml PRN AFTMEALHC PRN PO DYSPEPSIA; Start 09/12/16 at 20:00; Status UNV Magnesium Hydroxide (Milk Of Magnesia) 2,400 mg PRN QHS PRN PO CONSTIPATION; Start 09/12/16 at 20:00; Status UNV Duloxetine HCl (Cymbalta) 30 mg DAILY PO Last administered on 09/27/16 08:11; Start 09/13/16 at 09:00 Mirtazapine (Remeron) 7.5 mg QHS PO Last administered on 09/27/16 19:29; Start 09/12/16 at 21:00 Olanzapine (ZyPREXA ZYDIS) 2.5 mg PRN Q2HR PRN PO PSYCHOSIS Last administered on 09/15/16 08:10; Start 09/12/16 at 20:15 Quetiapine Fumarate (SEROquel) 50 mg NOON PO Last administered on 09/27/16 12: 49; Start 09/13/16 at 12:00 Quetiapine Fumarate (SEROquel) 75 mg HS PO Last administered on 09/27/16 19:29 ; Start 09/12/16 at 21:00 Melatonin 3 mg QHS PO Last administered on 09/27/16 19:30; Start 09/12/16 at 21 :00 Acetaminophen (Tylenol) 650 mg PRN Q6HRS PRN PO PAIN / TEMP; Start 09/12/16 at 20:15 Acetaminophen/ Hydrocodone Bitart (Lortab 5/325) 1 tab BID PO Last administered on 09/27/16 19:30; Start 09/12/16 at 21:00 Levetiracetam (Keppra) 500 mg BID PO Last administered on 09/27/16 19:29; Start 09/12/16 at 21:00 Al Hydroxide/Mg Hydroxide (Mylanta Plus Xs) 15 ml PRN AFTMEALHC PRN PO DYSPEPSIA; Start 09/12/16 at 20:15 Magnesium Hydroxide (Milk Of Magnesia) 2,400 mg PRN QHS PRN PO CONSTIPATION; Start 09/12/16 at 20:15 Multi-Ingredient Ointment (Analgesic [place]) 1 randee PRN QID PRN TP MUSCLE PAIN; Start 09/12/16 at 20:15 Cyanocobalamin (Vitamin B-12) 250 mcg DAILY PO Last administered on 09/27/16 08:12; Start 09/13/16 at 09:00 Buspirone HCl (Buspar) 5 mg BID92 PO Last administered on 09/15/16 13:34; Start 09/13/16 at 09:00; Stop 09/15/16 at 18:27; Status DC Divalproex Sodium (Depakote Sprinkles) 250 mg DAILY PO Last administered on 10:01; Start 09/14/16 at 09:00; Stop 09/17/16 at 10:08; Status DC Lorazepam (Ativan) 0.25 mg PRN Q2HR PRN TP ANXIETY / AGITATION Last administered on 09/20/16 11:40; Start 09/13/16 at 19:15 Hydroxyzine HCl (Atarax) 25 mg PRN Q6HRS PRN PO ANXIETY / AGITATION; Start 09/14 at 14:45; Stop 09/14/16 at 14:45; Status DC Hydroxyzine HCl (Atarax) 25 mg PRN Q6HRS PRN PO ANXIETY/AGITATION Last administered on 09/15/16 14:14; Start 09/14/16 at 15:00 Prenat Multivit/ Stator Winder/Iron/Folic Ac (Multivitamin ) 1 tab DAILY PO Last administered on 09/27/16 08:11; Start 09/15/16 at 10:15 Buspirone HCl (Buspar) 10 mg BID92 PO Last administered on 09/27/16 12:52; Start 09/16/16 at 09:00 Lorazepam (Ativan) 1 mg 1X ONCE PO Last administered on 09/16/16 08:07; Start 09/16/16 at 08:15; Stop 09/16/16 at 08:16; Status DC Lorazepam (Ativan Intensol) 1 mg PRN Q4HRS PRN SL ANXIETY / AGITATION Last administered on 09/16/16 13:35; Start 09/16/16 at 13:30 Lorazepam (Ativan Intensol) 0.25 mg TID@0900,1300,1700 SL Last administered on 09/27/16 16:50; Start 09/17/16 at 09:00 Divalproex Sodium (Depakote Sprinkles) 250 mg BID PO Last administered on 07:46; Start 09/17/16 at 21:00; Stop 09/20/16 at 14:56; Status DC Duloxetine HCl (Cymbalta) 30 mg 1X ONCE PO Last administered on 09/18/16 08: 31; Start 09/18/16 at 08:00; Stop 09/18/16 at 08:01; Status DC Divalproex Sodium (Depakote Sprinkles) 250 mg DAILY PO Last administered on 08:15; Start 09/21/16 at 09:00; Stop 09/23/16 at 18:31; Status DC Divalproex Sodium (Depakote Sprinkles) 500 mg HS PO Last administered on 19:23; Start 09/20/16 at 21:00; Stop 09/23/16 at 18:31; Status DC Divalproex Sodium (Depakote Sprinkles) 500 mg BID PO Last administered on 19:29; Start 09/23/16 at 21:00 Active Scripts Active Reported Buspirone Hcl 5 Mg Tablet 1 Tab PO BID92 Zyprexa Zydis (Olanzapine) 5 Mg Tab.rapdis 2.5 Mg PO Q2HR PRN Mirtazapine 15 Mg Tablet 7.5 Mg PO QHS Analgesic [place] (Methyl Salicylate/Menthol) 28 Gm Oint...g. 1 [place] TP PRN QID PRN Melatonin 3 Mg Tablet 3 Mg PO QHS Mag-Al Plus Xs Suspension (Mag Hydrox/Al Hydrox/Simeth) 30 Ml Oral.susp 15 Ml PO PRN AFTMEALHC PRN Keppra (Levetiracetam) 500 Mg Tablet 500 Mg PO BID Tylenol (Acetaminophen) 325 Mg Tablet 650 Mg PO PRN Q6HRS PRN Milk Of Magnesia (Magnesium Hydroxide) 400 Mg/5 Ml Oral.susp 2,400 Mg PO PRN QHS PRN Cymbalta (Duloxetine Hcl) 30 Mg Capsule.dr 30 Mg PO DAILY pt has received 3 of 5 scheduled doses Hydrocodone-Apap 5-325 (Hydrocodone Bit/Acetaminophen) 1 Each Tablet 1 Tab PO BID B-12 (Cyanocobalamin (Vitamin B-12)) 500 Mcg Tab.rapdis 250 Mcg PO DAILY Seroquel (Quetiapine Fumarate) 50 Mg Tablet 50 Mg PO NOON Seroquel (Quetiapine Fumarate) 50 Mg Tablet 75 Mg PO HS Diagnosis: Problems: (1) Anxiety disorder (2) Impulse control disorder (3) Dementia, vascular, with depression (4) Dementia, vascular, with delusions (5) Dementia in Alzheimer's disease with delusions (6) Dementia in Alzheimer's disease with depression (7) Frontotemporal dementia with behavioral disturbance ADELA RHODES MD Sep 27, 2016 19:56
--- NOTE | 2016-09-28 01:39 | PN ---
DATE: 09/26/2016 PSYCHIATRIC PROGRESS NOTE This is late entry for 09/26/2016, covers the elements not covered in my initial note. I met with the patient the evening of 09/26/2016. The patient remains confused, but per nursing report had a good day. REVIEW OF SYSTEMS: No CV, , pulmonary, eye, ENT system symptoms on review. Reliability poor. MENTAL STATUS EXAM: Oriented to herself. Insight, judgment, recent and remote memory, attention, concentration, fund of knowledge poor, consistent with her diagnosis mentioned in my initial note. PLAN: Continue current psychotropics. Reviewed drug interactions. MAN Marquita RHODES MD DR: ELIZABETH/wellington JOB#: [id number] / [id number]
[2016-09-28] MEDS: HYDROcodone/APAP 5/325MG 1 TAB TABLET PO SCH ×2 (08:04→19:21)
[2016-09-28] MEDS: CYANOCOBALAMIN (VITAMIN B-12) 250 MCG TABLET PO SCH (08:06)
[2016-09-28] MEDS: DULoxetine HCL 30 MG CAPSULE.DR PO SCH (08:06)
[2016-09-28] MEDS: DIVALPROEX 125 MG CAP.SPRINK PO SCH ×2 (08:06→19:22)
[2016-09-28] MEDS: levETIRAcetam 500 MG TABLET PO SCH ×2 (08:06→19:21)
[2016-09-28] MEDS: busPIRone 10 MG TABLET. PO SCH ×2 (08:06→13:49)
[2016-09-28] MEDS: PRENATAL MULTIVITAMIN TABLET. PO SCH (08:06)
[2016-09-28] MEDS: LORazepam INTENSOL 2 MG/ML BOTTLE SL SCH ×3 (08:08→17:09)
[2016-09-28] MEDS: QUEtiapine 50 MG TABLET. PO SCH ×2 (12:08→19:21)
[2016-09-28 16:07] VITALS: BP 98/64
[2016-09-28] MEDS: MELATONIN 3 MG TABLET PO SCH (19:21)
[2016-09-28] MEDS: MIRTAZAPINE 7.5 MG TABLET. PO SCH (19:21)
--- NOTE | 2016-09-28 19:54 | PDOC ---
Exam Mario Alberto Demential Exam: Mario Alberto Note: Please also refer to the separate dictated note~for this date of service dictated separately.~Patient seen individually. Discussed the patient with Nursing staff reviewed the chart.~Reviewed interim history and current functioning. Reviewed vital signs,~Labs/ Radiology~and current medications noted below. Continue current treatment with the changes noted in the dictated addendum note Assessment: Vital Signs: Vital Signs Date Time Temp Pulse Resp B/P (MAP) Pulse Ox O2 Delivery O2 Flow Rate FiO2 09/28/16 19:21 20 09/28/16 16:07 97.2 110 98/64 (75) 98 09/27/16 20:30 Room Air I&O Intake and Output 09/28/16 06:59 Intake Total 600 ml Balance 600 ml Intake Oral 600 ml Current Medications: Meds: Current Medications Acetaminophen (Tylenol) 650 mg PRN Q6HRS PRN PO PAIN / TEMP; Start 09/12/16 at 20:00; Status UNV Multi-Ingredient Ointment (Analgesic [place]) 1 randee PRN QID PRN TP MUSCLE PAIN; Start 09/12/16 at 20:00; Status UNV Al Hydroxide/Mg Hydroxide (Mylanta Plus Xs) 15 ml PRN AFTMEALHC PRN PO DYSPEPSIA; Start 09/12/16 at 20:00; Status UNV Magnesium Hydroxide (Milk Of Magnesia) 2,400 mg PRN QHS PRN PO CONSTIPATION; Start 09/12/16 at 20:00; Status UNV Duloxetine HCl (Cymbalta) 30 mg DAILY PO Last administered on 09/28/16 08:06; Start 09/13/16 at 09:00 Mirtazapine (Remeron) 7.5 mg QHS PO Last administered on 09/28/16 19:21; Start 09/12/16 at 21:00 Olanzapine (ZyPREXA ZYDIS) 2.5 mg PRN Q2HR PRN PO PSYCHOSIS Last administered on 09/15/16 08:10; Start 09/12/16 at 20:15 Quetiapine Fumarate (SEROquel) 50 mg NOON PO Last administered on 09/28/16 12: 08; Start 09/13/16 at 12:00 Quetiapine Fumarate (SEROquel) 75 mg HS PO Last administered on 09/28/16 19:21 ; Start 09/12/16 at 21:00 Melatonin 3 mg QHS PO Last administered on 09/28/16 19:21; Start 09/12/16 at 21 :00 Acetaminophen (Tylenol) 650 mg PRN Q6HRS PRN PO PAIN / TEMP; Start 09/12/16 at 20:15 Acetaminophen/ Hydrocodone Bitart (Lortab 5/325) 1 tab BID PO Last administered on 09/28/16 19:21; Start 09/12/16 at 21:00 Levetiracetam (Keppra) 500 mg BID PO Last administered on 09/28/16 19:21; Start 09/12/16 at 21:00 Al Hydroxide/Mg Hydroxide (Mylanta Plus Xs) 15 ml PRN AFTMEALHC PRN PO DYSPEPSIA; Start 09/12/16 at 20:15 Magnesium Hydroxide (Milk Of Magnesia) 2,400 mg PRN QHS PRN PO CONSTIPATION; Start 09/12/16 at 20:15 Multi-Ingredient Ointment (Analgesic [place]) 1 randee PRN QID PRN TP MUSCLE PAIN; Start 09/12/16 at 20:15 Cyanocobalamin (Vitamin B-12) 250 mcg DAILY PO Last administered on 09/28/16 08:06; Start 09/13/16 at 09:00 Buspirone HCl (Buspar) 5 mg BID92 PO Last administered on 09/15/16 13:34; Start 09/13/16 at 09:00; Stop 09/15/16 at 18:27; Status DC Divalproex Sodium (Depakote Sprinkles) 250 mg DAILY PO Last administered on 10:01; Start 09/14/16 at 09:00; Stop 09/17/16 at 10:08; Status DC Lorazepam (Ativan) 0.25 mg PRN Q2HR PRN TP ANXIETY / AGITATION Last administered on 09/20/16 11:40; Start 09/13/16 at 19:15 Hydroxyzine HCl (Atarax) 25 mg PRN Q6HRS PRN PO ANXIETY / AGITATION; Start 09/14 at 14:45; Stop 09/14/16 at 14:45; Status DC Hydroxyzine HCl (Atarax) 25 mg PRN Q6HRS PRN PO ANXIETY/AGITATION Last administered on 09/15/16 14:14; Start 09/14/16 at 15:00 Prenat Multivit/ [employer]/Iron/Folic Ac (Multivitamin ) 1 tab DAILY PO Last administered on 09/28/16 08:06; Start 09/15/16 at 10:15 Buspirone HCl (Buspar) 10 mg BID92 PO Last administered on 09/28/16 13:49; Start 09/16/16 at 09:00; Stop 09/28/16 at 18:49; Status DC Lorazepam (Ativan) 1 mg 1X ONCE PO Last administered on 09/16/16 08:07; Start 09/16/16 at 08:15; Stop 09/16/16 at 08:16; Status DC Lorazepam (Ativan Intensol) 1 mg PRN Q4HRS PRN SL ANXIETY / AGITATION Last administered on 09/16/16 13:35; Start 09/16/16 at 13:30 Lorazepam (Ativan Intensol) 0.25 mg TID@0900,1300,1700 SL Last administered on 09/28/16 17:09; Start 09/17/16 at 09:00 Divalproex Sodium (Depakote Sprinkles) 250 mg BID PO Last administered on 07:46; Start 09/17/16 at 21:00; Stop 09/20/16 at 14:56; Status DC Duloxetine HCl (Cymbalta) 30 mg 1X ONCE PO Last administered on 09/18/16 08: 31; Start 09/18/16 at 08:00; Stop 09/18/16 at 08:01; Status DC Divalproex Sodium (Depakote Sprinkles) 250 mg DAILY PO Last administered on 08:15; Start 09/21/16 at 09:00; Stop 09/23/16 at 18:31; Status DC Divalproex Sodium (Depakote Sprinkles) 500 mg HS PO Last administered on 19:23; Start 09/20/16 at 21:00; Stop 09/23/16 at 18:31; Status DC Divalproex Sodium (Depakote Sprinkles) 500 mg BID PO Last administered on t 19:22; Start 09/23/16 at 21:00 Buspirone HCl (Buspar) 15 mg BID92 PO ; Start 09/29/16 at 09:00 Active Scripts Active Reported Buspirone Hcl 5 Mg Tablet 1 Tab PO BID92 Zyprexa Zydis (Olanzapine) 5 Mg Tab.rapdis 2.5 Mg PO Q2HR PRN Mirtazapine 15 Mg Tablet 7.5 Mg PO QHS Analgesic [place] (Methyl Salicylate/Menthol) 28 Gm Oint...g. 1 [place] TP PRN QID PRN Melatonin 3 Mg Tablet 3 Mg PO QHS Mag-Al Plus Xs Suspension (Mag Hydrox/Al Hydrox/Simeth) 30 Ml Oral.susp 15 Ml PO PRN AFTMEALHC PRN Keppra (Levetiracetam) 500 Mg Tablet 500 Mg PO BID Tylenol (Acetaminophen) 325 Mg Tablet 650 Mg PO PRN Q6HRS PRN Milk Of Magnesia (Magnesium Hydroxide) 400 Mg/5 Ml Oral.susp 2,400 Mg PO PRN QHS PRN Cymbalta (Duloxetine Hcl) 30 Mg Capsule.dr 30 Mg PO DAILY pt has received 3 of 5 scheduled doses Hydrocodone-Apap 5-325 (Hydrocodone Bit/Acetaminophen) 1 Each Tablet 1 Tab PO BID B-12 (Cyanocobalamin (Vitamin B-12)) 500 Mcg Tab.rapdis 250 Mcg PO DAILY Seroquel (Quetiapine Fumarate) 50 Mg Tablet 50 Mg PO NOON Seroquel (Quetiapine Fumarate) 50 Mg Tablet 75 Mg PO HS Diagnosis: Problems: (1) Anxiety disorder (2) Impulse control disorder (3) Dementia, vascular, with depression (4) Dementia, vascular, with delusions (5) Dementia in Alzheimer's disease with delusions (6) Dementia in Alzheimer's disease with depression (7) Frontotemporal dementia with behavioral disturbance ADELA RHODES MD Sep 28, 2016 19:53
--- NOTE | 2016-09-29 00:23 | PN ---
DATE: 09/27/2016 This late entry 09/27/2016 covers elements not covered in my initial note. I met with the patient evening of 09/27/2016. She remains confused, wandering, but otherwise calmer. REVIEW OF SYSTEMS: No CV, , pulmonary, eye, ENT system symptoms on review. Reliability poor. She is in a one piece suit. MENTAL STATUS EXAM: Oriented to herself. Insight, judgment, recent and remote memory, attention, concentration, fund of knowledge poor, consistent with her diagnosis as mentioned in my initial note. PLAN: Continue current psychotropics. Adjust further as clinically indicated. MAN Marquita RHODES MD DR: ELIZABETH/wellington JOB#: [id number] / [id number]
[2016-09-29 05:57] VITALS: BP 117/76
[2016-09-29] MEDS: LORazepam TOPICAL 0.5 MG/ML GEL TP PRN (06:20)
[2016-09-29] MEDS: busPIRone 15 MG TABLET. PO SCH ×2 (08:20→13:18)
[2016-09-29] MEDS: levETIRAcetam 500 MG TABLET PO SCH ×2 (08:20→19:38)
[2016-09-29] MEDS: CYANOCOBALAMIN (VITAMIN B-12) 250 MCG TABLET PO SCH (08:20)
[2016-09-29] MEDS: PRENATAL MULTIVITAMIN TABLET. PO SCH (08:20)
[2016-09-29] MEDS: HYDROcodone/APAP 5/325MG 1 TAB TABLET PO SCH ×2 (08:20→19:38)
[2016-09-29] MEDS: DIVALPROEX 125 MG CAP.SPRINK PO SCH ×2 (08:22→19:38)
[2016-09-29] MEDS: LORazepam INTENSOL 2 MG/ML BOTTLE SL SCH ×3 (08:22→17:00)
[2016-09-29] MEDS: DULoxetine HCL 30 MG CAPSULE.DR PO SCH (08:24)
[2016-09-29] MEDS: QUEtiapine 50 MG TABLET. PO SCH ×2 (13:18→19:39)
--- NOTE | 2016-09-29 18:50 | PDOC ---
Exam Mario Alberto Demential Exam: Mario Alberto Note: Please also refer to the separate dictated note~for this date of service dictated separately.~Patient seen individually. Discussed the patient with Nursing staff reviewed the chart.~Reviewed interim history and current functioning. Reviewed vital signs,~Labs/ Radiology~and current medications noted below. Continue current treatment with the changes noted in the dictated addendum note Assessment: Vital Signs: Vital Signs Date Time Temp Pulse Resp B/P (MAP) Pulse Ox O2 Delivery O2 Flow Rate FiO2 09/29/16 16:12 98.1 84 18 98 09/29/16 09:23 Room Air 09/29/16 05:57 117/76 (90) I&O Intake and Output 09/29/16 07:00 Intake Total 960 ml Balance 960 ml Intake Oral 960 ml # Bowel Movements 1 Current Medications: Meds: Current Medications Acetaminophen (Tylenol) 650 mg PRN Q6HRS PRN PO PAIN / TEMP; Start 09/12/16 at 20:00; Status UNV Multi-Ingredient Ointment (Analgesic [place]) 1 randee PRN QID PRN TP MUSCLE PAIN; Start 09/12/16 at 20:00; Status UNV Al Hydroxide/Mg Hydroxide (Mylanta Plus Xs) 15 ml PRN AFTMEALHC PRN PO DYSPEPSIA; Start 09/12/16 at 20:00; Status UNV Magnesium Hydroxide (Milk Of Magnesia) 2,400 mg PRN QHS PRN PO CONSTIPATION; Start 09/12/16 at 20:00; Status UNV Duloxetine HCl (Cymbalta) 30 mg DAILY PO Last administered on 09/29/16 08:24; Start 09/13/16 at 09:00 Mirtazapine (Remeron) 7.5 mg QHS PO Last administered on 09/28/16 19:21; Start 09/12/16 at 21:00 Olanzapine (ZyPREXA ZYDIS) 2.5 mg PRN Q2HR PRN PO PSYCHOSIS Last administered on 09/15/16 08:10; Start 09/12/16 at 20:15 Quetiapine Fumarate (SEROquel) 50 mg NOON PO Last administered on 09/29/16 13: 18; Start 09/13/16 at 12:00 Quetiapine Fumarate (SEROquel) 75 mg HS PO Last administered on 09/28/16 19:21 ; Start 09/12/16 at 21:00 Melatonin 3 mg QHS PO Last administered on 09/28/16 19:21; Start 09/12/16 at 21 :00 Acetaminophen (Tylenol) 650 mg PRN Q6HRS PRN PO PAIN / TEMP; Start 09/12/16 at 20:15 Acetaminophen/ Hydrocodone Bitart (Lortab 5/325) 1 tab BID PO Last administered on 09/29/16 08:20; Start 09/12/16 at 21:00 Levetiracetam (Keppra) 500 mg BID PO Last administered on 09/29/16 08:20; Start 09/12/16 at 21:00 Al Hydroxide/Mg Hydroxide (Mylanta Plus Xs) 15 ml PRN AFTMEALHC PRN PO DYSPEPSIA; Start 09/12/16 at 20:15 Magnesium Hydroxide (Milk Of Magnesia) 2,400 mg PRN QHS PRN PO CONSTIPATION; Start 09/12/16 at 20:15 Multi-Ingredient Ointment (Analgesic [place]) 1 randee PRN QID PRN TP MUSCLE PAIN; Start 09/12/16 at 20:15 Cyanocobalamin (Vitamin B-12) 250 mcg DAILY PO Last administered on 09/29/16 08:20; Start 09/13/16 at 09:00 Buspirone HCl (Buspar) 5 mg BID92 PO Last administered on 09/15/16 13:34; Start 09/13/16 at 09:00; Stop 09/15/16 at 18:27; Status DC Divalproex Sodium (Depakote Sprinkles) 250 mg DAILY PO Last administered on 10:01; Start 09/14/16 at 09:00; Stop 09/17/16 at 10:08; Status DC Lorazepam (Ativan) 0.25 mg PRN Q2HR PRN TP ANXIETY / AGITATION Last administered on 09/29/16 06:20; Start 09/13/16 at 19:15 Hydroxyzine HCl (Atarax) 25 mg PRN Q6HRS PRN PO ANXIETY / AGITATION; Start 09/14 at 14:45; Stop 09/14/16 at 14:45; Status DC Hydroxyzine HCl (Atarax) 25 mg PRN Q6HRS PRN PO ANXIETY/AGITATION Last administered on 09/15/16 14:14; Start 09/14/16 at 15:00 Prenat Multivit/ [place]/Iron/Folic Ac (Multivitamin ) 1 tab DAILY PO Last administered on 09/29/16 08:20; Start 09/15/16 at 10:15 Buspirone HCl (Buspar) 10 mg BID92 PO Last administered on 09/28/16 13:49; Start 09/16/16 at 09:00; Stop 09/28/16 at 18:49; Status DC Lorazepam (Ativan) 1 mg 1X ONCE PO Last administered on 09/16/16 08:07; Start 09/16/16 at 08:15; Stop 09/16/16 at 08:16; Status DC Lorazepam (Ativan Intensol) 1 mg PRN Q4HRS PRN SL ANXIETY / AGITATION Last administered on 09/16/16 13:35; Start 09/16/16 at 13:30 Lorazepam (Ativan Intensol) 0.25 mg TID@0900,1300,1700 SL Last administered on 09/29/16 17:00; Start 09/17/16 at 09:00 Divalproex Sodium (Depakote Sprinkles) 250 mg BID PO Last administered on 07:46; Start 09/17/16 at 21:00; Stop 09/20/16 at 14:56; Status DC Duloxetine HCl (Cymbalta) 30 mg 1X ONCE PO Last administered on 09/18/16 08: 31; Start 09/18/16 at 08:00; Stop 09/18/16 at 08:01; Status DC Divalproex Sodium (Depakote Sprinkles) 250 mg DAILY PO Last administered on 08:15; Start 09/21/16 at 09:00; Stop 09/23/16 at 18:31; Status DC Divalproex Sodium (Depakote Sprinkles) 500 mg HS PO Last administered on 19:23; Start 09/20/16 at 21:00; Stop 09/23/16 at 18:31; Status DC Divalproex Sodium (Depakote Sprinkles) 500 mg BID PO Last administered on 08:22; Start 09/23/16 at 21:00 Buspirone HCl (Buspar) 15 mg BID92 PO Last administered on 09/29/16 13:18; Start 09/29/16 at 09:00 Active Scripts Active Reported Buspirone Hcl 5 Mg Tablet 1 Tab PO BID92 Zyprexa Zydis (Olanzapine) 5 Mg Tab.rapdis 2.5 Mg PO Q2HR PRN Mirtazapine 15 Mg Tablet 7.5 Mg PO QHS Analgesic [place] (Methyl Salicylate/Menthol) 28 Gm Oint...g. 1 [place] TP PRN QID PRN Melatonin 3 Mg Tablet 3 Mg PO QHS Mag-Al Plus Xs Suspension (Mag Hydrox/Al Hydrox/Simeth) 30 Ml Oral.susp 15 Ml PO PRN AFTMEALHC PRN Keppra (Levetiracetam) 500 Mg Tablet 500 Mg PO BID Tylenol (Acetaminophen) 325 Mg Tablet 650 Mg PO PRN Q6HRS PRN Milk Of Magnesia (Magnesium Hydroxide) 400 Mg/5 Ml Oral.susp 2,400 Mg PO PRN QHS PRN Cymbalta (Duloxetine Hcl) 30 Mg Capsule.dr 30 Mg PO DAILY pt has received 3 of 5 scheduled doses Hydrocodone-Apap 5-325 (Hydrocodone Bit/Acetaminophen) 1 Each Tablet 1 Tab PO BID B-12 (Cyanocobalamin (Vitamin B-12)) 500 Mcg Tab.rapdis 250 Mcg PO DAILY Seroquel (Quetiapine Fumarate) 50 Mg Tablet 50 Mg PO NOON Seroquel (Quetiapine Fumarate) 50 Mg Tablet 75 Mg PO HS Diagnosis: Problems: (1) Frontotemporal dementia with behavioral disturbance (2) Dementia in Alzheimer's disease with depression (3) Dementia in Alzheimer's disease with delusions (4) Dementia, vascular, with delusions (5) Dementia, vascular, with depression (6) Impulse control disorder (7) Anxiety disorder ADELA RHODES MD Sep 29, 2016 18:50
[2016-09-29] MEDS: MELATONIN 3 MG TABLET PO SCH (19:38)
[2016-09-29] MEDS: MIRTAZAPINE 7.5 MG TABLET. PO SCH (19:39)
--- NOTE | 2016-09-30 04:09 | PN ---
DATE: 09/28/2016 PSYCHIATRIC PROGRESS NOTE This is a late entry of 09/28/2016 covers elements not covered in my initial note of 09/28/2016. SUBJECTIVE: I met with the patient evening of 09/28/2016. Per nursing report, she has been pacing, wandering the hallways at times, yelling, less grouchy in the morning per nursing report. Overall, showing improvement from admission. REVIEW OF SYSTEMS: No CV, , pulmonary, eye, ENT system symptoms on review. Reliability poor, slept 5 hours previous evening. MENTAL STATUS EXAM: Oriented to herself. Insight, judgment, recent and remote memory, attention, concentration, fund of knowledge poor, consistent with her diagnosis mentioned in my initial note. PLAN: Valproic acid level therapeutic at 72. Continue Depakote at current dosage. Increase BuSpar from 10 b.i.d. to 15 b.i.d. maintain. Rest unchanged. Review drug interactions risk, benefit ratio of her psychotropic. ADELA RHODES MD DR: ELIZABETH/wellington JOB#: [id number] / [id number]
[2016-09-30 06:12] VITALS: BP 119/81
[2016-09-30] MEDS: busPIRone 15 MG TABLET. PO SCH ×2 (09:41→12:52)
[2016-09-30] MEDS: levETIRAcetam 500 MG TABLET PO SCH ×2 (09:41→19:17)
[2016-09-30] MEDS: PRENATAL MULTIVITAMIN TABLET. PO SCH (09:41)
[2016-09-30] MEDS: CYANOCOBALAMIN (VITAMIN B-12) 250 MCG TABLET PO SCH (09:41)
[2016-09-30] MEDS: DULoxetine HCL 30 MG CAPSULE.DR PO SCH (09:41)
[2016-09-30] MEDS: DIVALPROEX 125 MG CAP.SPRINK PO SCH ×2 (09:42→19:18)
[2016-09-30] MEDS: HYDROcodone/APAP 5/325MG 1 TAB TABLET PO SCH ×2 (09:43→19:18)
[2016-09-30] MEDS: LORazepam INTENSOL 2 MG/ML BOTTLE SL SCH ×3 (09:43→17:20)
[2016-09-30] MEDS: QUEtiapine 50 MG TABLET. PO SCH ×2 (12:52→19:18)
[2016-09-30 16:30] VITALS: BP 96/71
--- NOTE | 2016-09-30 18:35 | PDOC ---
Exam Mario Alberto Demential Exam: Mario Alberto Note: Please also refer to the separate dictated note~for this date of service dictated separately.~Patient seen individually. Discussed the patient with Nursing staff reviewed the chart.~Reviewed interim history and current functioning. Reviewed vital signs,~Labs/ Radiology~and current medications noted below. Continue current treatment with the changes noted in the dictated addendum note Assessment: Vital Signs: Vital Signs Date Time Temp Pulse Resp B/P (MAP) Pulse Ox O2 Delivery O2 Flow Rate FiO2 09/30/16 16:30 98.3 88 18 96/71 (79) 100 09/29/16 19:38 Room Air I&O Intake and Output 09/30/16 07:00 Intake Total 960 ml Balance 960 ml Intake Oral 960 ml Current Medications: Meds: Current Medications Acetaminophen (Tylenol) 650 mg PRN Q6HRS PRN PO PAIN / TEMP; Start 09/12/16 at 20:00; Status UNV Multi-Ingredient Ointment (Analgesic [place]) 1 randee PRN QID PRN TP MUSCLE PAIN; Start 09/12/16 at 20:00; Status UNV Al Hydroxide/Mg Hydroxide (Mylanta Plus Xs) 15 ml PRN AFTMEALHC PRN PO DYSPEPSIA; Start 09/12/16 at 20:00; Status UNV Magnesium Hydroxide (Milk Of Magnesia) 2,400 mg PRN QHS PRN PO CONSTIPATION; Start 09/12/16 at 20:00; Status UNV Duloxetine HCl (Cymbalta) 30 mg DAILY PO Last administered on 09/30/16 09:41; Start 09/13/16 at 09:00 Mirtazapine (Remeron) 7.5 mg QHS PO Last administered on 09/29/16 19:39; Start 09/12/16 at 21:00 Olanzapine (ZyPREXA ZYDIS) 2.5 mg PRN Q2HR PRN PO PSYCHOSIS Last administered on 09/15/16 08:10; Start 09/12/16 at 20:15 Quetiapine Fumarate (SEROquel) 50 mg NOON PO Last administered on 09/30/16 12: 52; Start 09/13/16 at 12:00 Quetiapine Fumarate (SEROquel) 75 mg HS PO Last administered on 09/29/16 19:39 ; Start 09/12/16 at 21:00 Melatonin 3 mg QHS PO Last administered on 09/29/16 19:38; Start 09/12/16 at 21 :00 Acetaminophen (Tylenol) 650 mg PRN Q6HRS PRN PO PAIN / TEMP; Start 09/12/16 at 20:15 Acetaminophen/ Hydrocodone Bitart (Lortab 5/325) 1 tab BID PO Last administered on 09/30/16 09:43; Start 09/12/16 at 21:00 Levetiracetam (Keppra) 500 mg BID PO Last administered on 09/30/16 09:41; Start 09/12/16 at 21:00 Al Hydroxide/Mg Hydroxide (Mylanta Plus Xs) 15 ml PRN AFTMEALHC PRN PO DYSPEPSIA; Start 09/12/16 at 20:15 Magnesium Hydroxide (Milk Of Magnesia) 2,400 mg PRN QHS PRN PO CONSTIPATION; Start 09/12/16 at 20:15 Multi-Ingredient Ointment (Analgesic [place]) 1 randee PRN QID PRN TP MUSCLE PAIN; Start 09/12/16 at 20:15 Cyanocobalamin (Vitamin B-12) 250 mcg DAILY PO Last administered on 09/30/16 09:41; Start 09/13/16 at 09:00 Buspirone HCl (Buspar) 5 mg BID92 PO Last administered on 09/15/16 13:34; Start 09/13/16 at 09:00; Stop 09/15/16 at 18:27; Status DC Divalproex Sodium (Depakote Sprinkles) 250 mg DAILY PO Last administered on 10:01; Start 09/14/16 at 09:00; Stop 09/17/16 at 10:08; Status DC Lorazepam (Ativan) 0.25 mg PRN Q2HR PRN TP ANXIETY / AGITATION Last administered on 09/29/16 06:20; Start 09/13/16 at 19:15 Hydroxyzine HCl (Atarax) 25 mg PRN Q6HRS PRN PO ANXIETY / AGITATION; Start 09/14 at 14:45; Stop 09/14/16 at 14:45; Status DC Hydroxyzine HCl (Atarax) 25 mg PRN Q6HRS PRN PO ANXIETY/AGITATION Last administered on 09/15/16 14:14; Start 09/14/16 at 15:00 Prenat Multivit/ [place]/Iron/Folic Ac (Multivitamin ) 1 tab DAILY PO Last administered on 09/30/16 09:41; Start 09/15/16 at 10:15 Buspirone HCl (Buspar) 10 mg BID92 PO Last administered on 09/28/16 13:49; Start 09/16/16 at 09:00; Stop 09/28/16 at 18:49; Status DC Lorazepam (Ativan) 1 mg 1X ONCE PO Last administered on 09/16/16 08:07; Start 09/16/16 at 08:15; Stop 09/16/16 at 08:16; Status DC Lorazepam (Ativan Intensol) 1 mg PRN Q4HRS PRN SL ANXIETY / AGITATION Last administered on 09/16/16 13:35; Start 09/16/16 at 13:30 Lorazepam (Ativan Intensol) 0.25 mg TID@0900,1300,1700 SL Last administered on 09/30/16 17:20; Start 09/17/16 at 09:00 Divalproex Sodium (Depakote Sprinkles) 250 mg BID PO Last administered on 07:46; Start 09/17/16 at 21:00; Stop 09/20/16 at 14:56; Status DC Duloxetine HCl (Cymbalta) 30 mg 1X ONCE PO Last administered on 09/18/16 08: 31; Start 09/18/16 at 08:00; Stop 09/18/16 at 08:01; Status DC Divalproex Sodium (Depakote Sprinkles) 250 mg DAILY PO Last administered on 08:15; Start 09/21/16 at 09:00; Stop 09/23/16 at 18:31; Status DC Divalproex Sodium (Depakote Sprinkles) 500 mg HS PO Last administered on 19:23; Start 09/20/16 at 21:00; Stop 09/23/16 at 18:31; Status DC Divalproex Sodium (Depakote Sprinkles) 500 mg BID PO Last administered on 09:42; Start 09/23/16 at 21:00 Buspirone HCl (Buspar) 15 mg BID92 PO Last administered on 09/30/16 12:52; Start 09/29/16 at 09:00 Active Scripts Active Reported Buspirone Hcl 5 Mg Tablet 1 Tab PO BID92 Zyprexa Zydis (Olanzapine) 5 Mg Tab.rapdis 2.5 Mg PO Q2HR PRN Mirtazapine 15 Mg Tablet 7.5 Mg PO QHS Analgesic [place] (Methyl Salicylate/Menthol) 28 Gm Oint...g. 1 [place] TP PRN QID PRN Melatonin 3 Mg Tablet 3 Mg PO QHS Mag-Al Plus Xs Suspension (Mag Hydrox/Al Hydrox/Simeth) 30 Ml Oral.susp 15 Ml PO PRN AFTMEALHC PRN Keppra (Levetiracetam) 500 Mg Tablet 500 Mg PO BID Tylenol (Acetaminophen) 325 Mg Tablet 650 Mg PO PRN Q6HRS PRN Milk Of Magnesia (Magnesium Hydroxide) 400 Mg/5 Ml Oral.susp 2,400 Mg PO PRN QHS PRN Cymbalta (Duloxetine Hcl) 30 Mg Capsule.dr 30 Mg PO DAILY pt has received 3 of 5 scheduled doses Hydrocodone-Apap 5-325 (Hydrocodone Bit/Acetaminophen) 1 Each Tablet 1 Tab PO BID B-12 (Cyanocobalamin (Vitamin B-12)) 500 Mcg Tab.rapdis 250 Mcg PO DAILY Seroquel (Quetiapine Fumarate) 50 Mg Tablet 50 Mg PO NOON Seroquel (Quetiapine Fumarate) 50 Mg Tablet 75 Mg PO HS Diagnosis: Problems: (1) Frontotemporal dementia with behavioral disturbance (2) Dementia in Alzheimer's disease with depression (3) Dementia in Alzheimer's disease with delusions (4) Dementia, vascular, with delusions (5) Dementia, vascular, with depression (6) Impulse control disorder (7) Anxiety disorder ADELA RHODES MD Sep 30, 2016 18:35
[2016-09-30] MEDS: MELATONIN 3 MG TABLET PO SCH (19:17)
[2016-09-30] MEDS: MIRTAZAPINE 7.5 MG TABLET. PO SCH (19:17)
[2016-09-30] MEDS: LORazepam TOPICAL 0.5 MG/ML GEL TP PRN (21:44)
--- NOTE | 2016-10-01 03:25 | PN ---
DATE: 09/29/2016 PSYCHIATRIC PROGRESS NOTE This is a late entry of 09/29/2016 covers elements not covered in my initial note of 09/29/2016. SUBJECTIVE: The patient was agitated in the morning had to be placed in the vest hallway. Received Ativan then did a little better after that. Slept 6-1/4 hours previous evening. She did little better after breakfast. REVIEW OF SYSTEMS: No CV, , eye, ENT or pulmonary system symptoms on review as I met with her the evening of 09/29/2016. MENTAL STATUS EXAM: Oriented to herself. Insight, judgment, recent and remote memory, attention, concentration, fund of knowledge poor, consistent with her diagnosis mentioned in my initial note. PLAN: Continue current psychotropics mentioned in my initial note. Reviewed drug interactions. Risk/benefit ratio favors no further change at this time. Valproic acid level therapeutic at 72, BuSpar at a reasonable dosage 50 mg twice a day, Cymbalta 30 mg a day, Depakote, Seroquel, Remeron as before. MAN Marquita RHODES MD DR: ELIZABETH/wellington JOB#: [id number] / [id number]
[2016-10-01 06:18] VITALS: BP 101/58
[2016-10-01] MEDS: DULoxetine HCL 30 MG CAPSULE.DR PO SCH (08:48)
[2016-10-01] MEDS: busPIRone 15 MG TABLET. PO SCH ×2 (08:48→13:36)
[2016-10-01] MEDS: DIVALPROEX 125 MG CAP.SPRINK PO SCH ×2 (08:50→19:26)
[2016-10-01] MEDS: CYANOCOBALAMIN (VITAMIN B-12) 250 MCG TABLET PO SCH (08:50)
[2016-10-01] MEDS: levETIRAcetam 500 MG TABLET PO SCH ×2 (08:51→19:26)
[2016-10-01] MEDS: PRENATAL MULTIVITAMIN TABLET. PO SCH (08:51)
[2016-10-01] MEDS: HYDROcodone/APAP 5/325MG 1 TAB TABLET PO SCH ×2 (08:52→19:30)
[2016-10-01] MEDS: LORazepam INTENSOL 2 MG/ML BOTTLE SL SCH ×3 (08:53→17:10)
[2016-10-01] MEDS: QUEtiapine 50 MG TABLET. PO SCH ×2 (13:36→19:25)
[2016-10-01 16:14] VITALS: BP 132/85
[2016-10-01] MEDS: MIRTAZAPINE 7.5 MG TABLET. PO SCH (19:26)
[2016-10-01] MEDS: MELATONIN 3 MG TABLET PO SCH (19:26)
--- NOTE | 2016-10-01 20:41 | PDOC ---
Exam Mario Alberto Demential Exam: Mario Alberto Note: Please also refer to the separate dictated note~for this date of service dictated separately.~Patient seen individually. Discussed the patient with Nursing staff reviewed the chart.~Reviewed interim history and current functioning. Reviewed vital signs,~Labs/ Radiology~and current medications noted below. Continue current treatment with the changes noted in the dictated addendum note Assessment: Vital Signs: Vital Signs Date Time Temp Pulse Resp B/P (MAP) Pulse Ox O2 Delivery O2 Flow Rate FiO2 10/01/16 19:30 20 Room Air 10/01/16 16:14 97.1 83 132/85 (101) 100 I&O Intake and Output 10/01/16 07:00 Intake Total 1200 ml Balance 1200 ml Intake Oral 1200 ml Current Medications: Meds: Current Medications Acetaminophen (Tylenol) 650 mg PRN Q6HRS PRN PO PAIN / TEMP; Start 09/12/16 at 20:00; Status UNV Multi-Ingredient Ointment (Analgesic [place]) 1 randee PRN QID PRN TP MUSCLE PAIN; Start 09/12/16 at 20:00; Status UNV Al Hydroxide/Mg Hydroxide (Mylanta Plus Xs) 15 ml PRN AFTMEALHC PRN PO DYSPEPSIA; Start 09/12/16 at 20:00; Status UNV Magnesium Hydroxide (Milk Of Magnesia) 2,400 mg PRN QHS PRN PO CONSTIPATION; Start 09/12/16 at 20:00; Status UNV Duloxetine HCl (Cymbalta) 30 mg DAILY PO Last administered on 10/01/16 08:48; Start 09/13/16 at 09:00 Mirtazapine (Remeron) 7.5 mg QHS PO Last administered on 10/01/16 19:26; Start 09/12/16 at 21:00 Olanzapine (ZyPREXA ZYDIS) 2.5 mg PRN Q2HR PRN PO PSYCHOSIS Last administered on 09/15/16 08:10; Start 09/12/16 at 20:15 Quetiapine Fumarate (SEROquel) 50 mg NOON PO Last administered on 10/01/16 13: 36; Start 09/13/16 at 12:00 Quetiapine Fumarate (SEROquel) 75 mg HS PO Last administered on 10/01/16 19:25 ; Start 09/12/16 at 21:00 Melatonin 3 mg QHS PO Last administered on 10/01/16 19:26; Start 09/12/16 at 21 :00 Acetaminophen (Tylenol) 650 mg PRN Q6HRS PRN PO PAIN / TEMP; Start 09/12/16 at 20:15 Acetaminophen/ Hydrocodone Bitart (Lortab 5/325) 1 tab BID PO Last administered on 10/01/16 19:30; Start 09/12/16 at 21:00 Levetiracetam (Keppra) 500 mg BID PO Last administered on 10/01/16 19:26; Start 09/12/16 at 21:00 Al Hydroxide/Mg Hydroxide (Mylanta Plus Xs) 15 ml PRN AFTMEALHC PRN PO DYSPEPSIA; Start 09/12/16 at 20:15 Magnesium Hydroxide (Milk Of Magnesia) 2,400 mg PRN QHS PRN PO CONSTIPATION; Start 09/12/16 at 20:15 Multi-Ingredient Ointment (Analgesic [place]) 1 randee PRN QID PRN TP MUSCLE PAIN; Start 09/12/16 at 20:15 Cyanocobalamin (Vitamin B-12) 250 mcg DAILY PO Last administered on 10/01/16 08:50; Start 09/13/16 at 09:00 Buspirone HCl (Buspar) 5 mg BID92 PO Last administered on 09/15/16 13:34; Start 09/13/16 at 09:00; Stop 09/15/16 at 18:27; Status DC Divalproex Sodium (Depakote Sprinkles) 250 mg DAILY PO Last administered on 10:01; Start 09/14/16 at 09:00; Stop 09/17/16 at 10:08; Status DC Lorazepam (Ativan) 0.25 mg PRN Q2HR PRN TP ANXIETY / AGITATION Last administered on 09/30/16 21:44; Start 09/13/16 at 19:15 Hydroxyzine HCl (Atarax) 25 mg PRN Q6HRS PRN PO ANXIETY / AGITATION; Start 09/14 at 14:45; Stop 09/14/16 at 14:45; Status DC Hydroxyzine HCl (Atarax) 25 mg PRN Q6HRS PRN PO ANXIETY/AGITATION Last administered on 09/15/16 14:14; Start 09/14/16 at 15:00 Prenat Multivit/ [place]/Iron/Folic Ac (Multivitamin ) 1 tab DAILY PO Last administered on 10/01/16 08:51; Start 09/15/16 at 10:15 Buspirone HCl (Buspar) 10 mg BID92 PO Last administered on 09/28/16 13:49; Start 09/16/16 at 09:00; Stop 09/28/16 at 18:49; Status DC Lorazepam (Ativan) 1 mg 1X ONCE PO Last administered on 09/16/16 08:07; Start 09/16/16 at 08:15; Stop 09/16/16 at 08:16; Status DC Lorazepam (Ativan Intensol) 1 mg PRN Q4HRS PRN SL ANXIETY / AGITATION Last administered on 09/16/16 13:35; Start 09/16/16 at 13:30 Lorazepam (Ativan Intensol) 0.25 mg TID@0900,1300,1700 SL Last administered on 10/01/16 17:10; Start 09/17/16 at 09:00 Divalproex Sodium (Depakote Sprinkles) 250 mg BID PO Last administered on 07:46; Start 09/17/16 at 21:00; Stop 09/20/16 at 14:56; Status DC Duloxetine HCl (Cymbalta) 30 mg 1X ONCE PO Last administered on 09/18/16 08: 31; Start 09/18/16 at 08:00; Stop 09/18/16 at 08:01; Status DC Divalproex Sodium (Depakote Sprinkles) 250 mg DAILY PO Last administered on 08:15; Start 09/21/16 at 09:00; Stop 09/23/16 at 18:31; Status DC Divalproex Sodium (Depakote Sprinkles) 500 mg HS PO Last administered on 19:23; Start 09/20/16 at 21:00; Stop 09/23/16 at 18:31; Status DC Divalproex Sodium (Depakote Sprinkles) 500 mg BID PO Last administered on 19:26; Start 09/23/16 at 21:00 Buspirone HCl (Buspar) 15 mg BID92 PO Last administered on 10/01/16 13:36; Start 09/29/16 at 09:00 Active Scripts Active Reported Buspirone Hcl 5 Mg Tablet 1 Tab PO BID92 Zyprexa Zydis (Olanzapine) 5 Mg Tab.rapdis 2.5 Mg PO Q2HR PRN Mirtazapine 15 Mg Tablet 7.5 Mg PO QHS Analgesic [place] (Methyl Salicylate/Menthol) 28 Gm Oint...g. 1 [place] TP PRN QID PRN Melatonin 3 Mg Tablet 3 Mg PO QHS Mag-Al Plus Xs Suspension (Mag Hydrox/Al Hydrox/Simeth) 30 Ml Oral.susp 15 Ml PO PRN AFTMEALHC PRN Keppra (Levetiracetam) 500 Mg Tablet 500 Mg PO BID Tylenol (Acetaminophen) 325 Mg Tablet 650 Mg PO PRN Q6HRS PRN Milk Of Magnesia (Magnesium Hydroxide) 400 Mg/5 Ml Oral.susp 2,400 Mg PO PRN QHS PRN Cymbalta (Duloxetine Hcl) 30 Mg Capsule.dr 30 Mg PO DAILY pt has received 3 of 5 scheduled doses Hydrocodone-Apap 5-325 (Hydrocodone Bit/Acetaminophen) 1 Each Tablet 1 Tab PO BID B-12 (Cyanocobalamin (Vitamin B-12)) 500 Mcg Tab.rapdis 250 Mcg PO DAILY Seroquel (Quetiapine Fumarate) 50 Mg Tablet 50 Mg PO NOON Seroquel (Quetiapine Fumarate) 50 Mg Tablet 75 Mg PO HS Diagnosis: Problems: (1) Anxiety disorder (2) Impulse control disorder (3) Dementia, vascular, with depression (4) Dementia, vascular, with delusions (5) Dementia in Alzheimer's disease with delusions (6) Dementia in Alzheimer's disease with depression (7) Frontotemporal dementia with behavioral disturbance ADELA RHODES MD Oct 01, 2016 20:41
--- NOTE | 2016-10-02 01:09 | PN ---
DATE: 09/30/2016 SUBJECTIVE: This is a late entry 09/30/2016, covers elements not covered in my initial note. I met with the patient evening of 09/30/2016. She has been wandering less in the evening hours and night hours; much better during the day on 09/30/2016. Sat in her chair for her meals, which is an improvement. REVIEW OF SYSTEMS: No CV, , pulmonary, eye, or ENT system symptoms on review. MENTAL STATUS EXAM: Oriented to herself. Insight, judgment, recent and remote memory, attention, concentration, and fund of knowledge poor consistent with her diagnosis mentioned in my initial note. PLAN: Continue current psychotropics. Reviewed drug contractions and risk/benefit ratio favors no further changes of now. MAN Marquita RHODES MD DR: ELIZABETH/[place]ellington JOB#: [id number] / [id number]
[2016-10-02] MEDS: LORazepam TOPICAL 0.5 MG/ML GEL TP PRN (05:10)
[2016-10-02 06:04] VITALS: BP 113/68
[2016-10-02] MEDS: busPIRone 15 MG TABLET. PO SCH ×2 (08:08→12:11)
[2016-10-02] MEDS: DULoxetine HCL 30 MG CAPSULE.DR PO SCH (08:08)
[2016-10-02] MEDS: CYANOCOBALAMIN (VITAMIN B-12) 250 MCG TABLET PO SCH (08:08)
[2016-10-02] MEDS: PRENATAL MULTIVITAMIN TABLET. PO SCH (08:08)
[2016-10-02] MEDS: DIVALPROEX 125 MG CAP.SPRINK PO SCH ×2 (08:08→19:33)
[2016-10-02] MEDS: levETIRAcetam 500 MG TABLET PO SCH ×2 (08:10→19:32)
[2016-10-02] MEDS: HYDROcodone/APAP 5/325MG 1 TAB TABLET PO SCH ×2 (08:14→19:33)
[2016-10-02] MEDS: LORazepam INTENSOL 2 MG/ML BOTTLE SL SCH ×3 (08:14→17:00)
--- NOTE | 2016-10-02 10:15 | PDOC ---
Exam Mario Alberto Demential Exam: Mario Alberto Note: Please also refer to the separate dictated note~for this date of service dictated separately.~Patient seen individually. Discussed the patient with Nursing staff reviewed the chart.~Reviewed interim history and current functioning. Reviewed vital signs,~Labs/ Radiology~and current medications noted below. Continue current treatment with the changes noted in the dictated addendum note Assessment: Vital Signs: Vital Signs Date Time Temp Pulse Resp B/P (MAP) Pulse Ox O2 Delivery O2 Flow Rate FiO2 10/02/16 06:04 97.4 66 16 113/68 (83) 99 10/01/16 20:30 Room Air I&O Intake and Output 10/02/16 06:59 Intake Total 720 ml Balance 720 ml Intake Oral 720 ml Current Medications: Meds: Current Medications Acetaminophen (Tylenol) 650 mg PRN Q6HRS PRN PO PAIN / TEMP; Start 09/12/16 at 20:00; Status UNV Multi-Ingredient Ointment (Analgesic [place]) 1 randee PRN QID PRN TP MUSCLE PAIN; Start 09/12/16 at 20:00; Status UNV Al Hydroxide/Mg Hydroxide (Mylanta Plus Xs) 15 ml PRN AFTMEALHC PRN PO DYSPEPSIA; Start 09/12/16 at 20:00; Status UNV Magnesium Hydroxide (Milk Of Magnesia) 2,400 mg PRN QHS PRN PO CONSTIPATION; Start 09/12/16 at 20:00; Status UNV Duloxetine HCl (Cymbalta) 30 mg DAILY PO Last administered on 10/02/16 08:08; Start 09/13/16 at 09:00 Mirtazapine (Remeron) 7.5 mg QHS PO Last administered on 10/01/16 19:26; Start 09/12/16 at 21:00 Olanzapine (ZyPREXA ZYDIS) 2.5 mg PRN Q2HR PRN PO PSYCHOSIS Last administered on 09/15/16 08:10; Start 09/12/16 at 20:15 Quetiapine Fumarate (SEROquel) 50 mg NOON PO Last administered on 10/01/16 13: 36; Start 09/13/16 at 12:00 Quetiapine Fumarate (SEROquel) 75 mg HS PO Last administered on 10/01/16 19:25 ; Start 09/12/16 at 21:00 Melatonin 3 mg QHS PO Last administered on 10/01/16 19:26; Start 09/12/16 at 21 :00 Acetaminophen (Tylenol) 650 mg PRN Q6HRS PRN PO PAIN / TEMP; Start 09/12/16 at 20:15 Acetaminophen/ Hydrocodone Bitart (Lortab 5/325) 1 tab BID PO Last administered on 10/02/16 08:14; Start 09/12/16 at 21:00 Levetiracetam (Keppra) 500 mg BID PO Last administered on 10/02/16 08:10; Start 09/12/16 at 21:00 Al Hydroxide/Mg Hydroxide (Mylanta Plus Xs) 15 ml PRN AFTMEALHC PRN PO DYSPEPSIA; Start 09/12/16 at 20:15 Magnesium Hydroxide (Milk Of Magnesia) 2,400 mg PRN QHS PRN PO CONSTIPATION; Start 09/12/16 at 20:15 Multi-Ingredient Ointment (Analgesic [place]) 1 randee PRN QID PRN TP MUSCLE PAIN; Start 09/12/16 at 20:15 Cyanocobalamin (Vitamin B-12) 250 mcg DAILY PO Last administered on 10/02/16 08:08; Start 09/13/16 at 09:00 Buspirone HCl (Buspar) 5 mg BID92 PO Last administered on 09/15/16 13:34; Start 09/13/16 at 09:00; Stop 09/15/16 at 18:27; Status DC Divalproex Sodium (Depakote Sprinkles) 250 mg DAILY PO Last administered on 10:01; Start 09/14/16 at 09:00; Stop 09/17/16 at 10:08; Status DC Lorazepam (Ativan) 0.25 mg PRN Q2HR PRN TP ANXIETY / AGITATION Last administered on 10/02/16 05:10; Start 09/13/16 at 19:15 Hydroxyzine HCl (Atarax) 25 mg PRN Q6HRS PRN PO ANXIETY / AGITATION; Start 09/14 at 14:45; Stop 09/14/16 at 14:45; Status DC Hydroxyzine HCl (Atarax) 25 mg PRN Q6HRS PRN PO ANXIETY/AGITATION Last administered on 09/15/16 14:14; Start 09/14/16 at 15:00 Prenat Multivit/ [employer]/Iron/Folic Ac (Multivitamin ) 1 tab DAILY PO Last administered on 10/02/16 08:08; Start 09/15/16 at 10:15 Buspirone HCl (Buspar) 10 mg BID92 PO Last administered on 09/28/16 13:49; Start 09/16/16 at 09:00; Stop 09/28/16 at 18:49; Status DC Lorazepam (Ativan) 1 mg 1X ONCE PO Last administered on 09/16/16 08:07; Start 09/16/16 at 08:15; Stop 09/16/16 at 08:16; Status DC Lorazepam (Ativan Intensol) 1 mg PRN Q4HRS PRN SL ANXIETY / AGITATION Last administered on 09/16/16 13:35; Start 09/16/16 at 13:30 Lorazepam (Ativan Intensol) 0.25 mg TID@0900,1300,1700 SL Last administered on 10/02/16 08:14; Start 09/17/16 at 09:00 Divalproex Sodium (Depakote Sprinkles) 250 mg BID PO Last administered on 07:46; Start 09/17/16 at 21:00; Stop 09/20/16 at 14:56; Status DC Duloxetine HCl (Cymbalta) 30 mg 1X ONCE PO Last administered on 09/18/16 08: 31; Start 09/18/16 at 08:00; Stop 09/18/16 at 08:01; Status DC Divalproex Sodium (Depakote Sprinkles) 250 mg DAILY PO Last administered on 08:15; Start 09/21/16 at 09:00; Stop 09/23/16 at 18:31; Status DC Divalproex Sodium (Depakote Sprinkles) 500 mg HS PO Last administered on 19:23; Start 09/20/16 at 21:00; Stop 09/23/16 at 18:31; Status DC Divalproex Sodium (Depakote Sprinkles) 500 mg BID PO Last administered on 08:08; Start 09/23/16 at 21:00 Buspirone HCl (Buspar) 15 mg BID92 PO Last administered on 10/02/16 08:08; Start 09/29/16 at 09:00 Active Scripts Active Reported Buspirone Hcl 5 Mg Tablet 1 Tab PO BID92 Zyprexa Zydis (Olanzapine) 5 Mg Tab.rapdis 2.5 Mg PO Q2HR PRN Mirtazapine 15 Mg Tablet 7.5 Mg PO QHS Analgesic [place] (Methyl Salicylate/Menthol) 28 Gm Oint...g. 1 Rand[place] TP PRN QID PRN Melatonin 3 Mg Tablet 3 Mg PO QHS Mag-Al Plus Xs Suspension (Mag Hydrox/Al Hydrox/Simeth) 30 Ml Oral.susp 15 Ml PO PRN AFTMEALHC PRN Keppra (Levetiracetam) 500 Mg Tablet 500 Mg PO BID Tylenol (Acetaminophen) 325 Mg Tablet 650 Mg PO PRN Q6HRS PRN Milk Of Magnesia (Magnesium Hydroxide) 400 Mg/5 Ml Oral.susp 2,400 Mg PO PRN QHS PRN Cymbalta (Duloxetine Hcl) 30 Mg Capsule.dr 30 Mg PO DAILY pt has received 3 of 5 scheduled doses Hydrocodone-Apap 5-325 (Hydrocodone Bit/Acetaminophen) 1 Each Tablet 1 Tab PO BID B-12 (Cyanocobalamin (Vitamin B-12)) 500 Mcg Tab.rapdis 250 Mcg PO DAILY Seroquel (Quetiapine Fumarate) 50 Mg Tablet 50 Mg PO NOON Seroquel (Quetiapine Fumarate) 50 Mg Tablet 75 Mg PO HS Diagnosis: Problems: (1) Frontotemporal dementia with behavioral disturbance (2) Dementia in Alzheimer's disease with depression (3) Dementia in Alzheimer's disease with delusions (4) Dementia, vascular, with delusions (5) Dementia, vascular, with depression (6) Impulse control disorder (7) Anxiety disorder ADELA RHODES MD Oct 02, 2016 10:15
[2016-10-02] MEDS: QUEtiapine 50 MG TABLET. PO SCH ×2 (12:11→19:33)
[2016-10-02 15:55] VITALS: BP 154/87
--- NOTE | 2016-10-02 18:58 | PN ---
DATE: 10/01/2016 PSYCHIATRIC PROGRESS NOTE This note covers elements not covered in my initial note of 10/01/2016. SUBJECTIVE: The patient was staffed at treatment team meeting with the entire team morning of 10/01/2016 and patient's mother Ansley and sister Rekha attended the conference sleeping about 7-1/2 hours. Appetite 75%. Reviewed history progress, prognosis, discharge aftercare plans. No CV, , pulmonary, eye, ENT system symptoms on review. The patient seems a little more settled able to sit long enough to eat her meals. MENTAL STATUS EXAM: Oriented to herself. Insight, judgment, recent and remote memory, attention, concentration, fund of knowledge poor, consistent with her diagnosis mentioned in my initial note. PLAN: Continue current psychotropics reviewed and drug interactions risk/benefit ratio favors no further change as of now. MAN Marquita RHODES MD DR: ELIZABETH/wellington JOB#: [id number] / [id number]
[2016-10-02] MEDS: MIRTAZAPINE 7.5 MG TABLET. PO SCH (19:32)
[2016-10-02] MEDS: MELATONIN 3 MG TABLET PO SCH (19:33)
--- NOTE | 2016-10-02 19:54 | PDOC ---
Exam Mario Alberto Demential Exam: Mario Alberto Note: Please also refer to the separate dictated note~for this date of service dictated separately.~Patient seen individually. Discussed the patient with Nursing staff reviewed the chart.~Reviewed interim history and current functioning. Reviewed vital signs,~Labs/ Radiology~and current medications noted below. Continue current treatment with the changes noted in the dictated addendum note Assessment: Vital Signs: Vital Signs Date Time Temp Pulse Resp B/P (MAP) Pulse Ox O2 Delivery O2 Flow Rate FiO2 10/02/16 19:33 20 10/02/16 15:55 97.1 75 154/87 (109) 97 10/01/16 20:30 Room Air I&O Intake and Output 10/02/16 06:59 Intake Total 720 ml Balance 720 ml Intake Oral 720 ml Current Medications: Meds: Current Medications Acetaminophen (Tylenol) 650 mg PRN Q6HRS PRN PO PAIN / TEMP; Start 09/12/16 at 20:00; Status UNV Multi-Ingredient Ointment (Analgesic [place]) 1 randee PRN QID PRN TP MUSCLE PAIN; Start 09/12/16 at 20:00; Status UNV Al Hydroxide/Mg Hydroxide (Mylanta Plus Xs) 15 ml PRN AFTMEALHC PRN PO DYSPEPSIA; Start 09/12/16 at 20:00; Status UNV Magnesium Hydroxide (Milk Of Magnesia) 2,400 mg PRN QHS PRN PO CONSTIPATION; Start 09/12/16 at 20:00; Status UNV Duloxetine HCl (Cymbalta) 30 mg DAILY PO Last administered on 10/02/16 08:08; Start 09/13/16 at 09:00 Mirtazapine (Remeron) 7.5 mg QHS PO Last administered on 10/02/16 19:32; Start 09/12/16 at 21:00 Olanzapine (ZyPREXA ZYDIS) 2.5 mg PRN Q2HR PRN PO PSYCHOSIS Last administered on 09/15/16 08:10; Start 09/12/16 at 20:15 Quetiapine Fumarate (SEROquel) 50 mg NOON PO Last administered on 10/02/16 12: 11; Start 09/13/16 at 12:00 Quetiapine Fumarate (SEROquel) 75 mg HS PO Last administered on 10/02/16 19:33 ; Start 09/12/16 at 21:00 Melatonin 3 mg QHS PO Last administered on 10/02/16 19:33; Start 09/12/16 at 21 :00 Acetaminophen (Tylenol) 650 mg PRN Q6HRS PRN PO PAIN / TEMP; Start 09/12/16 at 20:15 Acetaminophen/ Hydrocodone Bitart (Lortab 5/325) 1 tab BID PO Last administered on 10/02/16 19:33; Start 09/12/16 at 21:00 Levetiracetam (Keppra) 500 mg BID PO Last administered on 10/02/16 19:32; Start 09/12/16 at 21:00 Al Hydroxide/Mg Hydroxide (Mylanta Plus Xs) 15 ml PRN AFTMEALHC PRN PO DYSPEPSIA; Start 09/12/16 at 20:15 Magnesium Hydroxide (Milk Of Magnesia) 2,400 mg PRN QHS PRN PO CONSTIPATION; Start 09/12/16 at 20:15 Multi-Ingredient Ointment (Analgesic [place]) 1 randee PRN QID PRN TP MUSCLE PAIN; Start 09/12/16 at 20:15 Cyanocobalamin (Vitamin B-12) 250 mcg DAILY PO Last administered on 10/02/16 08:08; Start 09/13/16 at 09:00 Buspirone HCl (Buspar) 5 mg BID92 PO Last administered on 09/15/16 13:34; Start 09/13/16 at 09:00; Stop 09/15/16 at 18:27; Status DC Divalproex Sodium (Depakote Sprinkles) 250 mg DAILY PO Last administered on 10:01; Start 09/14/16 at 09:00; Stop 09/17/16 at 10:08; Status DC Lorazepam (Ativan) 0.25 mg PRN Q2HR PRN TP ANXIETY / AGITATION Last administered on 10/02/16 05:10; Start 09/13/16 at 19:15 Hydroxyzine HCl (Atarax) 25 mg PRN Q6HRS PRN PO ANXIETY / AGITATION; Start 09/14 at 14:45; Stop 09/14/16 at 14:45; Status DC Hydroxyzine HCl (Atarax) 25 mg PRN Q6HRS PRN PO ANXIETY/AGITATION Last administered on 09/15/16 14:14; Start 09/14/16 at 15:00 Prenat Multivit/ [place]/Iron/Folic Ac (Multivitamin ) 1 tab DAILY PO Last administered on 10/02/16 08:08; Start 09/15/16 at 10:15 Buspirone HCl (Buspar) 10 mg BID92 PO Last administered on 09/28/16 13:49; Start 09/16/16 at 09:00; Stop 09/28/16 at 18:49; Status DC Lorazepam (Ativan) 1 mg 1X ONCE PO Last administered on 09/16/16 08:07; Start 09/16/16 at 08:15; Stop 09/16/16 at 08:16; Status DC Lorazepam (Ativan Intensol) 1 mg PRN Q4HRS PRN SL ANXIETY / AGITATION Last administered on 09/16/16 13:35; Start 09/16/16 at 13:30 Lorazepam (Ativan Intensol) 0.25 mg TID@0900,1300,1700 SL Last administered on 10/02/16 17:00; Start 09/17/16 at 09:00 Divalproex Sodium (Depakote Sprinkles) 250 mg BID PO Last administered on 07:46; Start 09/17/16 at 21:00; Stop 09/20/16 at 14:56; Status DC Duloxetine HCl (Cymbalta) 30 mg 1X ONCE PO Last administered on 09/18/16 08: 31; Start 09/18/16 at 08:00; Stop 09/18/16 at 08:01; Status DC Divalproex Sodium (Depakote Sprinkles) 250 mg DAILY PO Last administered on 08:15; Start 09/21/16 at 09:00; Stop 09/23/16 at 18:31; Status DC Divalproex Sodium (Depakote Sprinkles) 500 mg HS PO Last administered on 19:23; Start 09/20/16 at 21:00; Stop 09/23/16 at 18:31; Status DC Divalproex Sodium (Depakote Sprinkles) 500 mg BID PO Last administered on 19:33; Start 09/23/16 at 21:00 Buspirone HCl (Buspar) 15 mg BID92 PO Last administered on 10/02/16 12:11; Start 09/29/16 at 09:00 Active Scripts Active Reported Buspirone Hcl 5 Mg Tablet 1 Tab PO BID92 Zyprexa Zydis (Olanzapine) 5 Mg Tab.rapdis 2.5 Mg PO Q2HR PRN Mirtazapine 15 Mg Tablet 7.5 Mg PO QHS Analgesic [place] (Methyl Salicylate/Menthol) 28 Gm Oint...g. 1 [place] TP PRN QID PRN Melatonin 3 Mg Tablet 3 Mg PO QHS Mag-Al Plus Xs Suspension (Mag Hydrox/Al Hydrox/Simeth) 30 Ml Oral.susp 15 Ml PO PRN AFTMEALHC PRN Keppra (Levetiracetam) 500 Mg Tablet 500 Mg PO BID Tylenol (Acetaminophen) 325 Mg Tablet 650 Mg PO PRN Q6HRS PRN Milk Of Magnesia (Magnesium Hydroxide) 400 Mg/5 Ml Oral.susp 2,400 Mg PO PRN QHS PRN Cymbalta (Duloxetine Hcl) 30 Mg Capsule.dr 30 Mg PO DAILY pt has received 3 of 5 scheduled doses Hydrocodone-Apap 5-325 (Hydrocodone Bit/Acetaminophen) 1 Each Tablet 1 Tab PO BID B-12 (Cyanocobalamin (Vitamin B-12)) 500 Mcg Tab.rapdis 250 Mcg PO DAILY Seroquel (Quetiapine Fumarate) 50 Mg Tablet 50 Mg PO NOON Seroquel (Quetiapine Fumarate) 50 Mg Tablet 75 Mg PO HS Diagnosis: Problems: (1) Anxiety disorder (2) Impulse control disorder (3) Dementia, vascular, with depression (4) Dementia, vascular, with delusions (5) Dementia in Alzheimer's disease with delusions (6) Dementia in Alzheimer's disease with depression (7) Frontotemporal dementia with behavioral disturbance ADELA RHODES MD Oct 02, 2016 19:54
--- NOTE | 2016-10-03 04:04 | PN ---
DATE: 10/02/2016 This note covers elements not covered in my initial note of 10/02/2016. SUBJECTIVE: I met with the patient individually in the morning of 10/02/2016. The patient remains confused, wanders the hallways, did well previous evening, early this morning she was screaming, received Ativan gel then did okay. REVIEW OF SYSTEMS: No CV, , pulmonary, eye, ENT system symptoms on review. Reliability poor. MENTAL STATUS EXAM: Oriented to herself. Insight, judgment, recent and remote memory, attention, concentration, fund of knowledge poor, consistent with her diagnosis mentioned in my initial note. PLAN: Continue current psychotropics. Reviewed drug interactions. Risk/benefit ratio favors no further change at this time. MAN Marquita RHODES MD DR: ELIZABETH/wellington JOB#: [id number] / [id number]
[2016-10-03] MEDS: PRENATAL MULTIVITAMIN TABLET. PO SCH (08:00)
[2016-10-03] MEDS: DIVALPROEX 125 MG CAP.SPRINK PO SCH ×2 (08:00→20:00)
[2016-10-03] MEDS: busPIRone 15 MG TABLET. PO SCH ×2 (08:00→13:59)
[2016-10-03] MEDS: CYANOCOBALAMIN (VITAMIN B-12) 250 MCG TABLET PO SCH (08:00)
[2016-10-03] MEDS: DULoxetine HCL 30 MG CAPSULE.DR PO SCH (08:01)
[2016-10-03] MEDS: HYDROcodone/APAP 5/325MG 1 TAB TABLET PO SCH ×2 (08:01→20:00)
[2016-10-03] MEDS: levETIRAcetam 500 MG TABLET PO SCH ×2 (08:01→20:00)
[2016-10-03] MEDS: LORazepam INTENSOL 2 MG/ML BOTTLE SL SCH ×3 (08:09→17:00)
[2016-10-03] MEDS: QUEtiapine 50 MG TABLET. PO SCH ×2 (14:00→20:00)
[2016-10-03 15:41] VITALS: BP 108/73
[2016-10-03] MEDS: MIRTAZAPINE 7.5 MG TABLET. PO SCH (20:00)
[2016-10-03] MEDS: MELATONIN 3 MG TABLET PO SCH (20:00)
[2016-10-04 06:38] VITALS: BP 132/75
[2016-10-04] MEDS: DULoxetine HCL 30 MG CAPSULE.DR PO SCH (07:32)
[2016-10-04] MEDS: DIVALPROEX 125 MG CAP.SPRINK PO SCH ×2 (07:32→19:56)
[2016-10-04] MEDS: CYANOCOBALAMIN (VITAMIN B-12) 250 MCG TABLET PO SCH (07:33)
[2016-10-04] MEDS: levETIRAcetam 500 MG TABLET PO SCH ×2 (07:33→19:55)
[2016-10-04] MEDS: busPIRone 15 MG TABLET. PO SCH ×2 (07:33→12:38)
[2016-10-04] MEDS: PRENATAL MULTIVITAMIN TABLET. PO SCH (07:33)
[2016-10-04] MEDS: HYDROcodone/APAP 5/325MG 1 TAB TABLET PO SCH ×2 (09:00→19:55)
[2016-10-04] MEDS: LORazepam INTENSOL 2 MG/ML BOTTLE SL SCH ×3 (09:00→17:00)
[2016-10-04] MEDS: QUEtiapine 50 MG TABLET. PO SCH ×2 (12:38→19:55)
[2016-10-04 16:44] VITALS: BP 114/79
--- NOTE | 2016-10-04 19:45 | PDOC ---
Exam Mario Alberto Demential Exam: Mario Alberto Note: Please also refer to the separate dictated note~for this date of service dictated separately.~Patient seen individually. Discussed the patient with Nursing staff reviewed the chart.~Reviewed interim history and current functioning. Reviewed vital signs,~Labs/ Radiology~and current medications noted below. Continue current treatment with the changes noted in the dictated addendum note Assessment: Vital Signs: Vital Signs Date Time Temp Pulse Resp B/P (MAP) Pulse Ox O2 Delivery O2 Flow Rate FiO2 10/04/16 16:44 97.9 67 20 114/79 (91) 95 10/03/16 21:00 Room Air I&O Intake and Output 10/04/16 06:59 Intake Total 720 ml Balance 720 ml Intake Oral 720 ml Current Medications: Meds: Current Medications Acetaminophen (Tylenol) 650 mg PRN Q6HRS PRN PO PAIN / TEMP; Start 09/12/16 at 20:00; Status UNV Multi-Ingredient Ointment (Analgesic [place]) 1 randee PRN QID PRN TP MUSCLE PAIN; Start 09/12/16 at 20:00; Status UNV Al Hydroxide/Mg Hydroxide (Mylanta Plus Xs) 15 ml PRN AFTMEALHC PRN PO DYSPEPSIA; Start 09/12/16 at 20:00; Status UNV Magnesium Hydroxide (Milk Of Magnesia) 2,400 mg PRN QHS PRN PO CONSTIPATION; Start 09/12/16 at 20:00; Status UNV Duloxetine HCl (Cymbalta) 30 mg DAILY PO Last administered on 10/04/16 07:32; Start 09/13/16 at 09:00 Mirtazapine (Remeron) 7.5 mg QHS PO Last administered on 10/03/16 20:00; Start 09/12/16 at 21:00 Olanzapine (ZyPREXA ZYDIS) 2.5 mg PRN Q2HR PRN PO PSYCHOSIS Last administered on 09/15/16 08:10; Start 09/12/16 at 20:15 Quetiapine Fumarate (SEROquel) 50 mg NOON PO Last administered on 10/04/16 12: 38; Start 09/13/16 at 12:00 Quetiapine Fumarate (SEROquel) 75 mg HS PO Last administered on 10/03/16 20:00 ; Start 09/12/16 at 21:00 Melatonin 3 mg QHS PO Last administered on 10/03/16 20:00; Start 09/12/16 at 21 :00 Acetaminophen (Tylenol) 650 mg PRN Q6HRS PRN PO PAIN / TEMP; Start 09/12/16 at 20:15 Acetaminophen/ Hydrocodone Bitart (Lortab 5/325) 1 tab BID PO Last administered on 10/04/16 09:00; Start 09/12/16 at 21:00 Levetiracetam (Keppra) 500 mg BID PO Last administered on 10/04/16 07:33; Start 09/12/16 at 21:00 Al Hydroxide/Mg Hydroxide (Mylanta Plus Xs) 15 ml PRN AFTMEALHC PRN PO DYSPEPSIA; Start 09/12/16 at 20:15 Magnesium Hydroxide (Milk Of Magnesia) 2,400 mg PRN QHS PRN PO CONSTIPATION; Start 09/12/16 at 20:15 Multi-Ingredient Ointment (Analgesic [place]) 1 randee PRN QID PRN TP MUSCLE PAIN; Start 09/12/16 at 20:15 Cyanocobalamin (Vitamin B-12) 250 mcg DAILY PO Last administered on 10/04/16 07:33; Start 09/13/16 at 09:00 Buspirone HCl (Buspar) 5 mg BID92 PO Last administered on 09/15/16 13:34; Start 09/13/16 at 09:00; Stop 09/15/16 at 18:27; Status DC Divalproex Sodium (Depakote Sprinkles) 250 mg DAILY PO Last administered on 10:01; Start 09/14/16 at 09:00; Stop 09/17/16 at 10:08; Status DC Lorazepam (Ativan) 0.25 mg PRN Q2HR PRN TP ANXIETY / AGITATION Last administered on 10/02/16 05:10; Start 09/13/16 at 19:15 Hydroxyzine HCl (Atarax) 25 mg PRN Q6HRS PRN PO ANXIETY / AGITATION; Start 09/14 at 14:45; Stop 09/14/16 at 14:45; Status DC Hydroxyzine HCl (Atarax) 25 mg PRN Q6HRS PRN PO ANXIETY/AGITATION Last administered on 09/15/16 14:14; Start 09/14/16 at 15:00 Prenat Multivit/ [employer]/Iron/Folic Ac (Multivitamin ) 1 tab DAILY PO Last administered on 10/04/16 07:33; Start 09/15/16 at 10:15 Buspirone HCl (Buspar) 10 mg BID92 PO Last administered on 09/28/16 13:49; Start 09/16/16 at 09:00; Stop 09/28/16 at 18:49; Status DC Lorazepam (Ativan) 1 mg 1X ONCE PO Last administered on 09/16/16 08:07; Start 09/16/16 at 08:15; Stop 09/16/16 at 08:16; Status DC Lorazepam (Ativan Intensol) 1 mg PRN Q4HRS PRN SL ANXIETY / AGITATION Last administered on 09/16/16 13:35; Start 09/16/16 at 13:30 Lorazepam (Ativan Intensol) 0.25 mg TID@0900,1300,1700 SL Last administered on 10/04/16 17:00; Start 09/17/16 at 09:00 Divalproex Sodium (Depakote Sprinkles) 250 mg BID PO Last administered on 07:46; Start 09/17/16 at 21:00; Stop 09/20/16 at 14:56; Status DC Duloxetine HCl (Cymbalta) 30 mg 1X ONCE PO Last administered on 09/18/16 08: 31; Start 09/18/16 at 08:00; Stop 09/18/16 at 08:01; Status DC Divalproex Sodium (Depakote Sprinkles) 250 mg DAILY PO Last administered on 08:15; Start 09/21/16 at 09:00; Stop 09/23/16 at 18:31; Status DC Divalproex Sodium (Depakote Sprinkles) 500 mg HS PO Last administered on 19:23; Start 09/20/16 at 21:00; Stop 09/23/16 at 18:31; Status DC Divalproex Sodium (Depakote Sprinkles) 500 mg BID PO Last administered on 07:32; Start 09/23/16 at 21:00 Buspirone HCl (Buspar) 15 mg BID92 PO Last administered on 10/04/16 12:38; Start 09/29/16 at 09:00 Active Scripts Active Reported Buspirone Hcl 5 Mg Tablet 1 Tab PO BID92 Zyprexa Zydis (Olanzapine) 5 Mg Tab.rapdis 2.5 Mg PO Q2HR PRN Mirtazapine 15 Mg Tablet 7.5 Mg PO QHS Analgesic [place] (Methyl Salicylate/Menthol) 28 Gm Oint...g. 1 [place] TP PRN QID PRN Melatonin 3 Mg Tablet 3 Mg PO QHS Mag-Al Plus Xs Suspension (Mag Hydrox/Al Hydrox/Simeth) 30 Ml Oral.susp 15 Ml PO PRN AFTMEALHC PRN Keppra (Levetiracetam) 500 Mg Tablet 500 Mg PO BID Tylenol (Acetaminophen) 325 Mg Tablet 650 Mg PO PRN Q6HRS PRN Milk Of Magnesia (Magnesium Hydroxide) 400 Mg/5 Ml Oral.susp 2,400 Mg PO PRN QHS PRN Cymbalta (Duloxetine Hcl) 30 Mg Capsule.dr 30 Mg PO DAILY pt has received 3 of 5 scheduled doses Hydrocodone-Apap 5-325 (Hydrocodone Bit/Acetaminophen) 1 Each Tablet 1 Tab PO BID B-12 (Cyanocobalamin (Vitamin B-12)) 500 Mcg Tab.rapdis 250 Mcg PO DAILY Seroquel (Quetiapine Fumarate) 50 Mg Tablet 50 Mg PO NOON Seroquel (Quetiapine Fumarate) 50 Mg Tablet 75 Mg PO HS Diagnosis: Problems: (1) Anxiety disorder (2) Impulse control disorder (3) Dementia, vascular, with depression (4) Dementia, vascular, with delusions (5) Dementia in Alzheimer's disease with delusions (6) Dementia in Alzheimer's disease with depression (7) Frontotemporal dementia with behavioral disturbance ADELA RHODES MD Oct 04, 2016 19:45
[2016-10-04] MEDS: MELATONIN 3 MG TABLET PO SCH (19:55)
[2016-10-04] MEDS: MIRTAZAPINE 7.5 MG TABLET. PO SCH (19:55)
[2016-10-05 06:02] VITALS: BP 115/76
[2016-10-05] MEDS: levETIRAcetam 500 MG TABLET PO SCH ×2 (08:20→19:45)
[2016-10-05] MEDS: DULoxetine HCL 30 MG CAPSULE.DR PO SCH (08:20)
[2016-10-05] MEDS: DIVALPROEX 125 MG CAP.SPRINK PO SCH ×2 (08:20→19:45)
[2016-10-05] MEDS: CYANOCOBALAMIN (VITAMIN B-12) 250 MCG TABLET PO SCH (08:20)
[2016-10-05] MEDS: busPIRone 15 MG TABLET. PO SCH ×2 (08:21→14:24)
[2016-10-05] MEDS: HYDROcodone/APAP 5/325MG 1 TAB TABLET PO SCH ×2 (08:21→19:45)
[2016-10-05] MEDS: PRENATAL MULTIVITAMIN TABLET. PO SCH (08:22)
[2016-10-05] MEDS: LORazepam INTENSOL 2 MG/ML BOTTLE SL SCH ×3 (08:35→16:49)
[2016-10-05] MEDS: QUEtiapine 50 MG TABLET. PO SCH ×2 (11:55→19:45)
[2016-10-05 15:49] VITALS: BP 112/57
[2016-10-05] MEDS: MIRTAZAPINE 7.5 MG TABLET. PO SCH (19:45)
[2016-10-05] MEDS: MELATONIN 3 MG TABLET PO SCH (19:45)
--- NOTE | 2016-10-05 19:52 | PDOC ---
Exam Mario Alberto Demential Exam: Mario Alberto Note: Please also refer to the separate dictated note~for this date of service dictated separately.~Patient seen individually. Discussed the patient with Nursing staff reviewed the chart.~Reviewed interim history and current functioning. Reviewed vital signs,~Labs/ Radiology~and current medications noted below. Continue current treatment with the changes noted in the dictated addendum note Assessment: Vital Signs: Vital Signs Date Time Temp Pulse Resp B/P (MAP) Pulse Ox O2 Delivery O2 Flow Rate FiO2 10/05/16 19:45 20 10/05/16 15:49 97.5 71 112/57 (75) 100 10/05/16 08:21 Room Air I&O Intake and Output 10/05/16 07:00 Intake Total 840 ml Balance 840 ml Intake Oral 840 ml # Voids 1 Current Medications: Meds: Current Medications Acetaminophen (Tylenol) 650 mg PRN Q6HRS PRN PO PAIN / TEMP; Start 09/12/16 at 20:00; Status UNV Multi-Ingredient Ointment (Analgesic [place]) 1 randee PRN QID PRN TP MUSCLE PAIN; Start 09/12/16 at 20:00; Status UNV Al Hydroxide/Mg Hydroxide (Mylanta Plus Xs) 15 ml PRN AFTMEALHC PRN PO DYSPEPSIA; Start 09/12/16 at 20:00; Status UNV Magnesium Hydroxide (Milk Of Magnesia) 2,400 mg PRN QHS PRN PO CONSTIPATION; Start 09/12/16 at 20:00; Status UNV Duloxetine HCl (Cymbalta) 30 mg DAILY PO Last administered on 10/05/16 08:20; Start 09/13/16 at 09:00 Mirtazapine (Remeron) 7.5 mg QHS PO Last administered on 10/05/16 19:45; Start 09/12/16 at 21:00 Olanzapine (ZyPREXA ZYDIS) 2.5 mg PRN Q2HR PRN PO PSYCHOSIS Last administered on 09/15/16 08:10; Start 09/12/16 at 20:15 Quetiapine Fumarate (SEROquel) 50 mg NOON PO Last administered on 10/05/16 11: 55; Start 09/13/16 at 12:00 Quetiapine Fumarate (SEROquel) 75 mg HS PO Last administered on 10/05/16 19:45 ; Start 09/12/16 at 21:00 Melatonin 3 mg QHS PO Last administered on 10/05/16 19:45; Start 09/12/16 at 21 :00 Acetaminophen (Tylenol) 650 mg PRN Q6HRS PRN PO PAIN / TEMP; Start 09/12/16 at 20:15 Acetaminophen/ Hydrocodone Bitart (Lortab 5/325) 1 tab BID PO Last administered on 10/05/16 19:45; Start 09/12/16 at 21:00 Levetiracetam (Keppra) 500 mg BID PO Last administered on 10/05/16 19:45; Start 09/12/16 at 21:00 Al Hydroxide/Mg Hydroxide (Mylanta Plus Xs) 15 ml PRN AFTMEALHC PRN PO DYSPEPSIA; Start 09/12/16 at 20:15 Magnesium Hydroxide (Milk Of Magnesia) 2,400 mg PRN QHS PRN PO CONSTIPATION; Start 09/12/16 at 20:15 Multi-Ingredient Ointment (Analgesic [place]) 1 randee PRN QID PRN TP MUSCLE PAIN; Start 09/12/16 at 20:15 Cyanocobalamin (Vitamin B-12) 250 mcg DAILY PO Last administered on 10/05/16 08:20; Start 09/13/16 at 09:00 Buspirone HCl (Buspar) 5 mg BID92 PO Last administered on 09/15/16 13:34; Start 09/13/16 at 09:00; Stop 09/15/16 at 18:27; Status DC Divalproex Sodium (Depakote Sprinkles) 250 mg DAILY PO Last administered on 10:01; Start 09/14/16 at 09:00; Stop 09/17/16 at 10:08; Status DC Lorazepam (Ativan) 0.25 mg PRN Q2HR PRN TP ANXIETY / AGITATION Last administered on 10/02/16 05:10; Start 09/13/16 at 19:15 Hydroxyzine HCl (Atarax) 25 mg PRN Q6HRS PRN PO ANXIETY / AGITATION; Start 09/14 at 14:45; Stop 09/14/16 at 14:45; Status DC Hydroxyzine HCl (Atarax) 25 mg PRN Q6HRS PRN PO ANXIETY/AGITATION Last administered on 09/15/16 14:14; Start 09/14/16 at 15:00 Prenat Multivit/ [employer]/Iron/Folic Ac (Multivitamin ) 1 tab DAILY PO Last administered on 10/05/16 08:22; Start 09/15/16 at 10:15 Buspirone HCl (Buspar) 10 mg BID92 PO Last administered on 09/28/16 13:49; Start 09/16/16 at 09:00; Stop 09/28/16 at 18:49; Status DC Lorazepam (Ativan) 1 mg 1X ONCE PO Last administered on 09/16/16 08:07; Start 09/16/16 at 08:15; Stop 09/16/16 at 08:16; Status DC Lorazepam (Ativan Intensol) 1 mg PRN Q4HRS PRN SL ANXIETY / AGITATION Last administered on 09/16/16 13:35; Start 09/16/16 at 13:30 Lorazepam (Ativan Intensol) 0.25 mg TID@0900,1300,1700 SL Last administered on 10/05/16 16:49; Start 09/17/16 at 09:00 Divalproex Sodium (Depakote Sprinkles) 250 mg BID PO Last administered on 07:46; Start 09/17/16 at 21:00; Stop 09/20/16 at 14:56; Status DC Duloxetine HCl (Cymbalta) 30 mg 1X ONCE PO Last administered on 09/18/16 08: 31; Start 09/18/16 at 08:00; Stop 09/18/16 at 08:01; Status DC Divalproex Sodium (Depakote Sprinkles) 250 mg DAILY PO Last administered on 08:15; Start 09/21/16 at 09:00; Stop 09/23/16 at 18:31; Status DC Divalproex Sodium (Depakote Sprinkles) 500 mg HS PO Last administered on 19:23; Start 09/20/16 at 21:00; Stop 09/23/16 at 18:31; Status DC Divalproex Sodium (Depakote Sprinkles) 500 mg BID PO Last administered on 19:45; Start 09/23/16 at 21:00 Buspirone HCl (Buspar) 15 mg BID92 PO Last administered on 10/05/16 14:24; Start 09/29/16 at 09:00 Active Scripts Active Reported Buspirone Hcl 5 Mg Tablet 1 Tab PO BID92 Zyprexa Zydis (Olanzapine) 5 Mg Tab.rapdis 2.5 Mg PO Q2HR PRN Mirtazapine 15 Mg Tablet 7.5 Mg PO QHS Analgesic [place] (Methyl Salicylate/Menthol) 28 Gm Oint...g. 1 Randee TP PRN QID PRN Melatonin 3 Mg Tablet 3 Mg PO QHS Mag-Al Plus Xs Suspension (Mag Hydrox/Al Hydrox/Simeth) 30 Ml Oral.susp 15 Ml PO PRN AFTMEALHC PRN Keppra (Levetiracetam) 500 Mg Tablet 500 Mg PO BID Tylenol (Acetaminophen) 325 Mg Tablet 650 Mg PO PRN Q6HRS PRN Milk Of Magnesia (Magnesium Hydroxide) 400 Mg/5 Ml Oral.susp 2,400 Mg PO PRN QHS PRN Cymbalta (Duloxetine Hcl) 30 Mg Capsule.dr 30 Mg PO DAILY pt has received 3 of 5 scheduled doses Hydrocodone-Apap 5-325 (Hydrocodone Bit/Acetaminophen) 1 Each Tablet 1 Tab PO BID B-12 (Cyanocobalamin (Vitamin B-12)) 500 Mcg Tab.rapdis 250 Mcg PO DAILY Seroquel (Quetiapine Fumarate) 50 Mg Tablet 50 Mg PO NOON Seroquel (Quetiapine Fumarate) 50 Mg Tablet 75 Mg PO HS Diagnosis: Problems: (1) Anxiety disorder (2) Impulse control disorder (3) Dementia, vascular, with depression (4) Dementia, vascular, with delusions (5) Dementia in Alzheimer's disease with delusions (6) Dementia in Alzheimer's disease with depression (7) Frontotemporal dementia with behavioral disturbance ADELA RHODES MD Oct 05, 2016 19:52
[2016-10-06] MEDS: PRENATAL MULTIVITAMIN TABLET. PO SCH (08:47)
[2016-10-06] MEDS: DIVALPROEX 125 MG CAP.SPRINK PO SCH ×2 (08:47→19:09)
[2016-10-06] MEDS: DULoxetine HCL 30 MG CAPSULE.DR PO SCH (08:47)
[2016-10-06] MEDS: levETIRAcetam 500 MG TABLET PO SCH ×2 (08:47→19:10)
[2016-10-06] MEDS: busPIRone 15 MG TABLET. PO SCH ×2 (08:47→13:58)
[2016-10-06] MEDS: CYANOCOBALAMIN (VITAMIN B-12) 250 MCG TABLET PO SCH (08:47)
[2016-10-06] MEDS: HYDROcodone/APAP 5/325MG 1 TAB TABLET PO SCH ×2 (08:50→19:09)
[2016-10-06] MEDS: LORazepam INTENSOL 2 MG/ML BOTTLE SL SCH ×3 (08:53→17:00)
--- NOTE | 2016-10-06 10:22 | PN ---
DATE: 10/04/2016 PSYCHIATRIC PROGRESS NOTE This is a late entry 10/04/2016, covers elements not covered in my initial note. SUBJECTIVE: I met with the patient evening of 10/04/2016. The patient has been talking to herself, anxious, restless, up and down, but otherwise dancing during music groups. Wandering at times, less agitated in the afternoon, screaming . REVIEW OF SYSTEMS: No CV, , pulmonary, eye, ENT system symptoms on review. Reliability poor. MENTAL STATUS EXAM: Oriented to herself. Insight, judgment, recent and remote memory, attention, concentration, fund of knowledge poor, consistent with her diagnoses as mentioned in my initial note. PLAN: Continue current psychotropics, review drug contractions, risk/benefit ratio favors no further change. Valproic acid level is therapeutic. MAN Marquita RHODES MD DR: ELIZABETH/wellington JOB#: [id number] / [id number]
[2016-10-06] MEDS: QUEtiapine 50 MG TABLET. PO SCH ×2 (12:00→19:11)
[2016-10-06 15:54] VITALS: BP 104/72
[2016-10-06] MEDS: MELATONIN 3 MG TABLET PO SCH (19:08)
[2016-10-06] MEDS: MIRTAZAPINE 7.5 MG TABLET. PO SCH (19:10)
--- NOTE | 2016-10-06 19:52 | PDOC ---
Exam Mario Alberto Demential Exam: Mario Alberto Note: Please also refer to the separate dictated note~for this date of service dictated separately.~Patient seen individually. Discussed the patient with Nursing staff reviewed the chart.~Reviewed interim history and current functioning. Reviewed vital signs,~Labs/ Radiology~and current medications noted below. Continue current treatment with the changes noted in the dictated addendum note Assessment: Vital Signs: Vital Signs Date Time Temp Pulse Resp B/P (MAP) Pulse Ox O2 Delivery O2 Flow Rate FiO2 10/06/16 19:09 18 99 10/06/16 15:54 97.4 73 104/72 (83) 10/05/16 20:45 Room Air I&O Intake and Output 10/07/16 07:00 Intake Total 480 ml Balance 480 ml Intake Oral 480 ml Current Medications: Meds: Current Medications Acetaminophen (Tylenol) 650 mg PRN Q6HRS PRN PO PAIN / TEMP; Start 09/12/16 at 20:00; Status UNV Multi-Ingredient Ointment (Analgesic [place]) 1 randee PRN QID PRN TP MUSCLE PAIN; Start 09/12/16 at 20:00; Status UNV Al Hydroxide/Mg Hydroxide (Mylanta Plus Xs) 15 ml PRN AFTMEALHC PRN PO DYSPEPSIA; Start 09/12/16 at 20:00; Status UNV Magnesium Hydroxide (Milk Of Magnesia) 2,400 mg PRN QHS PRN PO CONSTIPATION; Start 09/12/16 at 20:00; Status UNV Duloxetine HCl (Cymbalta) 30 mg DAILY PO Last administered on 10/06/16 08:47; Start 09/13/16 at 09:00 Mirtazapine (Remeron) 7.5 mg QHS PO Last administered on 10/06/16 19:10; Start 09/12/16 at 21:00 Olanzapine (ZyPREXA ZYDIS) 2.5 mg PRN Q2HR PRN PO PSYCHOSIS Last administered on 09/15/16 08:10; Start 09/12/16 at 20:15 Quetiapine Fumarate (SEROquel) 50 mg NOON PO Last administered on 10/06/16 12: 00; Start 09/13/16 at 12:00 Quetiapine Fumarate (SEROquel) 75 mg HS PO Last administered on 10/06/16 19:11 ; Start 09/12/16 at 21:00 Melatonin 3 mg QHS PO Last administered on 10/06/16 19:08; Start 09/12/16 at 21 :00 Acetaminophen (Tylenol) 650 mg PRN Q6HRS PRN PO PAIN / TEMP; Start 09/12/16 at 20:15 Acetaminophen/ Hydrocodone Bitart (Lortab 5/325) 1 tab BID PO Last administered on 10/06/16 19:09; Start 09/12/16 at 21:00 Levetiracetam (Keppra) 500 mg BID PO Last administered on 10/06/16 19:10; Start 09/12/16 at 21:00 Al Hydroxide/Mg Hydroxide (Mylanta Plus Xs) 15 ml PRN AFTMEALHC PRN PO DYSPEPSIA; Start 09/12/16 at 20:15 Magnesium Hydroxide (Milk Of Magnesia) 2,400 mg PRN QHS PRN PO CONSTIPATION; Start 09/12/16 at 20:15 Multi-Ingredient Ointment (Analgesic [place]) 1 randee PRN QID PRN TP MUSCLE PAIN; Start 09/12/16 at 20:15 Cyanocobalamin (Vitamin B-12) 250 mcg DAILY PO Last administered on 10/06/16 08:47; Start 09/13/16 at 09:00 Buspirone HCl (Buspar) 5 mg BID92 PO Last administered on 09/15/16 13:34; Start 09/13/16 at 09:00; Stop 09/15/16 at 18:27; Status DC Divalproex Sodium (Depakote Sprinkles) 250 mg DAILY PO Last administered on 10:01; Start 09/14/16 at 09:00; Stop 09/17/16 at 10:08; Status DC Lorazepam (Ativan) 0.25 mg PRN Q2HR PRN TP ANXIETY / AGITATION Last administered on 10/02/16 05:10; Start 09/13/16 at 19:15 Hydroxyzine HCl (Atarax) 25 mg PRN Q6HRS PRN PO ANXIETY / AGITATION; Start 09/14 at 14:45; Stop 09/14/16 at 14:45; Status DC Hydroxyzine HCl (Atarax) 25 mg PRN Q6HRS PRN PO ANXIETY/AGITATION Last administered on 09/15/16 14:14; Start 09/14/16 at 15:00 Prenat Multivit/ Rn Labor Delivery/Iron/Folic Ac (Multivitamin ) 1 tab DAILY PO Last administered on 10/06/16 08:47; Start 09/15/16 at 10:15 Buspirone HCl (Buspar) 10 mg BID92 PO Last administered on 09/28/16 13:49; Start 09/16/16 at 09:00; Stop 09/28/16 at 18:49; Status DC Lorazepam (Ativan) 1 mg 1X ONCE PO Last administered on 09/16/16 08:07; Start 09/16/16 at 08:15; Stop 09/16/16 at 08:16; Status DC Lorazepam (Ativan Intensol) 1 mg PRN Q4HRS PRN SL ANXIETY / AGITATION Last administered on 09/16/16 13:35; Start 09/16/16 at 13:30 Lorazepam (Ativan Intensol) 0.25 mg TID@0900,1300,1700 SL Last administered on 10/06/16 17:00; Start 09/17/16 at 09:00 Divalproex Sodium (Depakote Sprinkles) 250 mg BID PO Last administered on 07:46; Start 09/17/16 at 21:00; Stop 09/20/16 at 14:56; Status DC Duloxetine HCl (Cymbalta) 30 mg 1X ONCE PO Last administered on 09/18/16 08: 31; Start 09/18/16 at 08:00; Stop 09/18/16 at 08:01; Status DC Divalproex Sodium (Depakote Sprinkles) 250 mg DAILY PO Last administered on 08:15; Start 09/21/16 at 09:00; Stop 09/23/16 at 18:31; Status DC Divalproex Sodium (Depakote Sprinkles) 500 mg HS PO Last administered on 19:23; Start 09/20/16 at 21:00; Stop 09/23/16 at 18:31; Status DC Divalproex Sodium (Depakote Sprinkles) 500 mg BID PO Last administered on 19:09; Start 09/23/16 at 21:00 Buspirone HCl (Buspar) 15 mg BID92 PO Last administered on 10/06/16 13:58; Start 09/29/16 at 09:00 Active Scripts Active Reported Buspirone Hcl 5 Mg Tablet 1 Tab PO BID92 Zyprexa Zydis (Olanzapine) 5 Mg Tab.rapdis 2.5 Mg PO Q2HR PRN Mirtazapine 15 Mg Tablet 7.5 Mg PO QHS Analgesic [place] (Methyl Salicylate/Menthol) 28 Gm Oint...g. 1 Rand[place] TP PRN QID PRN Melatonin 3 Mg Tablet 3 Mg PO QHS Mag-Al Plus Xs Suspension (Mag Hydrox/Al Hydrox/Simeth) 30 Ml Oral.susp 15 Ml PO PRN AFTMEALHC PRN Keppra (Levetiracetam) 500 Mg Tablet 500 Mg PO BID Tylenol (Acetaminophen) 325 Mg Tablet 650 Mg PO PRN Q6HRS PRN Milk Of Magnesia (Magnesium Hydroxide) 400 Mg/5 Ml Oral.susp 2,400 Mg PO PRN QHS PRN Cymbalta (Duloxetine Hcl) 30 Mg Capsule.dr 30 Mg PO DAILY pt has received 3 of 5 scheduled doses Hydrocodone-Apap 5-325 (Hydrocodone Bit/Acetaminophen) 1 Each Tablet 1 Tab PO BID B-12 (Cyanocobalamin (Vitamin B-12)) 500 Mcg Tab.rapdis 250 Mcg PO DAILY Seroquel (Quetiapine Fumarate) 50 Mg Tablet 50 Mg PO NOON Seroquel (Quetiapine Fumarate) 50 Mg Tablet 75 Mg PO HS Diagnosis: Problems: (1) Anxiety disorder (2) Impulse control disorder (3) Dementia, vascular, with depression (4) Dementia, vascular, with delusions (5) Dementia in Alzheimer's disease with delusions (6) Dementia in Alzheimer's disease with depression (7) Frontotemporal dementia with behavioral disturbance ADELA RHODES MD Oct 06, 2016 19:52
--- NOTE | 2016-10-07 01:48 | PN ---
DATE: 10/05/2016 This late entry 10/05/2016 covers elements not covered in my initial note. I met with the patient in the evening of 10/05/2016. She is confused, wanders the hallways, compliant with medications, slept in a different patient's room, the previous evening. REVIEW OF SYSTEMS: No CV, , eye, ENT, pulmonary system symptoms on review. Reliability poor. MENTAL STATUS EXAM: Oriented to herself. Insight, judgment, recent and remote memory, attention, concentration, fund of knowledge poor, consistent with her diagnosis mentioned in my initial note. PLAN: Continue current psychotropics. Valproic acid level therapeutic at 72. Reviewed drug interactions, risk/benefit ratio favors no further change as of now. MAN Marquita RHODES MD DR: ELIZABETH/wellington JOB#: [id number] / [id number]
[2016-10-07 06:05] VITALS: BP 137/79
[2016-10-07] MEDS: DULoxetine HCL 30 MG CAPSULE.DR PO SCH (08:46)
[2016-10-07] MEDS: DIVALPROEX 125 MG CAP.SPRINK PO SCH ×2 (08:46→19:17)
[2016-10-07] MEDS: levETIRAcetam 500 MG TABLET PO SCH ×2 (08:46→19:17)
[2016-10-07] MEDS: PRENATAL MULTIVITAMIN TABLET. PO SCH (08:46)
[2016-10-07] MEDS: HYDROcodone/APAP 5/325MG 1 TAB TABLET PO SCH ×2 (08:47→19:20)
[2016-10-07] MEDS: busPIRone 15 MG TABLET. PO SCH ×2 (08:47→13:49)
[2016-10-07] MEDS: CYANOCOBALAMIN (VITAMIN B-12) 250 MCG TABLET PO SCH (08:47)
[2016-10-07] MEDS: LORazepam INTENSOL 2 MG/ML BOTTLE SL SCH ×3 (08:53→17:38)
[2016-10-07] MEDS: QUEtiapine 50 MG TABLET. PO SCH ×2 (11:59→19:17)
[2016-10-07 16:16] VITALS: BP 105/73
[2016-10-07] MEDS: MELATONIN 3 MG TABLET PO SCH (19:17)
[2016-10-07] MEDS: MIRTAZAPINE 7.5 MG TABLET. PO SCH (19:18)
--- NOTE | 2016-10-07 20:00 | PDOC ---
Exam Mario Alberto Demential Exam: Mario Alberto Note: Please also refer to the separate dictated note~for this date of service dictated separately.~Patient seen individually. Discussed the patient with Nursing staff reviewed the chart.~Reviewed interim history and current functioning. Reviewed vital signs,~Labs/ Radiology~and current medications noted below. Continue current treatment with the changes noted in the dictated addendum note Assessment: Vital Signs: Vital Signs Date Time Temp Pulse Resp B/P (MAP) Pulse Ox O2 Delivery O2 Flow Rate FiO2 10/07/16 19:20 20 10/07/16 16:16 97.3 92 105/73 (84) 100 10/07/16 10:34 Room Air I&O Intake and Output 10/08/16 07:00 Intake Total 600 ml Balance 600 ml Intake Oral 600 ml Current Medications: Meds: Current Medications Acetaminophen (Tylenol) 650 mg PRN Q6HRS PRN PO PAIN / TEMP; Start 09/12/16 at 20:00; Status UNV Multi-Ingredient Ointment (Analgesic [place]) 1 randee PRN QID PRN TP MUSCLE PAIN; Start 09/12/16 at 20:00; Status UNV Al Hydroxide/Mg Hydroxide (Mylanta Plus Xs) 15 ml PRN AFTMEALHC PRN PO DYSPEPSIA; Start 09/12/16 at 20:00; Status UNV Magnesium Hydroxide (Milk Of Magnesia) 2,400 mg PRN QHS PRN PO CONSTIPATION; Start 09/12/16 at 20:00; Status UNV Duloxetine HCl (Cymbalta) 30 mg DAILY PO Last administered on 10/07/16 08:46; Start 09/13/16 at 09:00 Mirtazapine (Remeron) 7.5 mg QHS PO Last administered on 10/07/16 19:18; Start 09/12/16 at 21:00 Olanzapine (ZyPREXA ZYDIS) 2.5 mg PRN Q2HR PRN PO PSYCHOSIS Last administered on 09/15/16 08:10; Start 09/12/16 at 20:15 Quetiapine Fumarate (SEROquel) 50 mg NOON PO Last administered on 10/07/16 11: 59; Start 09/13/16 at 12:00 Quetiapine Fumarate (SEROquel) 75 mg HS PO Last administered on 10/07/16 19:17 ; Start 09/12/16 at 21:00 Melatonin 3 mg QHS PO Last administered on 10/07/16 19:17; Start 09/12/16 at 21 :00 Acetaminophen (Tylenol) 650 mg PRN Q6HRS PRN PO PAIN / TEMP; Start 09/12/16 at 20:15 Acetaminophen/ Hydrocodone Bitart (Lortab 5/325) 1 tab BID PO Last administered on 10/07/16 19:20; Start 09/12/16 at 21:00 Levetiracetam (Keppra) 500 mg BID PO Last administered on 10/07/16 19:17; Start 09/12/16 at 21:00 Al Hydroxide/Mg Hydroxide (Mylanta Plus Xs) 15 ml PRN AFTMEALHC PRN PO DYSPEPSIA; Start 09/12/16 at 20:15 Magnesium Hydroxide (Milk Of Magnesia) 2,400 mg PRN QHS PRN PO CONSTIPATION; Start 09/12/16 at 20:15 Multi-Ingredient Ointment (Analgesic [place]) 1 randee PRN QID PRN TP MUSCLE PAIN; Start 09/12/16 at 20:15 Cyanocobalamin (Vitamin B-12) 250 mcg DAILY PO Last administered on 10/07/16 08:47; Start 09/13/16 at 09:00 Buspirone HCl (Buspar) 5 mg BID92 PO Last administered on 09/15/16 13:34; Start 09/13/16 at 09:00; Stop 09/15/16 at 18:27; Status DC Divalproex Sodium (Depakote Sprinkles) 250 mg DAILY PO Last administered on 10:01; Start 09/14/16 at 09:00; Stop 09/17/16 at 10:08; Status DC Lorazepam (Ativan) 0.25 mg PRN Q2HR PRN TP ANXIETY / AGITATION Last administered on 10/02/16 05:10; Start 09/13/16 at 19:15 Hydroxyzine HCl (Atarax) 25 mg PRN Q6HRS PRN PO ANXIETY / AGITATION; Start 09/14 at 14:45; Stop 09/14/16 at 14:45; Status DC Hydroxyzine HCl (Atarax) 25 mg PRN Q6HRS PRN PO ANXIETY/AGITATION Last administered on 09/15/16 14:14; Start 09/14/16 at 15:00 Prenat Multivit/ [place]/Iron/Folic Ac (Multivitamin ) 1 tab DAILY PO Last administered on 10/07/16 08:46; Start 09/15/16 at 10:15 Buspirone HCl (Buspar) 10 mg BID92 PO Last administered on 09/28/16 13:49; Start 09/16/16 at 09:00; Stop 09/28/16 at 18:49; Status DC Lorazepam (Ativan) 1 mg 1X ONCE PO Last administered on 09/16/16 08:07; Start 09/16/16 at 08:15; Stop 09/16/16 at 08:16; Status DC Lorazepam (Ativan Intensol) 1 mg PRN Q4HRS PRN SL ANXIETY / AGITATION Last administered on 09/16/16 13:35; Start 09/16/16 at 13:30 Lorazepam (Ativan Intensol) 0.25 mg TID@0900,1300,1700 SL Last administered on 10/07/16 17:38; Start 09/17/16 at 09:00 Divalproex Sodium (Depakote Sprinkles) 250 mg BID PO Last administered on 07:46; Start 09/17/16 at 21:00; Stop 09/20/16 at 14:56; Status DC Duloxetine HCl (Cymbalta) 30 mg 1X ONCE PO Last administered on 09/18/16 08: 31; Start 09/18/16 at 08:00; Stop 09/18/16 at 08:01; Status DC Divalproex Sodium (Depakote Sprinkles) 250 mg DAILY PO Last administered on 08:15; Start 09/21/16 at 09:00; Stop 09/23/16 at 18:31; Status DC Divalproex Sodium (Depakote Sprinkles) 500 mg HS PO Last administered on 19:23; Start 09/20/16 at 21:00; Stop 09/23/16 at 18:31; Status DC Divalproex Sodium (Depakote Sprinkles) 500 mg BID PO Last administered on 19:17; Start 09/23/16 at 21:00 Buspirone HCl (Buspar) 15 mg BID92 PO Last administered on 10/07/16 13:49; Start 09/29/16 at 09:00 Active Scripts Active Reported Buspirone Hcl 5 Mg Tablet 1 Tab PO BID92 Zyprexa Zydis (Olanzapine) 5 Mg Tab.rapdis 2.5 Mg PO Q2HR PRN Mirtazapine 15 Mg Tablet 7.5 Mg PO QHS Analgesic [place] (Methyl Salicylate/Menthol) 28 Gm Oint...g. 1 [place] TP PRN QID PRN Melatonin 3 Mg Tablet 3 Mg PO QHS Mag-Al Plus Xs Suspension (Mag Hydrox/Al Hydrox/Simeth) 30 Ml Oral.susp 15 Ml PO PRN AFTMEALHC PRN Keppra (Levetiracetam) 500 Mg Tablet 500 Mg PO BID Tylenol (Acetaminophen) 325 Mg Tablet 650 Mg PO PRN Q6HRS PRN Milk Of Magnesia (Magnesium Hydroxide) 400 Mg/5 Ml Oral.susp 2,400 Mg PO PRN QHS PRN Cymbalta (Duloxetine Hcl) 30 Mg Capsule.dr 30 Mg PO DAILY pt has received 3 of 5 scheduled doses Hydrocodone-Apap 5-325 (Hydrocodone Bit/Acetaminophen) 1 Each Tablet 1 Tab PO BID B-12 (Cyanocobalamin (Vitamin B-12)) 500 Mcg Tab.rapdis 250 Mcg PO DAILY Seroquel (Quetiapine Fumarate) 50 Mg Tablet 50 Mg PO NOON Seroquel (Quetiapine Fumarate) 50 Mg Tablet 75 Mg PO HS Diagnosis: Problems: (1) Anxiety disorder (2) Impulse control disorder (3) Dementia, vascular, with depression (4) Dementia, vascular, with delusions (5) Dementia in Alzheimer's disease with delusions (6) Dementia in Alzheimer's disease with depression (7) Frontotemporal dementia with behavioral disturbance ADELA RHODES MD Oct 07, 2016 20:00
--- NOTE | 2016-10-08 01:32 | PN ---
DATE: 10/06/2016 PSYCHIATRIC PROGRESS NOTE This late entry 10/06/2016 covered elements, not covered in my initial note of 10/06/2016. SUBJECTIVE: I met with the patient in the evening of 10/06/2016. The patient slept 6-3/4 hours previous evening, did well the previous night, confused, but less agitated, was dancing earlier in the day 10/06/2016 with music group and wandering, takes meds in pudding, went to the activities in the dining room, singing at times. REVIEW OF SYSTEMS: No CV, , pulmonary, eye, ENT system symptoms on review. Reliability poor. MENTAL STATUS EXAM: Oriented to herself. Insight, judgment, recent and remote memory, attention, concentration, fund of knowledge poor, consistent with her diagnosis. LABORATORY DATA: Reviewed. IMPRESSION: Unchanged from initial note. PLAN: Continue current psychotropics, reviewed drug contractions, risk/benefit ratio favors no further change at this time. Adjust further depending on her progress. ADELA RHODES MD DR: ELIZABETH/wellington JOB#: [id number] / [id number]
[2016-10-08 06:12] VITALS: BP 110/76
[2016-10-08] MEDS: PRENATAL MULTIVITAMIN TABLET. PO SCH (08:27)
[2016-10-08] MEDS: busPIRone 15 MG TABLET. PO SCH ×2 (08:28→13:54)
[2016-10-08] MEDS: DIVALPROEX 125 MG CAP.SPRINK PO SCH ×2 (08:28→19:46)
[2016-10-08] MEDS: CYANOCOBALAMIN (VITAMIN B-12) 250 MCG TABLET PO SCH (08:28)
[2016-10-08] MEDS: levETIRAcetam 500 MG TABLET PO SCH ×2 (08:28→19:46)
[2016-10-08] MEDS: DULoxetine HCL 30 MG CAPSULE.DR PO SCH (08:28)
[2016-10-08] MEDS: HYDROcodone/APAP 5/325MG 1 TAB TABLET PO SCH ×2 (08:29→19:48)
[2016-10-08] MEDS: LORazepam INTENSOL 2 MG/ML BOTTLE SL SCH ×3 (08:30→16:25)
[2016-10-08] MEDS: QUEtiapine 50 MG TABLET. PO SCH ×2 (12:17→19:46)
[2016-10-08 16:16] VITALS: BP 95/59
[2016-10-08] MEDS: MELATONIN 3 MG TABLET PO SCH (19:46)
[2016-10-08] MEDS: MIRTAZAPINE 7.5 MG TABLET. PO SCH (19:47)
--- NOTE | 2016-10-08 19:58 | PDOC ---
Exam Mario Alberto Demential Exam: Mario Alberto Note: Please also refer to the separate dictated note~for this date of service dictated separately.~Patient seen individually. Discussed the patient with Nursing staff reviewed the chart.~Reviewed interim history and current functioning. Reviewed vital signs,~Labs/ Radiology~and current medications noted below. Continue current treatment with the changes noted in the dictated addendum note Assessment: Vital Signs: Vital Signs Date Time Temp Pulse Resp B/P (MAP) Pulse Ox O2 Delivery O2 Flow Rate FiO2 10/08/16 19:48 20 Room Air 10/08/16 16:16 97.7 90 95/59 (71) 98 I&O Intake and Output 10/09/16 06:59 Intake Total 960 ml Balance 960 ml Intake Oral 960 ml Current Medications: Meds: Current Medications Acetaminophen (Tylenol) 650 mg PRN Q6HRS PRN PO PAIN / TEMP; Start 09/12/16 at 20:00; Status UNV Multi-Ingredient Ointment (Analgesic [place]) 1 randee PRN QID PRN TP MUSCLE PAIN; Start 09/12/16 at 20:00; Status UNV Al Hydroxide/Mg Hydroxide (Mylanta Plus Xs) 15 ml PRN AFTMEALHC PRN PO DYSPEPSIA; Start 09/12/16 at 20:00; Status UNV Magnesium Hydroxide (Milk Of Magnesia) 2,400 mg PRN QHS PRN PO CONSTIPATION; Start 09/12/16 at 20:00; Status UNV Duloxetine HCl (Cymbalta) 30 mg DAILY PO Last administered on 10/08/16 08:28; Start 09/13/16 at 09:00 Mirtazapine (Remeron) 7.5 mg QHS PO Last administered on 10/08/16 19:47; Start 09/12/16 at 21:00 Olanzapine (ZyPREXA ZYDIS) 2.5 mg PRN Q2HR PRN PO PSYCHOSIS Last administered on 09/15/16 08:10; Start 09/12/16 at 20:15 Quetiapine Fumarate (SEROquel) 50 mg NOON PO Last administered on 10/08/16 12: 17; Start 09/13/16 at 12:00 Quetiapine Fumarate (SEROquel) 75 mg HS PO Last administered on 10/08/16 19:46 ; Start 09/12/16 at 21:00 Melatonin 3 mg QHS PO Last administered on 10/08/16 19:46; Start 09/12/16 at 21 :00 Acetaminophen (Tylenol) 650 mg PRN Q6HRS PRN PO PAIN / TEMP; Start 09/12/16 at 20:15 Acetaminophen/ Hydrocodone Bitart (Lortab 5/325) 1 tab BID PO Last administered on 10/08/16 19:48; Start 09/12/16 at 21:00 Levetiracetam (Keppra) 500 mg BID PO Last administered on 10/08/16 19:46; Start 09/12/16 at 21:00 Al Hydroxide/Mg Hydroxide (Mylanta Plus Xs) 15 ml PRN AFTMEALHC PRN PO DYSPEPSIA; Start 09/12/16 at 20:15 Magnesium Hydroxide (Milk Of Magnesia) 2,400 mg PRN QHS PRN PO CONSTIPATION; Start 09/12/16 at 20:15 Multi-Ingredient Ointment (Analgesic [place]) 1 randee PRN QID PRN TP MUSCLE PAIN; Start 09/12/16 at 20:15 Cyanocobalamin (Vitamin B-12) 250 mcg DAILY PO Last administered on 10/08/16 08:28; Start 09/13/16 at 09:00 Buspirone HCl (Buspar) 5 mg BID92 PO Last administered on 09/15/16 13:34; Start 09/13/16 at 09:00; Stop 09/15/16 at 18:27; Status DC Divalproex Sodium (Depakote Sprinkles) 250 mg DAILY PO Last administered on 10:01; Start 09/14/16 at 09:00; Stop 09/17/16 at 10:08; Status DC Lorazepam (Ativan) 0.25 mg PRN Q2HR PRN TP ANXIETY / AGITATION Last administered on 10/02/16 05:10; Start 09/13/16 at 19:15 Hydroxyzine HCl (Atarax) 25 mg PRN Q6HRS PRN PO ANXIETY / AGITATION; Start 09/14 at 14:45; Stop 09/14/16 at 14:45; Status DC Hydroxyzine HCl (Atarax) 25 mg PRN Q6HRS PRN PO ANXIETY/AGITATION Last administered on 09/15/16 14:14; Start 09/14/16 at 15:00 Prenat Multivit/ [place]/Iron/Folic Ac (Multivitamin ) 1 tab DAILY PO Last administered on 10/08/16 08:27; Start 09/15/16 at 10:15 Buspirone HCl (Buspar) 10 mg BID92 PO Last administered on 09/28/16 13:49; Start 09/16/16 at 09:00; Stop 09/28/16 at 18:49; Status DC Lorazepam (Ativan) 1 mg 1X ONCE PO Last administered on 09/16/16 08:07; Start 09/16/16 at 08:15; Stop 09/16/16 at 08:16; Status DC Lorazepam (Ativan Intensol) 1 mg PRN Q4HRS PRN SL ANXIETY / AGITATION Last administered on 09/16/16 13:35; Start 09/16/16 at 13:30 Lorazepam (Ativan Intensol) 0.25 mg TID@0900,1300,1700 SL Last administered on 10/08/16 16:25; Start 09/17/16 at 09:00 Divalproex Sodium (Depakote Sprinkles) 250 mg BID PO Last administered on 07:46; Start 09/17/16 at 21:00; Stop 09/20/16 at 14:56; Status DC Duloxetine HCl (Cymbalta) 30 mg 1X ONCE PO Last administered on 09/18/16 08: 31; Start 09/18/16 at 08:00; Stop 09/18/16 at 08:01; Status DC Divalproex Sodium (Depakote Sprinkles) 250 mg DAILY PO Last administered on 08:15; Start 09/21/16 at 09:00; Stop 09/23/16 at 18:31; Status DC Divalproex Sodium (Depakote Sprinkles) 500 mg HS PO Last administered on 19:23; Start 09/20/16 at 21:00; Stop 09/23/16 at 18:31; Status DC Divalproex Sodium (Depakote Sprinkles) 500 mg BID PO Last administered on 19:46; Start 09/23/16 at 21:00 Buspirone HCl (Buspar) 15 mg BID92 PO Last administered on 10/08/16 13:54; Start 09/29/16 at 09:00 Active Scripts Active Reported Buspirone Hcl 5 Mg Tablet 1 Tab PO BID92 Zyprexa Zydis (Olanzapine) 5 Mg Tab.rapdis 2.5 Mg PO Q2HR PRN Mirtazapine 15 Mg Tablet 7.5 Mg PO QHS Analgesic [place] (Methyl Salicylate/Menthol) 28 Gm Oint...g. 1 [place] TP PRN QID PRN Melatonin 3 Mg Tablet 3 Mg PO QHS Mag-Al Plus Xs Suspension (Mag Hydrox/Al Hydrox/Simeth) 30 Ml Oral.susp 15 Ml PO PRN AFTMEALHC PRN Keppra (Levetiracetam) 500 Mg Tablet 500 Mg PO BID Tylenol (Acetaminophen) 325 Mg Tablet 650 Mg PO PRN Q6HRS PRN Milk Of Magnesia (Magnesium Hydroxide) 400 Mg/5 Ml Oral.susp 2,400 Mg PO PRN QHS PRN Cymbalta (Duloxetine Hcl) 30 Mg Capsule.dr 30 Mg PO DAILY pt has received 3 of 5 scheduled doses Hydrocodone-Apap 5-325 (Hydrocodone Bit/Acetaminophen) 1 Each Tablet 1 Tab PO BID B-12 (Cyanocobalamin (Vitamin B-12)) 500 Mcg Tab.rapdis 250 Mcg PO DAILY Seroquel (Quetiapine Fumarate) 50 Mg Tablet 50 Mg PO NOON Seroquel (Quetiapine Fumarate) 50 Mg Tablet 75 Mg PO HS Diagnosis: Problems: (1) Anxiety disorder (2) Impulse control disorder (3) Dementia, vascular, with depression (4) Dementia, vascular, with delusions (5) Dementia in Alzheimer's disease with delusions (6) Dementia in Alzheimer's disease with depression (7) Frontotemporal dementia with behavioral disturbance ADELA RHODES MD Oct 08, 2016 19:58
--- NOTE | 2016-10-09 01:36 | PN ---
DATE: 10/07/2016 This late entry 10/07/2016 covers elements not covered in my initial note. SUBJECTIVE: I met with the patient evening of 10/07/2016. The patient slept 8 hours previous evening, takes her medications and pudding, was tearful in the morning and then smiling, took a nap after her lunch, did much better after this, dances in music group. Oblivious of her surroundings. REVIEW OF SYSTEMS: No CV, , pulmonary, eye, ENT system symptoms on review. Reliability poor. MENTAL STATUS EXAM: Oriented to herself. Insight, judgment, recent and remote memory, attention, concentration, fund of knowledge poor, consistent with her diagnosis mentioned in my initial note. PLAN: Continue current psychotropics, reviewed drug interactions carefully. Risk/benefit ratio favors no further change at this time. Discussed with social service staff about placement. MAN Marquita RHODES MD DR: ELIZABETH/wellington JOB#: [id number] / [id number]
[2016-10-09 05:31] VITALS: BP 110/57
[2016-10-09 07:19] LABS: BASO # 0.1 x10^3/uL (0.0-0.2); BASO % 1 % (0-3); EOS # 0.2 x10^3/uL (0.0-0.7); EOS % 4 % (0-3); HEMATOCRIT 38.9 % (36.0-47.0); HEMOGLOBIN 12.9 g/dL (12.0-15.5); LYMPH % 45 % (24-48); MEAN CORPUSCULAR HEMOGLOBIN 28 pg (25-35); MEAN CORPUSCULAR HGB CONC 33 g/dL (31-37); MEAN CORPUSCULAR VOLUME 85 fL (79-100); MONO # 0.7 x10^3/uL (0.0-1.1); MONO % 16 % (0-9); NEUT # 1.5 x10^3uL (1.8-7.7); NEUT % 34 % (31-73); PLATELET COUNT 198 x10^3/uL (140-400); RED BLOOD COUNT 4.59 x10^6/uL (3.50-5.40); RED CELL DISTRIBUTION WIDTH 13.1 % (11.5-14.5); WHITE BLOOD COUNT 4.5 x10^3/uL (4.0-11.0)
[2016-10-09 08:17] LABS: ALBUMIN/GLOBULIN RATIO 0.7 (1.0-1.7); ALK PHOS 63 U/L (46-116); ALT (SGPT) 62 U/L (14-59); ANION GAP 8 (6-14); AST (SGOT) 39 U/L (15-37); BLOOD UREA NITROGEN 14 mg/dL (7-20); BUN/CREATININE RATIO 18 (6-20); CALCIUM 8.6 mg/dL (8.5-10.1); CARBON DIOXIDE 28 mmol/L (21-32); CHLORIDE 108 mmol/L (98-107); CREATININE 0.8 mg/dL (0.6-1.0); GFR 73.9; GLUCOSE 81 mg/dL (70-99); POTASSIUM 4.2 mmol/L (3.5-5.1); SODIUM 144 mmol/L (136-145); TOTAL BILIRUBIN 0.3 mg/dL (0.2-1.0); TOTAL PROTEIN 7.2 g/dL (6.4-8.2)
[2016-10-09 08:20] LABS: VAL ACID 67 mcg/mL (50-100)
[2016-10-09] MEDS: levETIRAcetam 500 MG TABLET PO SCH ×2 (09:03→19:26)
[2016-10-09] MEDS: busPIRone 15 MG TABLET. PO SCH ×2 (09:03→14:31)
[2016-10-09] MEDS: PRENATAL MULTIVITAMIN TABLET. PO SCH (09:03)
[2016-10-09] MEDS: CYANOCOBALAMIN (VITAMIN B-12) 250 MCG TABLET PO SCH (09:03)
[2016-10-09] MEDS: HYDROcodone/APAP 5/325MG 1 TAB TABLET PO SCH ×2 (09:03→19:27)
[2016-10-09] MEDS: DIVALPROEX 125 MG CAP.SPRINK PO SCH ×2 (09:03→19:26)
[2016-10-09] MEDS: LORazepam INTENSOL 2 MG/ML BOTTLE SL SCH ×3 (09:04→17:04)
[2016-10-09] MEDS: DULoxetine HCL 30 MG CAPSULE.DR PO SCH (09:04)
[2016-10-09] MEDS: QUEtiapine 50 MG TABLET. PO SCH ×2 (12:15→19:26)
[2016-10-09 16:12] VITALS: BP 101/65
[2016-10-09] MEDS: MIRTAZAPINE 7.5 MG TABLET. PO SCH (19:26)
[2016-10-09] MEDS: MELATONIN 3 MG TABLET PO SCH (19:26)
--- NOTE | 2016-10-09 19:49 | PDOC ---
Exam Mario Alberto Demential Exam: Mario Alberto Note: Please also refer to the separate dictated note~for this date of service dictated separately.~Patient seen individually. Discussed the patient with Nursing staff reviewed the chart.~Reviewed interim history and current functioning. Reviewed vital signs,~Labs/ Radiology~and current medications noted below. Continue current treatment with the changes noted in the dictated addendum note Assessment: Vital Signs: Vital Signs Date Time Temp Pulse Resp B/P (MAP) Pulse Ox O2 Delivery O2 Flow Rate FiO2 10/09/16 19:27 20 10/09/16 16:12 97.8 70 101/65 (77) 99 10/09/16 12:14 Room Air I&O Intake and Output 10/10/16 06:59 Intake Total 840 ml Balance 840 ml Intake Oral 840 ml Labs: Laboratory Tests Test 10/09/16 06:52 10/09/16 06:56 Sodium Level 144 mmol/L (136-145) Potassium Level 4.2 mmol/L (3.5-5.1) Chloride Level 108 mmol/L (98-107) H Carbon Dioxide Level 28 mmol/L (21-32) Anion Gap 8 (6-14) Blood Urea Nitrogen 14 mg/dL (7-20) Creatinine 0.8 mg/dL (0.6-1.0) Estimated GFR (Cockcroft-Gault) 73.9 BUN/Creatinine Ratio 18 (6-20) Glucose Level 81 mg/dL (70-99) Calcium Level 8.6 mg/dL (8.5-10.1) Magnesium Level 2.0 mg/dL (1.8-2.4) Total Bilirubin 0.3 mg/dL (0.2-1.0) Aspartate Amino Transferase (AST) 39 U/L (15-37) H Alanine Aminotransferase (ALT) 62 U/L (14-59) H Alkaline Phosphatase 63 U/L (46-116) Total Protein 7.2 g/dL (6.4-8.2) Albumin 3.0 g/dL (3.4-5.0) L Albumin/Globulin Ratio 0.7 (1.0-1.7) L Valproic Acid Level 67 mcg/mL (50-100) Valproic Acid Last Dose Date 10/08/2016 Valproic Acid Last Dose Time 2100 White Blood Count 4.5 x10^3/uL (4.0-11.0) Red Blood Count 4.59 x10^6/uL (3.50-5.40) Hemoglobin 12.9 g/dL (12.0-15.5) Hematocrit 38.9 % (36.0-47.0) Mean Corpuscular Volume 85 fL (79-100) Mean Corpuscular Hemoglobin 28 pg (25-35) Mean Corpuscular Hemoglobin Concent 33 g/dL (31-37) Red Cell Distribution Width 13.1 % (11.5-14.5) Platelet Count 198 x10^3/uL (140-400) Neutrophils (%) (Auto) 34 % (31-73) Lymphocytes (%) (Auto) 45 % (24-48) Monocytes (%) (Auto) 16 % (0-9) H Eosinophils (%) (Auto) 4 % (0-3) H Basophils (%) (Auto) 1 % (0-3) Neutrophils # (Auto) 1.5 x10^3uL (1.8-7.7) L Lymphocytes # (Auto) 2.0 x10^3/uL (1.0-4.8) Monocytes # (Auto) 0.7 x10^3/uL (0.0-1.1) Eosinophils # (Auto) 0.2 x10^3/uL (0.0-0.7) Basophils # (Auto) 0.1 x10^3/uL (0.0-0.2) Current Medications: Meds: Current Medications Acetaminophen (Tylenol) 650 mg PRN Q6HRS PRN PO PAIN / TEMP; Start 09/12/16 at 20:00; Status UNV Multi-Ingredient Ointment (Analgesic [place]) 1 randee PRN QID PRN TP MUSCLE PAIN; Start 09/12/16 at 20:00; Status UNV Al Hydroxide/Mg Hydroxide (Mylanta Plus Xs) 15 ml PRN AFTMEALHC PRN PO DYSPEPSIA; Start 09/12/16 at 20:00; Status UNV Magnesium Hydroxide (Milk Of Magnesia) 2,400 mg PRN QHS PRN PO CONSTIPATION; Start 09/12/16 at 20:00; Status UNV Duloxetine HCl (Cymbalta) 30 mg DAILY PO Last administered on 10/09/16t 09:04; Start 09/13/16 at 09:00 Mirtazapine (Remeron) 7.5 mg QHS PO Last administered on 10/09/16 19:26; Start 09/12/16 at 21:00 Olanzapine (ZyPREXA ZYDIS) 2.5 mg PRN Q2HR PRN PO PSYCHOSIS Last administered on 09/15/16 08:10; Start 09/12/16 at 20:15 Quetiapine Fumarate (SEROquel) 50 mg NOON PO Last administered on 10/09/16 12: 15; Start 09/13/16 at 12:00 Quetiapine Fumarate (SEROquel) 75 mg HS PO Last administered on 10/09/16 19:26 ; Start 09/12/16 at 21:00 Melatonin 3 mg QHS PO Last administered on 10/09/16 19:26; Start 09/12/16 at 21: 00 Acetaminophen (Tylenol) 650 mg PRN Q6HRS PRN PO PAIN / TEMP; Start 09/12/16 at 20:15 Acetaminophen/ Hydrocodone Bitart (Lortab 5/325) 1 tab BID PO Last administered on 10/09/16 19:27; Start 09/12/16 at 21:00 Levetiracetam (Keppra) 500 mg BID PO Last administered on 10/09/16 19:26; Start 09/12/16 at 21:00 Al Hydroxide/Mg Hydroxide (Mylanta Plus Xs) 15 ml PRN AFTMEALHC PRN PO DYSPEPSIA; Start 09/12/16 at 20:15 Magnesium Hydroxide (Milk Of Magnesia) 2,400 mg PRN QHS PRN PO CONSTIPATION; Start 09/12/16 at 20:15 Multi-Ingredient Ointment (Analgesic [place]) 1 randee PRN QID PRN TP MUSCLE PAIN; Start 09/12/16 at 20:15 Cyanocobalamin (Vitamin B-12) 250 mcg DAILY PO Last administered on 10/09/16 09 :03; Start 09/13/16 at 09:00 Buspirone HCl (Buspar) 5 mg BID92 PO Last administered on 09/15/16 13:34; Start 09/13/16 at 09:00; Stop 09/15/16 at 18:27; Status DC Divalproex Sodium (Depakote Sprinkles) 250 mg DAILY PO Last administered on 10:01; Start 09/14/16 at 09:00; Stop 09/17/16 at 10:08; Status DC Lorazepam (Ativan) 0.25 mg PRN Q2HR PRN TP ANXIETY / AGITATION Last administered on 10/02/16 05:10; Start 09/13/16 at 19:15 Hydroxyzine HCl (Atarax) 25 mg PRN Q6HRS PRN PO ANXIETY / AGITATION; Start 09/14 at 14:45; Stop 09/14/16 at 14:45; Status DC Hydroxyzine HCl (Atarax) 25 mg PRN Q6HRS PRN PO ANXIETY/AGITATION Last administered on 09/15/16 14:14; Start 09/14/16 at 15:00 Prenat Multivit/ [place]/Iron/Folic Ac (Multivitamin ) 1 tab DAILY PO Last administered on 10/09/16 09:03; Start 09/15/16 at 10:15 Buspirone HCl (Buspar) 10 mg BID92 PO Last administered on 09/28/16 13:49; Start 09/16/16 at 09:00; Stop 09/28/16 at 18:49; Status DC Lorazepam (Ativan) 1 mg 1X ONCE PO Last administered on 09/16/16 08:07; Start 09/16/16 at 08:15; Stop 09/16/16 at 08:16; Status DC Lorazepam (Ativan Intensol) 1 mg PRN Q4HRS PRN SL ANXIETY / AGITATION Last administered on 09/16/16 13:35; Start 09/16/16 at 13:30 Lorazepam (Ativan Intensol) 0.25 mg TID@0900,1300,1700 SL Last administered on 10/09/16 17:04; Start 09/17/16 at 09:00 Divalproex Sodium (Depakote Sprinkles) 250 mg BID PO Last administered on 07:46; Start 09/17/16 at 21:00; Stop 09/20/16 at 14:56; Status DC Duloxetine HCl (Cymbalta) 30 mg 1X ONCE PO Last administered on 09/18/16 08: 31; Start 09/18/16 at 08:00; Stop 09/18/16 at 08:01; Status DC Divalproex Sodium (Depakote Sprinkles) 250 mg DAILY PO Last administered on 08:15; Start 09/21/16 at 09:00; Stop 09/23/16 at 18:31; Status DC Divalproex Sodium (Depakote Sprinkles) 500 mg HS PO Last administered on 19:23; Start 09/20/16 at 21:00; Stop 09/23/16 at 18:31; Status DC Divalproex Sodium (Depakote Sprinkles) 500 mg BID PO Last administered on 19:26; Start 09/23/16 at 21:00 Buspirone HCl (Buspar) 15 mg BID92 PO Last administered on 10/09/16 14:31; Start 09/29/16 at 09:00 Active Scripts Active Reported Buspirone Hcl 5 Mg Tablet 1 Tab PO BID92 Zyprexa Zydis (Olanzapine) 5 Mg Tab.rapdis 2.5 Mg PO Q2HR PRN Mirtazapine 15 Mg Tablet 7.5 Mg PO QHS Analgesic [place] (Methyl Salicylate/Menthol) 28 Gm Oint...g. 1 [place] TP PRN QID PRN Melatonin 3 Mg Tablet 3 Mg PO QHS Mag-Al Plus Xs Suspension (Mag Hydrox/Al Hydrox/Simeth) 30 Ml Oral.susp 15 Ml PO PRN AFTMEALHC PRN Keppra (Levetiracetam) 500 Mg Tablet 500 Mg PO BID Tylenol (Acetaminophen) 325 Mg Tablet 650 Mg PO PRN Q6HRS PRN Milk Of Magnesia (Magnesium Hydroxide) 400 Mg/5 Ml Oral.susp 2,400 Mg PO PRN QHS PRN Cymbalta (Duloxetine Hcl) 30 Mg Capsule.dr 30 Mg PO DAILY pt has received 3 of 5 scheduled doses Hydrocodone-Apap 5-325 (Hydrocodone Bit/Acetaminophen) 1 Each Tablet 1 Tab PO BID B-12 (Cyanocobalamin (Vitamin B-12)) 500 Mcg Tab.rapdis 250 Mcg PO DAILY Seroquel (Quetiapine Fumarate) 50 Mg Tablet 50 Mg PO NOON Seroquel (Quetiapine Fumarate) 50 Mg Tablet 75 Mg PO HS Diagnosis: Problems: (1) Anxiety disorder (2) Impulse control disorder (3) Dementia, vascular, with depression (4) Dementia, vascular, with delusions (5) Dementia in Alzheimer's disease with delusions (6) Dementia in Alzheimer's disease with depression (7) Frontotemporal dementia with behavioral disturbance ADELA RHODES MD Oct 09, 2016 19:49
[2016-10-10 05:49] VITALS: BP 126/90
[2016-10-10] MEDS: levETIRAcetam 500 MG TABLET PO SCH ×2 (08:24→20:02)
[2016-10-10] MEDS: DIVALPROEX 125 MG CAP.SPRINK PO SCH ×2 (08:24→20:02)
[2016-10-10] MEDS: busPIRone 15 MG TABLET. PO SCH ×3 (08:24→20:02)
[2016-10-10] MEDS: DULoxetine HCL 30 MG CAPSULE.DR PO SCH (08:24)
[2016-10-10] MEDS: CYANOCOBALAMIN (VITAMIN B-12) 250 MCG TABLET PO SCH (08:25)
[2016-10-10] MEDS: PRENATAL MULTIVITAMIN TABLET. PO SCH (08:25)
[2016-10-10] MEDS: HYDROcodone/APAP 5/325MG 1 TAB TABLET PO SCH ×2 (08:25→20:02)
[2016-10-10] MEDS: LORazepam INTENSOL 2 MG/ML BOTTLE SL SCH ×3 (08:26→17:31)
--- NOTE | 2016-10-10 09:19 | PN ---
DATE: 10/08/2016 This is a late entry 10/08/2016, covers the elements not covered in my initial order of 10/08/2016. SUBJECTIVE: The patient was seen individually evening of 10/08/2016, staffed the treatment team meeting on the morning of 10/08/2016. I reviewed patient's history at length, the treatment team meeting, diagnosis, progress, current psychotropics placement options with social service nursing staff, activity therapy staff. REVIEW OF SYSTEMS: No CV, , pulmonary, eye, ENT system symptoms on review. Reliability poor. MENTAL STATUS EXAM: Oriented to herself. Insight, judgment, recent and remote memory, attention, concentration, fund of knowledge poor, consistent with her diagnosis. Slept 7-1/2 hours previous evening, compliant with medications, tearful in the morning, dances during music group. IMPRESSION: Unchanged from initial note. PLAN: Continue current psychotropics, risk/benefit ratio favors no further change, I reviewed drug interactions at length. ADELA RHODES MD DR: ELIZABETH/wellington JOB#: [id number] / [id number]
[2016-10-10] MEDS: QUEtiapine 50 MG TABLET. PO SCH ×2 (12:19→20:02)
[2016-10-10 16:10] VITALS: BP 125/79
[2016-10-10] MEDS: MELATONIN 3 MG TABLET PO SCH (20:02)
[2016-10-10] MEDS: MIRTAZAPINE 7.5 MG TABLET. PO SCH (20:02)
--- NOTE | 2016-10-10 23:22 | PDOC ---
Exam Mario Alberto Demential Exam: Mario Alberto Note: Please also refer to the separate dictated note~for this date of service dictated separately.~Patient seen individually. Discussed the patient with Nursing staff reviewed the chart.~Reviewed interim history and current functioning. Reviewed vital signs,~Labs/ Radiology~and current medications noted below. Continue current treatment with the changes noted in the dictated addendum note Assessment: Vital Signs: Vital Signs Date Time Temp Pulse Resp B/P (MAP) Pulse Ox O2 Delivery O2 Flow Rate FiO2 10/10/16 20:02 20 10/10/16 16:10 97.6 94 125/79 (94) 100 10/09/16 20:27 Room Air I&O Intake and Output 10/11/16 06:59 Intake Total 960 ml Balance 960 ml Intake Oral 960 ml Current Medications: Meds: Current Medications Acetaminophen (Tylenol) 650 mg PRN Q6HRS PRN PO PAIN / TEMP; Start 09/12/16 at 20:00; Status UNV Multi-Ingredient Ointment (Analgesic [place]) 1 randee PRN QID PRN TP MUSCLE PAIN; Start 09/12/16 at 20:00; Status UNV Al Hydroxide/Mg Hydroxide (Mylanta Plus Xs) 15 ml PRN AFTMEALHC PRN PO DYSPEPSIA; Start 09/12/16 at 20:00; Status UNV Magnesium Hydroxide (Milk Of Magnesia) 2,400 mg PRN QHS PRN PO CONSTIPATION; Start 09/12/16 at 20:00; Status UNV Duloxetine HCl (Cymbalta) 30 mg DAILY PO Last administered on 10/10/16 08:24; Start 09/13/16 at 09:00 Mirtazapine (Remeron) 7.5 mg QHS PO Last administered on 10/10/16 20:02; Start 09/12/16 at 21:00 Olanzapine (ZyPREXA ZYDIS) 2.5 mg PRN Q2HR PRN PO PSYCHOSIS Last administered on 09/15/16 08:10; Start 09/12/16 at 20:15 Quetiapine Fumarate (SEROquel) 50 mg NOON PO Last administered on 10/10/16 12: 19; Start 09/13/16 at 12:00 Quetiapine Fumarate (SEROquel) 75 mg HS PO Last administered on 10/10/16 20:02 ; Start 09/12/16 at 21:00 Melatonin 3 mg QHS PO Last administered on 10/10/16 20:02; Start 09/12/16 at 21: 00 Acetaminophen (Tylenol) 650 mg PRN Q6HRS PRN PO PAIN / TEMP; Start 09/12/16 at 20:15 Acetaminophen/ Hydrocodone Bitart (Lortab 5/325) 1 tab BID PO Last administered on 10/10/16 20:02; Start 09/12/16 at 21:00 Levetiracetam (Keppra) 500 mg BID PO Last administered on 10/10/16 20:02; Start 09/12/16 at 21:00 Al Hydroxide/Mg Hydroxide (Mylanta Plus Xs) 15 ml PRN AFTMEALHC PRN PO DYSPEPSIA; Start 09/12/16 at 20:15 Magnesium Hydroxide (Milk Of Magnesia) 2,400 mg PRN QHS PRN PO CONSTIPATION; Start 09/12/16 at 20:15 Multi-Ingredient Ointment (Analgesic [place]) 1 randee PRN QID PRN TP MUSCLE PAIN; Start 09/12/16 at 20:15 Cyanocobalamin (Vitamin B-12) 250 mcg DAILY PO Last administered on 10/10/16 08 :25; Start 09/13/16 at 09:00 Buspirone HCl (Buspar) 5 mg BID92 PO Last administered on 09/15/16 13:34; Start 09/13/16 at 09:00; Stop 09/15/16 at 18:27; Status DC Divalproex Sodium (Depakote Sprinkles) 250 mg DAILY PO Last administered on 10:01; Start 09/14/16 at 09:00; Stop 09/17/16 at 10:08; Status DC Lorazepam (Ativan) 0.25 mg PRN Q2HR PRN TP ANXIETY / AGITATION Last administered on 10/02/16 05:10; Start 09/13/16 at 19:15 Hydroxyzine HCl (Atarax) 25 mg PRN Q6HRS PRN PO ANXIETY / AGITATION; Start 09/14 at 14:45; Stop 09/14/16 at 14:45; Status DC Hydroxyzine HCl (Atarax) 25 mg PRN Q6HRS PRN PO ANXIETY/AGITATION Last administered on 09/15/16 14:14; Start 09/14/16 at 15:00 Prenat Multivit/ [employer]/Iron/Folic Ac (Multivitamin ) 1 tab DAILY PO Last administered on 10/10/16 08:25; Start 09/15/16 at 10:15 Buspirone HCl (Buspar) 10 mg BID92 PO Last administered on 09/28/16 13:49; Start 09/16/16 at 09:00; Stop 09/28/16 at 18:49; Status DC Lorazepam (Ativan) 1 mg 1X ONCE PO Last administered on 09/16/16 08:07; Start 09/16/16 at 08:15; Stop 09/16/16 at 08:16; Status DC Lorazepam (Ativan Intensol) 1 mg PRN Q4HRS PRN SL ANXIETY / AGITATION Last administered on 09/16/16 13:35; Start 09/16/16 at 13:30 Lorazepam (Ativan Intensol) 0.25 mg TID@0900,1300,1700 SL Last administered on 10/10/16 17:31; Start 09/17/16 at 09:00 Divalproex Sodium (Depakote Sprinkles) 250 mg BID PO Last administered on 07:46; Start 09/17/16 at 21:00; Stop 09/20/16 at 14:56; Status DC Duloxetine HCl (Cymbalta) 30 mg 1X ONCE PO Last administered on 09/18/16 08: 31; Start 09/18/16 at 08:00; Stop 09/18/16 at 08:01; Status DC Divalproex Sodium (Depakote Sprinkles) 250 mg DAILY PO Last administered on 08:15; Start 09/21/16 at 09:00; Stop 09/23/16 at 18:31; Status DC Divalproex Sodium (Depakote Sprinkles) 500 mg HS PO Last administered on 19:23; Start 09/20/16 at 21:00; Stop 09/23/16 at 18:31; Status DC Divalproex Sodium (Depakote Sprinkles) 500 mg BID PO Last administered on 20:02; Start 09/23/16 at 21:00 Buspirone HCl (Buspar) 15 mg BID92 PO Last administered on 10/10/16 20:02; Start 09/29/16 at 09:00 Active Scripts Active Reported Buspirone Hcl 5 Mg Tablet 1 Tab PO BID92 Zyprexa Zydis (Olanzapine) 5 Mg Tab.rapdis 2.5 Mg PO Q2HR PRN Mirtazapine 15 Mg Tablet 7.5 Mg PO QHS Analgesic [place] (Methyl Salicylate/Menthol) 28 Gm Oint...g. 1 [place] TP PRN QID PRN Melatonin 3 Mg Tablet 3 Mg PO QHS Mag-Al Plus Xs Suspension (Mag Hydrox/Al Hydrox/Simeth) 30 Ml Oral.susp 15 Ml PO PRN AFTMEALHC PRN Keppra (Levetiracetam) 500 Mg Tablet 500 Mg PO BID Tylenol (Acetaminophen) 325 Mg Tablet 650 Mg PO PRN Q6HRS PRN Milk Of Magnesia (Magnesium Hydroxide) 400 Mg/5 Ml Oral.susp 2,400 Mg PO PRN QHS PRN Cymbalta (Duloxetine Hcl) 30 Mg Capsule.dr 30 Mg PO DAILY pt has received 3 of 5 scheduled doses Hydrocodone-Apap 5-325 (Hydrocodone Bit/Acetaminophen) 1 Each Tablet 1 Tab PO BID B-12 (Cyanocobalamin (Vitamin B-12)) 500 Mcg Tab.rapdis 250 Mcg PO DAILY Seroquel (Quetiapine Fumarate) 50 Mg Tablet 50 Mg PO NOON Seroquel (Quetiapine Fumarate) 50 Mg Tablet 75 Mg PO HS Diagnosis: Problems: (1) Anxiety disorder (2) Impulse control disorder (3) Dementia, vascular, with depression (4) Dementia, vascular, with delusions (5) Dementia in Alzheimer's disease with delusions (6) Dementia in Alzheimer's disease with depression (7) Frontotemporal dementia with behavioral disturbance ADELA RHODES MD Oct 10, 2016 23:22
--- NOTE | 2016-10-11 03:34 | PN ---
DATE: 10/09/2016 This late entry for 10/09/2016 covers elements not covered in my initial note of 10/09/2016. SUBJECTIVE: Per nursing report, the patient's cousin visited her. She sat with the cousin stating "I love you." She dances with music in group, smiling more, less agitated. REVIEW OF SYSTEMS: No CV, , pulmonary, eye, ENT system symptoms on review. Reliability poor. MENTAL STATUS EXAM: Oriented to herself. Insight, judgment, recent, remote memory, attention, concentration, fund of knowledge poor consistent with diagnosis mentioned in my initial note. PLAN: Continue current psychotropics. Adjust further as clinically indicated. MAN Marquita RHODES MD DR: ELIZABETH/wellington JOB#: [id number] / [id number]
[2016-10-11 05:57] VITALS: BP 104/66
[2016-10-11] MEDS: DULoxetine HCL 30 MG CAPSULE.DR PO SCH (08:20)
[2016-10-11] MEDS: DIVALPROEX 125 MG CAP.SPRINK PO SCH ×2 (08:21→21:12)
[2016-10-11] MEDS: levETIRAcetam 500 MG TABLET PO SCH ×2 (08:21→21:12)
[2016-10-11] MEDS: CYANOCOBALAMIN (VITAMIN B-12) 250 MCG TABLET PO SCH (08:22)
[2016-10-11] MEDS: PRENATAL MULTIVITAMIN TABLET. PO SCH (08:22)
[2016-10-11] MEDS: HYDROcodone/APAP 5/325MG 1 TAB TABLET PO SCH ×2 (08:22→21:12)
[2016-10-11] MEDS: LORazepam INTENSOL 2 MG/ML BOTTLE SL SCH ×3 (08:46→17:27)
[2016-10-11] MEDS: busPIRone 15 MG TABLET. PO SCH (11:49)
[2016-10-11] MEDS: QUEtiapine 50 MG TABLET. PO SCH ×2 (11:49→21:12)
[2016-10-11 15:48] VITALS: BP 115/75
[2016-10-11] MEDS: MELATONIN 3 MG TABLET PO SCH (21:12)
[2016-10-11] MEDS: MIRTAZAPINE 7.5 MG TABLET. PO SCH (21:13)
--- NOTE | 2016-10-11 21:51 | PDOC ---
Exam Mario Alberto Demential Exam: Mario Alberto Note: Please also refer to the separate dictated note~for this date of service dictated separately.~Patient seen individually. Discussed the patient with Nursing staff reviewed the chart.~Reviewed interim history and current functioning. Reviewed vital signs,~Labs/ Radiology~and current medications noted below. Continue current treatment with the changes noted in the dictated addendum note Assessment: Vital Signs: Vital Signs Date Time Temp Pulse Resp B/P (MAP) Pulse Ox O2 Delivery O2 Flow Rate FiO2 10/11/16 15:48 98.1 78 18 115/75 (88) 100 10/09/16 20:27 Room Air I&O Intake and Output 10/12/16 06:59 Intake Total 780 ml Balance 780 ml Intake Oral 780 ml Current Medications: Meds: Current Medications Acetaminophen (Tylenol) 650 mg PRN Q6HRS PRN PO PAIN / TEMP; Start 09/12/16 at 20:00; Status UNV Multi-Ingredient Ointment (Analgesic [place]) 1 randee PRN QID PRN TP MUSCLE PAIN; Start 09/12/16 at 20:00; Status UNV Al Hydroxide/Mg Hydroxide (Mylanta Plus Xs) 15 ml PRN AFTMEALHC PRN PO DYSPEPSIA; Start 09/12/16 at 20:00; Status UNV Magnesium Hydroxide (Milk Of Magnesia) 2,400 mg PRN QHS PRN PO CONSTIPATION; Start 09/12/16 at 20:00; Status UNV Duloxetine HCl (Cymbalta) 30 mg DAILY PO Last administered on 10/11/16 08:20; Start 09/13/16 at 09:00 Mirtazapine (Remeron) 7.5 mg QHS PO Last administered on 10/11/16 21:13; Start 09/12/16 at 21:00 Olanzapine (ZyPREXA ZYDIS) 2.5 mg PRN Q2HR PRN PO PSYCHOSIS Last administered on 09/15/16 08:10; Start 09/12/16 at 20:15 Quetiapine Fumarate (SEROquel) 50 mg NOON PO Last administered on 10/11/16 11: 49; Start 09/13/16 at 12:00 Quetiapine Fumarate (SEROquel) 75 mg HS PO Last administered on 10/11/16 21:12 ; Start 09/12/16 at 21:00 Melatonin 3 mg QHS PO Last administered on 10/11/16 21:12; Start 09/12/16 at 21: 00 Acetaminophen (Tylenol) 650 mg PRN Q6HRS PRN PO PAIN / TEMP; Start 09/12/16 at 20:15 Acetaminophen/ Hydrocodone Bitart (Lortab 5/325) 1 tab BID PO Last administered on 10/11/16 21:12; Start 09/12/16 at 21:00 Levetiracetam (Keppra) 500 mg BID PO Last administered on 10/11/16 21:12; Start 09/12/16 at 21:00 Al Hydroxide/Mg Hydroxide (Mylanta Plus Xs) 15 ml PRN AFTMEALHC PRN PO DYSPEPSIA; Start 09/12/16 at 20:15 Magnesium Hydroxide (Milk Of Magnesia) 2,400 mg PRN QHS PRN PO CONSTIPATION; Start 09/12/16 at 20:15 Multi-Ingredient Ointment (Analgesic [place]) 1 randee PRN QID PRN TP MUSCLE PAIN; Start 09/12/16 at 20:15 Cyanocobalamin (Vitamin B-12) 250 mcg DAILY PO Last administered on 10/11/16 08 :22; Start 09/13/16 at 09:00 Buspirone HCl (Buspar) 5 mg BID92 PO Last administered on 09/15/16 13:34; Start 09/13/16 at 09:00; Stop 09/15/16 at 18:27; Status DC Divalproex Sodium (Depakote Sprinkles) 250 mg DAILY PO Last administered on 10:01; Start 09/14/16 at 09:00; Stop 09/17/16 at 10:08; Status DC Lorazepam (Ativan) 0.25 mg PRN Q2HR PRN TP ANXIETY / AGITATION Last administered on 10/02/16 05:10; Start 09/13/16 at 19:15 Hydroxyzine HCl (Atarax) 25 mg PRN Q6HRS PRN PO ANXIETY / AGITATION; Start 09/14 at 14:45; Stop 09/14/16 at 14:45; Status DC Hydroxyzine HCl (Atarax) 25 mg PRN Q6HRS PRN PO ANXIETY/AGITATION Last administered on 09/15/16 14:14; Start 09/14/16 at 15:00 Prenat Multivit/ [place]/Iron/Folic Ac (Multivitamin ) 1 tab DAILY PO Last administered on 10/11/16 08:22; Start 09/15/16 at 10:15 Buspirone HCl (Buspar) 10 mg BID92 PO Last administered on 09/28/16 13:49; Start 09/16/16 at 09:00; Stop 09/28/16 at 18:49; Status DC Lorazepam (Ativan) 1 mg 1X ONCE PO Last administered on 09/16/16 08:07; Start 09/16/16 at 08:15; Stop 09/16/16 at 08:16; Status DC Lorazepam (Ativan Intensol) 1 mg PRN Q4HRS PRN SL ANXIETY / AGITATION Last administered on 09/16/16 13:35; Start 09/16/16 at 13:30 Lorazepam (Ativan Intensol) 0.25 mg TID@0900,1300,1700 SL Last administered on 10/11/16 17:27; Start 09/17/16 at 09:00 Divalproex Sodium (Depakote Sprinkles) 250 mg BID PO Last administered on 07:46; Start 09/17/16 at 21:00; Stop 09/20/16 at 14:56; Status DC Duloxetine HCl (Cymbalta) 30 mg 1X ONCE PO Last administered on 09/18/16 08: 31; Start 09/18/16 at 08:00; Stop 09/18/16 at 08:01; Status DC Divalproex Sodium (Depakote Sprinkles) 250 mg DAILY PO Last administered on 08:15; Start 09/21/16 at 09:00; Stop 09/23/16 at 18:31; Status DC Divalproex Sodium (Depakote Sprinkles) 500 mg HS PO Last administered on 19:23; Start 09/20/16 at 21:00; Stop 09/23/16 at 18:31; Status DC Divalproex Sodium (Depakote Sprinkles) 500 mg BID PO Last administered on 21:12; Start 09/23/16 at 21:00 Buspirone HCl (Buspar) 15 mg BID92 PO Last administered on 10/11/16 11:49; Start 09/29/16 at 09:00 Active Scripts Active Reported Buspirone Hcl 5 Mg Tablet 1 Tab PO BID92 Zyprexa Zydis (Olanzapine) 5 Mg Tab.rapdis 2.5 Mg PO Q2HR PRN Mirtazapine 15 Mg Tablet 7.5 Mg PO QHS Analgesic [place] (Methyl Salicylate/Menthol) 28 Gm Oint...g. 1 Rand[place] TP PRN QID PRN Melatonin 3 Mg Tablet 3 Mg PO QHS Mag-Al Plus Xs Suspension (Mag Hydrox/Al Hydrox/Simeth) 30 Ml Oral.susp 15 Ml PO PRN AFTMEALHC PRN Keppra (Levetiracetam) 500 Mg Tablet 500 Mg PO BID Tylenol (Acetaminophen) 325 Mg Tablet 650 Mg PO PRN Q6HRS PRN Milk Of Magnesia (Magnesium Hydroxide) 400 Mg/5 Ml Oral.susp 2,400 Mg PO PRN QHS PRN Cymbalta (Duloxetine Hcl) 30 Mg Capsule.dr 30 Mg PO DAILY pt has received 3 of 5 scheduled doses Hydrocodone-Apap 5-325 (Hydrocodone Bit/Acetaminophen) 1 Each Tablet 1 Tab PO BID B-12 (Cyanocobalamin (Vitamin B-12)) 500 Mcg Tab.rapdis 250 Mcg PO DAILY Seroquel (Quetiapine Fumarate) 50 Mg Tablet 50 Mg PO NOON Seroquel (Quetiapine Fumarate) 50 Mg Tablet 75 Mg PO HS Diagnosis: Problems: (1) Anxiety disorder (2) Impulse control disorder (3) Dementia, vascular, with depression (4) Dementia, vascular, with delusions (5) Dementia in Alzheimer's disease with delusions (6) Dementia in Alzheimer's disease with depression (7) Frontotemporal dementia with behavioral disturbance ADELA RHODES MD Oct 11, 2016 21:51
--- NOTE | 2016-10-12 00:58 | PN ---
DATE: 10/10/2016 PSYCHIATRIC PROGRESS NOTE This is a late entry of 10/10/2016 covers elements not covered in my initial note of 10/10/2016. SUBJECTIVE: I met with the patient evening of 10/10/2016. The patient remains confused, but otherwise pleasant, cooperative, dances in music groups, smiling as I met with her oblivious of her surroundings. REVIEW OF SYSTEMS: No CV, , pulmonary, eye, ENT system symptoms on review. Reliability poor. MENTAL STATUS EXAM: Oriented to herself. Insight, judgment, recent and remote memory, attention, concentration, fund of knowledge poor, consistent with her diagnoses mentioned in my initial note. PLAN: Continue current psychotropics, reviewed drug interactions, stress benefit ratio favors no further change at this time. MAN Marquita RHODES MD DR: ELIZABETH/wellington JOB#: [id number] / [id number]
[2016-10-12] MEDS: busPIRone 15 MG TABLET. PO SCH ×2 (08:45→12:31)
[2016-10-12] MEDS: DULoxetine HCL 30 MG CAPSULE.DR PO SCH (08:45)
[2016-10-12] MEDS: CYANOCOBALAMIN (VITAMIN B-12) 250 MCG TABLET PO SCH (08:46)
[2016-10-12] MEDS: DIVALPROEX 125 MG CAP.SPRINK PO SCH ×2 (08:46→20:29)
[2016-10-12] MEDS: levETIRAcetam 500 MG TABLET PO SCH ×2 (08:46→20:29)
[2016-10-12] MEDS: PRENATAL MULTIVITAMIN TABLET. PO SCH (08:46)
[2016-10-12] MEDS: HYDROcodone/APAP 5/325MG 1 TAB TABLET PO SCH ×2 (08:47→20:30)
[2016-10-12] MEDS: LORazepam INTENSOL 2 MG/ML BOTTLE SL SCH ×3 (08:48→16:47)
[2016-10-12] MEDS: QUEtiapine 50 MG TABLET. PO SCH ×2 (12:31→20:29)
[2016-10-12 15:52] VITALS: BP 137/87
[2016-10-12] MEDS: MELATONIN 3 MG TABLET PO SCH (20:29)
[2016-10-12] MEDS: MIRTAZAPINE 7.5 MG TABLET. PO SCH (20:29)
--- NOTE | 2016-10-12 22:47 | PDOC ---
Exam Mario Alberto Demential Exam: Mario Alberto Note: Please also refer to the separate dictated note~for this date of service dictated separately.~Patient seen individually. Discussed the patient with Nursing staff reviewed the chart.~Reviewed interim history and current functioning. Reviewed vital signs,~Labs/ Radiology~and current medications noted below. Continue current treatment with the changes noted in the dictated addendum note Assessment: Vital Signs: Vital Signs Date Time Temp Pulse Resp B/P (MAP) Pulse Ox O2 Delivery O2 Flow Rate FiO2 10/12/16 22:02 18 Room Air 10/12/16 15:52 97.3 91 137/87 (104) 100 I&O Intake and Output 10/13/16 06:59 Intake Total 1080 ml Balance 1080 ml Intake Oral 1080 ml # Voids 2 # Bowel Movements 1 Current Medications: Meds: Current Medications Acetaminophen (Tylenol) 650 mg PRN Q6HRS PRN PO PAIN / TEMP; Start 09/12/16 at 20:00; Status UNV Multi-Ingredient Ointment (Analgesic [place]) 1 randee PRN QID PRN TP MUSCLE PAIN; Start 09/12/16 at 20:00; Status UNV Al Hydroxide/Mg Hydroxide (Mylanta Plus Xs) 15 ml PRN AFTMEALHC PRN PO DYSPEPSIA; Start 09/12/16 at 20:00; Status UNV Magnesium Hydroxide (Milk Of Magnesia) 2,400 mg PRN QHS PRN PO CONSTIPATION; Start 09/12/16 at 20:00; Status UNV Duloxetine HCl (Cymbalta) 30 mg DAILY PO Last administered on 10/12/16 08:45; Start 09/13/16 at 09:00 Mirtazapine (Remeron) 7.5 mg QHS PO Last administered on 10/12/16 20:29; Start 09/12/16 at 21:00 Olanzapine (ZyPREXA ZYDIS) 2.5 mg PRN Q2HR PRN PO PSYCHOSIS Last administered on 09/15/16 08:10; Start 09/12/16 at 20:15 Quetiapine Fumarate (SEROquel) 50 mg NOON PO Last administered on 10/12/16 12: 31; Start 09/13/16 at 12:00 Quetiapine Fumarate (SEROquel) 75 mg HS PO Last administered on 10/12/16 20:29 ; Start 09/12/16 at 21:00 Melatonin 3 mg QHS PO Last administered on 10/12/16 20:29; Start 09/12/16 at 21: 00 Acetaminophen (Tylenol) 650 mg PRN Q6HRS PRN PO PAIN / TEMP; Start 09/12/16 at 20:15 Acetaminophen/ Hydrocodone Bitart (Lortab 5/325) 1 tab BID PO Last administered on 10/12/16 20:30; Start 09/12/16 at 21:00 Levetiracetam (Keppra) 500 mg BID PO Last administered on 10/12/16 20:29; Start 09/12/16 at 21:00 Al Hydroxide/Mg Hydroxide (Mylanta Plus Xs) 15 ml PRN AFTMEALHC PRN PO DYSPEPSIA; Start 09/12/16 at 20:15 Magnesium Hydroxide (Milk Of Magnesia) 2,400 mg PRN QHS PRN PO CONSTIPATION; Start 09/12/16 at 20:15 Multi-Ingredient Ointment (Analgesic [place]) 1 randee PRN QID PRN TP MUSCLE PAIN; Start 09/12/16 at 20:15 Cyanocobalamin (Vitamin B-12) 250 mcg DAILY PO Last administered on 10/12/16 08 :46; Start 09/13/16 at 09:00 Buspirone HCl (Buspar) 5 mg BID92 PO Last administered on 09/15/16 13:34; Start 09/13/16 at 09:00; Stop 09/15/16 at 18:27; Status DC Divalproex Sodium (Depakote Sprinkles) 250 mg DAILY PO Last administered on 10:01; Start 09/14/16 at 09:00; Stop 09/17/16 at 10:08; Status DC Lorazepam (Ativan) 0.25 mg PRN Q2HR PRN TP ANXIETY / AGITATION Last administered on 10/02/16 05:10; Start 09/13/16 at 19:15 Hydroxyzine HCl (Atarax) 25 mg PRN Q6HRS PRN PO ANXIETY / AGITATION; Start 09/14 at 14:45; Stop 09/14/16 at 14:45; Status DC Hydroxyzine HCl (Atarax) 25 mg PRN Q6HRS PRN PO ANXIETY/AGITATION Last administered on 09/15/16 14:14; Start 09/14/16 at 15:00 Prenat Multivit/ [employer]/Iron/Folic Ac (Multivitamin ) 1 tab DAILY PO Last administered on 10/12/16 08:46; Start 09/15/16 at 10:15 Buspirone HCl (Buspar) 10 mg BID92 PO Last administered on 09/28/16 13:49; Start 09/16/16 at 09:00; Stop 09/28/16 at 18:49; Status DC Lorazepam (Ativan) 1 mg 1X ONCE PO Last administered on 09/16/16 08:07; Start 09/16/16 at 08:15; Stop 09/16/16 at 08:16; Status DC Lorazepam (Ativan Intensol) 1 mg PRN Q4HRS PRN SL ANXIETY / AGITATION Last administered on 09/16/16 13:35; Start 09/16/16 at 13:30 Lorazepam (Ativan Intensol) 0.25 mg TID@0900,1300,1700 SL Last administered on 10/12/16 16:47; Start 09/17/16 at 09:00 Divalproex Sodium (Depakote Sprinkles) 250 mg BID PO Last administered on 07:46; Start 09/17/16 at 21:00; Stop 09/20/16 at 14:56; Status DC Duloxetine HCl (Cymbalta) 30 mg 1X ONCE PO Last administered on 09/18/16 08: 31; Start 09/18/16 at 08:00; Stop 09/18/16 at 08:01; Status DC Divalproex Sodium (Depakote Sprinkles) 250 mg DAILY PO Last administered on 08:15; Start 09/21/16 at 09:00; Stop 09/23/16 at 18:31; Status DC Divalproex Sodium (Depakote Sprinkles) 500 mg HS PO Last administered on 19:23; Start 09/20/16 at 21:00; Stop 09/23/16 at 18:31; Status DC Divalproex Sodium (Depakote Sprinkles) 500 mg BID PO Last administered on 20:29; Start 09/23/16 at 21:00 Buspirone HCl (Buspar) 15 mg BID92 PO Last administered on 10/12/16 12:31; Start 09/29/16 at 09:00 Active Scripts Active Reported Buspirone Hcl 5 Mg Tablet 1 Tab PO BID92 Zyprexa Zydis (Olanzapine) 5 Mg Tab.rapdis 2.5 Mg PO Q2HR PRN Mirtazapine 15 Mg Tablet 7.5 Mg PO QHS Analgesic [place] (Methyl Salicylate/Menthol) 28 Gm Oint...g. 1 [place] TP PRN QID PRN Melatonin 3 Mg Tablet 3 Mg PO QHS Mag-Al Plus Xs Suspension (Mag Hydrox/Al Hydrox/Simeth) 30 Ml Oral.susp 15 Ml PO PRN AFTMEALHC PRN Keppra (Levetiracetam) 500 Mg Tablet 500 Mg PO BID Tylenol (Acetaminophen) 325 Mg Tablet 650 Mg PO PRN Q6HRS PRN Milk Of Magnesia (Magnesium Hydroxide) 400 Mg/5 Ml Oral.susp 2,400 Mg PO PRN QHS PRN Cymbalta (Duloxetine Hcl) 30 Mg Capsule.dr 30 Mg PO DAILY pt has received 3 of 5 scheduled doses Hydrocodone-Apap 5-325 (Hydrocodone Bit/Acetaminophen) 1 Each Tablet 1 Tab PO BID B-12 (Cyanocobalamin (Vitamin B-12)) 500 Mcg Tab.rapdis 250 Mcg PO DAILY Seroquel (Quetiapine Fumarate) 50 Mg Tablet 50 Mg PO NOON Seroquel (Quetiapine Fumarate) 50 Mg Tablet 75 Mg PO HS Diagnosis: Problems: (1) Anxiety disorder (2) Impulse control disorder (3) Dementia, vascular, with depression (4) Dementia, vascular, with delusions (5) Dementia in Alzheimer's disease with delusions (6) Dementia in Alzheimer's disease with depression (7) Frontotemporal dementia with behavioral disturbance ADELA RHODES MD Oct 12, 2016 22:47
--- NOTE | 2016-10-13 00:11 | PN ---
DATE: 10/11/2016 This late entry of 10/11 covers elements not covered in my initial note. SUBJECTIVE: The patient was seen individually on evening of 10/11. She remains confused, had a good night, doing better during the day. REVIEW OF SYSTEMS: No CV, , pulmonary, eye and ENT system symptoms on review. Reliability poor. MENTAL STATUS EXAM: Oriented to herself. Insight, judgment, recent and remote memory, attention, concentration, fund of knowledge poor, consistent with her diagnosis mentioned in my initial note. PLAN: Continue psychotropics mentioned in my initial note. MAN Marquita RHODES MD DR: ELIZABETH/wellington JOB#: [id number] / [id number]
[2016-10-13 06:35] VITALS: BP 108/63
[2016-10-13] MEDS: levETIRAcetam 500 MG TABLET PO SCH ×2 (08:46→19:51)
[2016-10-13] MEDS: CYANOCOBALAMIN (VITAMIN B-12) 250 MCG TABLET PO SCH (08:46)
[2016-10-13] MEDS: DULoxetine HCL 30 MG CAPSULE.DR PO SCH (08:46)
[2016-10-13] MEDS: DIVALPROEX 125 MG CAP.SPRINK PO SCH ×2 (08:46→19:52)
[2016-10-13] MEDS: busPIRone 15 MG TABLET. PO SCH ×2 (08:47→13:57)
[2016-10-13] MEDS: PRENATAL MULTIVITAMIN TABLET. PO SCH (08:47)
[2016-10-13] MEDS: HYDROcodone/APAP 5/325MG 1 TAB TABLET PO SCH ×2 (08:49→20:02)
[2016-10-13] MEDS: LORazepam INTENSOL 2 MG/ML BOTTLE SL SCH ×3 (08:51→17:09)
[2016-10-13] MEDS: QUEtiapine 50 MG TABLET. PO SCH ×2 (13:57→19:51)
[2016-10-13 17:31] VITALS: BP 111/75
--- NOTE | 2016-10-13 19:35 | PDOC ---
Exam Mario Alberto Demential Exam: Mario Alberto Note: Please also refer to the separate dictated note~for this date of service dictated separately.~Patient seen individually. Discussed the patient with Nursing staff reviewed the chart.~Reviewed interim history and current functioning. Reviewed vital signs,~Labs/ Radiology~and current medications noted below. Continue current treatment with the changes noted in the dictated addendum note Assessment: Vital Signs: Vital Signs Date Time Temp Pulse Resp B/P (MAP) Pulse Ox O2 Delivery O2 Flow Rate FiO2 10/13/16 17:31 97.8 80 18 111/75 (87) 97 Room Air I&O Intake and Output 10/14/16 07:00 Intake Total 1380 ml Balance 1380 ml Intake Oral 1380 ml Current Medications: Meds: Current Medications Acetaminophen (Tylenol) 650 mg PRN Q6HRS PRN PO PAIN / TEMP; Start 09/12/16 at 20:00; Status UNV Multi-Ingredient Ointment (Analgesic [place]) 1 randee PRN QID PRN TP MUSCLE PAIN; Start 09/12/16 at 20:00; Status UNV Al Hydroxide/Mg Hydroxide (Mylanta Plus Xs) 15 ml PRN AFTMEALHC PRN PO DYSPEPSIA; Start 09/12/16 at 20:00; Status UNV Magnesium Hydroxide (Milk Of Magnesia) 2,400 mg PRN QHS PRN PO CONSTIPATION; Start 09/12/16 at 20:00; Status UNV Duloxetine HCl (Cymbalta) 30 mg DAILY PO Last administered on 10/13/16 08:46; Start 09/13/16 at 09:00 Mirtazapine (Remeron) 7.5 mg QHS PO Last administered on 10/12/16 20:29; Start 09/12/16 at 21:00 Olanzapine (ZyPREXA ZYDIS) 2.5 mg PRN Q2HR PRN PO PSYCHOSIS Last administered on 09/15/16 08:10; Start 09/12/16 at 20:15 Quetiapine Fumarate (SEROquel) 50 mg NOON PO Last administered on 10/13/16 13: 57; Start 09/13/16 at 12:00 Quetiapine Fumarate (SEROquel) 75 mg HS PO Last administered on 10/12/16 20:29 ; Start 09/12/16 at 21:00 Melatonin 3 mg QHS PO Last administered on 10/12/16 20:29; Start 09/12/16 at 21: 00 Acetaminophen (Tylenol) 650 mg PRN Q6HRS PRN PO PAIN / TEMP; Start 09/12/16 at 20:15 Acetaminophen/ Hydrocodone Bitart (Lortab 5/325) 1 tab BID PO Last administered on 10/13/16 08:49; Start 09/12/16 at 21:00 Levetiracetam (Keppra) 500 mg BID PO Last administered on 10/13/16 08:46; Start 09/12/16 at 21:00 Al Hydroxide/Mg Hydroxide (Mylanta Plus Xs) 15 ml PRN AFTMEALHC PRN PO DYSPEPSIA; Start 09/12/16 at 20:15 Magnesium Hydroxide (Milk Of Magnesia) 2,400 mg PRN QHS PRN PO CONSTIPATION; Start 09/12/16 at 20:15 Multi-Ingredient Ointment (Analgesic [place]) 1 randee PRN QID PRN TP MUSCLE PAIN; Start 09/12/16 at 20:15 Cyanocobalamin (Vitamin B-12) 250 mcg DAILY PO Last administered on 10/13/16 08 :46; Start 09/13/16 at 09:00 Buspirone HCl (Buspar) 5 mg BID92 PO Last administered on 09/15/16 13:34; Start 09/13/16 at 09:00; Stop 09/15/16 at 18:27; Status DC Divalproex Sodium (Depakote Sprinkles) 250 mg DAILY PO Last administered on 10:01; Start 09/14/16 at 09:00; Stop 09/17/16 at 10:08; Status DC Lorazepam (Ativan) 0.25 mg PRN Q2HR PRN TP ANXIETY / AGITATION Last administered on 10/02/16 05:10; Start 09/13/16 at 19:15 Hydroxyzine HCl (Atarax) 25 mg PRN Q6HRS PRN PO ANXIETY / AGITATION; Start 09/14 at 14:45; Stop 09/14/16 at 14:45; Status DC Hydroxyzine HCl (Atarax) 25 mg PRN Q6HRS PRN PO ANXIETY/AGITATION Last administered on 09/15/16 14:14; Start 09/14/16 at 15:00 Prenat Multivit/ [employer]st/Iron/Folic Ac (Multivitamin ) 1 tab DAILY PO Last administered on 10/13/16 08:47; Start 09/15/16 at 10:15 Buspirone HCl (Buspar) 10 mg BID92 PO Last administered on 09/28/16 13:49; Start 09/16/16 at 09:00; Stop 09/28/16 at 18:49; Status DC Lorazepam (Ativan) 1 mg 1X ONCE PO Last administered on 09/16/16 08:07; Start 09/16/16 at 08:15; Stop 09/16/16 at 08:16; Status DC Lorazepam (Ativan Intensol) 1 mg PRN Q4HRS PRN SL ANXIETY / AGITATION Last administered on 09/16/16 13:35; Start 09/16/16 at 13:30 Lorazepam (Ativan Intensol) 0.25 mg TID@0900,1300,1700 SL Last administered on 10/13/16 17:09; Start 09/17/16 at 09:00 Divalproex Sodium (Depakote Sprinkles) 250 mg BID PO Last administered on 07:46; Start 09/17/16 at 21:00; Stop 09/20/16 at 14:56; Status DC Duloxetine HCl (Cymbalta) 30 mg 1X ONCE PO Last administered on 09/18/16 08: 31; Start 09/18/16 at 08:00; Stop 09/18/16 at 08:01; Status DC Divalproex Sodium (Depakote Sprinkles) 250 mg DAILY PO Last administered on 08:15; Start 09/21/16 at 09:00; Stop 09/23/16 at 18:31; Status DC Divalproex Sodium (Depakote Sprinkles) 500 mg HS PO Last administered on 19:23; Start 09/20/16 at 21:00; Stop 09/23/16 at 18:31; Status DC Divalproex Sodium (Depakote Sprinkles) 500 mg BID PO Last administered on 08:46; Start 09/23/16 at 21:00 Buspirone HCl (Buspar) 15 mg BID92 PO Last administered on 10/13/16t 13:57; Start 09/29/16 at 09:00 Active Scripts Active Reported Buspirone Hcl 5 Mg Tablet 1 Tab PO BID92 Zyprexa Zydis (Olanzapine) 5 Mg Tab.rapdis 2.5 Mg PO Q2HR PRN Mirtazapine 15 Mg Tablet 7.5 Mg PO QHS Analgesic [place] (Methyl Salicylate/Menthol) 28 Gm Oint...g. 1 [place] TP PRN QID PRN Melatonin 3 Mg Tablet 3 Mg PO QHS Mag-Al Plus Xs Suspension (Mag Hydrox/Al Hydrox/Simeth) 30 Ml Oral.susp 15 Ml PO PRN AFTMEALHC PRN Keppra (Levetiracetam) 500 Mg Tablet 500 Mg PO BID Tylenol (Acetaminophen) 325 Mg Tablet 650 Mg PO PRN Q6HRS PRN Milk Of Magnesia (Magnesium Hydroxide) 400 Mg/5 Ml Oral.susp 2,400 Mg PO PRN QHS PRN Cymbalta (Duloxetine Hcl) 30 Mg Capsule.dr 30 Mg PO DAILY pt has received 3 of 5 scheduled doses Hydrocodone-Apap 5-325 (Hydrocodone Bit/Acetaminophen) 1 Each Tablet 1 Tab PO BID B-12 (Cyanocobalamin (Vitamin B-12)) 500 Mcg Tab.rapdis 250 Mcg PO DAILY Seroquel (Quetiapine Fumarate) 50 Mg Tablet 50 Mg PO NOON Seroquel (Quetiapine Fumarate) 50 Mg Tablet 75 Mg PO HS Diagnosis: Problems: (1) Anxiety disorder (2) Impulse control disorder (3) Dementia, vascular, with depression (4) Dementia, vascular, with delusions (5) Dementia in Alzheimer's disease with delusions (6) Dementia in Alzheimer's disease with depression (7) Frontotemporal dementia with behavioral disturbance ADELA RHODES MD Oct 13, 2016 19:35
[2016-10-13] MEDS: MELATONIN 3 MG TABLET PO SCH (19:51)
[2016-10-13] MEDS: MIRTAZAPINE 7.5 MG TABLET. PO SCH (19:51)
--- NOTE | 2016-10-14 01:30 | PN ---
DATE: 10/12/2016 This late entry for 10/12/2016 covers elements not covered in my initial note of 10/12/2016. SUBJECTIVE: I met with the patient in the evening of 10/12/2016. The patient is confused, happy, wandering, redirectable. REVIEW OF SYSTEMS: No CV, , pulmonary, eye, ENT system symptoms on review. Reliability poor. MENTAL STATUS EXAM: Oriented to herself. Insight, judgment, recent and remote memory, attention, concentration, fund of knowledge poor, consistent with her diagnosis as mentioned in my initial note. PLAN: Continue current psychotropics mentioned in my initial note. Reviewed drug contractions. Risk/benefit ratio favors no further change at this time. ADELA RHODES MD DR: ELIZABETH/wellington JOB#: [id number] / [id number]
[2016-10-14 06:10] VITALS: BP 139/81
[2016-10-14] MEDS: DIVALPROEX 125 MG CAP.SPRINK PO SCH ×2 (08:15→19:58)
[2016-10-14] MEDS: busPIRone 15 MG TABLET. PO SCH ×2 (08:15→14:04)
[2016-10-14] MEDS: PRENATAL MULTIVITAMIN TABLET. PO SCH (08:16)
[2016-10-14] MEDS: levETIRAcetam 500 MG TABLET PO SCH ×2 (08:16→19:57)
[2016-10-14] MEDS: CYANOCOBALAMIN (VITAMIN B-12) 250 MCG TABLET PO SCH (08:16)
[2016-10-14] MEDS: HYDROcodone/APAP 5/325MG 1 TAB TABLET PO SCH ×2 (08:16→20:00)
[2016-10-14] MEDS: DULoxetine HCL 30 MG CAPSULE.DR PO SCH (08:17)
[2016-10-14] MEDS: LORazepam INTENSOL 2 MG/ML BOTTLE SL SCH ×3 (08:18→17:20)
[2016-10-14 09:59] LABS: BASO # 0.1 x10^3/uL (0.0-0.2); BASO % 1 % (0-3); EOS # 0.1 x10^3/uL (0.0-0.7); EOS % 3 % (0-3); HEMATOCRIT 40.7 % (36.0-47.0); HEMOGLOBIN 13.5 g/dL (12.0-15.5); LYMPH # 1.4 x10^3/uL (1.0-4.8); LYMPH % 24 % (24-48); MEAN CORPUSCULAR HEMOGLOBIN 28 pg (25-35); MEAN CORPUSCULAR HGB CONC 33 g/dL (31-37); MEAN CORPUSCULAR VOLUME 85 fL (79-100); MONO # 0.8 x10^3/uL (0.0-1.1); MONO % 15 % (0-9); NEUT # 3.3 x10^3uL (1.8-7.7); NEUT % 58 % (31-73); PLATELET COUNT 202 x10^3/uL (140-400); RED BLOOD COUNT 4.81 x10^6/uL (3.50-5.40); RED CELL DISTRIBUTION WIDTH 13.4 % (11.5-14.5); WHITE BLOOD COUNT 5.8 x10^3/uL (4.0-11.0)
[2016-10-14 10:14] LABS: ALBUMIN/GLOBULIN RATIO 0.7 (1.0-1.7); CALCIUM 8.7 mg/dL (8.5-10.1); GFR 57.1; POTASSIUM 4.3 mmol/L (3.5-5.1); TOTAL BILIRUBIN 0.2 mg/dL (0.2-1.0); TOTAL PROTEIN 7.3 g/dL (6.4-8.2)
[2016-10-14] MEDS: QUEtiapine 50 MG TABLET. PO SCH ×2 (13:20→19:56)
[2016-10-14 16:22] VITALS: BP 96/64
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
[2016-10-14] MEDS: MELATONIN 3 MG TABLET PO SCH (19:57)
[2016-10-14] MEDS: MIRTAZAPINE 7.5 MG TABLET. PO SCH (19:57)
--- NOTE | 2016-10-14 19:58 | PDOC ---
Exam Mario Alberto Demential Exam: Mario Alberto Note: Please also refer to the separate dictated note~for this date of service dictated separately.~Patient seen individually. Discussed the patient with Nursing staff reviewed the chart.~Reviewed interim history and current functioning. Reviewed vital signs,~Labs/ Radiology~and current medications noted below. Continue current treatment with the changes noted in the dictated addendum note Assessment: Vital Signs: Vital Signs Date Time Temp Pulse Resp B/P (MAP) Pulse Ox O2 Delivery O2 Flow Rate FiO2 10/14/16 16:22 97.3 71 22 96/64 (75) 100 10/14/16 11:00 Room Air I&O Intake and Output 10/15/16 07:00 Intake Total 840 ml Balance 840 ml Intake Oral 840 ml Labs: Laboratory Tests Test 10/14/16 09:50 White Blood Count 5.8 x10^3/uL (4.0-11.0) Red Blood Count 4.81 x10^6/uL (3.50-5.40) Hemoglobin 13.5 g/dL (12.0-15.5) Hematocrit 40.7 % (36.0-47.0) Mean Corpuscular Volume 85 fL (79-100) Mean Corpuscular Hemoglobin 28 pg (25-35) Mean Corpuscular Hemoglobin Concent 33 g/dL (31-37) Red Cell Distribution Width 13.4 % (11.5-14.5) Platelet Count 202 x10^3/uL (140-400) Neutrophils (%) (Auto) 58 % (31-73) Lymphocytes (%) (Auto) 24 % (24-48) Monocytes (%) (Auto) 15 % (0-9) H Eosinophils (%) (Auto) 3 % (0-3) Basophils (%) (Auto) 1 % (0-3) Neutrophils # (Auto) 3.3 x10^3uL (1.8-7.7) Lymphocytes # (Auto) 1.4 x10^3/uL (1.0-4.8) Monocytes # (Auto) 0.8 x10^3/uL (0.0-1.1) Eosinophils # (Auto) 0.1 x10^3/uL (0.0-0.7) Basophils # (Auto) 0.1 x10^3/uL (0.0-0.2) Sodium Level 144 mmol/L (136-145) Potassium Level 4.3 mmol/L (3.5-5.1) Chloride Level 107 mmol/L (98-107) Carbon Dioxide Level 31 mmol/L (21-32) Anion Gap 6 (6-14) Blood Urea Nitrogen 16 mg/dL (7-20) Creatinine 1.0 mg/dL (0.6-1.0) Estimated GFR (Cockcroft-Gault) 57.1 BUN/Creatinine Ratio 16 (6-20) Glucose Level 88 mg/dL (70-99) Calcium Level 8.7 mg/dL (8.5-10.1) Total Bilirubin 0.2 mg/dL (0.2-1.0) Aspartate Amino Transferase (AST) 44 U/L (15-37) H Alanine Aminotransferase (ALT) 63 U/L (14-59) H Alkaline Phosphatase 66 U/L (46-116) Total Protein 7.3 g/dL (6.4-8.2) Albumin 3.0 g/dL (3.4-5.0) L Albumin/Globulin Ratio 0.7 (1.0-1.7) L Current Medications: Meds: Current Medications Acetaminophen (Tylenol) 650 mg PRN Q6HRS PRN PO PAIN / TEMP; Start 09/12/16 at 20:00; Status UNV Multi-Ingredient Ointment (Analgesic [place]) 1 randee PRN QID PRN TP MUSCLE PAIN; Start 09/12/16 at 20:00; Status UNV Al Hydroxide/Mg Hydroxide (Mylanta Plus Xs) 15 ml PRN AFTMEALHC PRN PO DYSPEPSIA; Start 09/12/16 at 20:00; Status UNV Magnesium Hydroxide (Milk Of Magnesia) 2,400 mg PRN QHS PRN PO CONSTIPATION; Start 09/12/16 at 20:00; Status UNV Duloxetine HCl (Cymbalta) 30 mg DAILY PO Last administered on 10/14/16 08:17; Start 09/13/16 at 09:00 Mirtazapine (Remeron) 7.5 mg QHS PO Last administered on 10/13/16 19:51; Start 09/12/16 at 21:00 Olanzapine (ZyPREXA ZYDIS) 2.5 mg PRN Q2HR PRN PO PSYCHOSIS Last administered on 09/15/16 08:10; Start 09/12/16 at 20:15 Quetiapine Fumarate (SEROquel) 50 mg NOON PO Last administered on 10/14/16 13: 20; Start 09/13/16 at 12:00 Quetiapine Fumarate (SEROquel) 75 mg HS PO Last administered on 10/13/16 19:51 ; Start 09/12/16 at 21:00; Stop 10/14/16 at 18:47; Status DC Melatonin 3 mg QHS PO Last administered on 10/13/16 19:51; Start 09/12/16 at 21: 00 Acetaminophen (Tylenol) 650 mg PRN Q6HRS PRN PO PAIN / TEMP; Start 09/12/16 at 20:15 Acetaminophen/ Hydrocodone Bitart (Lortab 5/325) 1 tab BID PO Last administered on 10/14/16 08:16; Start 09/12/16 at 21:00 Levetiracetam (Keppra) 500 mg BID PO Last administered on 10/14/16 08:16; Start 09/12/16 at 21:00 Al Hydroxide/Mg Hydroxide (Mylanta Plus Xs) 15 ml PRN AFTMEALHC PRN PO DYSPEPSIA; Start 09/12/16 at 20:15 Magnesium Hydroxide (Milk Of Magnesia) 2,400 mg PRN QHS PRN PO CONSTIPATION; Start 09/12/16 at 20:15 Multi-Ingredient Ointment (Analgesic [place]) 1 randee PRN QID PRN TP MUSCLE PAIN; Start 09/12/16 at 20:15 Cyanocobalamin (Vitamin B-12) 250 mcg DAILY PO Last administered on 10/14/16 08 :16; Start 09/13/16 at 09:00 Buspirone HCl (Buspar) 5 mg BID92 PO Last administered on 09/15/16 13:34; Start 09/13/16 at 09:00; Stop 09/15/16 at 18:27; Status DC Divalproex Sodium (Depakote Sprinkles) 250 mg DAILY PO Last administered on 10:01; Start 09/14/16 at 09:00; Stop 09/17/16 at 10:08; Status DC Lorazepam (Ativan) 0.25 mg PRN Q2HR PRN TP ANXIETY / AGITATION Last administered on 10/02/16 05:10; Start 09/13/16 at 19:15 Hydroxyzine HCl (Atarax) 25 mg PRN Q6HRS PRN PO ANXIETY / AGITATION; Start 09/14 at 14:45; Stop 09/14/16 at 14:45; Status DC Hydroxyzine HCl (Atarax) 25 mg PRN Q6HRS PRN PO ANXIETY/AGITATION Last administered on 09/15/16 14:14; Start 09/14/16 at 15:00 Prenat Multivit/ Incident [employer]/Iron/Folic Ac (Multivitamin ) 1 tab DAILY PO Last administered on 10/14/16 08:16; Start 09/15/16 at 10:15 Buspirone HCl (Buspar) 10 mg BID92 PO Last administered on 09/28/16 13:49; Start 09/16/16 at 09:00; Stop 09/28/16 at 18:49; Status DC Lorazepam (Ativan) 1 mg 1X ONCE PO Last administered on 09/16/16 08:07; Start 09/16/16 at 08:15; Stop 09/16/16 at 08:16; Status DC Lorazepam (Ativan Intensol) 1 mg PRN Q4HRS PRN SL ANXIETY / AGITATION Last administered on 09/16/16 13:35; Start 09/16/16 at 13:30 Lorazepam (Ativan Intensol) 0.25 mg TID@0900,1300,1700 SL Last administered on 10/14/16 17:20; Start 09/17/16 at 09:00 Divalproex Sodium (Depakote Sprinkles) 250 mg BID PO Last administered on 07:46; Start 09/17/16 at 21:00; Stop 09/20/16 at 14:56; Status DC Duloxetine HCl (Cymbalta) 30 mg 1X ONCE PO Last administered on 09/18/16 08: 31; Start 09/18/16 at 08:00; Stop 09/18/16 at 08:01; Status DC Divalproex Sodium (Depakote Sprinkles) 250 mg DAILY PO Last administered on 08:15; Start 09/21/16 at 09:00; Stop 09/23/16 at 18:31; Status DC Divalproex Sodium (Depakote Sprinkles) 500 mg HS PO Last administered on 19:23; Start 09/20/16 at 21:00; Stop 09/23/16 at 18:31; Status DC Divalproex Sodium (Depakote Sprinkles) 500 mg BID PO Last administered on 08:15; Start 09/23/16 at 21:00 Buspirone HCl (Buspar) 15 mg BID92 PO Last administered on 10/14/16 14:04; Start 09/29/16 at 09:00 Quetiapine Fumarate (SEROquel) 50 mg HS PO ; Start 10/14/16 at 21:00 Quetiapine Fumarate (SEROquel) 25 mg DAILY@1700 PO ; Start 10/15/16 at 17:00 Active Scripts Active Reported Buspirone Hcl 5 Mg Tablet 1 Tab PO BID92 Zyprexa Zydis (Olanzapine) 5 Mg Tab.rapdis 2.5 Mg PO Q2HR PRN Mirtazapine 15 Mg Tablet 7.5 Mg PO QHS Analgesic [place] (Methyl Salicylate/Menthol) 28 Gm Oint...g. 1 [place] TP PRN QID PRN Melatonin 3 Mg Tablet 3 Mg PO QHS Mag-Al Plus Xs Suspension (Mag Hydrox/Al Hydrox/Simeth) 30 Ml Oral.susp 15 Ml PO PRN AFTMEALHC PRN Keppra (Levetiracetam) 500 Mg Tablet 500 Mg PO BID Tylenol (Acetaminophen) 325 Mg Tablet 650 Mg PO PRN Q6HRS PRN Milk Of Magnesia (Magnesium Hydroxide) 400 Mg/5 Ml Oral.susp 2,400 Mg PO PRN QHS PRN Cymbalta (Duloxetine Hcl) 30 Mg Capsule.dr 30 Mg PO DAILY pt has received 3 of 5 scheduled doses Hydrocodone-Apap 5-325 (Hydrocodone Bit/Acetaminophen) 1 Each Tablet 1 Tab PO BID B-12 (Cyanocobalamin (Vitamin B-12)) 500 Mcg Tab.rapdis 250 Mcg PO DAILY Seroquel (Quetiapine Fumarate) 50 Mg Tablet 50 Mg PO NOON Seroquel (Quetiapine Fumarate) 50 Mg Tablet 75 Mg PO HS Diagnosis: Problems: (1) Anxiety disorder (2) Impulse control disorder (3) Dementia, vascular, with depression (4) Dementia, vascular, with delusions (5) Dementia in Alzheimer's disease with delusions (6) Dementia in Alzheimer's disease with depression (7) Frontotemporal dementia with behavioral disturbance ADELA RHODES MD Oct 14, 2016 19:58
[2016-10-15 05:59] VITALS: BP 119/73
[2016-10-15] MEDS: DIVALPROEX 125 MG CAP.SPRINK PO SCH ×2 (08:51→19:18)
[2016-10-15] MEDS: busPIRone 15 MG TABLET. PO SCH ×2 (08:51→13:51)
[2016-10-15] MEDS: CYANOCOBALAMIN (VITAMIN B-12) 250 MCG TABLET PO SCH (08:52)
[2016-10-15] MEDS: PRENATAL MULTIVITAMIN TABLET. PO SCH (08:52)
[2016-10-15] MEDS: DULoxetine HCL 30 MG CAPSULE.DR PO SCH (08:52)
[2016-10-15] MEDS: levETIRAcetam 500 MG TABLET PO SCH ×2 (08:52→19:18)
[2016-10-15] MEDS: LORazepam INTENSOL 2 MG/ML BOTTLE SL SCH ×3 (08:54→17:29)
[2016-10-15] MEDS: HYDROcodone/APAP 5/325MG 1 TAB TABLET PO SCH ×2 (08:54→19:17)
[2016-10-15] MEDS: QUEtiapine 50 MG TABLET. PO SCH ×2 (12:16→19:18)
[2016-10-15 16:01] VITALS: BP 119/77
[2016-10-15] MEDS: QUEtiapine 25 MG TABLET. PO SCH (17:27)
[2016-10-15] MEDS: MELATONIN 3 MG TABLET PO SCH (19:17)
[2016-10-15] MEDS: MIRTAZAPINE 7.5 MG TABLET. PO SCH (19:17)
--- NOTE | 2016-10-15 19:41 | PDOC ---
Exam Mario Alberto Demential Exam: Mario Alberto Note: Please also refer to the separate dictated note~for this date of service dictated separately.~Patient seen individually. Discussed the patient with Nursing staff reviewed the chart.~Reviewed interim history and current functioning. Reviewed vital signs,~Labs/ Radiology~and current medications noted below. Continue current treatment with the changes noted in the dictated addendum note Assessment: Vital Signs: Vital Signs Date Time Temp Pulse Resp B/P (MAP) Pulse Ox O2 Delivery O2 Flow Rate FiO2 10/15/16 16:01 97.8 91 18 119/77 (91) 98 10/14/16 11:00 Room Air I&O Intake and Output 10/16/16 07:00 Intake Total 960 ml Balance 960 ml Intake Oral 960 ml Current Medications: Meds: Current Medications Acetaminophen (Tylenol) 650 mg PRN Q6HRS PRN PO PAIN / TEMP; Start 09/12/16 at 20:00; Status UNV Multi-Ingredient Ointment (Analgesic [place]) 1 randee PRN QID PRN TP MUSCLE PAIN; Start 09/12/16 at 20:00; Status UNV Al Hydroxide/Mg Hydroxide (Mylanta Plus Xs) 15 ml PRN AFTMEALHC PRN PO DYSPEPSIA; Start 09/12/16 at 20:00; Status UNV Magnesium Hydroxide (Milk Of Magnesia) 2,400 mg PRN QHS PRN PO CONSTIPATION; Start 09/12/16 at 20:00; Status UNV Duloxetine HCl (Cymbalta) 30 mg DAILY PO Last administered on 10/15/16 08:52; Start 09/13/16 at 09:00 Mirtazapine (Remeron) 7.5 mg QHS PO Last administered on 10/15/16 19:17; Start 09/12/16 at 21:00 Olanzapine (ZyPREXA ZYDIS) 2.5 mg PRN Q2HR PRN PO PSYCHOSIS Last administered on 09/15/16 08:10; Start 09/12/16 at 20:15 Quetiapine Fumarate (SEROquel) 50 mg NOON PO Last administered on 10/15/16 12: 16; Start 09/13/16 at 12:00 Quetiapine Fumarate (SEROquel) 75 mg HS PO Last administered on 10/13/16 19:51 ; Start 09/12/16 at 21:00; Stop 10/14/16 at 18:47; Status DC Melatonin 3 mg QHS PO Last administered on 10/15/16 19:17; Start 09/12/16 at 21: 00 Acetaminophen (Tylenol) 650 mg PRN Q6HRS PRN PO PAIN / TEMP; Start 09/12/16 at 20:15 Acetaminophen/ Hydrocodone Bitart (Lortab 5/325) 1 tab BID PO Last administered on 10/15/16 19:17; Start 09/12/16 at 21:00 Levetiracetam (Keppra) 500 mg BID PO Last administered on 10/15/16 19:18; Start 09/12/16 at 21:00 Al Hydroxide/Mg Hydroxide (Mylanta Plus Xs) 15 ml PRN AFTMEALHC PRN PO DYSPEPSIA; Start 09/12/16 at 20:15 Magnesium Hydroxide (Milk Of Magnesia) 2,400 mg PRN QHS PRN PO CONSTIPATION; Start 09/12/16 at 20:15 Multi-Ingredient Ointment (Analgesic [place]) 1 randee PRN QID PRN TP MUSCLE PAIN; Start 09/12/16 at 20:15 Cyanocobalamin (Vitamin B-12) 250 mcg DAILY PO Last administered on 10/15/16 08 :52; Start 09/13/16 at 09:00 Buspirone HCl (Buspar) 5 mg BID92 PO Last administered on 09/15/16 13:34; Start 09/13/16 at 09:00; Stop 09/15/16 at 18:27; Status DC Divalproex Sodium (Depakote Sprinkles) 250 mg DAILY PO Last administered on 10:01; Start 09/14/16 at 09:00; Stop 09/17/16 at 10:08; Status DC Lorazepam (Ativan) 0.25 mg PRN Q2HR PRN TP ANXIETY / AGITATION Last administered on 10/02/16 05:10; Start 09/13/16 at 19:15 Hydroxyzine HCl (Atarax) 25 mg PRN Q6HRS PRN PO ANXIETY / AGITATION; Start 09/14 at 14:45; Stop 09/14/16 at 14:45; Status DC Hydroxyzine HCl (Atarax) 25 mg PRN Q6HRS PRN PO ANXIETY/AGITATION Last administered on 09/15/16 14:14; Start 09/14/16 at 15:00 Prenat Multivit/ [place]/Iron/Folic Ac (Multivitamin ) 1 tab DAILY PO Last administered on 10/15/16 08:52; Start 09/15/16 at 10:15 Buspirone HCl (Buspar) 10 mg BID92 PO Last administered on 09/28/16 13:49; Start 09/16/16 at 09:00; Stop 09/28/16 at 18:49; Status DC Lorazepam (Ativan) 1 mg 1X ONCE PO Last administered on 09/16/16 08:07; Start 09/16/16 at 08:15; Stop 09/16/16 at 08:16; Status DC Lorazepam (Ativan Intensol) 1 mg PRN Q4HRS PRN SL ANXIETY / AGITATION Last administered on 09/16/16 13:35; Start 09/16/16 at 13:30 Lorazepam (Ativan Intensol) 0.25 mg TID@0900,1300,1700 SL Last administered on 10/15/16 17:29; Start 09/17/16 at 09:00 Divalproex Sodium (Depakote Sprinkles) 250 mg BID PO Last administered on 07:46; Start 09/17/16 at 21:00; Stop 09/20/16 at 14:56; Status DC Duloxetine HCl (Cymbalta) 30 mg 1X ONCE PO Last administered on 09/18/16 08: 31; Start 09/18/16 at 08:00; Stop 09/18/16 at 08:01; Status DC Divalproex Sodium (Depakote Sprinkles) 250 mg DAILY PO Last administered on 08:15; Start 09/21/16 at 09:00; Stop 09/23/16 at 18:31; Status DC Divalproex Sodium (Depakote Sprinkles) 500 mg HS PO Last administered on 19:23; Start 09/20/16 at 21:00; Stop 09/23/16 at 18:31; Status DC Divalproex Sodium (Depakote Sprinkles) 500 mg BID PO Last administered on 19:18; Start 09/23/16 at 21:00 Buspirone HCl (Buspar) 15 mg BID92 PO Last administered on 10/15/16 13:51; Start 09/29/16 at 09:00 Quetiapine Fumarate (SEROquel) 50 mg HS PO Last administered on 10/15/16 19:18 ; Start 10/14/16 at 21:00 Quetiapine Fumarate (SEROquel) 25 mg DAILY@1700 PO Last administered on 17:27; Start 10/15/16 at 17:00 Active Scripts Active Reported Buspirone Hcl 5 Mg Tablet 1 Tab PO BID92 Zyprexa Zydis (Olanzapine) 5 Mg Tab.rapdis 2.5 Mg PO Q2HR PRN Mirtazapine 15 Mg Tablet 7.5 Mg PO QHS Analgesic [place] (Methyl Salicylate/Menthol) 28 Gm Oint...g. 1 [place] TP PRN QID PRN Melatonin 3 Mg Tablet 3 Mg PO QHS Mag-Al Plus Xs Suspension (Mag Hydrox/Al Hydrox/Simeth) 30 Ml Oral.susp 15 Ml PO PRN AFTMEALHC PRN Keppra (Levetiracetam) 500 Mg Tablet 500 Mg PO BID Tylenol (Acetaminophen) 325 Mg Tablet 650 Mg PO PRN Q6HRS PRN Milk Of Magnesia (Magnesium Hydroxide) 400 Mg/5 Ml Oral.susp 2,400 Mg PO PRN QHS PRN Cymbalta (Duloxetine Hcl) 30 Mg Capsule.dr 30 Mg PO DAILY pt has received 3 of 5 scheduled doses Hydrocodone-Apap 5-325 (Hydrocodone Bit/Acetaminophen) 1 Each Tablet 1 Tab PO BID B-12 (Cyanocobalamin (Vitamin B-12)) 500 Mcg Tab.rapdis 250 Mcg PO DAILY Seroquel (Quetiapine Fumarate) 50 Mg Tablet 50 Mg PO NOON Seroquel (Quetiapine Fumarate) 50 Mg Tablet 75 Mg PO HS Diagnosis: Problems: (1) Anxiety disorder (2) Impulse control disorder (3) Dementia, vascular, with depression (4) Dementia, vascular, with delusions (5) Dementia in Alzheimer's disease with delusions (6) Dementia in Alzheimer's disease with depression (7) Frontotemporal dementia with behavioral disturbance ADELA RHODES MD Oct 15, 2016 19:41
--- NOTE | 2016-10-16 02:32 | PN ---
DATE: 10/14/2016 PSYCHIATRIC PROGRESS NOTE This is a late entry for 10/14/2016, covers elements not covered in my initial note of 10/14/2016. SUBJECTIVE: I met with the patient the evening of 10/14/2016. Appetite 100%. She has been confused, pleasant, singing, dancing in music group. Valproic acid level is 67. REVIEW OF SYSTEMS: No CV, , pulmonary, eye system symptoms on review. Reliability poor. MENTAL STATUS EXAM: Oriented to herself. Insight, judgment, recent and remote memory, attention, concentration, fund of knowledge poor, consistent with her diagnosis mentioned in my initial note. PLAN: Continue current psychotropics including Depakote, level is therapeutic. Adjust further as clinically indicated. Reviewed drug interactions. Risk/benefit ratio favors no further change. MAN Marquita RHODES MD DR: ELIZABETH/wellington JOB#: [id number] / [id number]
[2016-10-16] MEDS ORDERED: DIVA125C PO (04:18)
[2016-10-16] MEDS ORDERED: LORA2ORA8 PO (04:19)
[2016-10-16] MEDS ORDERED: PNV1TABL78 PO (04:23)
[2016-10-16] MEDS ORDERED: BUSP15TA PO (04:25)
[2016-10-16] MEDS ORDERED: HYDR25TA PO (04:26)
--- NOTE | 2016-10-16 04:50 | PN ---
DATE: 10/15/2016 This note covers elements not covered in my initial note of 10/15/2016. SUBJECTIVE: The patient was staffed at treatment team meeting with the entire team morning of 10/15/2016, seen individually evening of 10/15/2016. Appetite 100%. Valproic acid level 67. She has been dancing very appropriate in music groups. She has been accepted at [facility]. However, this evening I had a message to call the patient's mother, who is not happy with the patient's transfer to [facility] and would rather take the patient home with in-home services. I had a lengthy discussion with the mother. We decided to postpone the patient's discharge for the mother to discuss disposition options with Magali, social service staff, tomorrow morning before we make further decisions. REVIEW OF SYSTEMS: No CV, , pulmonary, eye, ENT system symptoms on review. Reliability poor. MENTAL STATUS EXAM: Oriented to herself. Insight, judgment, recent and remote memory, attention, concentration, fund of knowledge poor, consistent with her diagnosis mentioned in my initial note. PLAN: Continue psychotropics mentioned in my initial note. Reviewed drug interactions. Risk/benefit ratio favors no further change at this time. ADELA RHODES MD DR: ELIZABETH/wellington JOB#: [id number] / [id number]
[2016-10-16] MEDS: LORazepam TOPICAL 0.5 MG/ML GEL TP PRN (05:19)
[2016-10-16 06:44] VITALS: BP 130/79
[2016-10-16] MEDS: DULoxetine HCL 30 MG CAPSULE.DR PO SCH (07:59)
[2016-10-16] MEDS: PRENATAL MULTIVITAMIN TABLET. PO SCH (07:59)
[2016-10-16] MEDS: levETIRAcetam 500 MG TABLET PO SCH ×2 (07:59→20:02)
[2016-10-16] MEDS: busPIRone 15 MG TABLET. PO SCH ×2 (07:59→13:47)
[2016-10-16] MEDS: CYANOCOBALAMIN (VITAMIN B-12) 250 MCG TABLET PO SCH (07:59)
[2016-10-16] MEDS: QUEtiapine 50 MG TABLET. PO SCH ×2 (07:59→20:02)
[2016-10-16] MEDS: DIVALPROEX 125 MG CAP.SPRINK PO SCH ×2 (07:59→20:02)
[2016-10-16] MEDS: LORazepam INTENSOL 2 MG/ML BOTTLE SL SCH ×3 (08:03→17:00)
[2016-10-16] MEDS: HYDROcodone/APAP 5/325MG 1 TAB TABLET PO SCH ×2 (08:04→20:02)
[2016-10-16 15:45] VITALS: BP 102/63
[2016-10-16] MEDS: QUEtiapine 25 MG TABLET. PO SCH (17:00)
[2016-10-16] MEDS: MIRTAZAPINE 7.5 MG TABLET. PO SCH (20:02)
[2016-10-16] MEDS: MELATONIN 3 MG TABLET PO SCH (20:02)
--- NOTE | 2016-10-16 20:39 | PDOC ---
Exam Mario Alberto Demential Exam: Mario Alberto Note: Please also refer to the separate dictated note~for this date of service dictated separately.~Patient seen individually. Discussed the patient with Nursing staff reviewed the chart.~Reviewed interim history and current functioning. Reviewed vital signs,~Labs/ Radiology~and current medications noted below. Continue current treatment with the changes noted in the dictated addendum note Assessment: Vital Signs: Vital Signs Date Time Temp Pulse Resp B/P (MAP) Pulse Ox O2 Delivery O2 Flow Rate FiO2 10/16/16 20:02 20 10/16/16 15:45 97.2 80 102/63 (76) 97 10/14/16 11:00 Room Air I&O Intake and Output 10/17/16 07:00 Intake Total 1140 ml Balance 1140 ml Intake Oral 1140 ml Current Medications: Meds: Current Medications Acetaminophen (Tylenol) 650 mg PRN Q6HRS PRN PO PAIN / TEMP; Start 09/12/16 at 20:00; Status UNV Multi-Ingredient Ointment (Analgesic [place]) 1 randee PRN QID PRN TP MUSCLE PAIN; Start 09/12/16 at 20:00; Status UNV Al Hydroxide/Mg Hydroxide (Mylanta Plus Xs) 15 ml PRN AFTMEALHC PRN PO DYSPEPSIA; Start 09/12/16 at 20:00; Status UNV Magnesium Hydroxide (Milk Of Magnesia) 2,400 mg PRN QHS PRN PO CONSTIPATION; Start 09/12/16 at 20:00; Status UNV Duloxetine HCl (Cymbalta) 30 mg DAILY PO Last administered on 10/16/16 07:59; Start 09/13/16 at 09:00 Mirtazapine (Remeron) 7.5 mg QHS PO Last administered on 10/16/16 20:02; Start 09/12/16 at 21:00 Olanzapine (ZyPREXA ZYDIS) 2.5 mg PRN Q2HR PRN PO PSYCHOSIS Last administered on 09/15/16 08:10; Start 09/12/16 at 20:15 Quetiapine Fumarate (SEROquel) 50 mg NOON PO Last administered on 10/16/16 07: 59; Start 09/13/16 at 12:00 Quetiapine Fumarate (SEROquel) 75 mg HS PO Last administered on 10/13/16 19:51 ; Start 09/12/16 at 21:00; Stop 10/14/16 at 18:47; Status DC Melatonin 3 mg QHS PO Last administered on 10/16/16 20:02; Start 09/12/16 at 21: 00 Acetaminophen (Tylenol) 650 mg PRN Q6HRS PRN PO PAIN / TEMP; Start 09/12/16 at 20:15 Acetaminophen/ Hydrocodone Bitart (Lortab 5/325) 1 tab BID PO Last administered on 10/16/16 20:02; Start 09/12/16 at 21:00 Levetiracetam (Keppra) 500 mg BID PO Last administered on 10/16/16 20:02; Start 09/12/16 at 21:00 Al Hydroxide/Mg Hydroxide (Mylanta Plus Xs) 15 ml PRN AFTMEALHC PRN PO DYSPEPSIA; Start 09/12/16 at 20:15 Magnesium Hydroxide (Milk Of Magnesia) 2,400 mg PRN QHS PRN PO CONSTIPATION; Start 09/12/16 at 20:15 Multi-Ingredient Ointment (Analgesic [place]) 1 randee PRN QID PRN TP MUSCLE PAIN; Start 09/12/16 at 20:15 Cyanocobalamin (Vitamin B-12) 250 mcg DAILY PO Last administered on 10/16/16 07 :59; Start 09/13/16 at 09:00 Buspirone HCl (Buspar) 5 mg BID92 PO Last administered on 09/15/16 13:34; Start 09/13/16 at 09:00; Stop 09/15/16 at 18:27; Status DC Divalproex Sodium (Depakote Sprinkles) 250 mg DAILY PO Last administered on 10:01; Start 09/14/16 at 09:00; Stop 09/17/16 at 10:08; Status DC Lorazepam (Ativan) 0.25 mg PRN Q2HR PRN TP ANXIETY / AGITATION Last administered on 10/16/16 05:19; Start 09/13/16 at 19:15 Hydroxyzine HCl (Atarax) 25 mg PRN Q6HRS PRN PO ANXIETY / AGITATION; Start 09/14 at 14:45; Stop 09/14/16 at 14:45; Status DC Hydroxyzine HCl (Atarax) 25 mg PRN Q6HRS PRN PO ANXIETY/AGITATION Last administered on 09/15/16 14:14; Start 09/14/16 at 15:00 Prenat Multivit/ [place]/Iron/Folic Ac (Multivitamin ) 1 tab DAILY PO Last administered on 10/16/16 07:59; Start 09/15/16 at 10:15 Buspirone HCl (Buspar) 10 mg BID92 PO Last administered on 09/28/16 13:49; Start 09/16/16 at 09:00; Stop 09/28/16 at 18:49; Status DC Lorazepam (Ativan) 1 mg 1X ONCE PO Last administered on 09/16/16 08:07; Start 09/16/16 at 08:15; Stop 09/16/16 at 08:16; Status DC Lorazepam (Ativan Intensol) 1 mg PRN Q4HRS PRN SL ANXIETY / AGITATION Last administered on 09/16/16 13:35; Start 09/16/16 at 13:30 Lorazepam (Ativan Intensol) 0.25 mg TID@0900,1300,1700 SL Last administered on 10/16/16 17:00; Start 09/17/16 at 09:00 Divalproex Sodium (Depakote Sprinkles) 250 mg BID PO Last administered on 07:46; Start 09/17/16 at 21:00; Stop 09/20/16 at 14:56; Status DC Duloxetine HCl (Cymbalta) 30 mg 1X ONCE PO Last administered on 09/18/16 08: 31; Start 09/18/16 at 08:00; Stop 09/18/16 at 08:01; Status DC Divalproex Sodium (Depakote Sprinkles) 250 mg DAILY PO Last administered on 08:15; Start 09/21/16 at 09:00; Stop 09/23/16 at 18:31; Status DC Divalproex Sodium (Depakote Sprinkles) 500 mg HS PO Last administered on 19:23; Start 09/20/16 at 21:00; Stop 09/23/16 at 18:31; Status DC Divalproex Sodium (Depakote Sprinkles) 500 mg BID PO Last administered on 20:02; Start 09/23/16 at 21:00 Buspirone HCl (Buspar) 15 mg BID92 PO Last administered on 10/16/16 13:47; Start 09/29/16 at 09:00 Quetiapine Fumarate (SEROquel) 50 mg HS PO Last administered on 10/16/16 20:02 ; Start 10/14/16 at 21:00 Quetiapine Fumarate (SEROquel) 25 mg DAILY@1700 PO Last administered on 17:00; Start 10/15/16 at 17:00 Active Scripts Active Reported Hydroxyzine Hcl 25 Mg Tablet 25 Mg PO PRN Q6HRS PRN Buspirone Hcl 15 Mg Tablet 15 Mg PO BID92 Multi Tablet (Pnv No.122/Iron/Folic Acid) 1 Each Tablet 1 Tab PO DAILY Lorazepam Intensol (Lorazepam) 2 Mg/1 Ml Oral.conc 1 Mg PO PRN Q4HRS PRN Depakote Sprinkle (Divalproex Sodium) 125 Mg Cap.sprink 500 Mg PO BID Buspirone Hcl 5 Mg Tablet 1 Tab PO BID92 Zyprexa Zydis (Olanzapine) 5 Mg Tab.rapdis 2.5 Mg PO Q2HR PRN Mirtazapine 15 Mg Tablet 7.5 Mg PO QHS Analgesic [place] (Methyl Salicylate/Menthol) 28 Gm Oint...g. 1 [place] TP PRN QID PRN Melatonin 3 Mg Tablet 3 Mg PO QHS Mag-Al Plus Xs Suspension (Mag Hydrox/Al Hydrox/Simeth) 30 Ml Oral.susp 15 Ml PO PRN AFTMEALHC PRN Keppra (Levetiracetam) 500 Mg Tablet 500 Mg PO BID Tylenol (Acetaminophen) 325 Mg Tablet 650 Mg PO PRN Q6HRS PRN Milk Of Magnesia (Magnesium Hydroxide) 400 Mg/5 Ml Oral.susp 2,400 Mg PO PRN QHS PRN Cymbalta (Duloxetine Hcl) 30 Mg Capsule.dr 30 Mg PO DAILY pt has received 3 of 5 scheduled doses Hydrocodone-Apap 5-325 (Hydrocodone Bit/Acetaminophen) 1 Each Tablet 1 Tab PO BID B-12 (Cyanocobalamin (Vitamin B-12)) 500 Mcg Tab.rapdis 250 Mcg PO DAILY Seroquel (Quetiapine Fumarate) 50 Mg Tablet 50 Mg PO NOON Seroquel (Quetiapine Fumarate) 50 Mg Tablet 75 Mg PO HS Diagnosis: Problems: (1) Anxiety disorder (2) Impulse control disorder (3) Dementia, vascular, with depression (4) Dementia, vascular, with delusions (5) Dementia in Alzheimer's disease with delusions (6) Dementia in Alzheimer's disease with depression (7) Frontotemporal dementia with behavioral disturbance ADELA RHODES MD Oct 16, 2016 20:38
[2016-10-17 05:56] VITALS: BP 119/74
[2016-10-17] MEDS: PRENATAL MULTIVITAMIN TABLET. PO SCH (07:55)
[2016-10-17] MEDS: CYANOCOBALAMIN (VITAMIN B-12) 250 MCG TABLET PO SCH (07:55)
[2016-10-17] MEDS: HYDROcodone/APAP 5/325MG 1 TAB TABLET PO SCH ×2 (07:55→20:58)
[2016-10-17] MEDS: levETIRAcetam 500 MG TABLET PO SCH ×2 (07:55→20:58)
[2016-10-17] MEDS: DULoxetine HCL 30 MG CAPSULE.DR PO SCH (07:55)
[2016-10-17] MEDS: busPIRone 15 MG TABLET. PO SCH ×2 (07:55→12:42)
[2016-10-17] MEDS: DIVALPROEX 125 MG CAP.SPRINK PO SCH ×2 (07:56→20:59)
[2016-10-17] MEDS: LORazepam INTENSOL 2 MG/ML BOTTLE SL SCH ×3 (07:58→17:00)
[2016-10-17] MEDS: QUEtiapine 50 MG TABLET. PO SCH ×2 (12:00→20:59)
[2016-10-17] MEDS: QUEtiapine 25 MG TABLET. PO SCH (12:42)
[2016-10-17 17:21] VITALS: BP 124/52
[2016-10-17] MEDS: MELATONIN 3 MG TABLET PO SCH (20:58)
[2016-10-17] MEDS: MIRTAZAPINE 7.5 MG TABLET. PO SCH (20:59)
--- NOTE | 2016-10-17 23:09 | PDOC ---
Exam Mario Alberto Demential Exam: Mario Alberto Note: Please also refer to the separate dictated note~for this date of service dictated separately.~Patient seen individually. Discussed the patient with Nursing staff reviewed the chart.~Reviewed interim history and current functioning. Reviewed vital signs,~Labs/ Radiology~and current medications noted below. Continue current treatment with the changes noted in the dictated addendum note Assessment: Vital Signs: Vital Signs Date Time Temp Pulse Resp B/P (MAP) Pulse Ox O2 Delivery O2 Flow Rate FiO2 10/17/16 17:21 97.0 106 18 124/52 (76) 96 10/17/16 05:56 Room Air I&O Intake and Output 10/18/16 07:00 Intake Total 960 ml Balance 960 ml Intake Oral 960 ml Current Medications: Meds: Current Medications Acetaminophen (Tylenol) 650 mg PRN Q6HRS PRN PO PAIN / TEMP; Start 09/12/16 at 20:00; Status UNV Multi-Ingredient Ointment (Analgesic [place]) 1 randee PRN QID PRN TP MUSCLE PAIN; Start 09/12/16 at 20:00; Status UNV Al Hydroxide/Mg Hydroxide (Mylanta Plus Xs) 15 ml PRN AFTMEALHC PRN PO DYSPEPSIA; Start 09/12/16 at 20:00; Status UNV Magnesium Hydroxide (Milk Of Magnesia) 2,400 mg PRN QHS PRN PO CONSTIPATION; Start 09/12/16 at 20:00; Status UNV Duloxetine HCl (Cymbalta) 30 mg DAILY PO Last administered on 10/17/16 07:55; Start 09/13/16 at 09:00 Mirtazapine (Remeron) 7.5 mg QHS PO Last administered on 10/17/16 20:59; Start 09/12/16 at 21:00 Olanzapine (ZyPREXA ZYDIS) 2.5 mg PRN Q2HR PRN PO PSYCHOSIS Last administered on 09/15/16 08:10; Start 09/12/16 at 20:15 Quetiapine Fumarate (SEROquel) 50 mg NOON PO Last administered on 10/17/16 12: 00; Start 09/13/16 at 12:00 Quetiapine Fumarate (SEROquel) 75 mg HS PO Last administered on 10/13/16 19:51 ; Start 09/12/16 at 21:00; Stop 10/14/16 at 18:47; Status DC Melatonin 3 mg QHS PO Last administered on 10/17/16 20:58; Start 09/12/16 at 21: 00 Acetaminophen (Tylenol) 650 mg PRN Q6HRS PRN PO PAIN / TEMP; Start 09/12/16 at 20:15 Acetaminophen/ Hydrocodone Bitart (Lortab 5/325) 1 tab BID PO Last administered on 10/17/16 20:58; Start 09/12/16 at 21:00 Levetiracetam (Keppra) 500 mg BID PO Last administered on 10/17/16 20:58; Start 09/12/16 at 21:00 Al Hydroxide/Mg Hydroxide (Mylanta Plus Xs) 15 ml PRN AFTMEALHC PRN PO DYSPEPSIA; Start 09/12/16 at 20:15 Magnesium Hydroxide (Milk Of Magnesia) 2,400 mg PRN QHS PRN PO CONSTIPATION; Start 09/12/16 at 20:15 Multi-Ingredient Ointment (Analgesic [place]) 1 randee PRN QID PRN TP MUSCLE PAIN; Start 09/12/16 at 20:15 Cyanocobalamin (Vitamin B-12) 250 mcg DAILY PO Last administered on 10/17/16 07 :55; Start 09/13/16 at 09:00 Buspirone HCl (Buspar) 5 mg BID92 PO Last administered on 09/15/16 13:34; Start 09/13/16 at 09:00; Stop 09/15/16 at 18:27; Status DC Divalproex Sodium (Depakote Sprinkles) 250 mg DAILY PO Last administered on 10:01; Start 09/14/16 at 09:00; Stop 09/17/16 at 10:08; Status DC Lorazepam (Ativan) 0.25 mg PRN Q2HR PRN TP ANXIETY / AGITATION Last administered on 10/16/16 05:19; Start 09/13/16 at 19:15 Hydroxyzine HCl (Atarax) 25 mg PRN Q6HRS PRN PO ANXIETY / AGITATION; Start 09/14 at 14:45; Stop 09/14/16 at 14:45; Status DC Hydroxyzine HCl (Atarax) 25 mg PRN Q6HRS PRN PO ANXIETY/AGITATION Last administered on 09/15/16 14:14; Start 09/14/16 at 15:00 Prenat Multivit/ [place]/Iron/Folic Ac (Multivitamin ) 1 tab DAILY PO Last administered on 10/17/16 07:55; Start 09/15/16 at 10:15 Buspirone HCl (Buspar) 10 mg BID92 PO Last administered on 09/28/16 13:49; Start 09/16/16 at 09:00; Stop 09/28/16 at 18:49; Status DC Lorazepam (Ativan) 1 mg 1X ONCE PO Last administered on 09/16/16 08:07; Start 09/16/16 at 08:15; Stop 09/16/16 at 08:16; Status DC Lorazepam (Ativan Intensol) 1 mg PRN Q4HRS PRN SL ANXIETY / AGITATION Last administered on 09/16/16 13:35; Start 09/16/16 at 13:30 Lorazepam (Ativan Intensol) 0.25 mg TID@0900,1300,1700 SL Last administered on 10/17/16 17:00; Start 09/17/16 at 09:00 Divalproex Sodium (Depakote Sprinkles) 250 mg BID PO Last administered on 07:46; Start 09/17/16 at 21:00; Stop 09/20/16 at 14:56; Status DC Duloxetine HCl (Cymbalta) 30 mg 1X ONCE PO Last administered on 09/18/16 08: 31; Start 09/18/16 at 08:00; Stop 09/18/16 at 08:01; Status DC Divalproex Sodium (Depakote Sprinkles) 250 mg DAILY PO Last administered on 08:15; Start 09/21/16 at 09:00; Stop 09/23/16 at 18:31; Status DC Divalproex Sodium (Depakote Sprinkles) 500 mg HS PO Last administered on 19:23; Start 09/20/16 at 21:00; Stop 09/23/16 at 18:31; Status DC Divalproex Sodium (Depakote Sprinkles) 500 mg BID PO Last administered on 20:59; Start 09/23/16 at 21:00 Buspirone HCl (Buspar) 15 mg BID92 PO Last administered on 10/17/16 12:42; Start 09/29/16 at 09:00 Quetiapine Fumarate (SEROquel) 50 mg HS PO Last administered on 10/17/16 20:59 ; Start 10/14/16 at 21:00 Quetiapine Fumarate (SEROquel) 25 mg DAILY@1700 PO Last administered on 12:42; Start 10/15/16 at 17:00 Active Scripts Active Reported Hydroxyzine Hcl 25 Mg Tablet 25 Mg PO PRN Q6HRS PRN Buspirone Hcl 15 Mg Tablet 15 Mg PO BID92 Multi Tablet (Pnv No.122/Iron/Folic Acid) 1 Each Tablet 1 Tab PO DAILY Lorazepam Intensol (Lorazepam) 2 Mg/1 Ml Oral.conc 1 Mg PO PRN Q4HRS PRN Depakote Sprinkle (Divalproex Sodium) 125 Mg Cap.sprink 500 Mg PO BID Buspirone Hcl 5 Mg Tablet 1 Tab PO BID92 Zyprexa Zydis (Olanzapine) 5 Mg Tab.rapdis 2.5 Mg PO Q2HR PRN Mirtazapine 15 Mg Tablet 7.5 Mg PO QHS Analgesic [place] (Methyl Salicylate/Menthol) 28 Gm Oint...g. 1 [place] TP PRN QID PRN Melatonin 3 Mg Tablet 3 Mg PO QHS Mag-Al Plus Xs Suspension (Mag Hydrox/Al Hydrox/Simeth) 30 Ml Oral.susp 15 Ml PO PRN AFTMEALHC PRN Keppra (Levetiracetam) 500 Mg Tablet 500 Mg PO BID Tylenol (Acetaminophen) 325 Mg Tablet 650 Mg PO PRN Q6HRS PRN Milk Of Magnesia (Magnesium Hydroxide) 400 Mg/5 Ml Oral.susp 2,400 Mg PO PRN QHS PRN Cymbalta (Duloxetine Hcl) 30 Mg Capsule.dr 30 Mg PO DAILY pt has received 3 of 5 scheduled doses Hydrocodone-Apap 5-325 (Hydrocodone Bit/Acetaminophen) 1 Each Tablet 1 Tab PO BID B-12 (Cyanocobalamin (Vitamin B-12)) 500 Mcg Tab.rapdis 250 Mcg PO DAILY Seroquel (Quetiapine Fumarate) 50 Mg Tablet 50 Mg PO NOON Seroquel (Quetiapine Fumarate) 50 Mg Tablet 75 Mg PO HS Diagnosis: Problems: (1) Anxiety disorder (2) Impulse control disorder (3) Dementia, vascular, with depression (4) Dementia, vascular, with delusions (5) Dementia in Alzheimer's disease with delusions (6) Dementia in Alzheimer's disease with depression (7) Frontotemporal dementia with behavioral disturbance ADELA RHODES MD Oct 17, 2016 23:09
--- NOTE | 2016-10-18 03:32 | PN ---
DATE: 10/16/2016 This late entry 10/16/2016 covers elements not covered in my initial note of 10/16/2016. SUBJECTIVE: I met with the patient evening of 10/16/2016. She has been irritable in the morning, resistive to care, has been done much better in the evening, singing, laughing, dancing as I met with her, certainly confused. REVIEW OF SYSTEMS: No CV, , pulmonary, eye, ENT system symptoms on review. Reliability poor. MENTAL STATUS EXAM: Oriented to herself. Insight, judgment, recent and remote memory, attention, concentration, fund of knowledge poor, consistent with her diagnosis mentioned in my initial note. PLAN: Continue current psychotropics, reviewed drug contractions, risk and benefit ratio favors no further change. MAN Marquita RHODES MD DR: ELIZABETH/wellington JOB#: [id number] / [id number]
[2016-10-18 06:07] VITALS: BP 125/72
[2016-10-18] MEDS: LORazepam TOPICAL 0.5 MG/ML GEL TP PRN (06:37)
[2016-10-18] MEDS: DULoxetine HCL 30 MG CAPSULE.DR PO SCH (07:29)
[2016-10-18] MEDS: PRENATAL MULTIVITAMIN TABLET. PO SCH (07:29)
[2016-10-18] MEDS: CYANOCOBALAMIN (VITAMIN B-12) 250 MCG TABLET PO SCH (07:29)
[2016-10-18] MEDS: busPIRone 15 MG TABLET. PO SCH ×2 (07:29→13:48)
[2016-10-18] MEDS: levETIRAcetam 500 MG TABLET PO SCH (07:29)
[2016-10-18] MEDS: HYDROcodone/APAP 5/325MG 1 TAB TABLET PO SCH ×2 (07:30→20:59)
[2016-10-18] MEDS: DIVALPROEX 125 MG CAP.SPRINK PO SCH ×2 (07:30→20:59)
[2016-10-18] MEDS: LORazepam INTENSOL 2 MG/ML BOTTLE SL SCH ×3 (07:32→17:00)
[2016-10-18] MEDS: QUEtiapine 50 MG TABLET. PO SCH ×2 (12:00→20:59)
[2016-10-18 16:49] VITALS: BP 88/61
[2016-10-18] MEDS: QUEtiapine 25 MG TABLET. PO SCH (17:00)
--- NOTE | 2016-10-18 20:04 | PDOC ---
Exam Mario Alberto Demential Exam: Mario Alberto Note: Please also refer to the separate dictated note~for this date of service dictated separately.~Patient seen individually. Discussed the patient with Nursing staff reviewed the chart.~Reviewed interim history and current functioning. Reviewed vital signs,~Labs/ Radiology~and current medications noted below. Continue current treatment with the changes noted in the dictated addendum note Assessment: Vital Signs: Vital Signs Date Time Temp Pulse Resp B/P (MAP) Pulse Ox O2 Delivery O2 Flow Rate FiO2 10/18/16 16:49 97.4 84 16 88/61 (70) 95 10/17/16 05:56 Room Air I&O Intake and Output 10/19/16 07:00 Intake Total 840 ml Balance 840 ml Intake Oral 840 ml Current Medications: Meds: Current Medications Acetaminophen (Tylenol) 650 mg PRN Q6HRS PRN PO PAIN / TEMP; Start 09/12/16 at 20:00; Status UNV Multi-Ingredient Ointment (Analgesic [place]) 1 randee PRN QID PRN TP MUSCLE PAIN; Start 09/12/16 at 20:00; Status UNV Al Hydroxide/Mg Hydroxide (Mylanta Plus Xs) 15 ml PRN AFTMEALHC PRN PO DYSPEPSIA; Start 09/12/16 at 20:00; Status UNV Magnesium Hydroxide (Milk Of Magnesia) 2,400 mg PRN QHS PRN PO CONSTIPATION; Start 09/12/16 at 20:00; Status UNV Duloxetine HCl (Cymbalta) 30 mg DAILY PO Last administered on 10/18/16 07:29; Start 09/13/16 at 09:00 Mirtazapine (Remeron) 7.5 mg QHS PO Last administered on 10/17/16 20:59; Start 09/12/16 at 21:00 Olanzapine (ZyPREXA ZYDIS) 2.5 mg PRN Q2HR PRN PO PSYCHOSIS Last administered on 09/15/16 08:10; Start 09/12/16 at 20:15 Quetiapine Fumarate (SEROquel) 50 mg NOON PO Last administered on 10/18/16 12: 00; Start 09/13/16 at 12:00 Quetiapine Fumarate (SEROquel) 75 mg HS PO Last administered on 10/13/16 19:51 ; Start 09/12/16 at 21:00; Stop 10/14/16 at 18:47; Status DC Melatonin 3 mg QHS PO Last administered on 10/17/16 20:58; Start 09/12/16 at 21: 00 Acetaminophen (Tylenol) 650 mg PRN Q6HRS PRN PO PAIN / TEMP; Start 09/12/16 at 20:15 Acetaminophen/ Hydrocodone Bitart (Lortab 5/325) 1 tab BID PO Last administered on 10/18/16 07:30; Start 09/12/16 at 21:00 Levetiracetam (Keppra) 500 mg BID PO Last administered on 10/18/16 07:29; Start 09/12/16 at 21:00; Stop 10/18/16 at 16:51; Status DC Al Hydroxide/Mg Hydroxide (Mylanta Plus Xs) 15 ml PRN AFTMEALHC PRN PO DYSPEPSIA; Start 09/12/16 at 20:15 Magnesium Hydroxide (Milk Of Magnesia) 2,400 mg PRN QHS PRN PO CONSTIPATION; Start 09/12/16 at 20:15 Multi-Ingredient Ointment (Analgesic [place]) 1 randee PRN QID PRN TP MUSCLE PAIN; Start 09/12/16 at 20:15 Cyanocobalamin (Vitamin B-12) 250 mcg DAILY PO Last administered on 10/18/16 07:29; Start 09/13/16 at 09:00 Buspirone HCl (Buspar) 5 mg BID92 PO Last administered on 09/15/16 13:34; Start 09/13/16 at 09:00; Stop 09/15/16 at 18:27; Status DC Divalproex Sodium (Depakote Sprinkles) 250 mg DAILY PO Last administered on 10:01; Start 09/14/16 at 09:00; Stop 09/17/16 at 10:08; Status DC Lorazepam (Ativan) 0.25 mg PRN Q2HR PRN TP ANXIETY / AGITATION Last administered on 10/18/16 06:37; Start 09/13/16 at 19:15 Hydroxyzine HCl (Atarax) 25 mg PRN Q6HRS PRN PO ANXIETY / AGITATION; Start 09/14 at 14:45; Stop 09/14/16 at 14:45; Status DC Hydroxyzine HCl (Atarax) 25 mg PRN Q6HRS PRN PO ANXIETY/AGITATION Last administered on 09/15/16 14:14; Start 09/14/16 at 15:00 Prenat Multivit/ [place]/Iron/Folic Ac (Multivitamin ) 1 tab DAILY PO Last administered on 10/18/16 07:29; Start 09/15/16 at 10:15 Buspirone HCl (Buspar) 10 mg BID92 PO Last administered on 09/28/16 13:49; Start 09/16/16 at 09:00; Stop 09/28/16 at 18:49; Status DC Lorazepam (Ativan) 1 mg 1X ONCE PO Last administered on 09/16/16 08:07; Start 09/16/16 at 08:15; Stop 09/16/16 at 08:16; Status DC Lorazepam (Ativan Intensol) 1 mg PRN Q4HRS PRN SL ANXIETY / AGITATION Last administered on 09/16/16 13:35; Start 09/16/16 at 13:30 Lorazepam (Ativan Intensol) 0.25 mg TID@0900,1300,1700 SL Last administered on 10/18/16 17:00; Start 09/17/16 at 09:00 Divalproex Sodium (Depakote Sprinkles) 250 mg BID PO Last administered on 07:46; Start 09/17/16 at 21:00; Stop 09/20/16 at 14:56; Status DC Duloxetine HCl (Cymbalta) 30 mg 1X ONCE PO Last administered on 09/18/16 08: 31; Start 09/18/16 at 08:00; Stop 09/18/16 at 08:01; Status DC Divalproex Sodium (Depakote Sprinkles) 250 mg DAILY PO Last administered on 08:15; Start 09/21/16 at 09:00; Stop 09/23/16 at 18:31; Status DC Divalproex Sodium (Depakote Sprinkles) 500 mg HS PO Last administered on 19:23; Start 09/20/16 at 21:00; Stop 09/23/16 at 18:31; Status DC Divalproex Sodium (Depakote Sprinkles) 500 mg BID PO Last administered on 07:30; Start 09/23/16 at 21:00 Buspirone HCl (Buspar) 15 mg BID92 PO Last administered on 10/18/16 13:48; Start 09/29/16 at 09:00 Quetiapine Fumarate (SEROquel) 50 mg HS PO Last administered on 10/17/16 20:59 ; Start 10/14/16 at 21:00 Quetiapine Fumarate (SEROquel) 25 mg DAILY@1700 PO Last administered on 17:00; Start 10/15/16 at 17:00 Active Scripts Active Reported Hydroxyzine Hcl 25 Mg Tablet 25 Mg PO PRN Q6HRS PRN Buspirone Hcl 15 Mg Tablet 15 Mg PO BID92 Multi Tablet (Pnv No.122/Iron/Folic Acid) 1 Each Tablet 1 Tab PO DAILY Lorazepam Intensol (Lorazepam) 2 Mg/1 Ml Oral.conc 1 Mg PO PRN Q4HRS PRN Depakote Sprinkle (Divalproex Sodium) 125 Mg Cap.sprink 500 Mg PO BID Buspirone Hcl 5 Mg Tablet 1 Tab PO BID92 Zyprexa Zydis (Olanzapine) 5 Mg Tab.rapdis 2.5 Mg PO Q2HR PRN Mirtazapine 15 Mg Tablet 7.5 Mg PO QHS Analgesic [place] (Methyl Salicylate/Menthol) 28 Gm Oint...g. 1 [place] TP PRN QID PRN Melatonin 3 Mg Tablet 3 Mg PO QHS Mag-Al Plus Xs Suspension (Mag Hydrox/Al Hydrox/Simeth) 30 Ml Oral.susp 15 Ml PO PRN AFTMEALHC PRN Keppra (Levetiracetam) 500 Mg Tablet 500 Mg PO BID Tylenol (Acetaminophen) 325 Mg Tablet 650 Mg PO PRN Q6HRS PRN Milk Of Magnesia (Magnesium Hydroxide) 400 Mg/5 Ml Oral.susp 2,400 Mg PO PRN QHS PRN Cymbalta (Duloxetine Hcl) 30 Mg Capsule.dr 30 Mg PO DAILY pt has received 3 of 5 scheduled doses Hydrocodone-Apap 5-325 (Hydrocodone Bit/Acetaminophen) 1 Each Tablet 1 Tab PO BID B-12 (Cyanocobalamin (Vitamin B-12)) 500 Mcg Tab.rapdis 250 Mcg PO DAILY Seroquel (Quetiapine Fumarate) 50 Mg Tablet 50 Mg PO NOON Seroquel (Quetiapine Fumarate) 50 Mg Tablet 75 Mg PO HS Diagnosis: Problems: (1) Anxiety disorder (2) Impulse control disorder (3) Dementia, vascular, with depression (4) Dementia, vascular, with delusions (5) Dementia in Alzheimer's disease with delusions (6) Dementia in Alzheimer's disease with depression (7) Frontotemporal dementia with behavioral disturbance ADELA RHODES MD Oct 18, 2016 20:04
[2016-10-18] MEDS: MELATONIN 3 MG TABLET PO SCH (20:58)
[2016-10-18] MEDS: MIRTAZAPINE 7.5 MG TABLET. PO SCH (20:59)
--- NOTE | 2016-10-18 21:48 | PN ---
DATE: 10/17/2016 PSYCHIATRIC PROGRESS NOTE This late entry 10/17/2016, covers elements not covered in my initial note of 10/17/2016. Per nursing report, the patient remains confused, but has been quite jovial, happy, smiling, laughing and singing at different times. She gets a little impulsive redirects, otherwise, much improved with respect to her behaviors, aggression. REVIEW OF SYSTEMS: No CV, , pulmonary, eye, ENT system symptoms on review. Reliability poor. MENTAL STATUS EXAM: Oriented to herself. Insight, judgment, recent and remote memory, attention, concentration, fund of knowledge poor, consistent with her diagnosis mentioned in my initial note. PLAN: Continue current psychotropics, reviewed drug interactions, risk/benefit ratio favors no further change as of now. MAN Marquita RHODES MD DR: ELIZABETH/wellington JOB#: [id number] / [id number]
[2016-10-19] MEDS ORDERED: ATIVAN TOP (01:06)
[2016-10-19 06:09] VITALS: BP 129/69
[2016-10-19] MEDS: DIVALPROEX 125 MG CAP.SPRINK PO SCH ×2 (08:52→19:49)
[2016-10-19] MEDS: PRENATAL MULTIVITAMIN TABLET. PO SCH (08:53)
[2016-10-19] MEDS: CYANOCOBALAMIN (VITAMIN B-12) 250 MCG TABLET PO SCH (08:53)
[2016-10-19] MEDS: DULoxetine HCL 30 MG CAPSULE.DR PO SCH (08:53)
[2016-10-19] MEDS: HYDROcodone/APAP 5/325MG 1 TAB TABLET PO SCH ×2 (08:53→19:49)
[2016-10-19] MEDS: busPIRone 15 MG TABLET. PO SCH ×2 (08:53→13:10)
[2016-10-19] MEDS: LORazepam INTENSOL 2 MG/ML BOTTLE SL SCH ×3 (09:00→16:49)
[2016-10-19] MEDS: QUEtiapine 50 MG TABLET. PO SCH ×2 (12:03→19:49)
[2016-10-19 16:02] VITALS: BP 107/68
[2016-10-19] MEDS: QUEtiapine 25 MG TABLET. PO SCH (16:49)
--- NOTE | 2016-10-19 19:46 | PDOC ---
Exam Mario Alberto Demential Exam: Mario Alberto Note: Please also refer to the separate dictated note~for this date of service dictated separately.~Patient seen individually. Discussed the patient with Nursing staff reviewed the chart.~Reviewed interim history and current functioning. Reviewed vital signs,~Labs/ Radiology~and current medications noted below. Continue current treatment with the changes noted in the dictated addendum note Assessment: Vital Signs: Vital Signs Date Time Temp Pulse Resp B/P (MAP) Pulse Ox O2 Delivery O2 Flow Rate FiO2 10/19/16 16:02 97.2 89 20 107/68 (81) 99 10/17/16 05:56 Room Air I&O Intake and Output 10/20/16 07:00 Intake Total 960 ml Balance 960 ml Intake Oral 960 ml # Bowel Movements 1 Current Medications: Meds: Current Medications Acetaminophen (Tylenol) 650 mg PRN Q6HRS PRN PO PAIN / TEMP; Start 09/12/16 at 20:00; Status UNV Multi-Ingredient Ointment (Analgesic [place]) 1 randee PRN QID PRN TP MUSCLE PAIN; Start 09/12/16 at 20:00; Status UNV Al Hydroxide/Mg Hydroxide (Mylanta Plus Xs) 15 ml PRN AFTMEALHC PRN PO DYSPEPSIA; Start 09/12/16 at 20:00; Status UNV Magnesium Hydroxide (Milk Of Magnesia) 2,400 mg PRN QHS PRN PO CONSTIPATION; Start 09/12/16 at 20:00; Status UNV Duloxetine HCl (Cymbalta) 30 mg DAILY PO Last administered on 10/19/16 08:53; Start 09/13/16 at 09:00 Mirtazapine (Remeron) 7.5 mg QHS PO Last administered on 10/18/16 20:59; Start 09/12/16 at 21:00 Olanzapine (ZyPREXA ZYDIS) 2.5 mg PRN Q2HR PRN PO PSYCHOSIS Last administered on 09/15/16 08:10; Start 09/12/16 at 20:15 Quetiapine Fumarate (SEROquel) 50 mg NOON PO Last administered on 10/19/16 12: 03; Start 09/13/16 at 12:00 Quetiapine Fumarate (SEROquel) 75 mg HS PO Last administered on 10/13/16 19:51 ; Start 09/12/16 at 21:00; Stop 10/14/16 at 18:47; Status DC Melatonin 3 mg QHS PO Last administered on 10/18/16 20:58; Start 09/12/16 at 21 :00 Acetaminophen (Tylenol) 650 mg PRN Q6HRS PRN PO PAIN / TEMP; Start 09/12/16 at 20:15 Acetaminophen/ Hydrocodone Bitart (Lortab 5/325) 1 tab BID PO Last administered on 10/19/16 08:53; Start 09/12/16 at 21:00 Levetiracetam (Keppra) 500 mg BID PO Last administered on 10/18/16 07:29; Start 09/12/16 at 21:00; Stop 10/18/16 at 16:51; Status DC Al Hydroxide/Mg Hydroxide (Mylanta Plus Xs) 15 ml PRN AFTMEALHC PRN PO DYSPEPSIA; Start 09/12/16 at 20:15 Magnesium Hydroxide (Milk Of Magnesia) 2,400 mg PRN QHS PRN PO CONSTIPATION; Start 09/12/16 at 20:15 Multi-Ingredient Ointment (Analgesic [place]) 1 randee PRN QID PRN TP MUSCLE PAIN; Start 09/12/16 at 20:15 Cyanocobalamin (Vitamin B-12) 250 mcg DAILY PO Last administered on 10/19/16 08:53; Start 09/13/16 at 09:00 Buspirone HCl (Buspar) 5 mg BID92 PO Last administered on 09/15/16 13:34; Start 09/13/16 at 09:00; Stop 09/15/16 at 18:27; Status DC Divalproex Sodium (Depakote Sprinkles) 250 mg DAILY PO Last administered on 10:01; Start 09/14/16 at 09:00; Stop 09/17/16 at 10:08; Status DC Lorazepam (Ativan) 0.25 mg PRN Q2HR PRN TP ANXIETY / AGITATION Last administered on 10/18/16 06:37; Start 09/13/16 at 19:15 Hydroxyzine HCl (Atarax) 25 mg PRN Q6HRS PRN PO ANXIETY / AGITATION; Start 09/14 at 14:45; Stop 09/14/16 at 14:45; Status DC Hydroxyzine HCl (Atarax) 25 mg PRN Q6HRS PRN PO ANXIETY/AGITATION Last administered on 09/15/16 14:14; Start 09/14/16 at 15:00 Prenat Multivit/ [place]/Iron/Folic Ac (Multivitamin ) 1 tab DAILY PO Last administered on 10/19/16 08:53; Start 09/15/16 at 10:15 Buspirone HCl (Buspar) 10 mg BID92 PO Last administered on 09/28/16 13:49; Start 09/16/16 at 09:00; Stop 09/28/16 at 18:49; Status DC Lorazepam (Ativan) 1 mg 1X ONCE PO Last administered on 09/16/16 08:07; Start 09/16/16 at 08:15; Stop 09/16/16 at 08:16; Status DC Lorazepam (Ativan Intensol) 1 mg PRN Q4HRS PRN SL ANXIETY / AGITATION Last administered on 09/16/16 13:35; Start 09/16/16 at 13:30 Lorazepam (Ativan Intensol) 0.25 mg TID@0900,1300,1700 SL Last administered on 10/19/16 16:49; Start 09/17/16 at 09:00 Divalproex Sodium (Depakote Sprinkles) 250 mg BID PO Last administered on 07:46; Start 09/17/16 at 21:00; Stop 09/20/16 at 14:56; Status DC Duloxetine HCl (Cymbalta) 30 mg 1X ONCE PO Last administered on 09/18/16 08: 31; Start 09/18/16 at 08:00; Stop 09/18/16 at 08:01; Status DC Divalproex Sodium (Depakote Sprinkles) 250 mg DAILY PO Last administered on 08:15; Start 09/21/16 at 09:00; Stop 09/23/16 at 18:31; Status DC Divalproex Sodium (Depakote Sprinkles) 500 mg HS PO Last administered on 19:23; Start 09/20/16 at 21:00; Stop 09/23/16 at 18:31; Status DC Divalproex Sodium (Depakote Sprinkles) 500 mg BID PO Last administered on 08:52; Start 09/23/16 at 21:00 Buspirone HCl (Buspar) 15 mg BID92 PO Last administered on 10/19/16 13:10; Start 09/29/16 at 09:00 Quetiapine Fumarate (SEROquel) 50 mg HS PO Last administered on 10/18/16 20:59 ; Start 10/14/16 at 21:00 Quetiapine Fumarate (SEROquel) 25 mg DAILY@1700 PO Last administered on 16:49; Start 10/15/16 at 17:00 Active Scripts Active Reported [Ativan Gel 0.5mg/ML] 0.25 Mg TOP PRN Q2HR PRN MDD 1mg Hydroxyzine Hcl 25 Mg Tablet 25 Mg PO PRN Q6HRS PRN MDD 100mg Buspirone Hcl 15 Mg Tablet 15 Mg PO BID92 Multi Tablet (Pnv No.122/Iron/Folic Acid) 1 Each Tablet 1 Tab PO DAILY Lorazepam Intensol (Lorazepam) 2 Mg/1 Ml Oral.conc 0.25 Mg PO TID@0900,1300,1700 ` PRN Depakote Sprinkle (Divalproex Sodium) 125 Mg Cap.sprink 500 Mg PO BID Zyprexa Zydis (Olanzapine) 5 Mg Tab.rapdis 2.5 Mg PO Q2HR PRN Mirtazapine 15 Mg Tablet 7.5 Mg PO QHS Analgesic [place] (Methyl Salicylate/Menthol) 28 Gm Oint...g. 1 [place] TP PRN QID PRN Melatonin 3 Mg Tablet 3 Mg PO QHS Mag-Al Plus Xs Suspension (Mag Hydrox/Al Hydrox/Simeth) 30 Ml Oral.susp 15 Ml PO PRN AFTMEALHC PRN Tylenol (Acetaminophen) 325 Mg Tablet 650 Mg PO PRN Q6HRS PRN Milk Of Magnesia (Magnesium Hydroxide) 400 Mg/5 Ml Oral.susp 2,400 Mg PO PRN QHS PRN Cymbalta (Duloxetine Hcl) 30 Mg Capsule.dr 30 Mg PO DAILY pt has received 3 of 5 scheduled doses Hydrocodone-Apap 5-325 (Hydrocodone Bit/Acetaminophen) 1 Each Tablet 1 Tab PO BID B-12 (Cyanocobalamin (Vitamin B-12)) 500 Mcg Tab.rapdis 250 Mcg PO DAILY Seroquel (Quetiapine Fumarate) 50 Mg Tablet 50 Mg PO BID@1200,2100 Seroquel (Quetiapine Fumarate) 50 Mg Tablet 25 Mg PO DAILY@1700 Diagnosis: Problems: (1) Anxiety disorder (2) Impulse control disorder (3) Dementia, vascular, with depression (4) Dementia, vascular, with delusions (5) Dementia in Alzheimer's disease with delusions (6) Dementia in Alzheimer's disease with depression (7) Frontotemporal dementia with behavioral disturbance ADELA RHODES MD Oct 19, 2016 19:45
[2016-10-19] MEDS: MELATONIN 3 MG TABLET PO SCH (19:49)
[2016-10-19] MEDS: MIRTAZAPINE 7.5 MG TABLET. PO SCH (19:49)
--- NOTE | 2016-10-20 01:19 | PN ---
DATE: 10/18/2016 PSYCHIATRIC PROGRESS NOTE This is a late entry for 10/18/2016, covers elements not covered in my initial note of 10/18/2016. SUBJECTIVE: I met with the patient the evening of 10/18/2016. The patient had a difficult night the previous evening, especially with shower. She was hitting, biting staff, then taken to the room, staring at the window crying. Ativan gel seemed to help in the evening. She has done little better during the day on 10/18/2016. REVIEW OF SYSTEMS: No CV, , pulmonary, eye, ENT system symptoms on review. Reliability poor. MENTAL STATUS EXAM: Oriented to herself. Insight, judgment, recent and remote memory, attention, concentration, fund of knowledge poor, consistent with her diagnosis mentioned in my initial note. PLAN: Continue current psychotropics. Reviewed drug interactions. Risk/benefit ratio favors no further change at this time. ADELA RHODES MD DR: ELIZABETH/wellington JOB#: [id number] / [id number]
[2016-10-20] MEDS: DULoxetine HCL 30 MG CAPSULE.DR PO SCH (09:00)
[2016-10-20] MEDS: busPIRone 15 MG TABLET. PO SCH (09:28)
[2016-10-20] MEDS: HYDROcodone/APAP 5/325MG 1 TAB TABLET PO SCH (09:29)
[2016-10-20] MEDS: CYANOCOBALAMIN (VITAMIN B-12) 250 MCG TABLET PO SCH (09:29)
[2016-10-20] MEDS: PRENATAL MULTIVITAMIN TABLET. PO SCH (09:29)
[2016-10-20] MEDS: DIVALPROEX 125 MG CAP.SPRINK PO SCH (09:30)
[2016-10-20] MEDS: LORazepam INTENSOL 2 MG/ML BOTTLE SL SCH (09:31)
[2016-10-20] MEDS: hydrOXYzine HCL 10 MG/5 ML SYRUP PO PRN (10:25)
--- NOTE | 2016-10-20 21:31 | PDOC ---
Exam Mario Alberto Demential Exam: Mario Alberto Note: Please also refer to the separate dictated note~for this date of service dictated separately.~Patient seen individually. Discussed the patient with Nursing staff reviewed the chart.~Reviewed interim history and current functioning. Reviewed vital signs,~Labs/ Radiology~and current medications noted below. Continue current treatment with the changes noted in the dictated addendum note Assessment: Vital Signs: Vital Signs Date Time Temp Pulse Resp B/P (MAP) Pulse Ox O2 Delivery O2 Flow Rate FiO2 10/20/16 10:29 99 10/19/16 16:02 97.2 89 20 107/68 (81) 10/17/16 05:56 Room Air I&O Intake and Output 10/21/16 07:00 Intake Total 240 ml Balance 240 ml Intake Oral 240 ml Current Medications: Meds: Current Medications Acetaminophen (Tylenol) 650 mg PRN Q6HRS PRN PO PAIN / TEMP; Start 09/12/16 at 20:00; Status UNV Multi-Ingredient Ointment (Analgesic Mccoy) 1 randee PRN QID PRN TP MUSCLE PAIN; Start 09/12/16 at 20:00; Status UNV Al Hydroxide/Mg Hydroxide (Mylanta Plus Xs) 15 ml PRN AFTMEALHC PRN PO DYSPEPSIA; Start 09/12/16 at 20:00; Status UNV Magnesium Hydroxide (Milk Of Magnesia) 2,400 mg PRN QHS PRN PO CONSTIPATION; Start 09/12/16 at 20:00; Status UNV Duloxetine HCl (Cymbalta) 30 mg DAILY PO Last administered on 10/20/16 09:00; Start 09/13/16 at 09:00; Stop 10/20/16 at 11:33; Status DC Mirtazapine (Remeron) 7.5 mg QHS PO Last administered on 10/19/16 19:49; Start 09/12/16 at 21:00; Stop 10/20/16 at 11:33; Status DC Olanzapine (ZyPREXA ZYDIS) 2.5 mg PRN Q2HR PRN PO PSYCHOSIS Last administered on 09/15/16 08:10; Start 09/12/16 at 20:15; Stop 10/20/16 at 11:33; Status DC Quetiapine Fumarate (SEROquel) 50 mg NOON PO Last administered on 10/19/16 12: 03; Start 09/13/16 at 12:00; Stop 10/20/16 at 11:33; Status DC Quetiapine Fumarate (SEROquel) 75 mg HS PO Last administered on 10/13/16 19:51 ; Start 09/12/16 at 21:00; Stop 10/14/16 at 18:47; Status DC Melatonin 3 mg QHS PO Last administered on 10/19/16 19:49; Start 09/12/16 at 21 :00; Stop 10/20/16 at 11:33; Status DC Acetaminophen (Tylenol) 650 mg PRN Q6HRS PRN PO PAIN / TEMP; Start 09/12/16 at 20:15; Stop 10/20/16 at 11:33; Status DC Acetaminophen/ Hydrocodone Bitart (Lortab 5/325) 1 tab BID PO Last administered on 10/20/16 09:29; Start 09/12/16 at 21:00; Stop 10/20/16 at 11:33 ; Status DC Levetiracetam (Keppra) 500 mg BID PO Last administered on 10/18/16 07:29; Start 09/12/16 at 21:00; Stop 10/18/16 at 16:51; Status DC Al Hydroxide/Mg Hydroxide (Mylanta Plus Xs) 15 ml PRN AFTMEALHC PRN PO DYSPEPSIA; Start 09/12/16 at 20:15; Stop 10/20/16 at 11:33; Status DC Magnesium Hydroxide (Milk Of Magnesia) 2,400 mg PRN QHS PRN PO CONSTIPATION; Start 09/12/16 at 20:15; Stop 10/20/16 at 11:33; Status DC Multi-Ingredient Ointment (Analgesic Mccoy) 1 randee PRN QID PRN TP MUSCLE PAIN; Start 09/12/16 at 20:15; Stop 10/20/16 at 11:33; Status DC Cyanocobalamin (Vitamin B-12) 250 mcg DAILY PO Last administered on 10/20/16 09:29; Start 09/13/16 at 09:00; Stop 10/20/16 at 11:33; Status DC Buspirone HCl (Buspar) 5 mg BID92 PO Last administered on 09/15/16 13:34; Start 09/13/16 at 09:00; Stop 09/15/16 at 18:27; Status DC Divalproex Sodium (Depakote Sprinkles) 250 mg DAILY PO Last administered on 10:01; Start 09/14/16 at 09:00; Stop 09/17/16 at 10:08; Status DC Lorazepam (Ativan) 0.25 mg PRN Q2HR PRN TP ANXIETY / AGITATION Last administered on 10/18/16 06:37; Start 09/13/16 at 19:15; Stop 10/20/16 at 11:33 ; Status DC Hydroxyzine HCl (Atarax) 25 mg PRN Q6HRS PRN PO ANXIETY / AGITATION; Start 09/14 at 14:45; Stop 09/14/16 at 14:45; Status DC Hydroxyzine HCl (Atarax) 25 mg PRN Q6HRS PRN PO ANXIETY/AGITATION Last administered on 10/20/16 10:25; Start 09/14/16 at 15:00; Stop 10/20/16 at 11:33 ; Status DC Prenat Multivit/ [place]/Iron/Folic Ac (Multivitamin ) 1 tab DAILY PO Last administered on 10/20/16 09:29; Start 09/15/16 at 10:15; Stop 10/20/16 at 11:33; Status DC Buspirone HCl (Buspar) 10 mg BID92 PO Last administered on 09/28/16 13:49; Start 09/16/16 at 09:00; Stop 09/28/16 at 18:49; Status DC Lorazepam (Ativan) 1 mg 1X ONCE PO Last administered on 09/16/16 08:07; Start 09/16/16 at 08:15; Stop 09/16/16 at 08:16; Status DC Lorazepam (Ativan Intensol) 1 mg PRN Q4HRS PRN SL ANXIETY / AGITATION Last administered on 09/16/16 13:35; Start 09/16/16 at 13:30; Stop 10/20/16 at 11:33; Status DC Lorazepam (Ativan Intensol) 0.25 mg TID@0900,1300,1700 SL Last administered on 10/20/16 09:31; Start 09/17/16 at 09:00; Stop 10/20/16 at 11:33; Status DC Divalproex Sodium (Depakote Sprinkles) 250 mg BID PO Last administered on 07:46; Start 09/17/16 at 21:00; Stop 09/20/16 at 14:56; Status DC Duloxetine HCl (Cymbalta) 30 mg 1X ONCE PO Last administered on 09/18/16 08: 31; Start 09/18/16 at 08:00; Stop 09/18/16 at 08:01; Status DC Divalproex Sodium (Depakote Sprinkles) 250 mg DAILY PO Last administered on 08:15; Start 09/21/16 at 09:00; Stop 09/23/16 at 18:31; Status DC Divalproex Sodium (Depakote Sprinkles) 500 mg HS PO Last administered on 19:23; Start 09/20/16 at 21:00; Stop 09/23/16 at 18:31; Status DC Divalproex Sodium (Depakote Sprinkles) 500 mg BID PO Last administered on 09:30; Start 09/23/16 at 21:00; Stop 10/20/16 at 11:33; Status DC Buspirone HCl (Buspar) 15 mg BID92 PO Last administered on 10/20/16 09:28; Start 09/29/16 at 09:00; Stop 10/20/16 at 11:33; Status DC Quetiapine Fumarate (SEROquel) 50 mg HS PO Last administered on 10/19/16 19:49 ; Start 10/14/16 at 21:00; Stop 10/20/16 at 11:33; Status DC Quetiapine Fumarate (SEROquel) 25 mg DAILY@1700 PO Last administered on 16:49; Start 10/15/16 at 17:00; Stop 10/20/16 at 11:33; Status DC Active Scripts Active Reported [Ativan Gel 0.5mg/ML] 0.25 Mg TOP PRN Q2HR PRN MDD 1mg Hydroxyzine Hcl 25 Mg Tablet 25 Mg PO PRN Q6HRS PRN MDD 100mg Buspirone Hcl 15 Mg Tablet 15 Mg PO BID92 Multi Tablet (Pnv No.122/Iron/Folic Acid) 1 Each Tablet 1 Tab PO DAILY Lorazepam Intensol (Lorazepam) 2 Mg/1 Ml Oral.conc 0.25 Mg PO TID@0900,1300,1700 ` PRN Depakote Sprinkle (Divalproex Sodium) 125 Mg Cap.sprink 500 Mg PO BID Zyprexa Zydis (Olanzapine) 5 Mg Tab.rapdis 2.5 Mg PO Q2HR PRN Mirtazapine 15 Mg Tablet 7.5 Mg PO QHS Analgesic Mccoy (Methyl Salicylate/Menthol) 28 Gm Oint...g. 1 Randee TP PRN QID PRN Melatonin 3 Mg Tablet 3 Mg PO QHS Mag-Al Plus Xs Suspension (Mag Hydrox/Al Hydrox/Simeth) 30 Ml Oral.susp 15 Ml PO PRN AFTMEALHC PRN Tylenol (Acetaminophen) 325 Mg Tablet 650 Mg PO PRN Q6HRS PRN Milk Of Magnesia (Magnesium Hydroxide) 400 Mg/5 Ml Oral.susp 2,400 Mg PO PRN QHS PRN Cymbalta (Duloxetine Hcl) 30 Mg Capsule.dr 30 Mg PO DAILY pt has received 3 of 5 scheduled doses Hydrocodone-Apap 5-325 (Hydrocodone Bit/Acetaminophen) 1 Each Tablet 1 Tab PO BID B-12 (Cyanocobalamin (Vitamin B-12)) 500 Mcg Tab.rapdis 250 Mcg PO DAILY Seroquel (Quetiapine Fumarate) 50 Mg Tablet 50 Mg PO BID@1200,2100 Seroquel (Quetiapine Fumarate) 50 Mg Tablet 25 Mg PO DAILY@1700 Diagnosis: Problems: (1) Anxiety disorder (2) Impulse control disorder (3) Dementia, vascular, with depression (4) Dementia, vascular, with delusions (5) Dementia in Alzheimer's disease with delusions (6) Dementia in Alzheimer's disease with depression (7) Frontotemporal dementia with behavioral disturbance ADELA RHODES MD Oct 20, 2016 21:31
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
== END 2016-10-20 11:32 | DRG 884 ==
LOC: EEVIPCON → GEROPSY 17:50
PROVIDERS: ADMIT Psychiatry & Neurology Psychiatry; ATTEND Psychiatry & Neurology Psychiatry
DX: F01.50 Vascular dementia, unspecified severity, without behavioral disturbance, psychotic disturbance, mood disturbance, and anxiety (principal); G30.9 Alzheimer's disease, unspecified; F02.81 Dementia in other diseases classified elsewhere, unspecified severity, with behavioral disturbance; G31.09 Other frontotemporal neurocognitive disorder; D50.9 Iron deficiency anemia, unspecified; E78.5 Hyperlipidemia, unspecified; F22 Delusional disorders; F32.9 Major depressive disorder, single episode, unspecified; F41.9 Anxiety disorder, unspecified; F63.9 Impulse disorder, unspecified; G40.909 Epilepsy, unspecified, not intractable, without status epilepticus; G47.00 Insomnia, unspecified; M54.9 Dorsalgia, unspecified; Z79.899 Other long term (current) drug therapy; Z87.440 Personal history of urinary (tract) infections; Z90.710 Acquired absence of both cervix and uterus
CPT/HCPCS: 36415; 80053; 80061; 80164; 81001; 82306; 82607; 83036; 83540; 83550; 83735; 84436; 84443; 84480; 85025; 85027; 86592; 86593; 87086